=== PATIENT | male | born 1940 | race Hispanic/Latino ===

== ENCOUNTER 2017-12-30 11:16 | Emergency (ER) | payer OTHER ==
--- OUTSIDE RECORDS SUMMARY | 2017-12-30 11:18 | XMS REPORT | Clinical Summary ---
:1940 Author Organization [facility] Address [address] [place] [address] Care Team Providers Name Role Phone Jonel Comer MD Primary Care Provider Allergies Active Allergy Reactions Severity Noted Date Comments Iodine And Iodide Containing Products Hives Medium 12/15/2017 Current Medications Prescription Sig. Disp. Refills Start Date End Date Status linagliptin Take 1 tablet 30 tablet 3 12/22/2017 Active (TRADJENTA) 5 mg (5 mg total) by 8 tablet mouth daily with breakfast for 30 days. lisinopril Take 1 tablet 60 tablet 3 12/21/2017 Active (PRINIVIL,ZESTRIL) (20 mg total) 8 20 mg tablet by mouth 2 (two) times a day for 30 days. budesonide-formoter Inhale 2 puffs 1 Inhaler 6 12/21/2017 Active ol (SYMBICORT) 2 (two) times a 8 160-4.5 day for 30 mcg/actuation days. Unsure of inhaler dosage atenolol (TENORMIN) Take 1 tablet 30 tablet 3 12/21/2017 Active 50 MG tablet (50 mg total) 8 by mouth daily for 30 days. insulin GLARGINE Inject 10 Units 3 mL 3 12/21/2017 Active (LANTUS) 100 under the skin 8 unit/mL injection nightly for 30 (vial) days. docusate sodium Take 1 capsule 60 capsule 0 12/21/2017 Active (COLACE) 100 MG (100 mg total) 8 capsule by mouth 2 (two) times a day for 30 days. polyethylene glycol Take 17 g by 30 packet 0 12/22/2017 Active (MIRALAX) 17 gram mouth daily for 8 packet 30 days. aspirin (ECOTRIN) Take 1 tablet 100 tablet 3 12/21/2017 Active 81 MG enteric (81 mg total) 8 coated tablet by mouth daily for [address] 1 tablet 90 tablet 12 12/21/2017 Active (NITROSTAT) 0.4 MG (0.4 mg total) 8 SL tablet under the tongue every 5 (five) minutes as needed for chest pain for up to 100 days. glimepiride Take 2 mg by Discontinued (AMARYL) 2 MG mouth daily 8 tablet before breakfast. metFORMIN Take 500 mg by Discontinued (GLUCOPHAGE) 500 mg mouth BID at 8 tablet 0700, 1900. atenolol (TENORMIN) Take 50 mg by Discontinued 50 MG tablet mouth daily. 8 aspirin (ECOTRIN) Take 81 mg by Discontinued 81 MG enteric mouth daily. 8 coated tablet furosemide (LASIX) Take 40 mg by Discontinued 40 mg/4 mL solution mouth daily. 8 oral solution budesonide-formoter Inhale 2 puffs Discontinued ol (SYMBICORT) 2 (two) times a 8 160-4.5 day. Unsure of mcg/actuation dosage inhaler Active Problems Problem Noted Date Atrial fibrillation 12/15/2017 Type 2 diabetes mellitus 12/15/2017 Coronary artery disease involving [place] tribe coronary artery 12/15/2017 Mild intermittent asthma 12/15/2017 Asbestosis 04/17/1992 Encounters Date Type Specialty Care Team Description 12/21/2017 Telephone Cardiology Irina Vang 12/15/2017 - Hospital Encounter Cardiology Yancy Leyva Paroxysmal atrial fibrillation (Primary Dx); 12/21/2017 O. Sr.MD Asbestosis; Type 2 diabetes mellitus with hyperosmolarity without coma, unspecified byproducts supervisor insulin use status; Coronary artery disease involving [place] coronary artery of chick[place]ian tribe heart without angina pectoris; Mild intermittent asthma without complication 12/15/2017 Intake Access N/A after 12/29/2016 Family History Medical History Relation Name Comments Early Father Diabetes Mother Hypertension Mother Relation Name Status Comments Father Mother Social History Tobacco Use Types Packs/Day Years Used Date Former Smoker Cigarettes Started: 1997 Smokeless Tobacco: Never Used Alcohol Use Drinks/Week oz/Week Comments No Sex Assigned at Date Recorded Not on file Last Filed Vital Signs Vital Sign Reading Time Taken Blood Pressure 163/75 12/21/2017 10:59 AM CDT Pulse 68 12/21/2017 10:59 AM CDT Temperature 35.9 C (96.6 F) 12/21/2017 10:59 AM CDT Respiratory Rate 18 12/21/2017 10:59 AM CDT Oxygen Saturation 97% 12/21/2017 10:59 AM CDT Inhaled Oxygen Concentration - - Weight 85.6 kg (188 lb 12.8 oz) 12/20/2017 5:28 AM CDT Height 170.2 cm (5' 7") 12/17/2017 9:17 AM CDT Body Mass Index 29.57 12/20/2017 5:28 AM CDT Plan of Treatment Date Type Specialty Care Team Description 02/06/2018 Office Visit Endocrinology Karime Jade MD [address] [address] Health Maintenance Due Date Last Done Comments DIABETIC FOOT EXAM 1952 DIABETIC RETINAL EYE EXAM 1950 URINE MICROALBUMIN 1952 COLON CANCER SCREENING 1992 SHINGRIX VACCINE (#1) 1992 ZOSTER VACCINE 2002 PNEUMOCOCCAL POLYSACCHARIDE VACCINE AGE 65 AND OVER 2007 PNEUMOCOCCAL-13 2007 INFLUENZA VACCINE 11/15/2017 Implants Implanted Type Area [employer] Lunch Monitor Device Expiration Date Model / Serial Identifier / Lot Lens-11/08/2017 Lens [id number] / Implanted: 11/08/2017 (Quantity not on file) [id number] / Procedures Procedure Name Priority Date/Time Associated Comments Diagnosis POC GLUCOSE Routine 12/21/2017 11:00 Results for this AM CDT procedure are in the results section. POC GLUCOSE Routine 12/21/2017 7:42 Results for this AM CDT procedure are in the results section. POC GLUCOSE Routine 12/20/2017 9:07 Results for this PM CDT procedure are in the results section. POC GLUCOSE Routine 12/20/2017 5:22 Results for this PM CDT procedure are in the results section. POC GLUCOSE Routine 12/20/2017 11:17 Results for this AM CDT procedure are in the results section. POC GLUCOSE Routine 12/20/2017 7:32 Results for this AM CDT procedure are in the results section. HEMOGLOBIN A1C Routine 12/20/2017 5:32 Results for this AM CDT procedure are in the results section. MAGNESIUM LEVEL Routine 12/20/2017 4:00 Results for this AM CDT procedure are in the results section. ZZESTIMATED GFR Routine 12/20/2017 4:00 Results for this AM CDT procedure are in the results section. BASIC METABOLIC PANEL Routine 12/20/2017 4:00 Results for this AM CDT procedure are in the results section. POC GLUCOSE Routine 12/19/2017 9:41 Results for this PM CDT procedure are in the results section. POC GLUCOSE Routine 12/19/2017 5:11 Results for this PM CDT procedure are in the results section. POC GLUCOSE Routine 12/19/2017 11:24 Results for this AM CDT procedure are in the results section. POC GLUCOSE Routine 12/19/2017 7:11 Results for this AM CDT procedure are in the results section. HC COMPLETE BLD COUNT Routine 12/19/2017 6:45 Results for this W/AUTO DIFF AM CDT procedure are in the results section. ZZESTIMATED GFR Routine 12/19/2017 6:18 Results for this AM CDT procedure are in the results section. TROPONIN Routine 12/19/2017 6:18 Results for this AM CDT procedure are in the results section. BASIC METABOLIC PANEL Routine 12/19/2017 6:18 Results for this AM CDT procedure are in the results section. ECG 12-LEAD STAT 12/19/2017 1:37 Results for this AM CDT procedure are in the results section. POC GLUCOSE Routine 12/18/2017 9:30 Results for this PM CDT procedure are in the results section. POC GLUCOSE Routine 12/18/2017 5:17 Results for this PM CDT procedure are in the results section. POC GLUCOSE Routine 12/18/2017 11:28 Results for this AM CDT procedure are in the results section. POC GLUCOSE Routine 12/18/2017 7:17 Results for this AM CDT procedure are in the results section. MAGNESIUM LEVEL Routine 12/18/2017 4:00 Results for this AM CDT procedure are in the results section. ZZESTIMATED GFR Routine 12/18/2017 4:00 Results for this AM CDT procedure are in the results section. BASIC METABOLIC PANEL Routine 12/18/2017 4:00 Results for this AM CDT procedure are in the results section. POC GLUCOSE Routine 12/17/2017 9:16 Results for this PM CDT procedure are in the results section. POC GLUCOSE Routine 12/17/2017 4:42 Results for this PM CDT procedure are in the results section. NM MYOCARDIAL PERFUSION Routine 12/17/2017 11:33 Results for this STRESS ONLY AM CDT procedure are in the results section. POC GLUCOSE Routine 12/17/2017 10:46 Results for this AM CDT procedure are in the results section. CV STRESS TEST NUCLEAR Routine 12/17/2017 9:15 Results for this CARDIO AM CDT procedure are in the results section. POC GLUCOSE Routine 12/17/2017 7:46 Results for this AM CDT procedure are in the results section. ZZESTIMATED GFR Routine 12/17/2017 4:59 Results for this AM CDT procedure are in the results section. BASIC METABOLIC PANEL Routine 12/17/2017 4:59 Results for this AM CDT procedure are in the results section. POC GLUCOSE Routine 12/16/2017 9:42 Results for this PM CDT procedure are in the results section. POC GLUCOSE Routine 12/16/2017 5:09 Results for this PM CDT procedure are in the results section. POC GLUCOSE Routine 12/16/2017 12:12 Results for this PM CDT procedure are in the results section. POC GLUCOSE Routine 12/16/2017 9:01 Results for this AM CDT procedure are in the results section. ECHOCARDIOGRAM 2D Routine 12/16/2017 8:10 Results for this COMPLETE W MMODE AM CDT procedure are in SPECTRAL COLOR DOPPLER the results (77018) section. HEMOGLOBIN A1C Routine 12/16/2017 5:11 Results for this AM CDT procedure are in the results section. HC COMPLETE BLD COUNT Routine 12/16/2017 5:11 Results for this W/AUTO DIFF AM CDT procedure are in the results section. ZZESTIMATED GFR Routine 12/16/2017 4:00 Results for this AM CDT procedure are in the results section. T4, FREE Routine 12/16/2017 4:00 Results for this AM CDT procedure are in the results section. THYROID STIMULATING Routine 12/16/2017 4:00 Results for this HORMONE AM CDT procedure are in the results section. LIPID PANEL Routine 12/16/2017 4:00 Results for this AM CDT procedure are in the results section. BASIC METABOLIC PANEL Routine 12/16/2017 4:00 Results for this AM CDT procedure are in the results section. POC GLUCOSE Routine 12/15/2017 10:06 Results for this PM CDT procedure are in the results section. ECG 12-LEAD Routine 12/15/2017 9:55 Results for this PM CDT procedure are in the results section. CREATINE KINASE, TOTAL Routine 12/15/2017 9:08 Results for this (CPK) PM CDT procedure are in the results section. TROPONIN Routine 12/15/2017 9:08 Results for this PM CDT procedure are in the results section. after 12/29/2016 Results POC glucose (12/21/2017 11:00 AM)Only the most recent of23 resultswithin the time period is included. POC glucose 230 (H) 65 - 99 mg/dL [facility] DEPARTMENT OF PATHOLOGY AND Comment: [employer] [facility] Notified RN Meter ID: [id number] Rope Making Machine Operator: Norris Sanches Performing Organization Address City/State/[facility] Phone Number [facility] DEPARTMENT OF PATHOLOGY AND [address] [place] [address] [employer] [facility] Hemoglobin A1c (12/20/2017 5:32 AM)Only the most recent of2 resultswithin the time period is included. Hemoglobin A1C 8.9 (H) 4.0 - 5.6 % [facility] DEPARTMENT OF PATHOLOGY Comment: AND [employer] [facility] HbA1c cutoffs for diagnosing diabetes: 4.0% - 5.6%=normal 5.7% - 6.4%=increased risk for diabetes (prediabetes) >=6.5%=diabetes Goals for glycemic control (ADA 2016) < 7.0%Target for non adults with diabetes. More or less stringent targets may be appropriate for individual patients. <7.5% Target for Children and adolescents with type 1 diabetes. Specimen Blood Narrative Performed At added and read back to Rosa Maria Rudolph [facility] DEPARTMENT OF PATHOLOGY AND GENOMIC in A7 12/20/2017 06:25 LMID. MEDICINE Performing Organization Address City/[facility] Facility[facility] Phone Number [facility] DEPARTMENT OF PATHOLOGY AND [address] [place] [address] [employer] [facility] Estimated GFR (12/20/2017 4:00 AM)Only the most recent of5 resultswithin the time period is included. GFR Non Af Amer 49 (A) mL/min/1.73 m2 [facility] DEPARTMENT OF PATHOLOGY AND GENOMIC MEDICINE GFR Af Amer 60 mL/min/1.73 m2 [facility] DEPARTMENT OF Comment: PATHOLOGY AND GENOMIC Chronic kidney disease: <60 mL/min/1.73m2 MEDICINE Kidney failure: <15 mL/min/1.73m2 The estimated GFR is calculated from the IDMS-traceable Modification of Diet in Renal Disease Equation. The accuracy of the calculation is poor when the creatinine is normal. Calculated values >90 mL/min/1.73m2 are not reported. This equation has not been validated in children (<18 years), women, the elderly (>70 years), or ethnic groups other than Caucasians and Americans. Specimen Plasma specimen Narrative Performed At MG added and read back to Rosa Maria Rudolph [facility] DEPARTMENT OF PATHOLOGY AND GENOMIC in A7 12/20/2017 06:25 LMID. MEDICINE Performing Organization Address City/State/Zipcode Phone Number [facility] DEPARTMENT OF PATHOLOGY AND [address] [place], [place] [id number] [facility] Magnesium level (12/20/2017 4:00 AM)Only the most recent of2 resultswithin the time period is included. Magnesium 2.0 1.6 - 2.4 mg/dL [facility] DEPARTMENT OF PATHOLOGY AND GENOMIC MEDICINE Specimen Plasma specimen Narrative Performed At MG added and read back to Rosa Maria [facility] DEPARTMENT OF PATHOLOGY AND GENOMIC in A7 12/20/2017 06:25 LMID. MEDICINE Performing Organization Address City/[facility]/Zipcode Phone Number [facility] DEPARTMENT OF PATHOLOGY AND [address] [place] [id number] [facility] Basic metabolic panel (12/20/2017 4:00 AM)Only the most recent of5 resultswithin the time period is included. Sodium 140 135 - 148 mEq/L [facility] DEPARTMENT OF PATHOLOGY AND GENOMIC MEDICINE Potassium 4.2 3.5 - 5.0 mEq/L [facility] DEPARTMENT OF PATHOLOGY AND GENOMIC MEDICINE Chloride 105 98 - 112 mEq/L [facility] DEPARTMENT OF PATHOLOGY AND GENOMIC MEDICINE CO2 20 (L) 24 - 31 mEq/L [facility] DEPARTMENT OF PATHOLOGY AND GENOMIC MEDICINE Anion gap 15@ANIO 7 - 15 mEq/L [facility] DEPARTMENT OF PATHOLOGY AND GENOMIC MEDICINE BUN 37 (H) 8 - 23 mg/dL [facility] DEPARTMENT OF PATHOLOGY AND GENOMIC MEDICINE Creatinine 1.4 (H) 0.7 - 1.2 mg/dL [facility] DEPARTMENT OF PATHOLOGY AND GENOMIC MEDICINE Glucose 151 (H) 65 - 99 mg/dL [facility] DEPARTMENT OF PATHOLOGY AND GENOMIC MEDICINE Calcium 8.9 8.8 - 10.2 mg/dL [facility] DEPARTMENT OF PATHOLOGY AND GENOMIC MEDICINE Specimen Plasma specimen Narrative Performed At added and read back to Rosa Maria Rudolph [facility] DEPARTMENT OF PATHOLOGY AND GENOMIC in A7 12/20/2017 06:25 LMID. MEDICINE Performing Organization Address City/State/Zipcode Phone Number [facility] DEPARTMENT OF PATHOLOGY AND [address] [place] [address] GENOMIC MEDICINE CBC with platelet and differential (12/19/2017 6:45 AM)Only the most recent of2 resultswithin the time period is included. WBC 7.16 4.50 - 11.00 k/uL [facility] DEPARTMENT OF PATHOLOGY AND GENOMIC MEDICINE RBC 3.75 (L) 4.40 - 6.00 m/uL [facility] DEPARTMENT OF PATHOLOGY AND GENOMIC MEDICINE HGB 11.3 (L) 14.0 - 18.0 g/dL [facility] DEPARTMENT OF PATHOLOGY AND GENOMIC MEDICINE HCT 34.9 (L) 41.0 - 51.0 % [facility] DEPARTMENT OF PATHOLOGY AND GENOMIC MEDICINE MCV 93.1 82.0 - 100.0 fL [facility] DEPARTMENT OF PATHOLOGY AND GENOMIC MEDICINE MCH 30.1 27.0 - 34.0 pg [facility] DEPARTMENT OF PATHOLOGY AND GENOMIC MEDICINE MCHC 32.4 31.0 - 37.0 g/dL [facility] DEPARTMENT OF PATHOLOGY AND GENOMIC MEDICINE RDW - SD 46.5 37.0 - 55.0 fL [facility] DEPARTMENT OF PATHOLOGY AND GENOMIC MEDICINE MPV 11.0 8.8 - 13.2 fL [facility] DEPARTMENT OF PATHOLOGY AND GENOMIC MEDICINE Platelet count 153 150 - 400 k/uL [facility] DEPARTMENT OF PATHOLOGY AND GENOMIC MEDICINE Nucleated RBC 0.00 /100 WBC [facility] DEPARTMENT OF PATHOLOGY AND GENOMIC MEDICINE Neutrophils 68.1 39.0 - 69.0 % [facility] DEPARTMENT OF PATHOLOGY AND GENOMIC MEDICINE Lymphocytes 15.8 (L) 25.0 - 45.0 % [facility] DEPARTMENT OF PATHOLOGY AND GENOMIC MEDICINE Monocytes 9.9 0.0 - 10.0 % [facility] DEPARTMENT OF PATHOLOGY AND GENOMIC MEDICINE Eosinophils 5.0 0.0 - 5.0 % [facility] DEPARTMENT OF PATHOLOGY AND GENOMIC MEDICINE Basophils 0.8 0.0 - 1.0 % [facility] DEPARTMENT OF PATHOLOGY AND GENOMIC MEDICINE Immature granulocytes 0.4Comment: 0.0 - 1.0 % [facility] DEPARTMENT OF "Immature PATHOLOGY AND GENOMIC granulocytes" MEDICINE (promyelocytes, myelocytes, metamyelocytes) Specimen Blood Performing Organization Address City/[facility] Facilitycode Phone Number [facility] DEPARTMENT OF PATHOLOGY AND [address] [place] [address] Troponin (12/19/2017 6:18 AM)Only the most recent of2 resultswithin the time period is included. Troponin <0.30 0.00 - 0.30 ng/mL [facility] DEPARTMENT OF PATHOLOGY Comment: AND GENOMIC MEDICINE 0.30 - 1.49 ng/mlMay indicate increased risk of acute coronary syndrome. >=1.5 ng/mlConsistent with acute myocardial infarction. The diagnostic value of a single normal or non-diagnostic result is questionable.Serial samples at 2-6 hour intervals are required to rule out acute myocardial injury. Specimen Plasma specimen Performing Organization Address [facility] Facilitycosd Phone Number [facility] DEPARTMENT OF PATHOLOGY AND [address] [place] [address] ECG 12 lead (12/19/2017 1:37 AM)Only the most recent of2 resultswithin the time period is included. Ventricular rate 67 [facility] Atrial rate 67 [facility] SC interval 166 [facility] QRSD interval 84 [facility] QT interval 436 [facility] QTC interval 460 [facility] P axis 1 58 [facility] QRS axis 1 51 [facility] T wave axis 193 [facility] MUSE EKG impression Sinus rhythm with premature atrial [facility] MUSE complexes-T wave abnormality, consider inferolateral ischemia-Voltage criteria for left ventricular hypertrophy- Performing Organization Address [facility] Facility[facility] Phone Number [facility] MUSE [address] [place] [address] Cv myocardial perfusion (12/17/2017 11:33 AM) Narrative Performed At [facility] Card[facility] [address] [place] [address] Myocardial Perfusion Imaging Report Stress ECG tracings are available in MUSE, EPIC and CV Web All ECG interpretations are included in this report Pat.Name:ARY HAINES Pat.ID:[id number] .Date: 12/17/2017Refer.MD:YANCY LEYVA MD Exam Time: 11:02:00 AM Study Type:Myocardial Perfusion Imaging Height:67inBSA: 1.93 m2 DOBAge:1940,77YSex: MALE BP:179/74HR: 65 bpm HCT: 36.6 % Nuclear Tech:CARLITO AshbyMT, CARLITO CmMT Pat. Stat.:Inpatient Room:[facility] Nuclear Event ID:[id number] Order ID:[id number] Reason for Study:Chest pain, unspecified* History / Clinical:Coronary artery disease, Diabetes, Family history CAD, Hyperlipidemia, Hypertension, Asthma ROUTINE INHALERS , Tobacco use (including smokeless tobacco) Procedures:Stress only Race: Risk Factors:Diabetes, Cardiovascular Disease, Hyperlipidemia, Hypertension, Smoker Clinical Symptoms:Regadenoson Surgery: K+ 12/16/17,4.3; Troponin 12/15/17,Neg; BUN/ Cr 12/16/17, 20/ 1.1; Medications:Aspirin, Atenolol, Insulin, Lasix, Lovenox SUMMARY: SCINTIGRAPHIC RESULTS Perfusion Defect Size (% LV) 0 % Total 0 % Ischemia 0 % Scar Left Ventricular Perfusion Results There is normal tracer distribution throughout the myocardium during stress. Gated SPECT Results The post-stress left ventricular ejection fraction is 71 % with normal regional wall motion and left ventricular thickening.Left ventricular end-diastolic volume is 118 ml; end-systolic volume is34 ml. The left ventricle is of normal size at stress.The right ventricle is of normal size with normal wall motion. Conclusion Normal regadenoson Tc-99m tetrofosmin myocardial perfusion study. The left ventricular ejection fraction is normal. Comments Patients with a normal stress myocardial perfusion study have a low (< 1%) annual risk of cardiac or nonfatal myocardial infarction. Study Quality/Artifacts The study quality is good. Comparison to Previous Study None available. STRESS: Baseline Vital Signs:Intervention: Regadenoson 0.4mg/5ml IV over 10 seconds followed by radiotracer injection and 5ml saline flush ECG: Normal Sinus Rhythm HR:65 BP:179/74 Stress Test Results: Max HR:85 Target HR: 123 % Target:69 % Max BP:189/80O2 sat:99 % Max RPP: [id number] Symptoms and Complications: Arrhythmias: None Terminated: As per Regadenoson protocol Symptoms:Chest pain, Chest pressure, Dyspnea Signed 12/17/2017 01:32 PM Geri Silva MD Procedure Note Interface, Radiology Results In - 12/17/2017 1:32 PM CDT Nuclear Cardiology and Cardiac CT [address] [place] [address] Myocardial Perfusion Imaging Report Stress ECG tracings are available in [employer], [employer] and [employer] Web All ECG interpretations are included in this report Pat.Name: ARY HAINES Pat.ID: [id number] .Date: 12/17/2017 Refer.MD: YANCY LEYVA MD Exam Time: 11:02:00 AM Study Type:Myocardial Perfusion Imaging Height: 67in BSA: 1.93 m2 Age: 1 1940,77Y Sex: MALE BP: 179/74 HR: 65 bpm HCT: 36.6 % Nuclear Tech:CARLITO AshbyMT, CARLITO CmMT Pat. Stat.:Inpatient Room: [facility] Nuclear Event ID:[id number] Order ID: [id number] Reason for Study:Chest pain, unspecified* History / Clinical:Coronary artery disease, Diabetes, Family history CAD, Hyperlipidemia, Hypertension, Asthma ROUTINE INHALERS , Tobacco use (including smokeless tobacco) Procedures:Stress only Race: Risk Factors:Diabetes, Cardiovascular Disease, Hyperlipidemia, Hypertension, Smoker Clinical Symptoms:Regadenoson Surgery: K+ 12/16/17, 4.3; Troponin 12/15/17, Neg; BUN/ Cr 12/16/17, 20.1; Medications:Aspirin, Atenolol, Insulin, Lasix, Lovenox SUMMARY: SCINTIGRAPHIC RESULTS Perfusion Defect Size (% LV) 0 % Total 0 % Ischemia 0 % Scar Left Ventricular Perfusion Results There is normal tracer distribution throughout the myocardium during stress. Gated SPECT Results The post-stress left ventricular ejection fraction is 71 % with normal regional wall motion and left ventricular thickening. Left ventricular end-diastolic volume is 118 ml; end-systolic volume is 34 ml. The left ventricle is of normal size at stress. The right ventricle is of normal size with normal wall motion. Conclusion Normal regadenoson Tc-99m tetrofosmin myocardial perfusion study. The left ventricular ejection fraction is normal. Comments Patients with a normal stress myocardial perfusion study have a low (< 1%) annual risk of cardiac or nonfatal myocardial infarction. Study Quality/Artifacts The study quality is good. Comparison to Previous Study None available. STRESS: Baseline Vital Signs: Intervention: Regadenoson 0.4mg/5ml IV over 10 seconds followed by radiotracer injection and 5ml saline flush ECG: Normal Sinus Rhythm HR: 65 BP: 179/74 Stress Test Results: Max HR: 85 Target HR: 123 % Target: 69 % Max BP: 189/80 O2 sat: 99 % Max RPP: [id number] Symptoms and Complications: Arrhythmias: None Terminated: As per Regadenoson protocol Symptoms: Chest pain, Chest pressure, Dyspnea Signed 12/17/2017 01:32 PM Geri Silva MD Performing Organization Address City/State/Zipcode Phone Number [facility] [address] [place] [address] Cv ecg exercise stress (nuclear or echo) (12/17/2017 9:15 AM) Resting HR 65 [facility] MUSE Resting BP 179 [facility] MUSE Peak MET Achieved 1.0 [facility] MUSE Protocol Name SANA [facility] MUSE Time in Exercise Phase 00:01:00 [facility] Max Systolic BP 189 [facility] Max Diastolic BP 80 [facility] Max Heart Rate 88 [facility] Max Predicted Heart Rate 145 [facility] MUSE Target HR Formula (220 - Age)*100% H MUSE Test Indication chest pain [facility] MUSE Arrhy During Ex [facility] ECG Interp Before EX [facility] ECG Interp During Ex [facility] Ex Summary Comment [facility] [facility] MUSE Overall HR Response to H MUSE Exercise Overall BP Response To H MUSE Exercise Reason for Termination [facility] MUSE Stress Test Impression -Waveform interpreted in report [facility] MUSE associated with image study. No interpretation is provided as part of this Stress ECG report.-Electronically Signed By Ricardo KHAN, Geri Khan ([id number]), online content editor Kathi Starr ([id number]) on 12/17/2017 2:25:19 PM Performing Organization Address City/State/Zipcode Phone Number [facility] [place] [address] [place] [address] Echocardiogram complete w contrast and 3D if needed (12/16/2017 8:10 AM) Narrative Performed At [facility] Echocardiography Report [address]Name:ARY HAINES Pat.ID:[id number] .Date: 12/16/2017Refer.MD:YANCY LEYVA MD Exam Time: 7:52:00 AMStudy Type:Routine Echo Height:67inWeight: 188lb BSA: 1.97 m2 DOBAge:1940,77Y Sex: MALEBP:167/75 HR:56 bpmSonogrphr: Gina Shahid RDCS, RVT Pat. Stat.:Inpatient Room:[facility] Study Status:Final Echo Event ID:[id number] Order ID:[id number] Reason for Study:Atrial Fibrillation History / Clinical:Coronary Artery Disease, Diabetes, Hyperlipidemia, Hypertension, Shortness of Breath, Stroke Procedures:2D Echo, Colorflow Doppler Race:C SUMMARY: LV EF is normal. RV systolic function is normal. FINDINGS: LV: LV EF is normal. Overall wall motion is normal. Estimated EF is55-59%. RV: RV size is normal. RV systolic function is normal. LA: LA size is severly enlarged. RA: RA size is enlarged. AO: Aortic root diameter is upper limits of normal in size. CHRISTEN: No pericardial effusion. AV: No structural AV abnormalities noted. MV: Mild thickening of the mitral leagelets, mild regurgitation, nostenosis. PV: No structural PV abnormalities noted. TV: No structural TV abnormalities, mild regurgitation, Hyatt: LV relaxation is impaired. LV filling pressure is elevated. Other:Estimated PA systolic pressure is 45 mmHg, assuming a mean RAPof 5 mmHg. MEASUREMENTS: 2D Parasternal [place] LVOT 2.2 cmLA Ds5.2 cm LVIDd4.7 cmIndex2.4 cm/m Ao An2.1 cm LVIDs3.4 cmAo Rtd 3.8 cm Index1.9 cm/m LV%fs 26.6 % LV Gdil447.9 g(122-174) IVSd 1.1 cmLVM Index 95.4 g/m2 LVPWd1.1 cmRWT0.5 LA Sng Plane LA Area 32.7 cm2(8.8-23.4) LA Vol 120.2 ml Index61 ml/m LA LngAx 7.3 cm DOPPLER LVOT Stroke Vol LVOT 2.2 cmLVOT CO5 l/min LVOT TVI22.5 cmLVOT CI2.5 l/m/m2 LVOT Tm407 kbbkIV00 bpm LVOT SV 85.7 ml TV Pressure Gradient TV PkVel 318.2 cm/sTV PG 40.5 mmHg MMODE TAPSE TAPS Dim 1.5 cm Signed 12/16/2017 05:54 PM Geri Silva M.D. Procedure Note Interface, Radiology Results In - 12/16/2017 5:54 PM CDT Echocardiography Report [address] [place] [address] Pat.Name: ARY HAINES Pat.ID: [id number] St.Date: 12/16/2017 Refer.MD: YANCY LEYVA MD Exam Time: 7:52:00 AM Study Type:Routine Echo Height: 67in Weight: 188lb BSA: 1.97 m2 Age: 1 1940,77Y Sex: MALE BP: 167/75 HR: 56 bpm Sonogrphr: Gina Shahid RDCS, RVT Pat. Stat.:Inpatient Room: [facility] Study Status:Final Echo Event ID:[id number] Order ID: [id number] Reason for Study:Atrial Fibrillation History / Clinical:Coronary Artery Disease, Diabetes, Hyperlipidemia, Hypertension, Shortness of Breath, Stroke Procedures:2D Echo, Colorflow Doppler Race: C SUMMARY: LV EF is normal. RV systolic function is normal. FINDINGS: LV: LV EF is normal. Overall wall motion is normal. Estimated EF is 55-59%. RV: RV size is normal. RV systolic function is normal. LA: LA size is severly enlarged. RA: RA size is enlarged. AO: Aortic root diameter is upper limits of normal in size. CHRISTEN: No pericardial effusion. AV: No structural AV abnormalities noted. MV: Mild thickening of the mitral leagelets, mild regurgitation, no stenosis. PV: No structural PV abnormalities noted. TV: No structural TV abnormalities, mild regurgitation, Hyatt: LV relaxation is impaired. LV filling pressure is elevated. Other: Estimated PA systolic pressure is 45 mmHg, assuming a mean RAP of 5 mmHg. MEASUREMENTS: 2D Parasternal [place] LVOT 2.2 cm LA Ds 5.2 cm LVIDd 4.7 cm Index 2.4 cm/m Ao An 2.1 cm LVIDs 3.4 cm Ao Rtd 3.8 cm Index 1.9 cm/m LV%fs 26.6 % LV Mass 187.9 g (122-174) IVSd 1.1 cm LVM Index 95.4 g/m2 LVPWd 1.1 cm RWT 0.5 LA Sng Plane LA Area 32.7 cm2 (8.8-23.4) LA Vol 120.2 ml Index 61 ml/m LA LngAx 7.3 cm DOPPLER LVOT Stroke Vol LVOT 2.2 cm LVOT CO 5 l/min LVOT TVI 22.5 cm LVOT CI 2.5 l/m/m2 LVOT Tm 407 msec HR 58 bpm LVOT SV 85.7 ml TV Pressure Gradient TV PkVel 318.2 cm/s TV PG 40.5 mmHg MMODE TAPSE TAPS Dim 1.5 cm Signed 12/16/2017 05:54 PM Geri Silva M.D. Performing Organization Address [facility]/Zipcode Phone Number [facility] [address] [place] [address] Thyroid stimulating hormone (12/16/2017 4:00 AM) TSH 2.75 0.27 - 4.20 uIU/mL [facility] DEPARTMENT OF PATHOLOGY AND GENOMIC MEDICINE Specimen Plasma specimen Performing Organization Address [facility] Phone Number [facility] DEPARTMENT OF PATHOLOGY AND [address] [place] [id number] GENOMIC MEDICINE T4, free (12/16/2017 4:00 AM) T4, free 1.4 0.9 - 1.7 ng/dL [facility] DEPARTMENT OF PATHOLOGY AND GENOMIC MEDICINE Specimen Plasma specimen Performing Organization Address [facility] Phone Number [facility] DEPARTMENT OF PATHOLOGY AND [address] [place] [id number] GENOMIC MEDICINE Lipid panel (12/16/2017 4:00 AM) Cholesterol 90 <200 mg/dL [facility] DEPARTMENT OF PATHOLOGY AND GENOMIC MEDICINE Triglycerides 152 (H) <150 mg/dL [facility] DEPARTMENT OF PATHOLOGY AND GENOMIC MEDICINE HDL cholesterol 30 (L) >40 mg/dL [facility] DEPARTMENT OF PATHOLOGY AND GENOMIC MEDICINE LDL cholesterol 38Comment: Result <100 mg/dL [facility] DEPARTMENT OF obtained by direct LDL PATHOLOGY AND GENOMIC measurement MEDICINE Lipid panel interpretation SeeBelow [facility] DEPARTMENT OF Comment: PATHOLOGY AND GENOMIC Total Cholesterol (mg/dL) MEDICINE <200 Desirable [id number] >=240High Triglycerides (mg/dL) <150 Normal [id number] 200-499High >=500Very high HDL Cholesterol (mg/dL) <40Low (male) <40Low (female) LDL Cholesterol (mg/dL) <100 Optimal 100-129Near or above optimal [id number]-[id number] 160-189High >=190Very high Risk Catergories that modify LDL goals. Risk CatergoriesLDL goal (mg/dL) CHD and CHD risk equivalent<100 (10-year risk >20%) Multiple (2+) risk factors <130 (10-year risk=<20%) 0-1 risk factors <160 (<10-year risk) Defining levels of lipids in metabolic syndrome Triglycerides>=150 mg/dL HDL Cholesterol Men<40 mg/dL Women<40 mg/dL Non-HDL cholesterol is a second target for therapy in persons with high triglycerides (>=200 mg/dL) Specimen Plasma specimen Performing Organization Address [facility] Phone Number [facility] DEPARTMENT OF PATHOLOGY AND [address] [place] [phone] [facility] Creatine kinase, total (CPK) (12/15/2017 9:08 PM) Creatine kinase 48 39 - 308 U/L [facility] DEPARTMENT OF PATHOLOGY AND GENOMIC MEDICINE Specimen Plasma specimen Performing Organization Address City/State/Zipcode Phone Number [facility] DEPARTMENT OF PATHOLOGY AND [address] [place] [address] GENOMIC MEDICINE after 12/29/2016 Insurance Payer Benefit Plan / Group Subscriber ID Type Phone Address MEDICARE MEDICARE PART A AND B xxxxxxxxxx Medicare [place], [place] [employer] xxxxxxxx Commercial Home: [id number] [facility] [phone] [address]
[2017-12-30 11:57] LABS: Absolute Lymphocytes (CBC) 0.9 K/uL (0.7-4.9); Absolute Monocytes 0.9 K/uL (0.1-1.3); Absolute Neutrophil 8.5 K/uL (1.8-8.0); Basophils % 0.4 % (0-1.3); Eosinophils % 2.3 % (0-4.4); Hematocrit 34.6 % (39.6-49.0); Lymphocytes % 8.1 % (15.3-44.8); MCH 30.7 pg (27.0-35.0); MCV 91.8 fL (80-100); MPV 9.5 fL (7.6-11.3); RBC Red Blood Cell Count 3.77 M/uL (4.33-5.43)
[2017-12-30 12:00] LABS: Protime INR 1.08
--- NOTE | 2017-12-30 12:04 | RAD REPORT ---
EXAM DESCRIPTION: Karen Single View12/30/2017 11:49 am CLINICAL HISTORY: Chest pain COMPARISON: February 2017 FINDINGS: The lungs appear clear of acute infiltrate. The heart is mildly enlarged. Postsurgical changes involve the chest. IMPRESSION: No acute abnormalities displayed
[2017-12-30] MEDS ORDERED: ATROPINE SULF 1 MG/10 ML SYR IV ONE (12:23)
[2017-12-30 12:40] LABS: ALT/SGPT 79 U/L (12-78); AST/SGOT 28 U/L (15-37); Albumin 3.3 g/dL (3.4-5.0); Alkaline Phosphatase 74 U/L (45-117); BUN Blood Urea Nitrogen 34 mg/dL (7-18); Bicarbonate 24 mmol/L (21-32); Bilirubin Direct 0.2 mg/dL (0-0.2); Bilirubin Total 0.5 mg/dL (0.2-1.0); CKMB Creatine Kinase MB 1.2 ng/mL (0.3-3.6); Creatine Phosphokinase 40 U/L (39-308); Glucose Level 202 mg/dL (74-106); Magnesium 2.3 mg/dL (1.8-2.4); NT PRO-BNP 2446 pg/mL (<450); Protein, Total 6.7 g/dL (6.4-8.2); Sodium Level 138 mmol/L (136-145); Troponin (Emerg Dept Use Only) < 0.02 ng/mL (0.0-0.045)
[2017-12-30 12:42] LABS: Potassium 6.4 mmol/L (3.5-5.1)
--- NOTE | 2017-12-30 12:42 | EDPHYS ---
Physician Documentation [facility] Name: Ary Haines Age: 77 yrs Sex: Male : 1940 Arrival Date: 12/30/2017 Time: 11:18 Bed 2 Private MD: ED Physician Jacob Luna HPI: 12/30 11:47 This 77 yrs old Male presents to ER via EMS with complaints of Near Syncope. jr8 11:47 The patient has experienced near-syncope, almost passed out, felt faint, felt generally jr8 weak. Onset: The symptoms/episode began/occurred acutely, today. Duration: This was a single episode. Associated injury: The patient did not suffer any apparent associated injury. Associated signs and symptoms: Pertinent positives: lightheadedness, weakness. It is unknown whether or not the patient has had similar symptoms in the past. The patient has not recently seen a physician. Historical: - Allergies: 11:25 Iodine; ch - Home Meds: 12:41 atenolol 50 mg Oral tab 1 tab once daily [Active]; lisinopril 20 mg Oral tab 2 tabs ch once daily [Active]; Tradjenta 5 mg oral tab 1 tab once daily [Active]; Lantus 100 unit/mL Sub-Q soln [Active]; aspirin 81 mg Oral TbEC 1 tab once daily [Active]; dulera [Active]; - PMHx: 11:25 Diabetes - NIDDM; Hypertension; blockages; ch - PSHx: 14:49 cardiac stents; ch - Immunization history:: Adult Immunizations up to date, Last tetanus immunization: unknown, Pneumococcal vaccine is not up to date, Flu vaccine is not up to date. - Social history:: Smoking status: Patient/guardian denies using tobacco. - Ebola Screening: : Patient negative for fever greater than or equal to 101.5 degrees Fahrenheit, and additional compatible Ebola Virus Disease symptoms Patient denies exposure to infectious person Patient denies travel to an Ebola-affected area in the 21 days before illness onset No symptoms or risks identified at this time. ROS: 11:47 Eyes: Negative for injury, pain, redness, and discharge, ENT: Negative for injury, jr8 pain, and discharge, Neck: Negative for injury, pain, and swelling, Cardiovascular: Negative for chest pain, palpitations, and edema, Respiratory: Negative for shortness of breath, cough, wheezing, and pleuritic chest pain, Back: Negative for injury and pain, MS/Extremity: Negative for injury and deformity, Skin: Negative for injury, rash, and discoloration. 11:47 Abdomen/GI: Positive for abdominal pain, abdominal distension, Negative for nausea, vomiting, and diarrhea, anorexia, dysphagia, hematemesis, black/tarry stool, rectal pain, rectal bleeding, bowel incontinence, flatulence. 11:47 Neuro: Positive for dizziness, near syncope. Exam: 11:47 Eyes: Pupils equal round and reactive to light, extra-ocular motions intact. Lids and jr8 lashes normal. Conjunctiva and sclera are non-icteric and not injected. Cornea within normal limits. Periorbital areas with no swelling, redness, or edema. ENT: Nares patent. No nasal discharge, no septal abnormalities noted. Tympanic membranes are normal and external auditory canals are clear. Oropharynx with no redness, swelling, or masses, exudates, or evidence of obstruction, uvula midline. Mucous membranes moist. Neck: Trachea midline, no thyromegaly or masses palpated, and no cervical lymphadenopathy. Supple, full range of motion without nuchal rigidity, or vertebral point tenderness. No Meningismus. Respiratory: Lungs have equal breath sounds bilaterally, clear to auscultation and percussion. No rales, rhonchi or wheezes noted. No increased work of breathing, no retractions or nasal flaring. Back: No spinal tenderness. No costovertebral tenderness. Full range of motion. Skin: Warm, dry with normal turgor. Normal color with no rashes, no lesions, and no evidence of cellulitis. MS/ Extremity: Pulses equal, no cyanosis. Neurovascular intact. Full, normal range of motion. Neuro: Awake and alert, GCS 15, oriented to person, place, time, and situation. Cranial nerves II-XII grossly intact. Motor strength 5/5 in all extremities. Sensory grossly intact. Cerebellar exam normal. Normal gait. 11:47 Cardiovascular: Rate: bradycardic, Rhythm: regular, Pulses: Pulses are 2+ in right radial artery and left radial artery. Heart sounds: normal, normal S1and S2, no S3 or S4, no murmur, no rub, no gallop, Edema: 2+ edema to level of left midcalf, left ankle, right midcalf and right ankle. 11:47 Abdomen/GI: Inspection: distension, that is mild, Bowel sounds: active, all quadrants, Palpation: soft, in all quadrants, mild abdominal tenderness, in the right upper quadrant and left upper quadrant, mass, is not appreciated, rebound tenderness, is not appreciated, voluntary guarding, is not appreciated, involuntary guarding, is not appreciated, no appreciated organomegaly, Indicators: McBurney's point is not tender, Maria's sign is negative, Liver: no appreciated palpable abnormalities. Vital Signs: 11:19 BP 149 / 61; Pulse 47; Resp 16; Pulse Ox 97% on R/A; la1 11:20 Temp 98.0(TE); Weight 88.45 kg; la1 11:44 BP 121 / 59; Pulse 38; Resp 22; Pulse Ox 96% on R/A; Pain 0/10; ch 12:15 BP 110 / 52; Pulse 31; Resp 14; Pulse Ox 98% on R/A; ch 12:25 BP 125 / 51; Pulse 49; ch 13:07 BP 130 / 55; Pulse 47; Resp 14; Pulse Ox 100% on Nebulizer Mask; Pain 0/10; ch 14:30 BP 180 / 70; Pulse 106; Resp 16; Pulse Ox 98% on R/A; la1 14:38 BP 169 / 72; Pulse 77; Resp 15; Temp 98.4; Pulse Ox 99% on R/A; Pain 00/10; ch 16:46 BP 150 / 69; Pulse 74; Resp 16; Temp 98.8; Pulse Ox 97% on R/A; Pain 0/10; ch MDM: 11:20 Patient medically screened. ca 12:29 Data reviewed: vital signs, nurses notes, lab test result(s), EKG, radiologic studies, jr8 plain films. Data interpreted: Pulse oximetry: on room air is 96 %. Interpretation: normal. Counseling: I had a detailed discussion with the patient and/or guardian regarding: the historical points, exam findings, and any diagnostic results supporting the discharge/admit diagnosis, lab results, radiology results, the need to transfer to another facility, [facility] [place] not [place] the required specialist. ED course: Patients HR dropped to 31 bpm. Atropine was given. Patient now at HR of 50. Has improved since then. Currently trying to transfer to [facility] for symptomatic Bradycardia . 14:08 ED course: Dr. Diaz consulted and has patient admitted to [facility] under Dr. Montez Christopher. 12/30 11:28 Order name: Basic Metabolic Panel; Complete Time: 12:45 12/30 11:28 Order name: CBC with Diff; Complete Time: 12:27 ch 12/30 11:28 Order name: Ckmb; Complete Time: 12:45 12/30 11:28 Order name: CPK; Complete Time: 12:45 12/30 11:28 Order name: LFT's; Complete Time: 12:45 12/30 11:28 Order name: Magnesium; Complete Time: 12:45 12/30 11:28 Order name: NT PRO-BNP; Complete Time: 12:45 12/30 11:28 Order name: PT-INR; Complete Time: 12:27 12/30 11:28 Order name: Ptt, Activated; Complete Time: 12:27 12/30 11:28 Order name: Troponin (emerg Dept Use Only); Complete Time: 12:45 12/30 11:28 Order name: XRAY Chest (1 view); Complete Time: 12:27 12/30 13:05 Order name: TSH; Complete Time: 13:55 12/30 14:08 Order name: XRAY KUB; Complete Time: 15:10 jr8 12/30 15:55 Order name: Urine Dipstick--Ancillary (enter results) ag 12/30 11:28 Order name: EKG; Complete Time: 11:28 12/30 11:28 Order name: Cardiac monitoring; Complete Time: 11:43 12/30 11:28 Order name: EKG - Nurse/Tech; Complete Time: 11:43 12/30 11:28 Order name: IV Saline Lock; Complete Time: 11:43 12/30 11:28 Order name: Labs collected and sent; Complete Time: 11:43 12/30 11:28 Order name: O2 Per Protocol; Complete Time: 11:43 12/30 11:28 Order name: O2 Sat Monitoring; Complete Time: 11:43 ch Administered Medications: 12:20 Drug: Atropine 0.5 mg Route: IVP; Site: right antecubital; ch 13:06 Follow up: Response: No adverse reaction; Marked relief of symptoms ch 13:05 Drug: Insulin Regular Human 10 units {Co-Signature: chivo (Alfonso Medina RN).} Route: IVP; Site: right antecubital; 14:39 Follow up: Response: No adverse reaction; Marked relief of symptoms ch 13:06 Drug: Albuterol 2.5 mg Route: Inhalation; ch 13:06 Drug: Calcium Gluconate 1 grams Route: IVPB; Infused Over: 60 mins; Site: right ch antecubital; 14:40 Follow up: IV Status: Completed infusion; IV Intake: 100ml ch 13:06 Drug: D50W 50 ml Route: IVP; Site: right antecubital; ch 14:40 Follow up: Response: No adverse reaction; Marked relief of symptoms ch 13:06 Drug: Kayexalate 30 grams Route: PO; ch 14:39 Follow up: Response: No adverse reaction; Marked relief of symptoms ch 13:15 Drug: Albuterol 2.5 mg Route: Inhalation; ch 13:35 Drug: Albuterol 2.5 mg Route: Inhalation; ch 14:41 Follow up: Response: No adverse reaction ch 14:42 Follow up: Response: No adverse reaction ch 14:31 Drug: D50W 50 ml Route: IVP; Site: right antecubital; la1 14:41 Follow up: Response: No adverse reaction; Marked relief of symptoms Point of Care Testing: Blood Glucose: 14:30 Blood Glucose: 47 mg/dL; la1 Ranges: Critical Glucose Levels:Adult <50 mg/dl or >400 mg/dl <40 mg/dl or >180 mg/dl Disposition: 12/30/17 12:41 Transfer ordered to [facility]. Diagnosis are Bradycardia, unspecified, Syncope and collapse. - Reason for transfer: Higher level of care. - Accepting physician is Dr. Diaz. - Condition is Stable. - Problem is new. - Symptoms have improved. Addendum: 01/01/2018 08:04 Co-signature as Attending Physician, Jacob Luna MD I agree with the assessment and w a plan of care. Signatures: Dispatcher [employer] EDND Jessica Viveros RN RN Gerard Cervantes PA PA jr8 Attema, Lee, RN RN la1 Appiah, William, MD MD wa Lee Attema RN la1 Corrections: (The following items were deleted from the chart) 12/30 12:41 12:41 12/30/2017 12:41 Transfer ordered to [facility]. Diagnosis is jr8 Bradycardia, unspecified. Reason for transfer: Higher level of care. Accepting physician is Dr. Diaz. Condition is Stable. Problem is new. Symptoms have improved. jr8 16:48 12:41 12/30/2017 12:41 Transfer ordered to [facility]. Diagnosis is ch Bradycardia, unspecified; Syncope and collapse. Reason for transfer: Higher level of care. Accepting physician is Dr. Diaz. Condition is Stable. Problem is new. Symptoms have improved. jr8
--- NOTE | 2017-12-30 12:42 | ER ---
Nurse's Notes [facility] Name: Ary Haines Age: 77 yrs Sex: Male : 1940 Arrival Date: 12/30/2017 Time: 11:18 Bed 2 Private MD: Diagnosis: Bradycardia, unspecified;Syncope and collapse Presentation: 12/30 11:21 Presenting complaint: EMS states: at 09 pt had a near syncopal episode at home, stood ch up after going to the restroom, and then fell to his knees. reports feeling very dizzy and weak, feeling like he cannot take a deep breath in. pt was discharged from [facility] after being there for 6 days. was told he had blockages in trung legs, not clots, and "heart issues". Transition of care: patient was not received from another setting of care. Onset of symptoms was December 30, 2017 at 09:30. Risk Assessment: Do you want to hurt yourself or someone else? Patient reports no desire to harm self or others. Initial Sepsis Screen: Does the patient meet any 2 criteria? No. Patient's initial sepsis screen is negative. Does the patient have a suspected source of infection? No. Patient's initial sepsis screen is negative. Care prior to arrival: None. 11:21 Method Of Arrival: EMS: [facility] 11:21 Acuity: SHIRA 2 ch Triage Assessment: 11:25 General: Appears in no apparent distress. uncomfortable, Behavior is cooperative. Pain: Complains of pain in abdomen. Neuro: Level of Consciousness is awake, alert, obeys commands, Oriented to person, place, time, situation. Historical: - Allergies: 11:25 Iodine; ch - Home Meds: 12:41 atenolol 50 mg Oral tab 1 tab once daily [Active]; lisinopril 20 mg Oral tab 2 tabs once daily [Active]; Tradjenta 5 mg oral tab 1 tab once daily [Active]; Lantus 100 unit/mL Sub-Q soln [Active]; aspirin 81 mg Oral TbEC 1 tab once daily [Active]; dulera [Active]; - PMHx: 11:25 Diabetes - NIDDM; Hypertension; blockages; ch - PSHx: 14:49 cardiac stents; ch - Immunization history:: Adult Immunizations up to date, Last tetanus immunization: unknown, Pneumococcal vaccine is not up to date, Flu vaccine is not up to date. - Social history:: Smoking status: Patient/guardian denies using tobacco. - Ebola Screening: : Patient negative for fever greater than or equal to 101.5 degrees Fahrenheit, and additional compatible Ebola Virus Disease symptoms Patient denies exposure to infectious person Patient denies travel to an Ebola-affected area in the 21 days before illness onset No symptoms or risks identified at this time. Screenin:44 Abuse screen: Denies threats or abuse. Denies injuries from another. Nutritional ch screening: No deficits noted. Tuberculosis screening: No symptoms or risk factors identified. Fall Risk None identified. Assessment: 11:44 General: Appears in no apparent distress. comfortable, Behavior is calm, cooperative, ch appropriate for age. Pain: Denies pain. Cardiovascular: Heart tones S1 S2 present Capillary refill < 3 seconds in bilateral fingers toes Clubbing of nail beds is present Patient's skin is warm and dry. Pulses are all present. Edema is 2+ to left midcalf and right midcalf Rhythm is sinus bradycardia. 12:10 Reassessment: Patient appears in no apparent distress at this time. pt hr is staying ch below 35 for close to one min. Gerard at bedside, repeat EKG performed. long strip run for DR. Luna, at bedside as well. pt given atropine and placed on defib pads as precaution. second IV established. 13:07 Reassessment: Patient appears in no apparent distress at this time. Patient and/or ch family updated on plan of care and expected duration. Pain level reassessed. Patient is alert, oriented x 3, equal unlabored respirations, skin warm/dry/pink. Patient states feeling better. Patient states symptoms have improved. 14:31 Reassessment: No changes from previously documented assessment. pt C/O tremors and la1 chills, BGL checked- 47, ERP notified, Interventions ordered and carried out, pt given sandwich and chips in addition. 14:50 Reassessment: report called to Marian Colon. 16:46 Reassessment: Patient appears in no apparent distress at this time. Patient and/or ch family updated on plan of care and expected duration. Pain level reassessed. Patient is alert, oriented x 3, equal unlabored respirations, skin warm/dry/pink. Patient denies pain at this time. Patient states feeling better. Patient states symptoms have improved. Vital Signs: 11:19 BP 149 / 61; Pulse 47; Resp 16; Pulse Ox 97% on R/A; la1 11:20 Temp 98.0(TE); Weight 88.45 kg; la1 11:44 BP 121 / 59; Pulse 38; Resp 22; Pulse Ox 96% on R/A; Pain 0/10; ch 12:15 BP 110 / 52; Pulse 31; Resp 14; Pulse Ox 98% on R/A; ch 12:25 BP 125 / 51; Pulse 49; ch 13:07 BP 130 / 55; Pulse 47; Resp 14; Pulse Ox 100% on Nebulizer Mask; Pain 0/10; ch 14:30 BP 180 / 70; Pulse 106; Resp 16; Pulse Ox 98% on R/A; la1 14:38 BP 169 / 72; Pulse 77; Resp 15; Temp 98.4; Pulse Ox 99% on R/A; Pain 00/10; ch 16:46 BP 150 / 69; Pulse 74; Resp 16; Temp 98.8; Pulse Ox 97% on R/A; Pain 0/10; ch ED Course: 11:18 Patient arrived in ED. la1 11:20 Jacob Luna MD is Attending Physician. nv 11:21 Jessica Viveros, RAYRAY is Primary Nurse. ch 11:21 Maintain EMS IV. Dressing intact. Good blood return noted. Site clean \\T\\ dry. Gauge \\T\\ la 1 site: 18G RAC. 11:21 EKG done, by ED staff. la1 11:21 Placed in gown. Bed in low position. Call light in reach. bus monitor on. Pulse ox la1 on. NIBP on. 11:24 Triage completed. ch 11:25 Arm band placed on left wrist. Patient placed in an exam room, on a stretcher, on monitoring and evaluation advisor, on pulse oximetry. EKG completed in triage. Results shown to . 11:33 Gerard Cervantes PA is PHCP. jr8 11:44 No provider procedures requiring assistance completed. ch 11:44 Door closed. Noise minimized. Lights dimmed. Warm blanket given. ch 11:45 XRAY Chest (1 view) In Process Unspecified. EDMS 12:22 Inserted saline lock: 20 gauge in left antecubital area, using aseptic technique. Blood ch collected. 14:42 XRAY KUB In Process Unspecified. EDMS 16:46 Patient transferred, IV remains in place. ch Administered Medications: 12:20 Drug: Atropine 0.5 mg Route: IVP; Site: right antecubital; ch 13:06 Follow up: Response: No adverse reaction; Marked relief of symptoms ch 13:05 Drug: Insulin Regular Human 10 units {Co-Signature: la1 (Alfonso Medina RN).} Route: IVP; ch Site: right antecubital; 14:39 Follow up: Response: No adverse reaction; Marked relief of symptoms ch 13:06 Drug: Albuterol 2.5 mg Route: Inhalation; ch 13:06 Drug: Calcium Gluconate 1 grams Route: IVPB; Infused Over: 60 mins; Site: right ch antecubital; 14:40 Follow up: IV Status: Completed infusion; IV Intake: 100ml ch 13:06 Drug: D50W 50 ml Route: IVP; Site: right antecubital; ch 14:40 Follow up: Response: No adverse reaction; Marked relief of symptoms ch 13:06 Drug: Kayexalate 30 grams Route: PO; ch 14:39 Follow up: Response: No adverse reaction; Marked relief of symptoms ch 13:15 Drug: Albuterol 2.5 mg Route: Inhalation; ch 13:35 Drug: Albuterol 2.5 mg Route: Inhalation; ch 14:41 Follow up: Response: No adverse reaction ch 14:42 Follow up: Response: No adverse reaction ch 14:31 Drug: D50W 50 ml Route: IVP; Site: right antecubital; la1 14:41 Follow up: Response: No adverse reaction; Marked relief of symptoms ch Point of Care Testing: Blood Glucose: 14:30 Blood Glucose: 47 mg/dL; la1 Ranges: Intake: 14:40 IV: 100ml; Total: 100ml. ch Outcome: 12:41 ER care complete, transfer ordered by MD. costello 16:46 Transferred by ground EMS to [facility], Transfer form completed. X-rays ch sent w/ patient. 16:46 Condition: stable 16:46 Instructed on the need for transfer. 16:48 Patient left the ED. ch Signatures: Dispatcher [employer] EDMS Viveros, Jessica, RN RN Gerard Cervantes PA PA jr8 Alfonso Medina RN RN la1 Jacob Luna MD MD wa Lee Attema RN la1 Corrections: (The following items were deleted from the chart) 11:25 11:21 Acuity: SHIRA 3 [facility]
[2017-12-30] MEDS ORDERED: ALBUTEROL 2.5 MG/3 ML NEB SOL ONE (12:53)
[2017-12-30] MEDS ORDERED: SOD POLYSTYREN SUL 15 GM/60 ML UCUP ONE (12:53)
[2017-12-30] MEDS ORDERED: INSULIN -REGULAR HUMAN 50 UNIT/0.5 ML ML ONE (12:53)
[2017-12-30] MEDS ORDERED: D50W 25 GM/50 ML SYRINGE IV ONE ×2 (12:54→14:31)
[2017-12-30] MEDS ORDERED: CALCIUM GLUCONATE 1gm/100 ML NS (4.65 mEq/100mL) IV ONE ×2 (13:00)
--- NOTE | 2017-12-30 15:04 | RAD REPORT ---
EXAM DESCRIPTION: RAD - Abdomen 1 View (KUB) - 12/30/2017 2:42 pm CLINICAL HISTORY: Abdomen pain. FINDINGS: The bowel gas pattern is unremarkable. No significant abnormal calcification is displayed
[2017-12-30 17:02] VITALS: BP 150/69; TEMP 98.8; O2SAT 97
[2017-12-30 17:14] LABS: Urine Blood NEGATIVE (NEG); Urine Glucose TRACE (NEG); Urine Protein 1+ (NEG); Urine pH 5.5 (5.0-7.0)
--- NOTE | 2018-01-01 06:57 | EKG ---
Test Date: 2017-12-30 Test Time: 11:20:00 Plaster Foreman: OSKAR MEASUREMENT RESULTS: Intervals: Rate: 45 CA: 166 QRSD: 98 QT: 492 QTc: 425 [place]: P: 66 CA: 166 QRS: 64 T: 107 INTERPRETIVE STATEMENTS: Sinus bradycardia Nonspecific T wave abnormality Abnormal ECG Compared to ECG 03/16/2017 15:51:50 Myocardial infarct finding no longer present Possible ischemia no longer present T-wave abnormality still present Electronically Signed On 01-01-18 06:51:51 CDT by Axel Moreno
--- NOTE | 2018-01-01 19:28 | EKG ---
Test Date: 2017-12-30 Test Time: 12:18:31 Hop Strainer: MEASUREMENT RESULTS: Intervals: Rate: 31 NH: 192 QRSD: 112 QT: 532 QTc: 382 [place]: P: 57 NH: 192 QRS: 72 T: 138 INTERPRETIVE STATEMENTS: Marked sinus bradycardia with sinus arrhythmia Septal infarct, age undetermined Abnormal ECG Compared to ECG 12/30/2017 11:20:00 Myocardial infarct finding now present T-wave abnormality no longer present Electronically Signed On 01-01-18 19:24:39 CDT by Axel Moreno
== END 2017-12-30 16:48 | disposition short-term general hospital (02) ==
LOC: ER 11:16
DX: R00.1 Bradycardia, unspecified (principal); Z88.8 Allergy status to other drugs, medicaments and biological substances
CPT/HCPCS: 36415; 71045; 74018; 80048; 80076; 81003; 82550; 82553; 83735; 83880; 84443; 84484; 85025; 85610; 85730; 93005; J0610; 82962; 96365; 96366; 96375; 99285

== ENCOUNTER 2018-05-14 16:46 | Inpatient (IN) | payer OTHER ==
--- OUTSIDE RECORDS SUMMARY | 2018-05-14 17:46 | XMS REPORT | Clinical Summary ---
:1940 Author Organization [facility] Address [address] [place] [address] Care Team Providers Name Role Phone Jonel Comer MD Primary Care Provider Allergies Active Allergy Reactions Severity Noted Date Comments Iodine And Iodide Containing Products Hives Medium 12/15/2017 Medications Medication Sig Dispensed Refills Start Date End Date Status predniSONE Take 20 mg by 0 Active (DELTASONE) 20 mg mouth daily. X tablet 3 days cimetidine Take 400 mg by 0 Active (TAGAMET) 400 MG mouth daily. X tablet 3 days hydrOXYzine Take 25 mg by 0 Active (ATARAX) 25 MG mouth daily. X tablet 3 days amLODIPine 0 03/22/2017 Active (NORVASC) 10 mg tablet mometasone-formoter Inhale 2 puffs 0 Active ol (DULERA) 100-5 2 (two) times a mcg/actuation day. inhaler sitaGLIPtin Take 1 tablet 30 tablet 3 02/06/2018 Active (JANUVIA) 25 MG (25 mg total) 9 tablet by mouth daily. blood sugar Test glucose at 30 strip 3 02/06/2018 Active diagnostic strips least once (ACCU-CHEK CHEMO daily PLUS TEST STRP) strip test strips blood sugar Please check 200 strip 6 02/19/2018 Active diagnostic strips blood sugar (ACCU-CHEK CHEMO) before meals strip test and at bedtime, stripsIndications: at least three Type 2 diabetes times daily mellitus with other diabetic kidney complication, with long-term current use of insulin (HCC) pen needle, 12 Units 30 each 3 02/19/2018 Active diabetic (PEN nightly. Use NEEDLE) 32 gauge x with insulin " needle glargine as ordered lancets (onetouch Check your 60 each 5 02/19/2018 Active ultrasoft) [facility] blood sugar before meals and at bedtime, at least three times daily blood-glucose meter Please check 1 each 0 02/20/2018 Active kitIndications: glucose before 9 Type 2 diabetes meals and at mellitus with other bedtime diabetic kidney complication, with long-term current use of insulin (HCC) furosemide (LASIX) Take 20 mg by 0 Active 20 mg tablet mouth daily. aspirin 81 mg Chew 81 mg. 0 Active chewable tablet atorvastatin 0 04/14/2018 Active (LIPITOR) 40 MG tablet clopidogrel 0 04/14/2018 Active (PLAVIX) 75 mg tablet insulin GLARGINE Inject 14 Units 3 mL 05/08/2018 Active (LANTUS SOLOSTAR) under the skin 0 100 unit/mL nightly. injection (pen) glimepiride Take 2 mg by 0 Discontinued (AMARYL) 2 MG mouth daily 8 tablet before breakfast. metFORMIN Take 500 mg by 0 Discontinued (GLUCOPHAGE) 500 mg mouth BID at 8 tablet 0700, 1900. atenolol (TENORMIN) Take 50 mg by 0 Discontinued 50 MG tablet mouth daily. 8 aspirin (ECOTRIN) Take 81 mg by 0 Discontinued 81 MG enteric mouth daily. 8 coated tablet furosemide (LASIX) Take 40 mg by 0 Discontinued 40 mg/4 mL solution mouth daily. 8 oral solution budesonide-formoter Inhale 2 puffs 0 Discontinued ol (SYMBICORT) 2 (two) times a 8 160-4.5 day. Unsure of mcg/actuation dosage inhaler linagliptin Take 1 tablet 30 tablet 3 12/22/2017 (TRADJENTA) 5 mg (5 mg total) by 8 tablet mouth daily with breakfast for 30 days. lisinopril Take 1 tablet 60 tablet 3 12/21/2017 Discontinued (PRINIVIL,ZESTRIL) (20 mg total) 8 20 mg tablet by mouth 2 (two) times a day for 30 days. budesonide-formoter Inhale 2 puffs 1 Inhaler 6 12/21/2017 ol (SYMBICORT) 2 (two) times a 8 160-4.5 day for 30 mcg/actuation days. Unsure of inhaler dosage atenolol (TENORMIN) Take 1 tablet 30 tablet 3 12/21/2017 Discontinued 50 MG tablet (50 mg total) 8 by mouth daily for 30 days. insulin GLARGINE Inject 10 Units 3 mL 3 12/21/2017 (LANTUS) 100 under the skin 8 unit/mL injection nightly for 30 (vial) days. docusate sodium Take 1 capsule 60 capsule 0 12/21/2017 (COLACE) 100 MG (100 mg total) 8 capsule by mouth 2 (two) times a day for 30 days. polyethylene glycol Take 17 g by 30 packet 0 12/22/2017 (MIRALAX) 17 gram mouth daily for 8 packet 30 days. aspirin (ECOTRIN) Take 1 tablet 100 tablet 3 12/21/2017 81 MG enteric (81 mg total) 8 coated tablet by mouth daily for [address] 1 tablet 90 tablet 12 12/21/2017 Discontinued (NITROSTAT) 0.4 MG (0.4 mg total) 8 SL tablet under the tongue every 5 (five) minutes as needed for chest pain for up to 100 days. benzonatate Take 1 capsule 60 capsule 0 01/03/2018 (TESSALON) 100 MG (100 mg total) 8 capsule by mouth every 6 (six) hours as needed for cough for up to 30 days. amLODIPine Take 1 tablet 30 tablet 3 01/04/2018 (NORVASC) 10 mg (10 mg total) 8 tablet by mouth daily for 30 days. furosemide (LASIX) 20 mg daily. 0 12/12/2017 Discontinued 40 mg tablet 8 LANTUS SOLOSTAR 0 01/16/2018 Discontinued U-100 INSULIN 100 8 unit/mL injection (pen) linagliptin Take 5 mg by 0 Discontinued (TRADJENTA) 5 mg mouth daily 8 tablet with breakfast. insulin GLARGINE Inject 12 Units 3 mL 11 02/06/2018 Discontinued (LANTUS SOLOSTAR) under the skin 9 100 unit/mL nightly. injection (pen) lancets (onetouch PRN 60 each 5 02/06/2018 Discontinued ultrasoft) misc 8 pen needle, 12 Units 30 each 3 02/06/2018 Discontinued diabetic (PEN nightly. 8 NEEDLE) 32 gauge x 5/32" needle blood sugar TAKE ONE STRIP 200 strip 6 02/08/2018 Discontinued diagnostic strips THREE TIMES 8 (ACCU-CHEK CHEMO) DAILY strip test stripsIndications: Type 2 diabetes mellitus with other diabetic kidney complication, with long-term current use of insulin ([facility]) blood-glucose meter Use as 1 each 0 02/08/2018 Discontinued kitIndications: instructed 8 Type 2 diabetes mellitus with other diabetic kidney complication, with long-term current use of insulin ([facility]) atorvastatin Take 1 tablet 30 tablet 3 03/01/2018 (LIPITOR) 40 MG (40 mg total) 8 tablet by mouth nightly for 30 days. clopidogrel Take 1 tablet 30 tablet 3 03/02/2018 (PLAVIX) 75 mg (75 mg total) 8 tablet by mouth daily for 30 days. Active Problems Problem Noted Date Mixed hyperlipidemia 05/08/2018 Peripheral vascular disease 02/28/2018 Stage 3 chronic kidney disease 02/06/2018 Essential hypertension 12/31/2017 Syncope 12/30/2017 Atrial fibrillation 12/15/2017 Type 2 diabetes, controlled, with neuropathy 12/15/2017 Coronary artery disease involving teller coronary artery 12/15/2017 Mild intermittent asthma 12/15/2017 Asbestosis 04/17/1992 Encounters Date Type Specialty Care Team Description 05/08/2018 Lab Lab Patham, Type 2 diabetesMarii MD controlled, with neuropathy (HCC) 05/08/2018 Office Visit Endocrinology Karime Jade, Type 2 diabetes, controlled, with neuropathy (HCC) (Primary Dx); Stage 3 chronic kidney disease (HCC); Essential hypertension; Mixed hyperlipidemia 02/28/2018 Surgery Procedural Attar, CV AORTAGRAM ABDOMEN Cardiology MD Rhett WITH RUN OFF [09662 (CPT)] 02/28/2018 - Hospital Cardiology [place], Coronary artery disease involving teller coronary artery without angina pectoris, unspecified whether teller or transplanted heart (Primary Dx); 03/01/2018 Encounter MD Rhett Type 2 diabetes mellitus with ketoacidosis without coma, unspecified whether terminal make up operator insulin use (HCC); Ashwin, Coronary artery disease involving teller coronary artery of teller heart, angina presence unspecified; Yancy O. , Essential hypertension; Stage 3 chronic kidney disease (HCC); Peripheral vascular disease (HCC); Mild intermittent asthma without complication 02/20/2018 Orders Only Endocrinology Karime Jade, Type 2 diabetes MD mellitus with other diabetic kidney complication, with long-term current use of insulin (HCC) 02/19/2018 Orders Only Endocrinology Karime Jade Type 2 diabetes MD mellitus with other diabetic kidney complication, with long-term current use of insulin (HCC) 02/16/2018 Orders Only Endocrinology Karime Jade MD 02/08/2018 Orders Only Internal Medicine Maria Luisa Alejandre, Type 2 diabetes MA mellitus with other diabetic kidney complication, with long-term current use of insulin (HCC) (Primary Dx) 02/06/2018 Office Visit Endocrinology Karime Jade, Essential hypertension (Primary Dx); Coronary artery disease involving teller coronary artery of teller heart without angina pectoris; Type 2 diabetes mellitus with other diabetic kidney complication, with long-term current use of insulin (HCC); Stage 3 chronic kidney disease (HCC) 01/10/2018 Hospital Procedural Attar, PVD (peripheral Encounter Cardiology MD Rhett vascular disease) 12/30/2017 - Hospital Cardiology Ashwin, Syncope, unspecified syncope type (Primary Dx); 01/03/2018 Encounter Yancy O. SrYvette, Type 2 diabetes mellitus with hyperosmolarity without coma, without long-term current use of insulin; Coronary artery disease involving teller coronary artery of teller heart without angina pectoris; Mild intermittent asthma without complication; Essential hypertension 12/30/2017 Intake Access N/A 12/21/2017 Telephone Cardiology Irina Vang 12/15/2017 - Hospital Cardiology [place], Paroxysmal atrial fibrillation ( Primary Dx); 12/21/2017 Encounter Yancy Garcia Sr., Asbestosis; Type 2 diabetes mellitus with hyperosmolarity without coma, unspecified [facility] insulin use status; Coronary artery disease involving teller coronary artery of teller heart without angina pectoris; Mild intermittent asthma without complication 12/15/2017 Intake Access N/A after 05/13/2017 Immunizations Name Dates Previously Given Next Due FLUCELVAX QUAD PF (0.5mL syringe) 01/03/2018 Family History Medical History Relation Name Comments Early Father Diabetes Mother Hypertension Mother Relation Name Status Comments Father Mother Social History Tobacco Use Types Packs/Day Years Used Date Never Smoker Cigarettes Started: 1997 Smokeless Tobacco: Never Used Alcohol Use Drinks/Week oz/Week Comments Yes rare Sex Assigned at Date Recorded Not on file Job Start Date Occupation Industry Not on file Not on file Not on file Travel History Travel Start Travel End No recent travel history available. Last Filed Vital Signs Vital Sign Reading Time Taken Blood Pressure 137/66 05/08/2018 11:37 AM PRESS ASSISTANT Pulse 64 05/08/2018 11:37 AM PRESS ASSISTANT Temperature 36.8 C (98.2 F) 05/08/2018 11:37 AM PRESS ASSISTANT Respiratory Rate 17 03/01/2018 11:40 AM PRESS ASSISTANT Oxygen Saturation 97% 05/08/2018 11:37 AM PRESS ASSISTANT Inhaled Oxygen Concentration - - Weight 82.1 kg (181 lb) 05/08/2018 11:37 AM PRESS ASSISTANT Height 170.2 cm (5' 7") 05/08/2018 11:37 AM PRESS ASSISTANT Body Mass Index 28.35 05/08/2018 11:37 AM PRESS ASSISTANT Plan of Treatment Date Type Specialty Care Team Description 09/18/2018 Office Visit Endocrinology [place]ime Jade [place] [address] [address] Health Maintenance Due Date Last Done Comments DIABETIC RETINAL EYE EXAM 1942 DIABETIC FOOT EXAM 1952 SHINGLES VACCINES (1 of 2) 1992 PNEUMOCOCCAL POLYSACCHARIDE VACCINE AGE 65 AND OVER 2007 PNEUMOCOCCAL-13 2007 INFLUENZA VACCINE Completed 01/03/2018 Implants Implanted Type Area Aircraft Engineer Device Shelf Expiration Model / Serial Identifier Date / Lot Lens-11/08/2017 Lens [id number] / Implanted: 11/08/2017 (Quantity not on file) [id number] / Artificial Lense Procedures Procedure Name Priority Date/Time Associated Diagnosis Comments HEMOGLOBIN A1C Routine 05/08/2018 12:02 Type 2 diabetes, Results for this PM PRESS ASSISTANT controlled, 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 POC GLUCOSE Routine 03/01/2018 11:41 Results for this AM PRESS ASSISTANT procedure are in the results section. POC GLUCOSE Routine 03/01/2018 8:14 Results for this AM PRESS ASSISTANT procedure are in the results section. HEMOGLOBIN A1C Routine 03/01/2018 4:15 Results for this AM PRESS ASSISTANT procedure are in the results section. CBC WITH PLATELET AND Routine 03/01/2018 4:15 Results for this DIFFERENTIAL AM PRESS ASSISTANT procedure are in the results section. ESTIMATED GFR Routine 03/01/2018 4:00 Results for this AM PRESS ASSISTANT procedure are in the results section. T4, FREE Routine 03/01/2018 4:00 Results for this AM PRESS ASSISTANT procedure are in the results section. THYROID STIMULATING Routine 03/01/2018 4:00 Results for this HORMONE AM PRESS ASSISTANT procedure are in the results section. LIPID PANEL Routine 03/01/2018 4:00 Results for this AM PRESS ASSISTANT procedure are in the results section. BASIC METABOLIC PANEL Routine 03/01/2018 4:00 Results for this AM PRESS ASSISTANT procedure are in the results section. POC GLUCOSE Routine 02/28/2018 9:44 Results for this PM PRESS ASSISTANT procedure are in the results section. ACTIVATED CLOTTING Routine 02/28/2018 6:54 Results for this TIME PM PRESS ASSISTANT procedure are in the results section. POC GLUCOSE Routine 02/28/2018 6:49 Results for this PM PRESS ASSISTANT procedure are in the results section. AORTAGRAM ABDOMEN WITH Routine 02/28/2018 6:16 Coronary artery Results for this RUN OFF PM PRESS ASSISTANT disease involving procedure are in teller coronary the results artery without section. angina pectoris, unspecified whether teller or transplanted heart ACTIVATED CLOTTING Routine 02/28/2018 5:57 Results for this TIME PM PRESS ASSISTANT procedure are in the results section. ACTIVATED CLOTTING Routine 02/28/2018 5:46 Results for this TIME PM PRESS ASSISTANT procedure are in the results section. HC COMPLETE BLD COUNT STAT 02/28/2018 12:15 Results for this W/AUTO DIFF PM PRESS ASSISTANT procedure are in the results section. POC GLUCOSE Routine 02/28/2018 11:57 Results for this AM PRESS ASSISTANT procedure are in the results section. ESTIMATED GFR STAT 02/28/2018 11:51 Results for this AM PRESS ASSISTANT procedure are in the results section. BASIC METABOLIC PANEL STAT 02/28/2018 11:51 Results for this AM PRESS ASSISTANT procedure are in the results section. ECG PRE/POST OP Routine 01/10/2018 3:00 Results for this PM CDT procedure are in the results section. ESTIMATED GFR STAT 01/10/2018 2:12 Results for this PM CDT procedure are in the results section. BASIC METABOLIC PANEL STAT 01/10/2018 2:12 Results for this PM CDT procedure are in the results section. POC GLUCOSE Routine 01/10/2018 2:10 Results for this PM CDT procedure are in the results section. POC GLUCOSE Routine 01/03/2018 8:29 Results for this AM CDT procedure are in the results section. POC GLUCOSE Routine 01/02/2018 9:06 Results for this PM CDT procedure are in the results section. POC GLUCOSE Routine 01/02/2018 5:41 Results for this PM CDT procedure are in the results section. POC GLUCOSE Routine 01/02/2018 11:58 Results for this AM CDT procedure are in the results section. HC COMPLETE BLD COUNT Routine 01/02/2018 5:30 Results for this W/AUTO DIFF AM CDT procedure are in the results section. ESTIMATED GFR Routine 01/02/2018 4:00 Results for this AM CDT procedure are in the results section. BASIC METABOLIC PANEL Routine 01/02/2018 4:00 Results for this AM CDT procedure are in the results section. POC GLUCOSE Routine 01/01/2018 8:27 Results for this PM CDT procedure are in the results section. POC GLUCOSE Routine 01/01/2018 6:10 Results for this PM CDT procedure are in the results section. POC GLUCOSE Routine 01/01/2018 12:12 Results for this PM CDT procedure are in the results section. US CAROTID DUPLEX Routine 01/01/2018 8:00 Results for this BILATERAL AM CDT procedure are in the results section. ESTIMATED GFR Routine 01/01/2018 5:19 Results for this AM CDT procedure are in the results section. BASIC METABOLIC PANEL Routine 01/01/2018 5:19 Results for this AM CDT procedure are in the results section. HC COMPLETE BLD COUNT Routine 01/01/2018 5:19 Results for this W/AUTO DIFF AM CDT procedure are in the results section. POC GLUCOSE Routine 12/31/2017 8:58 Results for this PM CDT procedure are in the results section. POC GLUCOSE Routine 12/31/2017 5:28 Results for this PM CDT procedure are in the results section. POC GLUCOSE Routine 12/31/2017 11:44 Results for this AM CDT procedure are in the results section. CT HEAD WO CONTRAST Routine 12/31/2017 10:30 Results for this AM CDT procedure are in the results section. POC GLUCOSE Routine 12/31/2017 7:51 Results for this AM CDT procedure are in the results section. ESTIMATED GFR Routine 12/31/2017 5:29 Results for this AM CDT procedure are in the results section. T4, FREE Routine 12/31/2017 5:29 Results for this AM CDT procedure are in the results section. THYROID STIMULATING Routine 12/31/2017 5:29 Results for this HORMONE AM CDT procedure are in the results section. LIPID PANEL Routine 12/31/2017 5:29 Results for this AM CDT procedure are in the results section. BASIC METABOLIC PANEL Routine 12/31/2017 5:29 Results for this AM CDT procedure are in the results section. HC COMPLETE BLD COUNT Routine 12/31/2017 5:29 Results for this W/AUTO DIFF AM CDT procedure are in the results section. TROPONIN Routine 12/31/2017 5:29 Results for this AM CDT procedure are in the results section. POC GLUCOSE Routine 12/30/2017 8:52 Results for this PM CDT procedure are in the results section. POC GLUCOSE Routine 12/21/2017 11:00 Results for [...] are in the results section. NM MYOCARDIAL Routine 12/17/2017 11:33 Results for this PERFUSION STRESS ONLY AM CDT procedure are in [...] are in SPECTRAL COLOR DOPPLER the results (59357) section. HEMOGLOBIN A1C Routine 12/16/2017 5:11 Results [...] procedure are in the results section. after 05/13/2017 Results Hemoglobin A1c (05/08/2018 12:02 PM PRESS ASSISTANT)Only the most recent of4 resultswithin the time period is included. Hemoglobin A1C 7.7 (H) <5.7 % of total [facility] Comment: Hgb [place] For someone without known diabetes, a hemoglobin A1c value of 6.5% or greater indicates that they may have diabetes and this should be confirmed with a follow-up test. For someone with known diabetes, a value <7% indicates that their diabetes is well controlled and a value greater than or equal to 7% indicates suboptimal control. A1c targets should be individualized based on duration of diabetes, age, comorbid conditions, and other considerations. Currently, no consensus exists regarding use of hemoglobin A1c for diagnosis of diabetes for children. Specimen Blood Resulting Agency Comment Performing Organization Information: Site ID: [id number] Name: [facility] Address: [address] [place] [id number] Director: Gabriela Boothe Performing Organization Address City/State/Zipcode Phone [place] [address] POC glucose (03/01/2018 11:41 AM PRESS ASSISTANT)Only the most recent of41 resultswithin the time period is included. POC glucose 137 (H) 65 - 99 mg/dL [facility] Comment: [facility] Notified RN Meter ID: [id number] Roll Wrapper: Joel Delvalle Performing Organization Address City/State/Zipcode Phone Number [facility] DEPARTMENT OF PATHOLOGY AND [address] [place] [phone] GENOMIC MEDICINE [address] [address] CBC with platelet and differential (03/01/2018 4:15 AM PRESS ASSISTANT)Only the most recent of7 resultswithin the time period is included. WBC 7.95 4.50 - 11.00 k/uL [facility] RBC 3.82 (L) 4.40 - 6.00 m/uL [facility] HGB 11.1 (L) 14.0 - 18.0 g/dL [facility] HCT 34.0 (L) 41.0 - 51.0 % [facility] MCV 89.0 82.0 - 100.0 fL [facility] MCH 29.1 27.0 - 34.0 pg [facility] MCHC 32.6 31.0 - 37.0 g/dL [facility] RDW - SD 41.9 37.0 - 55.0 fL [facility] MPV 10.2 8.8 - 13.2 fL [facility] Platelet count 215 150 - 400 k/uL [facility] Nucleated RBC 0.00 /100 WBC [facility] Neutrophils 67.7 39.0 - 69.0 % [facility] Lymphocytes 16.9 (L) 25.0 - 45.0 % [facility] Monocytes 9.4 0.0 - 10.0 % [facility] Eosinophils 4.7 0.0 - 5.0 % [facility] Basophils 0.8 0.0 - 1.0 % [facility] Immature granulocytes 0.5Comment: "Immature 0.0 - 1.0 % [facility]" [facility] (promyelocytes, myelocytes, metamyelocytes) Specimen Blood Performing Organization Address City/[facility] Cent[facility]ode Phone Number [facility] DEPARTMENT OF PATHOLOGY AND [address] [place] [phone] Estimated GFR (03/01/2018 4:00 AM PRESS ASSISTANT)Only the most recent of6 resultswithin the time period is included. Estimated GFR 68 mL/min/1.73 m2 [facility] Comment: HOSPITAL CatergoryUnitsInterpretation G1 >=90 Normal or high G2 60-89Mildly decreased [id number] to moderately decreased P3y26-11Hxydatviri to severely decreased G4 15-29Severely decreased G5 <15Kidney failure The eGFR was calculated using the Chronic Kidney Disease Epidemiology Collaboration (CKD-EPI) equation. Interpretation is based on recommendations of the National Kidney Foundation-Kidney Disease Outcomes Quality Initiative (NKF-KDOQI) published in 2014. Specimen Plasma specimen Performing Organization Address City/[facility]/Zipcode Phone Number [facility] DEPARTMENT OF PATHOLOGY AND [address] [place] [id number] [address] Thyroid stimulating hormone (03/01/2018 4:00 AM PRESS ASSISTANT)Only the most recent of3 resultswithin the time period is included. TSH 2.91 0.27 - 4.20 uIU/mL [facility] Specimen Plasma specimen Performing Organization Address City/[facility] Phone Number [facility] DEPARTMENT OF PATHOLOGY AND [address] [place] [phone] [place] [phone] T4, free (03/01/2018 4:00 AM PRESS ASSISTANT)Only the most recent of3 resultswithin the time period is included. T4, free 1.1 0.9 - 1.7 ng/dL [facility] Specimen Plasma specimen Performing Organization Address [facility] Phone Number [facility] DEPARTMENT OF PATHOLOGY AND [address] [place] [phone] [place] [id number] Lipid panel (03/01/2018 4:00 AM PRESS ASSISTANT)Only the most recent of3 resultswithin the time period is included. Cholesterol 148 <200 mg/dL [facility] Triglycerides 184 (H) <150 mg/dL [facility] HDL cholesterol 32 (L) >40 mg/dL [facility] LDL cholesterol 87Comment: Result obtained <100 mg/dL [facility] by direct LDL measurement HOSPITAL Lipid panel interpretation SeeBelow [facility] Comment: HOSPITAL Total Cholesterol (mg/dL) <200 Desirable 025-829Nmiysfpeae-nnoq >=240High Triglycerides (mg/dL) <150 Normal 079-892Citwmbdwln-wdfp 200-499High >=500Very high HDL Cholesterol (mg/dL) <40Low (male) <40Low (female) LDL Cholesterol (mg/dL) <100 Optimal 100-129Near or above optimal 304-999Apmqbpibfi-exas 160-189High >=190Very high Risk Catergories that modify [...] mg/dL) Specimen Plasma specimen Performing Organization Address City/[facility] Centercode Phone Number [facility] DEPARTMENT OF PATHOLOGY AND [address] [place] [address] Basic metabolic panel (03/01/2018 4:00 AM PRESS ASSISTANT)Only the most recent of11 resultswithin the time period is included. Sodium 141 135 - 148 mEq/L [facility] Potassium 3.3 (L) 3.5 - 5.0 mEq/L [facility] Chloride 106 98 - 112 mEq/L [facility] CO2 23 (L) 24 - 31 mEq/L [facility] Anion gap 12@ANIO 7 - 15 mEq/L [facility] BUN 20 8 - 23 mg/dL [facility] Creatinine 1.06 0.70 - 1.20 mg/dL [facility] Glucose 131 (H) 65 - 99 mg/dL [facility] Calcium 8.3 (L) 8.8 - 10.2 mg/dL [facility] Specimen Plasma specimen Performing Organization Address [facility] Phone Number [facility] DEPARTMENT OF PATHOLOGY AND [address] [place] [address] Activated clotting time (02/28/2018 6:54 PM PRESS ASSISTANT)Only the most recent of3 resultswithin the time period is included. Activated clotting time 177 (H) 96 - 152 sec [facility] Comment: HOSPITAL Meter ID: [id number] Roll Wrapper: Dakota Roy Performing Organization Address City/[facility]/Zipcode Phone Number [facility] DEPARTMENT OF PATHOLOGY AND [address] [place] [address] Cv invasive peripheral vascular procedure (02/28/2018 6:16 PM PRESS ASSISTANT) Narrative Performed At PREOPERATIVE DIAGNOSIS [facility] 1.Claudication 2.Peripheral Arterial Disease POSTOPERATIVE DIAGNOSIS 1.Claudication 2.Peripheral Arterial Disease PROCEDURES PERFORMED 1.Abdominal Aortogram with runoff 2.Ipsilateral Right Femoral Angiography 3.Contralateral Left Iliac Angiography 4.Percutaneous Angioplasty of left distal popliteal with a 4x40 mm Impact drug coated balloon FIRMWARE MANAGER Dr. Rhett Diaz, Welding Machine Operator Ultrasonic BROADCAST DESIGNER Terrell Dixon, Resident, ANESTHESIA USED Local 2% lidocaine, Conscious Sedation DESCRIPTION OF PROCEDURE The procedure was described to the patient including benefits, risks, and alternatives to the procedure.The patient confirmed understanding and signed the informed consent.The patient was brought to label operator, room 7 of [facility].Patient was prepped and draped in sterile fashion. Conscious sedation provided to patient throughout procedure with appropriate monitoring. The right common femoral artery (EXECUTIVE ASSISTANT TO PRESIDENT) was palpated and the region above the artery was anesthetized with 2% local lidocaine.Using 18-gauge AMC needle and fluoroscopic guidance, arterial access was obtained in the right EXECUTIVE ASSISTANT TO PRESIDENT and a 4F sheath was placed without difficulty. A 4F diagnostic IM was advanced over a Wholey wire to the infrarenal aorta.The wire was removed, the catheter aspirated to ensure no air was in the system and flushed in the usual fashion.A distal abdominal aortogram with runoffs was performed. TheWholey wire was then advanced usingIM to the contralateral left iliac artery. We then performed a diagnostic contralateral left iliac artery angiogram with runoffs. A severe lesion was identified in the distal popliteal. The short sheath was then switched to a6F 60 cm [place] destination sheath over the Wholey wire. The Wholey wire was advanced past the lesion and a 4.0x40 mm Impact DCB was advanced to the lesion in the popliteal which was dilated at 4 amina for 180 seconds.Afterwards there was reduction of stenosis to 10%.The sheath was withdrawn and exchanged for a 7F short sheath. The arterial sheath was aspirated and flushed.Angiography of the EXECUTIVE ASSISTANT TO PRESIDENT was performed without evidence of dissection, thrombus or perforation.Sheath was removed using manual hemostasis The patient was sent to the holding area in stable condition.The patient was hemodynamically stable throughout the entirety of the procedure. DISPOSITION: Return patient to nursing unit and monitor for groin complications. FINDINGS: 1. 70% distal left popliteal stenosis treated with a 4x40 mm DCB 2. Occluded anterior tibials bilaterally 3. Severe stenosis of ostium of left peroneal 4. Moderate tandem stenosis in the proximal left posterior tibial with patency to the foot and intact pedal arch 5. No significant iliac or femoral disease bilaterally EBL: <30 mL CONDITION:Stable COMPLICATIONS: None Performing Organization Address [facility] Center[facility]o Phone Number [facility] [address] [place] [address] ECG Pre/Post Op (01/10/2018 3:00 PM CDT) Ventricular rate 65 [facility] MUSE Atrial rate 65 [facility] MUSE NJ interval 168 [facility] M[facility] QRSD interval 88 [facility] QT interval 436 [facility] QTC interval 453 [facility] P axis 1 63 [facility] QRS axis 1 45 [facility] M[facility] T wave axis 142 [facility] M[facility] EKG impression Normal sinus rhythm-Septal infarct , age undetermined-T wave abnormality, consider lateral ischemia-Abnormal ECG-In automated comparison with ECG of 19-DEC-2017 01:37,-premature atrial complexes are no [facility] MUSE longer present-Nonspecific T wave abnormality has replaced inverted T waves in Inferior leads- Performing Organization Address [facility] Phone Number [facility] ARMIN [address] [phone] Pv carotid duplex (01/01/2018 8:00 AM CDT) Narrative Performed At [facility] Vascular Ultrasound Laboratory Carotid Artery Duplex Report [address] [place] [address] For supplier quality engineer purposes, the categorization of the degree of the stenosis of this exam is based on criteria described in the IAC carotid stenosis grading white paper( www.intersocietal.org/Vascular) and Susan Yung., Hien Tate., et al. Carotid artery stenosis: her-scale and Doppler US diagnosis--Society of Radiologists in Ultrasound Consensus Conference. Radiology. 2003 Nov; 229(2):340-6. Pat.Name:ARY HAINES Pat.ID:[id number] .Date: 01/01/2018 Refer.MD:YANCY LEYVA MD Exam Time: 7:25:00 AMStudy Type:Carotid DOBAge:1940,77YSex: MALE Sonogrphr: Kelley Guan, ROA, RVT Pat. Stat.:[facility]patient [facility] ATapeVol: ED, CPT - 4: 10588 Echo Event ID:[id number] Order ID:[id number] Reason for Study:Syncope History / Clinical:HTN, DM, Syncope Procedures:Colorflow, Grayscale/2D, Pulsed wave Doppler Race:C SUMMARY: PHYSICAL ASSESSMENT BloodPulsesCarotid Pressure Carotid TemporalBruit Right 163/65 ++0 Left 162/66 ++0 CAROTID ARTERY SCAN RIGHT:There is focal hard plaque in the common carotid artery. There is hard and calcifiedplaque noted in the bulb extending into the proximal internal and external carotid artery. Colorflow is disturbed with elevated velocities noted in the proximal internal carotid artery. LEFT: There is focal hard plaque in the common carotid artery. There is hard and calcified plaque noted in the bulb extending into the proximal internal and external carotid artery. Colorflow is normal. PRELIMINARY FINDINGS 1. 50- 69% stenosis in the bulb and right internal carotid artery. 2. <50%stenosis in the bulb and left internal carotid artery. 3. Non-stenotic plaque in the external carotid arterybilaterally. 4. Antegrade vertebral artery flow bilaterally. PHYSICIAN INTERPRETATION Bilateral carotid duplex examination demonstrated atherosclerotic plaques in the bulbs, ICA, and ECA. Less than 50% stenosis in the bulb and internal carotid artery, on left. 50-69% stenosis in the bulb and internal carotid artery, on right. Both vertebral arteries are antegrade. Carotid Findings:RightLeft Verteb.Flw AntegradeAntegrade Subclavian TriphasicTriphasic MEASUREMENTS: DOPPLER Left CCA Dist CCA Dist PSV72.1 cm/sCCA Dist EDV17 cm/s Left CCA Mid CCA Mid PSV 99.7 cm/sCCA Mid EDV 16.4 cm/s Left CCA Prox CCA Prox PSV90.1 cm/sCCA Prox EDV12.3 cm/s Left ICA Dist ICA Dist PSV78.3 cm/Bonilla Dist EDV30.2 cm/s Left ICA Mid ICA Mid PSV 73 cm/Bonilla Mid EDV 24.5 cm/s Left ICA Prox ICA Prox PSV75 cm/Bonilla Prox EDV19.9 cm/s Left ECA Prox ECA Prox PSV 125 cm/sECA Prox EDV9.43 cm/s Left SCA Prox SCA Prox PSV 154 cm/s Left Vertebral Vertebral PSV 86.6 cm/sVertebral EDV 19.2 cm/s Right CCA Dist CCA Dist PSV72.1 cm/sCCA Dist EDV10.6 cm/s Right CCA Mid CCA Mid PSV 93.8 cm/sCCA Mid EDV 13.5 cm/s Right CCA Prox CCA Prox PSV90.9 cm/sCCA Prox EDV10.6 cm/s Right ICA Dist ICA Dist PSV81.9 cm/Bonilla Dist EDV21.1 cm/s Right ICA Mid ICA Mid HOI598 cm/Bonilla Mid EDV 24.4 cm/s Right ICA Prox ICA Prox PSV 184 cm/Bonilla Prox EDV46.2 cm/s Right ECA Prox ECA Prox PSV 111 cm/sECA Prox EDV15.7 cm/s Right SCA Prox SCA Prox PSV 153 cm/s Right Vertebral Vertebral PSV 43.4 cm/sVertebral EDV 10.6 cm/s Right ICA/CCA Ratio ICA/CCA PSV 1.96 Left ICA/CCA Ratio ICA/CCA PSV0.752 Signed 01/01/2018 10:11 AM Filemon Ceja MD, RPVI Procedure Note Interface, Radiology Results In - 01/01/2018 10:12 AM CDT Vascular Ultrasound Laboratory Carotid Artery Duplex Report [address] [address] For supplier quality engineer purposes, the categorization of the degree of the stenosis of this exam is based on criteria described in the IAC carotid stenosis grading white paper( www.intersocietal.org/Vascular) and Susan Yung., Hien Tate., et al. Carotid artery stenosis: her-scale and Doppler US diagnosis--Society of Radiologists in Ultrasound Consensus Conference. Radiology. 2003 Nov; 229(2):340-6. Pat.Name: ARY HAINES Pat.ID: [id number] .Date: 01/01/2018 Refer.MD: YANCY LEYVA MD Exam Time: 7:25:00 AM Study Type:Carotid Age: 1 1940,77Y Sex: MALE Sonogrphr: Kelley Guan RDCS, RVT Pat. Stat.:Inpatient Room: A -740 A Tape Vol: ED, CPT - 4: 90683 Echo Event ID:[id number] Order ID: [id number] Reason for Study:Syncope History / Clinical:HTN, DM, Syncope Procedures:Colorflow, Grayscale/2D, Pulsed wave Doppler Race: C SUMMARY: PHYSICAL ASSESSMENT Blood Pulses Carotid Pressure Carotid Temporal Bruit Right 163/65 + + 0 Left 162/66 + + 0 CAROTID ARTERY SCAN RIGHT: There is focal hard plaque in the common carotid artery. There is hard and calcified plaque noted in the bulb extending into the proximal internal and external carotid artery. Colorflow is disturbed with elevated velocities noted in the proximal internal carotid artery. LEFT: There is focal hard plaque in the common carotid artery. There is hard and calcified plaque noted in the bulb extending into the proximal internal and external carotid artery. Colorflow is normal. PRELIMINARY FINDINGS 1. 50- 69% stenosis in the bulb and right internal carotid artery. 2. <50% stenosis in the bulb and left internal carotid artery. 3. Non-stenotic plaque in the external carotid artery bilaterally. 4. Antegrade vertebral artery flow bilaterally. PHYSICIAN INTERPRETATION Bilateral carotid duplex examination demonstrated atherosclerotic plaques in the bulbs, ICA, and ECA. Less than 50% stenosis in the bulb and internal carotid artery, on left. 50-69% stenosis in the bulb and internal carotid artery, on right. Both vertebral arteries are antegrade. Carotid Findings: Right Left Verteb.Flw Antegrade Antegrade Subclavian Triphasic Triphasic MEASUREMENTS: DOPPLER Left CCA Dist CCA Dist PSV 72.1 cm/s CCA Dist EDV 17 cm/s Left CCA Mid CCA Mid PSV 99.7 cm/s CCA Mid EDV 16.4 cm/s Left CCA Prox CCA Prox PSV 90.1 cm/s CCA Prox EDV 12.3 cm/s Left ICA Dist ICA Dist PSV 78.3 cm/s ICA Dist EDV 30.2 cm/s Left ICA Mid ICA Mid PSV 73 cm/s ICA Mid EDV 24.5 cm/s Left ICA Prox ICA Prox PSV 75 cm/s ICA Prox EDV 19.9 cm/s Left ECA Prox ECA Prox PSV 125 cm/s ECA Prox EDV 9.43 cm/s Left SCA Prox SCA Prox PSV 154 cm/s Left Vertebral Vertebral PSV 86.6 cm/s Vertebral EDV 19.2 cm/s Right CCA Dist CCA Dist PSV 72.1 cm/s CCA Dist EDV 10.6 cm/s Right CCA Mid CCA Mid PSV 93.8 cm/s CCA Mid EDV 13.5 cm/s Right CCA Prox CCA Prox PSV 90.9 cm/s CCA Prox EDV 10.6 cm/s Right ICA Dist ICA Dist PSV 81.9 cm/s ICA Dist EDV 21.1 cm/s Right ICA Mid ICA Mid PSV 119 cm/s ICA Mid EDV 24.4 cm/s Right ICA Prox ICA Prox PSV 184 cm/s ICA Prox EDV 46.2 cm/s Right ECA Prox ECA Prox PSV 111 cm/s ECA Prox EDV 15.7 cm/s Right SCA Prox SCA Prox PSV 153 cm/s Right Vertebral Vertebral PSV 43.4 cm/s Vertebral EDV 10.6 cm/s Right ICA/CCA Ratio ICA/CCA PSV 1.96 Left ICA/CCA Ratio ICA/CCA PSV 0.752 Signed 01/01/2018 10:11 AM Filemon Ceja MD, RPVI Performing Organization Address [facility]/Zipcode Phone Number [facility] [address] [place] [address] CT Head Wo Contrast (12/31/2017 10:30 AM CDT) Narrative Performed At EXAMINATION:CT HEAD WO CONTRAST [facility] COMPARISON:None CLINICAL HISTORY:Syncoperecurrent COMMENTS:Axial noncontrast CT scan slices of the head were obtained. CT imaging was performed with iterative reconstruction technique and/or automated exposure control to reduce radiation dose. FINDINGS:There are polyps or retention cysts in the right maxillary sinus and lateral right sphenoid sinus. There is calcific atherosclerotic change in the arteries at the skull base. The bone windows do not show an acute skull fracture. Small chronic lacunar infarcts identified in the upper left lentiform nucleus and in the anterior right periventricular white matter and in the posterior right thalamus. There is mild involutional change in the brain. IMPRESSION:No acute intracranial hemorrhage or mass effect. [facility]-[id number] Procedure Note Interface, Radiology Results Incoming - 12/31/2017 10:37 AM CDT EXAMINATION: CT HEAD WO CONTRAST COMPARISON: None CLINICAL HISTORY: Syncope recurrent COMMENTS: Axial noncontrast CT scan slices of the head were obtained. CT imaging was performed with iterative reconstruction technique and/or automated exposure control to reduce radiation dose. FINDINGS: There are polyps or retention cysts in the right maxillary sinus and lateral right sphenoid sinus. There is calcific atherosclerotic change in the arteries at the skull base. The bone windows do not show an acute skull fracture. Small chronic lacunar infarcts identified in the upper left lentiform nucleus and in the anterior right periventricular white matter and in the posterior right thalamus. There is mild involutional change in the brain. IMPRESSION: No acute intracranial hemorrhage or mass effect. [facility]-[id number] Performing Organization Address [facility]/Zipcode Phone Number [facility] [address] [place] [address] Troponin (12/31/2017 5:29 AM CDT)Only the most recent of3 resultswithin the time period is included. Troponin <0.30 0.00 - 0.30 ng/mL [facility] DEPARTMENT OF PATHOLOGY Comment: AND GENOMIC MEDICINE 0.30 - 1.49 ng/mlMay indicate increased risk of acute coronary syndrome. >=1.5 ng/mlConsistent with acute myocardial infarction. The diagnostic value of a single normal or non-diagnostic result is questionable.Serial samples at 2-6 hour intervals are required to rule out acute myocardial injury. Specimen Plasma specimen Performing Organization Address City/State/Zipcode Phone Number [facility] DEPARTMENT OF PATHOLOGY AND [address] [place] [address] [employer] [facility] Estimated GFR (12/20/2017 4:00 AM CDT)Only the most recent of5 resultswithin the time period is included. GFR Non Af Amer 49 (A) mL/min/1.73 m2 [facility] DEPARTMENT OF PATHOLOGY AND GENOMIC MEDICINE GFR Af Amer 60 mL/min/1.73 m2 [facility] DEPARTMENT OF Comment: PATHOLOGY AND GENOMIC Chronic [...] and read back to Rosa Maria Rudolph [facility] DEPARTMENT OF PATHOLOGY AND GENOMIC in A7 12/20/2017 06:25 LMID. MEDICINE Performing Organization Address [facility] Phone Number [facility] DEPARTMENT OF PATHOLOGY AND [address] [place], [place] [phone] [facility] Magnesium level (12/20/2017 4:00 AM CDT)Only the most recent of2 resultswithin the time period is included. Magnesium 2.0 1.6 - 2.4 mg/dL [facility] DEPARTMENT OF PATHOLOGY AND GENOMIC MEDICINE Specimen Plasma specimen Narrative Performed At MG added and read back to Rosa Maria Rudolph [facility] DEPARTMENT OF PATHOLOGY AND GENOMIC in A7 12/20/2017 06:25 LMID. MEDICINE Performing Organization Address City/[facility] Centercode Phone Number [facility] DEPARTMENT OF PATHOLOGY AND [address] [place] [address] [employer] [facility] ECG 12 lead (12/19/2017 1:37 AM CDT)Only the most recent of2 resultswithin the time period is included. Ventricular rate 67 [facility] MUSE Atrial rate 67 [facility] MUSE NJ interval 166 [facility] M[facility] QRSD interval 84 [facility] M[facility] QT interval 436 [facility] M[facility] QTC interval 460 [facility] M[facility] P axis 1 58 [facility] MUSE QRS axis 1 51 [facility] MUSE T wave axis 193 [facility] M[facility] EKG impression Sinus rhythm with premature atrial [facility] MUSE complexes-T wave abnormality, consider inferolateral ischemia-Voltage criteria for left ventricular hypertrophy- Performing Organization Address City/State/Zipcode Phone Number [facility] MUSE [address] [place] [address] Cv myocardial perfusion (12/17/2017 11:33 AM CDT) Narrative Performed At [facility] Nuclear Cardiology and Cardiac CT [address] [place] [address] Myocardial Perfusion Imaging Report Stress ECG tracings are available in MUSE, EPIC and CV Web All ECG interpretations are included in this report Pat.Name:ARY HAINES Pat.ID:[id number] .Date: 12/17/2017Refer.MD:YANCY LEYVA MD Exam Time: 11:02:00 AM Study Type:Myocardial Perfusion Imaging Height:67inBSA: 1.93 m2 DOBAge:1940,77YSex: MALE BP:179/74HR: 65 bpm HCT: 36.6 % Nuclear Tech:NADIA Ashby, NADIA Cm Pat. Stat.:Inpatient Room:[facility] Nuclear Event ID:[id number] Order ID:[id number] Reason for Study:Chest pain, unspecified* History / Clinical:Coronary artery disease, Diabetes, Family history CAD, Hyperlipidemia, Hypertension, Asthma ROUTINE INHALERS , Tobacco use (including smokeless tobacco) Procedures:Stress only Race: Risk Factors:Diabetes, Cardiovascular Disease, Hyperlipidemia, Hypertension, Smoker Clinical Symptoms:Regadenoson Surgery: K+ 12/16/17,4.3; Troponin 12/15/17,Neg; BUN/ Cr 12/16/17, 20 1.1; Medications:Aspirin, Atenolol, Insulin, Lasix, Lovenox SUMMARY: [...] % Max BP:189/80O2 sat:99 % Max RPP: 48000 Symptoms and Complications: Arrhythmias: None Terminated: As per Regadenoson protocol Symptoms:Chest pain, Chest pressure, Dyspnea Signed 12/17/2017 01:32 PM Geri Silva MD Procedure Note Interface, Radiology Results In - 12/17/2017 1:32 PM CDT Nuclear Cardiology and Cardiac CT [address] [place] [address] Myocardial Perfusion Imaging Report Stress ECG tracings are available in [employer], [employer] and [employer] All ECG interpretations are included in this report Pat.Name: ARY HAINES Pat.ID: [id number] .Date: 12/17/2017 Refer.MD: YANCY LEYVA MD Exam Time: 11:02:00 AM Study Type:Myocardial Perfusion Imaging Height: 67in BSA: 1.93 m2 Age: 1 1940,77Y Sex: MALE BP: 179/74 HR: 65 bpm HCT: 36.6 % Nuclear Tech:CARLITO AshbyMT, CARLITO CmMT Pat. Stat.:Inpatient Room: [facility] Nuclear Event ID:[id number] Order ID: [id number] Reason for Study:Chest pain, unspecified* History / [...] 189/80 O2 sat: 99 % Max RPP: 98882 Symptoms and Complications: Arrhythmias: None Terminated: As per Regadenoson protocol Symptoms: Chest pain, Chest pressure, Dyspnea Signed 12/17/2017 01:32 PM Geri Silva MD Performing Organization Address [facility] Phone Number [employer] [address] [place] [address] Cv ecg exercise stress (nuclear or echo) (12/17/2017 9:15 AM CDT) Resting HR 65 H MUSE Resting BP 179 [facility] MUSE Peak MET Achieved 1.0 [facility] MUSE Protocol Name SANA [facility] MUSE Time in Exercise Phase 00:01:00 [facility] MUSE Max Systolic BP 189 H MUSE Max Diastolic BP 80 H MUSE Max Heart Rate 88 H MUSE Max Predicted Heart Rate 145 H MUSE Target HR Formula (220 - Age)*100% H MUSE Test Indication chest pain H MUSE Arrhy During Ex [facility] MUSE ECG Interp Before EX [facility] MUSE ECG Interp During Ex H MUSE Ex Summary Comment [facility] MUSE Overall HR Response to [facility] MUSE Exercise Overall BP Response To H MUSE Exercise Reason for Termination [facility] MUSE Stress Test Impression -Waveform interpreted in report [facility] MUSE associated with image study. No interpretation is provided as part of this Stress ECG report.-Electronically Signed By Ricardo KHAN, Geri Khan ([id number]), editor trade journal Kathi Starr ([id number]) on 12/17/2017 2:25:19 PM Performing Organization Address [facility] Phone Number [facility] [employer] [address] [place] [address] Echocardiogram complete w contrast and 3D if needed (12/16/2017 8:10 AM CDT) Narrative Performed At [facility] Echocardiography Report [address] [place] [address] Pat.Name:ARY HAINES Pat.ID:[id number] .Date: 12/16/2017Refer.:YANCY LEYVA MD Exam Time: 7:52:00 AMStudy Type:Routine Echo Height:67inWeight: 188lb BSA: 1.97 m2 DOBAge:1940,77Y Sex: MALEBP:167/75 HR:56 bpmSonogrphr: Gina Shahid RDCS, RVT Pat. Stat.:Inpatient Room:[facility] Study Status:Final Echo Event ID:[id number] Order ID:[id number] Reason for Study:Atrial Fibrillation History / Clinical:Coronary [...] RAPof 5 mmHg. MEASUREMENTS: 2D Parasternal Long [place] LVOT 2.2 cmLA Ds5.2 cm LVIDd4.7 cmIndex2.4 cm/m Ao An2.1 cm LVIDs3.4 cmAo Rtd 3.8 cm Index1.9 cm/m LV%fs 26.6 % LV Gudg173.9 g(122-174) IVSd 1.1 cmLVM Index 95.4 g/m2 LVPWd1.1 cmRWT0.5 LA Sng Plane LA Area 32.7 cm2(8.8-23.4) LA Vol 120.2 ml Index61 ml/m LA LngAx 7.3 cm DOPPLER LVOT Stroke Vol LVOT 2.2 cmLVOT CO5 l/min LVOT TVI22.5 cmLVOT CI2.5 l/m/m2 LVOT Tm407 wnhhEV89 bpm LVOT SV 85.7 ml TV Pressure Gradient TV PkVel 318.2 cm/sTV PG 40.5 mmHg MMODE TAPSE TAPS Dim 1.5 cm Signed 12/16/2017 05:54 PM Geri Silva M.D. Procedure Note Interface, Radiology Results In - 12/16/2017 5:54 PM CDT Echocardiography Report [address] [place] [address] Pat.Name: ARY HAINES Pat.ID: [id number] .Date: 12/16/2017 Refer.MD: YANCY LEYVA MD Exam Time: 7:52:00 AM Study Type:Routine Echo Height: 67in Weight: 188lb BSA: 1.97 m2 Age: 1 1940,77Y Sex: MALE BP: 167/75 HR: 56 bpm Sonogrphr: Gina Shahid RDCS, RVT Pat. Stat.:Inpatient Room: [facility] Study Status:Final Echo Event ID:[id number] Order ID: [id number] Reason for Study:Atrial Fibrillation History / Clinical:Coronary [...] of 5 mmHg. MEASUREMENTS: 2D Parasternal Long [place] LVOT 2.2 cm LA Ds 5.2 cm [...] PM Geri Silva M.D. Performing Organization Address City/[facility]/Zipcode Phone Number [facility] [address] [place] [address] Creatine kinase, total (CPK) (12/15/2017 9:08 PM CDT) Creatine kinase 48 39 - 308 U/L [facility] DEPARTMENT OF PATHOLOGY AND GENOMIC MEDICINE Specimen Plasma specimen Performing Organization Address [facility] Centercode Phone Number [facility] DEPARTMENT OF PATHOLOGY AND [address] [place] [address] GENOMIC MEDICINE after 05/13/2017 Insurance Payer Benefit Plan / Group Subscriber ID Type Phone Address MEDICARE MEDICARE PART A AND B xxxxxxxxxxx Medicare [place], [place] [employer] xxxxxx-xx Commercial Advance Directives Patient has advance care planning documents, and code status on file. For more information, please contact:Chucky Steve[address] [place] [address] Code Status Date Activated Date Inactivated Comments Full Code 02/28/2018 7:46 PM 03/01/2018 4:46 PM Code Status decision reached by: Patient Full Code 12/30/2017 6:54 PM 01/03/2018 3:46 PM Code Status decision reached by: Patient Full Code 12/15/2017 9:02 PM 12/21/2017 4:09 PM Code Status decision reached by: Patient
[2018-05-14 18:37] VITALS: BMI 29.1
[2018-05-14] MEDS ORDERED: FUROSEMIDE 20 MG/ 2ML VIAL IV SCH (19:00)
[2018-05-14 19:34] LABS: Albumin 3.2 g/dL (3.4-5.0); Bilirubin Total 0.5 mg/dL (0.2-1.0); Potassium 4.2 mmol/L (3.5-5.1)
[2018-05-14 19:44] LABS: Absolute Monocytes 0.9 K/uL (0.1-1.3); Absolute Neutrophil 7.2 K/uL (1.8-8.0); Basophils % 0.8 % (0-1.3); Eosinophils % 5.1 % (0-4.4); Hematocrit 34.3 % (39.6-49.0); Lymphocytes % 10.7 % (15.3-44.8); MPV 8.7 fL (7.6-11.3); Monocytes % 9.2 % (3.3-12.3); RBC Red Blood Cell Count 4.02 M/uL (4.33-5.43)
[2018-05-14] MEDS ORDERED: ZOLPIDEM TARTRATE 5 MG TABLET PO PRN (20:21)
[2018-05-14] MEDS ORDERED: Levofloxacin500mg IV 500 MG/100 ML BAG IV SCH (21:00)
[2018-05-14] MEDS: ALBUTEROL 2.5 MG/3 ML NEB SOL NEB SCH (21:00)
[2018-05-14] MEDS: GUAIFENESIN/DM 5 ML UCUP PO PRN (21:55)
[2018-05-14 23:16] LABS: Urine Appearance CLEAR; Urine Bilirubin NEGATIVE (NEG); Urine Blood NEGATIVE (NEG); Urine Color YELLOW; Urine Glucose NEGATIVE (NEG); Urine Microscopic Reflex ORDER UMIC; Urine Protein 1+ (NEG); Urine Urobilinogen 0.2 mg/dL (0.2-1.0)
[2018-05-15] MEDS: ENOXAPARIN 40 MG/0.4 ML SQ SCH ×2 (00:08→22:19)
[2018-05-15 02:07] LABS: Urine Culture Reflex Order NOT NEEDED
[2018-05-15 02:08] LABS: Urine Bacteria <20 /HPF (NONE SEEN); Urine RBC NONE SEEN /HPF (NONE SEEN)
[2018-05-15] MEDS: GUAIFENESIN/DM 5 ML UCUP PO PRN ×3 (03:41→22:19)
[2018-05-15] MEDS: ALBUTEROL 2.5 MG/3 ML NEB SOL NEB SCH ×4 (07:38→19:53)
[2018-05-15] MEDS: SITAGLIPTIN PHOS 100 MG TAB PO SCH ×2 (08:37→09:00)
[2018-05-15] MEDS: ASPIRIN EC 81 MG TAB PO SCH (08:38)
[2018-05-15] MEDS: DULERA 100/5 (MOMETASONE/FORMOTEROL) INHALER IH SCH ×2 (08:38→21:00)
[2018-05-15] MEDS: CARVEDILOL 12.5 MG TAB PO SCH ×2 (08:39→20:59)
[2018-05-15] MEDS: AMLODIPINE 10 MG TAB PO SCH (08:39)
[2018-05-15] MEDS: ATORVASTATIN 40 MG TAB PO SCH (08:39)
[2018-05-15] MEDS: CLOPIDOGREL 75 MG TABLET PO SCH (08:39)
[2018-05-15] MEDS ORDERED: FUROSEMIDE 40 MG/4 ML VIAL IV ONE (08:54)
--- NOTE | 2018-05-15 17:56 | ECHO ---
HEIGHT: 5 ft 7 in WEIGHT: 186 lb 0 oz DATE OF STUDY: 05/15/[address]: Jonel Sanders MD 2-DIMENSIONAL: YES M.MODE: NO DOPPLER: NO COLOR FLOW: NO TDS: NO PORTABLE: NO DEFINITY: NO BUBBLE STUDY: NO DIAGNOSIS: PNUEMONIA CARDIAC HISTORY: CATHERIZATION: YES SURGERY: NO PROSTHETIC VALVE: NO PACEMAKER: NO MEASUREMENTS (cm) DIASTOLIC (NORMALS) SYSTOLIC (NORMALS) IVSd 1.1 (0.6-1.2) LA Diam 4.9 (1.9-4.0) LVEF 70% LVIDd 4.1 (3.5-5.7) LVIDs 2.5 (2.0-3.5) %FS 39% LVPWd 1.3 (0.6-1.2) Ao Diam 3.4 (2.0-3.7) 2 DIMENSIONAL ASSESSMENT: RIGHT ATRIUM: NORMAL LEFT ATRIUM: NORMAL RIGHT VENTRICLE: NORMAL LEFT VENTRICLE: NORMAL TRICUSPID VALVE: NORMAL MITRAL VALVE: NORMAL PULMONIC VALVE: NORMAL AORTIC VALVE: NORMAL PERICARDIAL EFFUSION: NONE AORTIC ROOT: NORMAL LEFT VENTRICULAR WALL MOTION: NORMAL. DOPPLER/COLOR FLOW: NOT REQUESTED. COMMENTS: NORMAL LEFT VENTRICULAR SIZE AND FUNCTION. NO WALL MOTION ABNORMALITIES. NO EFFUSION. TECHNOLOGIST: TIFFANIE HOOK
[2018-05-15] MEDS: HYDRALAZINE HCL 20 MG/ML VIAL IV PRN (18:10)
[2018-05-15 20:45] LABS: Absolute Monocytes 0.9 K/uL (0.1-1.3); Absolute Neutrophil 6.3 K/uL (1.8-8.0); Basophils % 0.7 % (0-1.3); Eosinophils % 5.8 % (0-4.4); Hematocrit 33.9 % (39.6-49.0); Lymphocytes % 11.8 % (15.3-44.8); MPV 8.5 fL (7.6-11.3); Monocytes % 10.7 % (3.3-12.3); RBC Red Blood Cell Count 3.94 M/uL (4.33-5.43)
[2018-05-15] MEDS: TEMAZEPAM 15 MG CAP PO PRN (20:59)
[2018-05-15] MEDS ORDERED: Levofloxacin 250mg IV 250 MG/50 ML BAG IV SCH (21:00)
[2018-05-15] MEDS: INSULIN GLARGINE 100 UNITS/ML SQ SCH (21:12)
[2018-05-15] MEDS: TRAMADOL HCL 50 MG TAB PO PRN (22:18)
--- NOTE | 2018-05-15 23:43 | HP ---
Date of Admission: 05/14/2018 Chief Complaint: Difficulty with breathing, wheezing, and coughing. History Of Present Illness: A 78-year-old male was brought to the office last week with congestion, cough, and wheezing. The patient was thought to have bronchitis. His chest x-ray showed pulmonary c ongestion. It was interpreted as possible pneumonia, possible interstitial edema. The patient was a dvised to see Dr. Sue, who is his bell maker. The patient however did not see Dr. Sue, but c duncan back because of continued symptoms. A repeat chest x-ray was done. The findings are worse. It is not clear whether the patient is slipping into pulmonary edema, whether his pneumonia is getting w orse. In view of this, patient is admitted for IV antibiotic therapy as well as Cardiology consultat [facility]. The patient denied any history of syncope. Past Medical History: Significant for coronary bypass surgery, known coronary artery disease, type 2 diabetes, hypertension. Past Surgical History: Positive for gallbladder surgery, amputation of the finger, knee surgery, and eye surgeries. Allergies: IODINE. Family History: Diabetes and hypertension present. Review of Systems: The patient denied any history of nausea, vomiting, or GI symptoms. Home Medicines: Please refer to the chart. Physical Examination: General: Revealed a 78-year-old male, ill looking. Vital Signs: Temperature 99. HEENT: Otherwise negative. Neck: Supple. JVD negative. Chest: Bilateral scattered wheezes. Heart: Occasional irregularity noted. Abdomen: Soft. Extremities: No edema. Laboratory Data: White count was normal. Chem profile showed BNP of 1155, BUN 25, troponin normal. 2D echo, pending. Assessment: 1.Abnormal chest x-ray findings with dyspnea and wheezing, rule out pneumonia, rule out heart failur e. 2.Known coronary artery disease, status post coronary bypass surgery. 3.Hypertension. 4.Type 2 diabetes. Plan: The patient received additional Lasix today along with Levaquin pending the echo and Cardiolog y consultation. The patient will be continued on the present management. JEMAL/MAZIN Voice ID: [id number]
--- NOTE | 2018-05-16 01:01 | CON ---
Date of Consultation: 05/15/2018 The patient was admitted to Dr. Sanders's service on 05/14/2018. I was consulted on 05/15/2018. The p dacia was seen on 05/15/2018. Reason For Consultation: Congestive heart failure. History Of Present Illness: Mr. Haines is a 78-year-old [place] male who was admitted on with shortness of breath. He does have a history of hypertension, dyslipidemia, diabetes, C OPD, and congestive heart failure. He came in very hypertensive. Denied any chest pain, nausea, vom iting, or diaphoresis. Denied any palpitation or syncope. By the time I saw Mr. Haines, he has al ready had an echocardiogram, which was perfectly normal without any wall motion abnormalities and eje ction fraction of 70%. He had a BNP of 1155. Otherwise, his troponin was negative. Past Medical History: As stated above and history of coronary artery bypass surgery. Allergies: IODINE. Review of Systems: Negative. Social History: Negative. Family History: Noncontributory. Physical Examination: Vital signs: He was hypertensive at 159/72, sinus rhythm, afebrile. Is and Os were adequate. O2 sa turation was 97% on room air. HEENT: Negative. Neck: Supple without any bruit, lymphadenopathy, JVD, or thyromegaly. Chest: Revealed expiratory wheezes. Abdomen: Benign. Extremities: Revealed no clubbing, cyanosis, or edema. Diagnostic Data: All fairly normal except for the BNP being elevated at 1155. Echocardiogram, as stated earlier, was perfectly normal. Impression And Plan: 1.Dyspnea on exertion. I believe is most likely secondary to chronic obstructive pulmonary disease rather than congestive heart failure. The patient has not improved dramatically with Lasix. He is g etting nebulized treatment and is feeling better, but continues to be slightly short of breath. On e xamination, he had significant wheezing on expiration. I think the BNP elevation is probably seconda ry to his chronic obstructive pulmonary disease and mild hypoxia. His echocardiogram being so normal makes me wonder if we are dealing with anything cardiac. 2.History of coronary artery bypass graft, normally followed by Dr. Sue. Apparently, has recentl y had negative echocardiogram at Dr. Sue's office. He does not recall the last time he had a stre ss test. He has an appointment coming up with Dr. Sue in June. I would continue his present reg imen including the aspirin and Plavix. He is also on Coreg. 3.Hypertension, poorly controlled. We could certainly go up on the Norvasc dose or the Coreg dose. 4.Diabetes. 5.Dyslipidemia, on Lipitor. I agree with his present regimen right now including the Lovenox. I wi ll discuss the case further with Dr. Sanders, but I certainly do not plan any more cardiac workup on [facility] at this point. TRAVIS/MAZIN Voice ID: [id number] Report ID: [id number]
[2018-05-16 06:17] LABS: Potassium 4.1 mmol/L (3.5-5.1)
--- NOTE | 2018-05-16 08:27 | P.CNS ---
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 [place] history of coronary artery disease status post CABG denies any fever chills, hemoptysis or sputum production he takes a steroid inhaler at home twice a day former smoker quit 20 years ago Allergies Iodine, IV Allergy (Uncoded 08/27/13 16:23) Unknown Home Medications: Amlodipine [Norvasc] 10 mg PO DAILY 05/14/18 Aspirin [Adult Aspirin] 81 mg PO DAILY 05/14/18 Atorvastatin Calcium 40 mg PO DAILY 05/14/18 Carvedilol [Coreg] 12.5 mg PO BID 05/14/18 Clopidogrel Bisulfate [Plavix] 75 mg PO DAILY 05/14/18 Furosemide 20 mg PO DAILY 05/14/18 Insulin Glargine,Hum.rec.anlog [Lantus] 12 unit SQ BEDTIME 05/14/18 Mometasone/Formoterol [Dulera 100 Mcg/5 Mcg Inhaler] 2 puff IH BID 05/14/18 Sitagliptin Phosphate [Januvia] 25 mg PO DAILY 05/14/18 - Past Medical/Surgical History Diabetic: Yes -: diabetes -: htn -: triple bypass 2007 -: mild mi in 2007 -: right eye sx -: left eye blindness -: left knee sx -: 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 -: [place] - Social History Alcohol use: Yes CD- Drugs: No Caffeine use: Yes Place of Residence: Home Review of Systems 10-point ROS is otherwise unremarkable Respiratory: Cough, Shortness of Breath Physical Examination Temp Pulse Resp BP Pulse Ox 98.0 F 59 20 148/67 H 93 05/16/18 04:00 05/16/18 04:00 05/16/18 04:00 05/16/18 04:00 05/16/18 04:00 General: Alert, In no apparent distress, Oriented x3 HEENT: Atraumatic Neck: Supple Respiratory: Expiratory wheezes Cardiovascular: No edema, Normal pulses, Normal S1 S2 Gastrointestinal: Normal bowel sounds, Soft and benign Laboratory Data (last 24 hrs) 05/16/18 05:46: Sodium 141, Potassium 4.1, BUN 29 H, Creatinine 1.56 H, Glucose 194 H 05/15/18 20:24: WBC 8.8, Hgb 11.3 L, Hct 33.9 L, Plt Count 226 - Problems (1) Asthma exacerbation Current Visit: Yes Status: Acute Plan: Patient is 78 years of age treated for asthma compliant with his inhaler became sick about 3 weeks ago complaining of wheezing coughing I suspect that he has an exacerbation of his underlying asthma patient also has renal insufficiency volume overload could be an issue patient also has diabetes oxygenation vital signs are stable he has cardiomegaly BNP is elevated I recommend increasing his Lasix to 40 mg once a day continue with bronchodilators discharge home on low- dose steroids patient has normal left ventricular function Qualifiers: Asthma severity: moderate
[2018-05-16] MEDS: ALBUTEROL 2.5 MG/3 ML NEB SOL NEB SCH ×4 (08:31→19:56)
[2018-05-16] MEDS: SITAGLIPTIN PHOS 100 MG TAB PO SCH (08:48)
[2018-05-16] MEDS: CARVEDILOL 12.5 MG TAB PO SCH ×2 (08:49→21:25)
[2018-05-16] MEDS: AMLODIPINE 10 MG TAB PO SCH (08:49)
[2018-05-16] MEDS: ATORVASTATIN 40 MG TAB PO SCH (08:49)
[2018-05-16] MEDS: CLOPIDOGREL 75 MG TABLET PO SCH (08:50)
[2018-05-16] MEDS: TRAMADOL HCL 50 MG TAB PO PRN ×2 (08:50→21:26)
[2018-05-16] MEDS: ASPIRIN EC 81 MG TAB PO SCH (08:50)
[2018-05-16] MEDS: predniSONE 10 MG TAB PO SCH ×2 (08:56→21:26)
[2018-05-16] MEDS: DULERA 100/5 (MOMETASONE/FORMOTEROL) INHALER IH SCH ×2 (08:57→21:29)
[2018-05-16] MEDS: HYDRALAZINE HCL 20 MG/ML VIAL IV PRN (19:01)
[2018-05-16] MEDS: levoFLOXacin 250 MG TAB PO SCH (21:26)
[2018-05-16] MEDS: ENOXAPARIN 40 MG/0.4 ML SQ SCH (21:26)
[2018-05-16] MEDS: TEMAZEPAM 15 MG CAP PO PRN (21:27)
[2018-05-16] MEDS: INSULIN GLARGINE 100 UNITS/ML SQ SCH (21:28)
--- NOTE | 2018-05-17 02:20 | PN ---
Pulmonary and Cardiology consults have been reviewed. The patient may have pulmonary infection, asth ma, and COPD exacerbation. He is started on prednisone. He is feeling better. In view of response, he will be continued on the same management as suggested. JEMAL/MAZIN Voice ID: [id number] Report ID: [id number]
[2018-05-17] MEDS: ALBUTEROL 2.5 MG/3 ML NEB SOL NEB SCH ×4 (07:36→19:16)
[2018-05-17] MEDS: DULERA 100/5 (MOMETASONE/FORMOTEROL) INHALER IH SCH ×2 (07:54→20:42)
[2018-05-17] MEDS: SITAGLIPTIN PHOS 100 MG TAB PO SCH (07:56)
[2018-05-17] MEDS: CLOPIDOGREL 75 MG TABLET PO SCH (07:57)
[2018-05-17] MEDS: predniSONE 10 MG TAB PO SCH ×2 (07:57→20:43)
[2018-05-17] MEDS: ATORVASTATIN 40 MG TAB PO SCH (07:58)
[2018-05-17] MEDS: ASPIRIN EC 81 MG TAB PO SCH (07:59)
[2018-05-17] MEDS: CARVEDILOL 12.5 MG TAB PO SCH ×2 (07:59→20:43)
[2018-05-17] MEDS: AMLODIPINE 10 MG TAB PO SCH (07:59)
[2018-05-17] MEDS: TRAMADOL HCL 50 MG TAB PO PRN ×2 (08:00→23:10)
[2018-05-17] MEDS ORDERED: GLUCAGON 1 MG/VIAL IM PRN (16:09)
[2018-05-17] MEDS ORDERED: D50W 25 GM/50 ML SYRINGE IV PRN (16:09)
[2018-05-17] MEDS: INSULIN -REGULAR HUMAN 50 UNIT/0.5 ML ML SQ SCH ×2 (16:18→20:45)
[2018-05-17] MEDS: TEMAZEPAM 15 MG CAP PO PRN (20:42)
[2018-05-17] MEDS: levoFLOXacin 250 MG TAB PO SCH (20:44)
[2018-05-17] MEDS: INSULIN GLARGINE 100 UNITS/ML SQ SCH (20:44)
[2018-05-17] MEDS: ENOXAPARIN 40 MG/0.4 ML SQ SCH (23:10)
[2018-05-17] MEDS: GUAIFENESIN/DM 5 ML UCUP PO PRN (23:12)
--- NOTE | 2018-05-18 02:19 | PN ---
The patient's breathing is much better. However, his blood sugars are high because of the steroids. The patient is afebrile. However, because of the positive response, he will be given steroids, and he will be started on insulin. The patient otherwise looks stable. JEMAL/MAZIN Voice ID: [id number] Report ID: [id number]
[2018-05-18] MEDS: ALBUTEROL 2.5 MG/3 ML NEB SOL NEB SCH ×4 (08:27→20:00)
[2018-05-18] MEDS: INSULIN -REGULAR HUMAN 50 UNIT/0.5 ML ML SQ SCH ×4 (08:41→21:03)
[2018-05-18] MEDS: DULERA 100/5 (MOMETASONE/FORMOTEROL) INHALER IH SCH ×2 (08:41→21:05)
[2018-05-18] MEDS: ASPIRIN EC 81 MG TAB PO SCH (08:42)
[2018-05-18] MEDS: CLOPIDOGREL 75 MG TABLET PO SCH (08:42)
[2018-05-18] MEDS: AMLODIPINE 10 MG TAB PO SCH (08:42)
[2018-05-18] MEDS: ATORVASTATIN 40 MG TAB PO SCH (08:42)
[2018-05-18] MEDS: SITAGLIPTIN PHOS 100 MG TAB PO SCH (08:42)
[2018-05-18] MEDS: predniSONE 10 MG TAB PO SCH ×2 (08:42→21:04)
[2018-05-18] MEDS: CARVEDILOL 12.5 MG TAB PO SCH ×2 (08:42→21:04)
[2018-05-18] MEDS: TRAMADOL HCL 50 MG TAB PO PRN ×2 (13:04→21:08)
[2018-05-18] MEDS: GUAIFENESIN/DM 5 ML UCUP PO PRN ×2 (14:46→23:13)
[2018-05-18] MEDS: INSULIN GLARGINE 100 UNITS/ML SQ SCH (21:02)
[2018-05-18] MEDS: levoFLOXacin 250 MG TAB PO SCH (21:04)
[2018-05-18] MEDS: TEMAZEPAM 15 MG CAP PO PRN (21:08)
[2018-05-18] MEDS: ENOXAPARIN 40 MG/0.4 ML SQ SCH (23:07)
[2018-05-19] MEDS: BUDESONIDE 0.5 MG/2 ML NEB NEB SCH ×2 (03:15→12:30)
[2018-05-19] MEDS: GUAIFENESIN/DM 5 ML UCUP PO PRN ×2 (05:17→21:08)
[2018-05-19] MEDS: ALBUTEROL 2.5 MG/3 ML NEB SOL NEB SCH ×4 (07:45→20:00)
[2018-05-19] MEDS: DULERA 100/5 (MOMETASONE/FORMOTEROL) INHALER IH SCH (08:45)
[2018-05-19] MEDS: INSULIN -REGULAR HUMAN 50 UNIT/0.5 ML ML SQ SCH ×4 (08:46→21:10)
[2018-05-19] MEDS: AMLODIPINE 10 MG TAB PO SCH (08:46)
[2018-05-19] MEDS: ASPIRIN EC 81 MG TAB PO SCH (08:46)
[2018-05-19] MEDS: SITAGLIPTIN PHOS 100 MG TAB PO SCH (08:46)
[2018-05-19] MEDS: ATORVASTATIN 40 MG TAB PO SCH (08:47)
[2018-05-19] MEDS: predniSONE 10 MG TAB PO SCH (08:47)
[2018-05-19] MEDS: CARVEDILOL 12.5 MG TAB PO SCH ×2 (08:47→21:11)
[2018-05-19] MEDS: CLOPIDOGREL 75 MG TABLET PO SCH (08:47)
[2018-05-19] MEDS: TRAMADOL HCL 50 MG TAB PO PRN ×2 (08:51→22:29)
--- NOTE | 2018-05-19 10:38 | P.PN ---
Subjective Date of Service: 05/19/18 Chief Complaint: Shortness of breath Patient is not doing well he was initially improving then deteriorated complaining of more shortness of breath he went on mild exertion with cough Review of Systems General: Weakness Respiratory: Cough, Shortness of Breath Physical Examination - Vital Signs Temperature: 97.5 F Blood Pressure: 172/79 Pulse: 62 Respirations: 18 Pulse Ox (%): 94 - Physical Exam General: Alert, Mild distress Respiratory: Expiratory wheezes Cardiovascular: No edema, Normal S1 S2 Assessment & Plan - Problems (Diagnosis) (1) Asthma exacerbation Current Visit: Yes Status: Acute Plan: Patient admitted with asthma exacerbation is not doing good plan is to intensify therapy I have added dial arrest scheduled ipratropium trial of Lasix possible that he has diastolic dysfunction although his echocardiogram was normal the pressure still elevated the also has high blood sugars suspect is from the steroids I have also stopped his p.o. prednisone due to significant hyperglycemia added nebulized budesonide in addition to her long-acting bronchodilator oxygenation satisfactory Qualifiers: Asthma severity: moderate
[2018-05-19] MEDS: ARFORMOTEROL TARTRATE 15 MCG/2 ML VIAL.NEB NEB SCH ×2 (12:30→20:00)
[2018-05-19] MEDS: ROFLUMILAST 500 MCG TABLET PO SCH (12:30)
[2018-05-19] MEDS: FUROSEMIDE 20 MG/ 2ML VIAL IV SCH ×2 (12:31→17:21)
[2018-05-19] MEDS: IPRATROPIUM BROM 0.5MG/2.5ML NEB SCH ×2 (13:50→20:00)
--- NOTE | 2018-05-19 16:31 | RAD REPORT ---
EXAM DESCRIPTION: RAD - Chest Single View - 05/19/2018 4:22 pm CLINICAL HISTORY: Shortness of breath COMPARISON: May 14 TECHNIQUE: AP portable chest image was obtained 1618 hours . FINDINGS: Lung volumes are slightly reduced. Small bilateral pleural effusions are present similar t o comparison. Cardiomegaly is present also similar to comparison. Vascular engorgement is present wit h prominent interstitial markings. Findings are similar to slightly worse than May 14. No pneumot horax. IMPRESSION: Slight worsening of a failure or volume overload pattern. Small bilateral pleural effusions similar to comparison.
[2018-05-19] MEDS: TEMAZEPAM 15 MG CAP PO PRN (21:06)
[2018-05-19] MEDS: INSULIN GLARGINE 100 UNITS/ML SQ SCH (21:08)
[2018-05-20] MEDS: ENOXAPARIN 40 MG/0.4 ML SQ SCH ×2 (01:27→23:07)
[2018-05-20] MEDS: IPRATROPIUM BROM 0.5MG/2.5ML NEB SCH ×4 (03:15→20:00)
[2018-05-20] MEDS: ALBUTEROL 2.5 MG/3 ML NEB SOL NEB SCH ×4 (03:15→20:00)
[2018-05-20] MEDS: INSULIN -REGULAR HUMAN 50 UNIT/0.5 ML ML SQ SCH ×4 (07:30→21:23)
[2018-05-20] MEDS: BUDESONIDE 0.5 MG/2 ML NEB NEB SCH ×2 (08:00→20:00)
[2018-05-20] MEDS: CLOPIDOGREL 75 MG TABLET PO SCH (08:45)
[2018-05-20] MEDS: ATORVASTATIN 40 MG TAB PO SCH (08:45)
[2018-05-20] MEDS: ROFLUMILAST 500 MCG TABLET PO SCH (08:45)
[2018-05-20] MEDS: ASPIRIN EC 81 MG TAB PO SCH (08:46)
[2018-05-20] MEDS: SITAGLIPTIN PHOS 100 MG TAB PO SCH (08:46)
[2018-05-20] MEDS: AMLODIPINE 10 MG TAB PO SCH (08:46)
[2018-05-20] MEDS: CARVEDILOL 12.5 MG TAB PO SCH ×2 (08:47→21:22)
[2018-05-20] MEDS: FUROSEMIDE 20 MG/ 2ML VIAL IV SCH ×2 (08:47→16:03)
[2018-05-20] MEDS: GUAIFENESIN/DM 5 ML UCUP PO PRN ×2 (09:02→21:22)
[2018-05-20] MEDS: ARFORMOTEROL TARTRATE 15 MCG/2 ML VIAL.NEB NEB SCH ×2 (09:05→20:00)
--- NOTE | 2018-05-20 11:05 | P.PN ---
Subjective Date of Service: 05/20/18 Chief Complaint: Shortness of breath No change patient is still complains of shortness of breath have this problem with coughing unable to cough up any sputum Review of Systems General: Weakness Respiratory: Cough, Shortness of Breath Physical Examination - Vital Signs Temperature: 98.3 F Blood Pressure: 167/77 Pulse: 64 Respirations: 15 Pulse Ox (%): 93 - Physical Exam General: Alert, Mild distress Respiratory: Expiratory wheezes, Rhonchi/gurgles Cardiovascular: No edema, Regular rate/rhythm - Studies Microbiology Data (last 24 hrs): 05/14/18 19:12 Blood - Blood Aerobic Blood Culture - Final No growth in 5 days. 05/14/18 19:12 Blood - Blood Anaerobic Blood Culture - Final No growth in 5 days. 05/14/18 19:01 Blood - Blood Aerobic Blood Culture - Final No growth in 5 days. 05/14/18 19:01 Blood - Blood Anaerobic Blood Culture - Final No growth in 5 days. Assessment & Plan - Problems (Diagnosis) (1) Asthma exacerbation Current Visit: Yes Status: Acute Plan: No change in patient's condition is still symptomatic complaining of cough unable to cough up any sputum wheezing shortness of breath I have ordered labs chest x-ray shows cardiomegaly chest x-rays abnormal shows cardiomegaly possible volume overload of ordered some labs continue with Lasix cough suppression and Zithromax for anti inflammatory component for terminal BNP no evidence of an infection possible discharge tomorrow patient is Dulera at an anticholinergic agent with a low-dose macrolide and possibly a diuretic Qualifiers: Asthma severity: moderate
[2018-05-20] MEDS: TRAMADOL HCL 50 MG TAB PO PRN ×2 (12:06→21:22)
[2018-05-20] MEDS: AZITHROMYCIN 250 MG TAB PO SCH (12:07)
[2018-05-20 12:45] LABS: Potassium 3.9 mmol/L (3.5-5.1)
[2018-05-20] MEDS: PROMETHAZINE-DM 5 ML OSYR PO PRN ×2 (14:54→21:29)
--- NOTE | 2018-05-20 20:38 | PN ---
Date of Progress Note: 05/18/2018 The patient continued to have [id number] wheezing and he had dyspnea on exertion in the room wh ile he was trying to walk to the bathroom. In view of these and continued wheezing, the patient is b eing given steroids by mouth. JEMAL/MAZIN Voice ID: [id number] Report ID: [id number]
--- NOTE | 2018-05-20 20:44 | PN ---
The patient is doing better today with minimal wheezing. He is ambulating in the room and to the [facility]. The patient, since he is improving will be watched another night and he will be discharged in a.m. JEMAL/MAZIN Voice ID: [id number] Report ID: [id number]
[2018-05-20] MEDS: INSULIN GLARGINE 100 UNITS/ML SQ SCH (21:23)
[2018-05-20] MEDS: TEMAZEPAM 15 MG CAP PO PRN (23:04)
[2018-05-21] MEDS: IPRATROPIUM BROM 0.5MG/2.5ML NEB SCH ×3 (02:00→14:00)
[2018-05-21] MEDS: ALBUTEROL 2.5 MG/3 ML NEB SOL NEB SCH ×3 (02:00→14:00)
[2018-05-21] MEDS: TRAMADOL HCL 50 MG TAB PO PRN ×3 (05:37→17:23)
[2018-05-21] MEDS: INSULIN -REGULAR HUMAN 50 UNIT/0.5 ML ML SQ SCH ×3 (07:30→16:30)
[2018-05-21] MEDS: AZITHROMYCIN 250 MG TAB PO SCH (08:28)
[2018-05-21] MEDS: FUROSEMIDE 20 MG/ 2ML VIAL IV SCH ×2 (08:28→17:19)
[2018-05-21] MEDS: BUDESONIDE 0.5 MG/2 ML NEB NEB SCH (08:28)
[2018-05-21] MEDS: CLOPIDOGREL 75 MG TABLET PO SCH (08:28)
[2018-05-21] MEDS: ROFLUMILAST 500 MCG TABLET PO SCH (08:28)
[2018-05-21] MEDS: ARFORMOTEROL TARTRATE 15 MCG/2 ML VIAL.NEB NEB SCH (08:28)
[2018-05-21] MEDS: SITAGLIPTIN PHOS 100 MG TAB PO SCH (08:29)
[2018-05-21] MEDS: ATORVASTATIN 40 MG TAB PO SCH (08:29)
[2018-05-21] MEDS: ASPIRIN EC 81 MG TAB PO SCH (08:31)
[2018-05-21] MEDS: CARVEDILOL 12.5 MG TAB PO SCH (08:31)
[2018-05-21] MEDS: AMLODIPINE 10 MG TAB PO SCH (08:31)
--- NOTE | 2018-05-21 10:38 | RAD REPORT ---
EXAM DESCRIPTION: RAD - Foot Right 2 View - 05/21/2018 10:03 am CLINICAL HISTORY: Right foot pain FINDINGS: No fracture or dislocation is seen Large plantar calcaneal spur is present. Hallux valgus deformity is seen. Vascular calcifications are noted Bones appear osteoporotic
--- NOTE | 2018-05-21 12:13 | P.PN ---
Subjective Date of Service: 05/21/18 Chief Complaint: Shortness of breath Patient has improved is not complaining of pain in the medial side of his right foot which happened a last night unable to put pressure Review of Systems Unremarkable Physical Examination - Vital Signs Temperature: 98.9 F Blood Pressure: 173/80 Pulse: 68 Respirations: 18 Pulse Ox (%): 92 - Physical Exam General: Alert, Oriented x3 Respiratory: Expiratory wheezes Cardiovascular: No edema Musculoskeletal: Other (Patient has discomfort tenderness on the medial side of his right foot no problems extending and flexing his toes there is no edema) - Studies Laboratory Data (last 24 hrs) 05/20/18 12:10: Sodium 140, Potassium 3.9, BUN 43 H, Creatinine 1.47 H, Glucose 179 H Assessment & Plan - Problems (Diagnosis) (1) Asthma exacerbation Current Visit: Yes Status: Acute Plan: Patient has improved significantly plan to discharge home at in inhale add Spiriva continue with Dulera continue with low-dose Zithromax possible discharge home Qualifiers: Asthma severity: moderate (2) Pain in right foot Current Visit: Yes Status: Acute Plan: Patient is been complaining of acute onset of pain in the right foot there is no obvious edema has tenderness unable to put pressure x-rays no obvious fractures
[2018-05-21 16:27] VITALS: O2SAT 95
[2018-05-21 17:38] VITALS: BP 187/82; TEMP 98.7
== END 2018-05-21 18:40 | disposition home or self-care (01) | DRG 202 ==
LOC: 2ND 17:43
PROVIDERS: ADMIT Internal Medicine; ATTEND Internal Medicine
DX: J45.901 Unspecified asthma with (acute) exacerbation (principal); J18.9 Pneumonia, unspecified organism; I25.10 Atherosclerotic heart disease of native coronary artery without angina pectoris; Z95.1 Presence of aortocoronary bypass graft; I10 Essential (primary) hypertension; J44.9 Chronic obstructive pulmonary disease, unspecified; Z87.891 Personal history of nicotine dependence; E11.65 Type 2 diabetes mellitus with hyperglycemia; Z79.4 Long term (current) use of insulin; M79.671 Pain in right foot
CPT/HCPCS: 36415; 71045; 71046; 80048; 80053; 81003; 81015; 82962; 83880; 84484; 84550; 85025; 87040; 93307; 94640; J0360; J1650; J1940; J7512; J7605; J7606

== ENCOUNTER 2018-06-09 01:40 | Observation (INO) | payer OTHER ==
--- OUTSIDE RECORDS SUMMARY | 2018-06-09 01:43 | XMS REPORT | Clinical Summary ---
:1940 Author Organization [facility] Address [address] [place] [address] Care Team Providers Name Role Phone Jonel [...] your 62 each 5 02/19/2018 Active ultrasoft[place] [facility] sugar before meals and at bedtime, [...] complication, with long-term current use of insulin ([facility]) blood-glucose meter Use as 1 each 0 02/08/2018 Discontinued kitIndications: instructed 8 Type 2 diabetes mellitus with other diabetic kidney complication, with long-term current use of insulin ([facility]) atorvastatin Take 1 tablet 30 tablet 3 [...] with neuropathy 12/15/2017 Coronary artery disease involving iqugmiut coronary artery 12/15/2017 Mild intermittent asthma 12/15/2017 [...] ABDOMEN Cardiology MD Rhett WITH RUN OFF [81690 (CPT)] 02/28/2018 - Hospital Card[facility] [place], Coronary artery disease involving iqu[place] coronary artery without angina pectoris, unspecified whether [place]qu[place] or transplanted heart (Primary Dx); 03/01/2018 Encounter MD Rhett Type 2 diabetes mellitus with ketoacidosis without coma, unspecified whether terminal manager insulin use (HCC); Ashwin, Coronary artery disease involving iqu[place]mi[place] coronary artery of [place] heart, angina presence unspecified; Yancy O. , [...] hypertension (Primary Dx); Coronary artery disease involving iqu[place]mi[place] coronary artery of [place] heart without angina pectoris; Type 2 diabetes [...] use of insulin; Coronary artery disease involving [place]qu[place] coronary artery of [place] heart without angina pectoris; Mild intermittent asthma without complication; Essential hypertension 12/30/2017 Intake Access N/A 12/21/2017 Telephone Cardiology Irina Vang 12/15/2017 - Hospital Cardiology [place], Paroxysmal atrial fibrillation ( Primary Dx); 12/21/2017 Encounter Yancy Garcia Sr., Asbestosis; Type 2 diabetes mellitus with hyperosmolarity without coma, unspecified care home insulin use status; Coronary artery disease involving iqugmiut coronary artery of iqugmiut heart without angina pectoris; Mild intermittent asthma without complication 12/15/2017 Intake Access N/A after 06/08/2017 Immunizations Name Dates Previously Given Next Due [...] Taken Blood Pressure 137/66 05/08/2018 11:37 AM AUTOMATIC LUMP MAKING MACHINE TENDER Pulse 64 05/08/2018 11:37 AM AUTOMATIC LUMP MAKING MACHINE TENDER Temperature 36.8 C (98.2 F) 05/08/2018 11:37 AM AUTOMATIC LUMP MAKING MACHINE TENDER Respiratory Rate 17 03/01/2018 11:40 AM AUTOMATIC LUMP MAKING MACHINE TENDER Oxygen Saturation 97% 05/08/2018 11:37 AM AUTOMATIC LUMP MAKING MACHINE TENDER Inhaled Oxygen Concentration - - Weight 82.1 kg (181 lb) 05/08/2018 11:37 AM AUTOMATIC LUMP MAKING MACHINE TENDER Height 170.2 cm (5' 7") 05/08/2018 11:37 AM AUTOMATIC LUMP MAKING MACHINE TENDER Body Mass Index 28.35 05/08/2018 11:37 AM AUTOMATIC LUMP MAKING MACHINE TENDER Plan of Treatment Date Type Specialty Care Team Description 09/18/2018 Office Visit Endocrinology Karime Jade MD [address] [address] Health Maintenance Due Date Last Done Comments DIABETIC RETINAL EYE EXAM 1940 DIABETIC FOOT EXAM 1952 SHINGLES VACCINES (#1) 1992 65+ PNEUMOCOCCAL VACCINE (1 of 2 - PCV13) 2007 PNEUMOCOCCAL POLYSACCHARIDE VACCINE AGE 65 AND OVER 2007 INFLUENZA VACCINE Completed 01/03/2018 Implants Implanted Type Area Measurement Operator Device Shelf Expiration Model / Serial Identifier Date / Lot Lens-11/08/2017 Lens [id number] / Implanted: 11/08/2017 (Quantity not on file) [id number] / Artificial Lense Procedures Procedure Name Priority Date/Time Associated Diagnosis Comments HEMOGLOBIN A1C Routine 05/08/2018 12:02 Type 2 diabetes, Results for this PM AUTOMATIC LUMP MAKING MACHINE TENDER controlled, 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 POC GLUCOSE Routine 03/01/2018 11:41 Results for this AM AUTOMATIC LUMP MAKING MACHINE TENDER procedure are in the results section. POC GLUCOSE Routine 03/01/2018 8:14 Results for this AM AUTOMATIC LUMP MAKING MACHINE TENDER procedure are in the results section. HEMOGLOBIN A1C Routine 03/01/2018 4:15 Results for this AM AUTOMATIC LUMP MAKING MACHINE TENDER procedure are in the results section. CBC WITH PLATELET AND Routine 03/01/2018 4:15 Results for this DIFFERENTIAL AM AUTOMATIC LUMP MAKING MACHINE TENDER procedure are in the results section. ESTIMATED GFR Routine 03/01/2018 4:00 Results for this AM AUTOMATIC LUMP MAKING MACHINE TENDER procedure are in the results section. T4, FREE Routine 03/01/2018 4:00 Results for this AM AUTOMATIC LUMP MAKING MACHINE TENDER procedure are in the results section. THYROID STIMULATING Routine 03/01/2018 4:00 Results for this HORMONE AM AUTOMATIC LUMP MAKING MACHINE TENDER procedure are in the results section. LIPID PANEL Routine 03/01/2018 4:00 Results for this AM AUTOMATIC LUMP MAKING MACHINE TENDER procedure are in the results section. BASIC METABOLIC PANEL Routine 03/01/2018 4:00 Results for this AM AUTOMATIC LUMP MAKING MACHINE TENDER procedure are in the results section. POC GLUCOSE Routine 02/28/2018 9:44 Results for this PM AUTOMATIC LUMP MAKING MACHINE TENDER procedure are in the results section. ACTIVATED CLOTTING Routine 02/28/2018 6:54 Results for this TIME PM AUTOMATIC LUMP MAKING MACHINE TENDER procedure are in the results section. POC GLUCOSE Routine 02/28/2018 6:49 Results for this PM AUTOMATIC LUMP MAKING MACHINE TENDER procedure are in the results section. AORTAGRAM ABDOMEN WITH Routine 02/28/2018 6:16 Coronary artery Results for this RUN OFF PM AUTOMATIC LUMP MAKING MACHINE TENDER disease involving procedure are in iqugmiut coronary the results artery without section. angina pectoris, unspecified whether [place]qu[place] or transplanted heart ACTIVATED CLOTTING Routine 02/28/2018 5:57 Results for this TIME PM AUTOMATIC LUMP MAKING MACHINE TENDER procedure are in the results section. ACTIVATED CLOTTING Routine 02/28/2018 5:46 Results for this TIME PM AUTOMATIC LUMP MAKING MACHINE TENDER procedure are in the results section. HC COMPLETE BLD COUNT STAT 02/28/2018 12:15 Results for this W/AUTO DIFF PM AUTOMATIC LUMP MAKING MACHINE TENDER procedure are in the results section. POC GLUCOSE Routine 02/28/2018 11:57 Results for this AM AUTOMATIC LUMP MAKING MACHINE TENDER procedure are in the results section. ESTIMATED GFR STAT 02/28/2018 11:51 Results for this AM AUTOMATIC LUMP MAKING MACHINE TENDER procedure are in the results section. BASIC METABOLIC PANEL STAT 02/28/2018 11:51 Results for this AM AUTOMATIC LUMP MAKING MACHINE TENDER procedure are in the results section. ECG [...] are in SPECTRAL COLOR DOPPLER the results (72307) section. HEMOGLOBIN A1C Routine 12/16/2017 5:11 Results [...] procedure are in the results section. after 06/08/2017 Results Hemoglobin A1c (05/08/2018 12:02 PM AUTOMATIC LUMP MAKING MACHINE TENDER)Only the most recent of4 resultswithin the time period is included. Hemoglobin A1C 7.7 (H) <5.7 % of total [facility] Comment: Hgb DUNCAN For someone without known diabetes, a hemoglobin [...] Performing Organization Information: Site ID: [id number] Name: [facility] Address: [address] [place], [place] [address] Director: Gabriela Boothe Performing Organization Address City/State/Zipcode [place] [address] POC glucose (03/01/2018 11:41 AM AUTOMATIC LUMP MAKING MACHINE TENDER)Only the most recent of41 resultswithin the time period is included. POC glucose 137 (H) 65 - 99 mg/dL [facility] Comment: [facility] Notified RN Meter ID: [id number] Payroll Assistant: Joel Delvalle Performing Organization Address City/State/Zipcode Phone Number [facility] DEPARTMENT OF PATHOLOGY AND [address] [place] [address] [address] [address] CBC with platelet and differential (03/01/2018 4:15 AM AUTOMATIC LUMP MAKING MACHINE TENDER)Only the most recent of7 resultswithin the time period is included. WBC 7.95 4.50 - 11.00 k/uL [facility] RBC 3.82 (L) 4.40 - 6.00 m/uL [facility] HGB 11.1 (L) 14.0 - 18.0 g/dL [facility] HCT 34.0 (L) 41.0 - 51.0 % [facility] MCV 89.0 82.0 - 100.0 fL [facility] MCH 29.1 27.0 - 34.0 pg [facility] MCHC 32.6 31.0 - 37.0 g/dL [facility] RDW - SD 41.9 37.0 - 55.0 fL [facility] MPV 10.2 8.8 - 13.2 fL [facility] Platelet count 215 150 - 400 k/uL [facility] Nucleated RBC 0.00 /100 WBC [facility] Neutrophils 67.7 39.0 - 69.0 % [facility] Lymphocytes 16.9 (L) 25.0 - 45.0 % [facility] Monocytes 9.4 0.0 - 10.0 % [facility] Eosinophils 4.7 0.0 - 5.0 % [facility] Basophils 0.8 0.0 - 1.0 % [facility] Immature granulocytes 0.5Comment: "Immature 0.0 - 1.0 % [facility] (promyelocytes, myelocytes, metamyelocytes) Specimen Blood Performing Organization Address City/[facility] Cent[facility] Phone Number [facility] DEPARTMENT OF PATHOLOGY AND [address] [place] [address] [address] [address] [address] Estimated GFR (03/01/2018 4:00 AM AUTOMATIC LUMP MAKING MACHINE TENDER)Only the most recent of6 resultswithin the time period is included. Estimated GFR 68 mL/min/1.73 m2 [facility] Comment: HOSPITAL CatergoryUnitsInterpretation G1 >=90 Normal or high G2 60-89Mildly decreased E4b11-27Vwtkdw to moderately decreased H6g28-51Ndyciitwob to severely decreased G4 15-29Severely decreased G5 <15Kidney failure The eGFR was calculated using the Chronic Kidney Disease Epidemiology Collaboration (CKD-EPI) equation. Interpretation is based on recommendations of the National Kidney Foundation-Kidney Disease Outcomes Quality Initiative (NKF-KDOQI) published in 2014. Specimen Plasma specimen Performing Organization Address City/[facility]/Zipcode Phone Number [facility] DEPARTMENT OF PATHOLOGY AND [address] [place] [phone] [address] Thyroid stimulating hormone (03/01/2018 4:00 AM AUTOMATIC LUMP MAKING MACHINE TENDER)Only the most recent of3 resultswithin the time period is included. TSH 2.91 0.27 - 4.20 uIU/mL [facility] Specimen Plasma specimen Performing Organization Address [facility] Phone Number [facility] DEPARTMENT OF PATHOLOGY AND [address] [place] [address] T4, free (03/01/2018 4:00 AM AUTOMATIC LUMP MAKING MACHINE TENDER)Only the most recent of3 resultswithin the time period is included. T4, free 1.1 0.9 - 1.7 ng/dL [facility] Specimen Plasma specimen Performing Organization Address [facility] Phone Number [facility] DEPARTMENT OF PATHOLOGY AND [address] [place] [address] Lipid panel (03/01/2018 4:00 AM AUTOMATIC LUMP MAKING MACHINE TENDER)Only the most recent of3 resultswithin the time period is included. Cholesterol 148 <200 mg/dL [facility] Triglycerides 184 (H) <150 mg/dL [facility] HDL cholesterol 32 (L) >40 mg/dL [facility] LDL cholesterol 87Comment: Result obtained <100 mg/dL [facility] by direct LDL measurement HOSPITAL Lipid panel interpretation SeeBelow [facility] Comment: HOSPITAL Total Cholesterol (mg/dL) <200 Desirable 142-212Skojyyocpk-qxna >=240High Triglycerides (mg/dL) <150 Normal 264-722Ruhghtdhnu-hjjz 200-499High >=500Very high HDL Cholesterol (mg/dL) <40Low (male) <40Low (female) LDL Cholesterol (mg/dL) <100 Optimal 100-129Near or above optimal 508-866Wdovpwapco-fpdf 160-189High >=190Very high Risk Catergories that modify [...] mg/dL) Specimen Plasma specimen Performing Organization Address City/[facility] Centercode Phone Number [facility] DEPARTMENT OF PATHOLOGY AND [address] [place] [address] Basic metabolic panel (03/01/2018 4:00 AM AUTOMATIC LUMP MAKING MACHINE TENDER)Only the most recent of11 resultswithin the time period is included. Sodium 141 135 - 148 mEq/L [facility] Potassium 3.3 (L) 3.5 - 5.0 mEq/L [facility] Chloride 106 98 - 112 mEq/L [facility] CO2 23 (L) 24 - 31 mEq/L [facility] Anion gap 12@ANIO 7 - 15 mEq/L [facility] BUN 20 8 - 23 mg/dL [facility] Creatinine 1.06 0.70 - 1.20 mg/dL [facility] Glucose 131 (H) 65 - 99 mg/dL [facility] Calcium 8.3 (L) 8.8 - 10.2 mg/dL [facility] Specimen Plasma specimen Performing Organization Address [facility] Phone Number [facility] DEPARTMENT OF PATHOLOGY AND [address] [place] [address] Activated clotting time (02/28/2018 6:54 PM AUTOMATIC LUMP MAKING MACHINE TENDER)Only the most recent of3 resultswithin the time period is included. Activated clotting time 177 (H) 96 - 152 sec [facility] Comment: HOSPITAL Meter ID: [id number] Payroll Assistant: Dakota Roy Performing Organization Address [facility]/Zipcode Phone Number [facility] DEPARTMENT OF PATHOLOGY AND [address] [place] [address] Cv invasive peripheral vascular procedure (02/28/2018 6:16 PM AUTOMATIC LUMP MAKING MACHINE TENDER) Narrative Performed At PREOPERATIVE DIAGNOSIS [facility] 1.Claudication 2.Peripheral Arterial Disease POSTOPERATIVE DIAGNOSIS 1.Claudication 2.Peripheral Arterial Disease PROCEDURES PERFORMED 1.Abdominal Aortogram with runoff 2.Ipsilateral Right Femoral Angiography 3.Contralateral Left Iliac Angiography 4.Percutaneous Angioplasty of left distal popliteal with a 4x40 mm Impact drug coated balloon SATELLITE INSTALLATION TECHNICIAN Dr. Rhett Diaz, Livestock Judging Coach ENTRY LEVEL MECHANICAL ENGINEER Terrell Dixon, Resident, ANESTHESIA USED Local 2% lidocaine, Conscious Sedation DESCRIPTION OF PROCEDURE The procedure was described to the patient including benefits, risks, and alternatives to the procedure.The patient confirmed understanding and signed the informed consent.The patient was brought to lab associate, room 7 of [facility].Patient was prepped and draped in sterile fashion. Conscious sedation provided to patient throughout procedure with appropriate monitoring. The right common femoral artery (RAILROAD CAR TRUCK BUILDER) was palpated and the region above the artery was anesthetized with 2% local lidocaine.Using 18-gauge AMC needle and fluoroscopic guidance, arterial access was obtained in the right RAILROAD CAR TRUCK BUILDER and a 4F sheath was placed without [...] was then switched to a6F 60 cm Union destination sheath over the Wholey wire. The Wholey wire was advanced past the lesion and a 4.0x40 mm Impact DCB was advanced to the lesion in the popliteal which was dilated at 4 amina for 180 seconds.Afterwards there was reduction of stenosis to 10%.The sheath was withdrawn and exchanged for a 7F short sheath. The arterial sheath was aspirated and flushed.Angiography of the RAILROAD CAR TRUCK BUILDER was performed without evidence of dissection, thrombus [...] mL CONDITION:Stable COMPLICATIONS: None Performing Organization Address [facility] Centercoal Phone Number [facility] [address] [place] [address] ECG Pre/Post Op (01/10/2018 3:00 PM CDT) Ventricular rate 65 [facility] Atrial rate 65 [facility] SD interval 168 [facility] QRSD interval 88 [...] waves in Inferior leads- Performing Organization Address [facility] Phone Number [facility]MIN [address] [phone] Pv carotid duplex (01/01/2018 8:00 AM CDT) Narrative Performed At [facility] Vascular Ultrasound Laboratory Carotid Artery Duplex Report [address] [place] [address] For quality and reliability engineer purposes, the categorization of the degree of the stenosis of this exam is based on criteria described in the IAC carotid stenosis grading white paper( www.intersocietal.org/Vascular) and Susan Yung., Hien Tate., et al. Carotid artery stenosis: her-scale and Doppler US diagnosis--Society of Radiologists in Ultrasound Consensus Conference. Radiology. 2003 Nov; 229(2):340-6. Pat.Name:ARY HAINES Pat.ID:[id number] .Date: 01/01/2018 Refer.MD:YANCY LEYVA MD Exam Time: 7:25:00 AMStudy Type:Carotid DOBAge:1940,77YSex: MALE Sonogrphr: Kelley Guan RDCS, RVT Pat. Stat.:Inpatient Room:[facility] ATapeVol: ED, CPT - 4: 46738 Echo Event ID:[id number] Order ID:[id number] Reason for Study:Syncope History / Clinical:HTN, DM, [...] EDV21.1 cm/s Right ICA Mid ICA Mid [id number] cm/Bonilla Mid EDV 24.4 cm/s Right ICA [...] Vascular Ultrasound Laboratory Carotid Artery Duplex Report [address] [address] For quality and reliability engineer purposes, the categorization of the degree of the stenosis of this exam is based on criteria described in the IAC carotid stenosis grading white paper( www.intersocietal.org/Vascular) and Susan Yung., Hien Tate., et al. Carotid artery stenosis: her-scale and Doppler US diagnosis--Society of Radiologists in Ultrasound Consensus Conference. Radiology. 2003 Feb; 229(2):340-6. Pat.Name: ARY HAINES Pat.ID: [id number] .Date: 01/01/2018 Refer.MD: YANCY LEYVA MD Exam Time: 7:25:00 AM Study Type:Carotid Age: 1 1940,77Y Sex: MALE Sonogrphr: Kelley Guan RDCS, T Pat. Stat.:Inpatient Room: A -740 A Tape Vol: ED, CPT - 4: 52540 Echo Event ID:[id number] Order ID: [id number] Reason for Study:Syncope History / Clinical:HTN, DM, [...] Filemon Ceja MD, RPVI Performing Organization Address City/[facility]/Zipcode Phone Number [facility] [address] [place] [address] CT Head Wo Contrast (12/31/2017 10:30 AM [...] IMPRESSION:No acute intracranial hemorrhage or mass effect. [facility]-[id number] Procedure Note Interface, Radiology Results Incoming - [...] No acute intracranial hemorrhage or mass effect. [facility]-[id number] Performing Organization Address [facility]/Zipcode Phone Number [facility] [address] [place] [address] Troponin (12/31/2017 5:29 AM CDT)Only the most recent of3 resultswithin the time period is included. Troponin <0.30 0.00 - 0.30 ng/mL [facility] DEPARTMENT OF PATHOLOGY Comment: AND GENOMIC MEDICINE 0.30 - 1.49 ng/mlMay indicate increased risk of acute coronary syndrome. >=1.5 ng/mlConsistent with acute myocardial infarction. The diagnostic value of a single normal or non-diagnostic result is questionable.Serial samples at 2-6 hour intervals are required to rule out acute myocardial injury. Specimen Plasma specimen Performing Organization Address City/State/Zipcode Phone Number [facility] DEPARTMENT OF PATHOLOGY AND [address] [place] [address] [employer] [facility] Estimated GFR (12/20/2017 4:00 AM CDT)Only the most recent of5 resultswithin the time period is included. GFR Non Af Amer 49 (A) mL/min/1.73 m2 [facility] DEPARTMENT OF PATHOLOGY AND GENOMIC MEDICINE GFR Af Amer 60 mL/min/1.73 m2 [facility] DEPARTMENT OF Comment: PATHOLOGY AND GENOMIC [...] and read back to Rosa Maria Rudolph [facility] DEPARTMENT OF PATHOLOGY AND GENOMIC in A7 12/20/2017 06:25 LMID. MEDICINE Performing Organization Address City/[facility] Phone Number [facility] DEPARTMENT OF PATHOLOGY AND [address] [place], [place] [phone] [facility] Magnesium level (12/20/2017 4:00 AM CDT)Only the most recent of2 resultswithin the time period is included. Magnesium 2.0 1.6 - 2.4 mg/dL [facility] DEPARTMENT OF PATHOLOGY AND GENOMIC MEDICINE Specimen Plasma specimen Narrative Performed At MG added and read back to Rosa Maria Rudolph [facility] DEPARTMENT OF PATHOLOGY AND GENOMIC in A7 12/20/2017 06:25 LMID. MEDICINE Performing Organization Address City/[facility] Centercode Phone Number [facility] DEPARTMENT OF PATHOLOGY AND [address] [place] [address] [employer] [facility] ECG 12 lead (12/19/2017 1:37 AM CDT)Only the most recent of2 resultswithin the time period is included. Ventricular rate 67 [facility] Atrial rate 67 [facility] M[facility] SD interval 166 [facility] QRSD interval 84 [facility] QT interval 436 [facility] QTC interval 460 [facility] P axis 1 58 [facility] QRS axis 1 51 [facility] T wave axis 193 [facility] EKG impression Sinus rhythm with premature atrial H MUSE complexes-T wave abnormality, consider inferolateral ischemia-Voltage criteria for left ventricular hypertrophy- Performing Organization Address City/State/Zipcode Phone Number [facility] MUSE [address] [place] [address] Cv myocardial perfusion (12/17/2017 11:33 AM CDT) Narrative Performed At [facility] Nuclear Cardiology and Cardiac CT [address] [place] [address] Myocardial Perfusion Imaging Report Stress ECG tracings are available in MUSE, EPIC and CV Web All ECG interpretations are included in this report Pat.Name:ARY HAINES Pat.ID:[id number] .Date: 12/17/2017Refer.MD:YANCY LEYVA MD Exam Time: 11:02:00 AM Study Type:Myocardial Perfusion Imaging Height:67inBSA: 1.93 m2 DOBAge:1940,77YSex: MALE BP:179/74HR: 65 bpm HCT: 36.6 % Nuclear Tech:NADIA Ashby, NADIA Cm Pat. Stat.:Inpatient Room:[facility] Nuclear Event ID:[id number] Order ID:[id number] Reason for Study:Chest pain, unspecified* History / Clinical:Coronary artery disease, Diabetes, Family history CAD, Hyperlipidemia, Hypertension, Asthma ROUTINE INHALERS , Tobacco use (including smokeless tobacco) Procedures:Stress only Race: Risk Factors:Diabetes, Cardiovascular Disease, Hyperlipidemia, Hypertension, Smoker Clinical Symptoms:Regadenoson Surgery: K+ 12/16/17,4.3; Troponin 12/15/17,Neg; BUN/ Cr 12/16/17, 20.1; Medications:Aspirin, Atenolol, Insulin, [...] % Max BP:189/80O2 sat:99 % Max RPP: [id number] Symptoms and Complications: Arrhythmias: None Terminated: As per Regadenoson protocol Symptoms:Chest pain, Chest pressure, Dyspnea Signed 12/17/2017 01:32 PM Geri Silva MD Procedure Note Interface, Radiology Results In - 12/17/2017 1:32 PM CDT Nuclear Cardiology and Cardiac CT [address] [address] Myocardial Perfusion Imaging Report Stress ECG tracings are available in [employer], [employer] and [employer] All ECG interpretations are included in this report Pat.Name: ARY HAINES Pat.ID: [id number] .Date: 12/17/2017 Refer.MD: YANCY LEYVA MD Exam Time: 11:02:00 AM Study Type:Myocardial Perfusion Imaging Height: 67in BSA: 1.93 m2 Age: 1 1940,77Y Sex: MALE BP: 179/74 HR: 65 bpm HCT: 36.6 % Nuclear Tech:Michelle Patel [facility] CmMT Pat. Stat.:Inpatient Room: [facility] Nuclear Event ID:[id number] Order ID: [id number] Reason for Study:Chest pain, unspecified* History / Clinical:Coronary artery disease, Diabetes, Family history CAD, Hyperlipidemia, Hypertension, Asthma ROUTINE INHALERS , Tobacco use (including smokeless tobacco) Procedures:Stress only Race: Risk Factors:Diabetes, Cardiovascular Disease, Hyperlipidemia, Hypertension, Smoker Clinical Symptoms:Regadenoson Surgery: K+ 12/16/17, 4.3; Troponin 12/15/17, Neg; BUN/ Cr 12/16/17, .1; Medications:Aspirin, Atenolol, Insulin, Lasix, Lovenox SUMMARY: SCINTIGRAPHIC [...] 189/80 O2 sat: 99 % Max RPP: [id number] Symptoms and Complications: Arrhythmias: None Terminated: As per Regadenoson protocol Symptoms: Chest pain, Chest pressure, Dyspnea Signed 12/17/2017 01:32 PM Geri Silav MD Performing Organization Address [facility] Phone Number [employer] [address] [place] [address] Cv ecg exercise stress (nuclear or echo) (12/17/2017 9:15 AM CDT) Resting HR 65 [facility] Resting BP 179 [facility] Peak MET Achieved 1.0 [facility] Protocol Name REGVIDYA [facility] Time in Exercise Phase 00:01:00 [...] During Ex H MUSE Ex Summary Comment [facility] Overall HR Response to [facility] Exercise Overall BP Response To H MUSE Exercise Reason for Termination [facility] Stress Test Impression -Waveform interpreted in report [facility] associated with image study. No interpretation is provided as part of this Stress ECG report.-Electronically Signed By Ricardo KHAN, Geri Khan ([id number]), loan expeditor Kathi Starr ([id number]) on 12/17/2017 2:25:19 PM Performing Organization Address [facility] Phone Number [facility] [employer] [address] [place] [address] Echocardiogram complete w contrast and 3D if needed (12/16/2017 8:10 AM CDT) Narrative Performed At [facility] Echocardiography Report [id number] [address] Pat.Name:ARY HAINES Pat.ID:[id number] .Date: 12/16/2017Refer.:YANCY LEYVA MD Exam Time: 7:52:00 AMStudy Type:Routine Echo Height:67inWeight: 188lb BSA: 1.97 m2 DOBAge:1940,77Y Sex: MALEBP:167/75 HR:56 bpmSonogrphr: Gina Shahid RDCS, RVT Pat. Stat.:Inpatient Room:[facility] Study Status:Final Echo Event ID:[id number] Order ID:[id number] Reason for Study:Atrial Fibrillation History / Clinical:Coronary [...] RAPof 5 mmHg. MEASUREMENTS: 2D Parasternal Long [place] LVOT 2.2 cmLA Ds5.2 cm LVIDd4.7 cmIndex2.4 cm/m Ao An2.1 cm LVIDs3.4 cmAo Rtd 3.8 cm Index1.9 cm/m LV%fs 26.6 % LV Qlhb743.9 g(122-174) IVSd 1.1 cmLVM Index 95.4 g/m2 LVPWd1.1 cmRWT0.5 LA Sng Plane LA Area 32.7 cm2(8.8-23.4) LA Vol 120.2 ml Index61 ml/m LA LngAx 7.3 cm DOPPLER LVOT Stroke Vol LVOT 2.2 cmLVOT CO5 l/min LVOT TVI22.5 cmLVOT CI2.5 l/m/m2 LVOT Tm407 thqnCN60 bpm LVOT SV 85.7 ml TV Pressure Gradient TV PkVel 318.2 cm/sTV PG 40.5 mmHg MMODE TAPSE TAPS Dim 1.5 cm Signed 12/16/2017 05:54 PM Geri Silva M.D. Procedure Note Interface, Radiology Results In - 12/16/2017 5:54 PM CDT Echocardiography Report [address] [place] [address] Pat.Name: ARY HAINES Pat.ID: [id number] .Date: 12/16/2017 Refer.MD: YANCY LEYVA MD Exam Time: 7:52:00 AM Study Type:Routine Echo Height: 67in Weight: 188lb BSA: 1.97 m2 Age: 1 1940,77Y Sex: MALE BP: 167/75 HR: 56 bpm Sonogrphr: Gina Shahid RDCS, RVT Pat. Stat.:Inpatient Room: [facility] Study Status:Final Echo Event ID:[id number] Order ID: [id number] Reason for Study:Atrial Fibrillation History / Clinical:Coronary [...] of 5 mmHg. MEASUREMENTS: 2D Parasternal [place] LVOT 2.2 cm LA Ds 5.2 cm [...] PM Geri Silva M.D. Performing Organization Address City/[facility]/Zipcode Phone Number [facility] [address] [place] [address] Creatine kinase, total (CPK) (12/15/2017 9:08 PM CDT) Creatine kinase 48 39 - 308 U/L [facility] DEPARTMENT OF PATHOLOGY AND GENOMIC MEDICINE Specimen Plasma specimen Performing Organization Address [facility] Phone Number [facility] DEPARTMENT OF PATHOLOGY AND [address] [place] [address] GENOMIC MEDICINE after 06/08/2017 Insurance Payer Benefit Plan / Group Subscriber ID Type Phone Address MEDICARE MEDICARE PART A AND B xxxxxxxxxxx Medicare [place], [place] [employer] xxxxxx-xx Commercial Advance Directives Patient has advance care planning documents, and code status on file. For more information, please contact:[place] [address] [place] [address] Code Status Date Activated Date Inactivated Comments Full Code 02/28/2018 7:46 PM 03/01/2018 4:46 PM Code Status decision reached by: Patient Full Code 12/30/2017 6:54 PM 01/03/2018 3:46 PM Code Status decision reached by: Patient Full Code 12/15/2017 9:02 PM 12/21/2017 4:09 PM Code Status decision reached by: Patient
[2018-06-09] MEDS ORDERED: FUROSEMIDE 40 MG/4 ML VIAL ONE (03:35)
[2018-06-09] MEDS ORDERED: FUROSEMIDE 20 MG/ 2ML VIAL ONE (03:35)
[2018-06-09 03:38] LABS: Protime INR 1.13
[2018-06-09 03:39] LABS: Absolute Monocytes 0.7 K/uL (0.1-1.3); Absolute Neutrophil 5.5 K/uL (1.8-8.0); Basophils % 0.7 % (0-1.3); Eosinophils % 6.7 % (0-4.4); Hematocrit 33.6 % (39.6-49.0); Lymphocytes % 13.2 % (15.3-44.8); MPV 8.5 fL (7.6-11.3); Monocytes % 8.7 % (3.3-12.3); RBC Red Blood Cell Count 3.94 M/uL (4.33-5.43)
[2018-06-09 03:56] LABS: Albumin 2.9 g/dL (3.4-5.0); Bilirubin Direct 0.1 mg/dL (0-0.2); Bilirubin Total 0.4 mg/dL (0.2-1.0); Magnesium 2.4 mg/dL (1.8-2.4); Potassium 4.1 mmol/L (3.5-5.1); Protein, Total 6.7 g/dL (6.4-8.2); Troponin (Emerg Dept Use Only) 0.02 ng/mL (0.0-0.045)
--- NOTE | 2018-06-09 04:18 | ER ---
Nurse's Notes [facility] Name: Ary Haines Age: 78 yrs Sex: Male : 1940 Arrival Date: 06/09/2018 Time: 01:42 Bed 15 Private MD: Diagnosis: Acute systolic (congestive) heart failure Presentation: 06/09 01:50 Presenting complaint: Patient states: My feet are really swollen and my neck and back ed1 hurt. I can't really walk. Transition of care: patient was not received from another setting of care. Onset of symptoms was June 01, 2018. Risk Assessment: Do you want to hurt yourself or someone else? Patient reports no desire to harm self or others. Initial Sepsis Screen: Does the patient meet any 2 criteria? No. Patient's initial sepsis screen is negative. Does the patient have a suspected source of infection? No. Patient's initial sepsis screen is negative. Care prior to arrival: None. 01:50 Method Of Arrival: Wheelchair ed1 01:50 Acuity: SHIRA 3 ed1 Triage Assessment: 01:52 General: Appears uncomfortable, Behavior is calm, cooperative. Pain: Complains of pain ed1 in right foot and left foot Pain currently is 6 out of 10 on a pain scale. Respiratory: Reports shortness of breath Onset: The symptoms/episode began/occurred about 1 week ago, the patient has mild shortness of breath. Historical: - Allergies: 01:52 Iodine; ed1 - Home Meds: 01:52 aspirin 81 mg Oral TbEC 1 tab once daily [Active]; atenolol 50 mg Oral tab 1 tab once ed1 daily [Active]; dulera [Active]; Lantus 100 unit/mL Sub-Q soln [Active]; lisinopril 20 mg Oral tab 2 tabs once daily [Active]; Tradjenta 5 mg Oral tab 1 tab once daily [Active]; - PMHx: 01:52 blockages; Diabetes - NIDDM; Hypertension; ed1 - PSHx: 01:52 cardiac stents; ed1 - Immunization history:: Adult Immunizations up to date, Flu vaccine is up to date. - Social history:: Smoking status: Patient/guardian denies using tobacco, the patient reports quitting approximately 25 years ago. - Ebola Screening: : Patient negative for fever greater than or equal to 101.5 degrees Fahrenheit, and additional compatible Ebola Virus Disease symptoms Patient denies exposure to infectious person Patient denies travel to an Ebola-affected area in the 21 days before illness onset No symptoms or risks identified at this time. Screenin:22 Abuse screen: Denies threats or abuse. Denies injuries from another. Nutritional cc3 screening: No deficits noted. Tuberculosis screening: No symptoms or risk factors identified. Fall Risk Ambulatory Aid- None/Bed Rest/Nurse Assist (0 pts). Gait- Normal/Bed Rest/Wheelchair (0 pts) Mental Status- Oriented to own ability (0 pts). Assessment: 02:22 General: Appears in no apparent distress. comfortable, Behavior is calm, cooperative, cc3 appropriate for age. Pain: Denies pain. Neuro: Level of Consciousness is awake, alert, obeys commands, Oriented to person, place, time, situation, Appropriate for age. Cardiovascular: Patient's skin is warm and dry. Rhythm is sinus bradycardia. Respiratory: Airway is patent Respiratory effort is even, unlabored, Respiratory pattern is regular, symmetrical, Breath sounds are clear bilaterally. GI: Abdomen is round non-distended. : No signs and/or symptoms were reported regarding the genitourinary system. EENT: No signs and/or symptoms were reported regarding the EENT system. Derm: No signs and/or symptoms reported regarding the dermatologic system. Musculoskeletal: Circulation, motion, and sensation intact. Range of motion: intact in all extremities. 03:18 Reassessment: Patient appears in no apparent distress at this time. Patient and/or cc3 family updated on plan of care and expected duration. Pain level reassessed. Patient is alert, oriented x 3, equal unlabored respirations, skin warm/dry/pink. 04:22 Reassessment: Patient appears in no apparent distress at this time. Patient and/or cc3 family updated on plan of care and expected duration. Pain level reassessed. Patient is alert, oriented x 3, equal unlabored respirations, skin warm/dry/pink. 05:26 Reassessment: Patient appears in no apparent distress at this time. Patient and/or cc3 family updated on plan of care and expected duration. Pain level reassessed. Patient is alert, oriented x 3, equal unlabored respirations, skin warm/dry/pink. Patient for admission, room available at 213, called for report but was told that the nurse who will receive will just call me back. 05:35 Reassessment: RN Allyson Mccabe called and report was handed over to her. cc3 05:43 Reassessment: Patient appears in no apparent distress at this time. Patient and/or cc3 family updated on plan of care and expected duration. Pain level reassessed. Patient is alert, oriented x 3, equal unlabored respirations, skin warm/dry/pink. Patient left ER for admission vitally stable by wheelchair escorted by me and the patient's . Patient denies pain at this time. Patient states feeling better. Patient states symptoms have improved. Vital Signs: 01:52 BP 137 / 68; Pulse 64; Resp 18; Temp 98.1; Pulse Ox 98% on R/A; Weight 83.91 kg; Height ed1 5 ft. 7 in. (170.18 cm); Pain 6/10; 02:25 BP 161 / 67; Pulse 57; Resp 17 S; Pulse Ox 97% on R/A; cc3 03:30 BP 158 / 71; Pulse 57; Resp 19 S; Pulse Ox 98% on R/A; cc3 04:19 BP 157 / 67; Pulse 57; Resp 15 S; Pulse Ox 97% on R/A; cc3 05:26 BP 164 / 72; Pulse 58; Resp 16 S; Pulse Ox 97% on R/A; cc3 01:52 Body Mass Index 28.97 (83.91 kg, 170.18 cm) ed1 ED Course: 01:42 Patient arrived in ED. ds1 01:51 Triage completed. ed1 01:52 Arm band placed on left wrist. ed1 02:00 Geovanni Deng MD is Attending Physician. gs 02:22 Jenna Valdez is Primary Nurse. cc3 02:22 Patient has correct armband on for positive identification. Placed in gown. Bed in low cc3 position. Call light in reach. Side rails up X 1. court commissioner on. Pulse ox on. NIBP on. 03:09 XRAY Chest (1 view) In Process Unspecified. EDMS 03:10 Inserted saline lock: 20 gauge in left antecubital area, using aseptic technique. Blood cc3 collected. 04:17 Jonel Sanders MD is Hospitalizing Provider. gs 05:35 No provider procedures requiring assistance completed. Patient admitted, IV remains in cc3 place. Administered Medications: 03:21 CANCELLED (Physician Discretion): Lasix 80 mg IVP once cc3 03:25 Drug: Lasix 60 mg {Note: patient took Lasix 20 mg oral at 0030H today.} Route: IVP; cc3 Site: left antecubital; 04:00 Follow up: Response: No adverse reaction cc3 Output: 04:30 Urine: 1500ml (Voided); Total: 1500ml. cc3 Outcome: 04:17 Decision to Hospitalize by Provider. 05:35 Admitted to Med/surg accompanied by nurse, family with patient, via stretcher, room cc3 213, with chart, Report called to Allyson Mccabe 05:35 Condition: stable 05:35 Instructed on the need for admit, Demonstrated understanding of instructions. 05:43 Patient left the ED. cc3 Signatures: Dispatcher [facility] Berenice Alvarez ds1 Yisel Mixon RN RN ed1 Geovanni Deng MD MD gs Cordel, Charlene cc3 Corrections: (The following items were deleted from the chart) 03:31 03:25 Lasix 60 mg IVP in left antecubital cc3 cc3 05:58 05:43 Reassessment: Patient appears in no apparent distress at this time. Patient cc3 and/or family updated on plan of care and expected duration. Pain level reassessed. Patient is alert, oriented x 3, equal unlabored respirations, skin warm/dry/pink. Patient left ER for admission vitally stable by wheelchair escorted by me and the patient's . cc3
--- NOTE | 2018-06-09 04:18 | EDPHYS ---
Physician Documentation [facility] Name: Ary Haines Age: 78 yrs Sex: Male : 1940 Arrival Date: 06/09/2018 Time: 01:42 Bed 15 Private MD: ED Physician Geovanni Deng HPI: 06/09 04:13 This 78 yrs old Male presents to ER via Wheelchair with complaints of Leg gs Swelling, Shortness Of Breath. 04:13 The patient has shortness of breath at rest. Onset: The symptoms/episode began/occurred gs 1 week(s) ago, and became worse and became persistent. Duration: The symptoms are continuous. The patient's shortness of breath is aggravated by exertion, walking. Associated signs and symptoms: Pertinent positives: swelling lower extremities, Pertinent negatives: chest pain, fever. Severity of symptoms: At their worst the symptoms were moderate in the emergency department the symptoms are unchanged. The patient has experienced similar episodes in the past, several times. The patient has been recently been admitted at [facility], was discharged last month. Historical: - Allergies: 01:52 Iodine; ed1 - Home Meds: 01:52 aspirin 81 mg Oral TbEC 1 tab once daily [Active]; atenolol 50 mg Oral tab 1 tab once ed1 daily [Active]; dulera [Active]; Lantus 100 unit/mL Sub-Q soln [Active]; lisinopril 20 mg Oral tab 2 tabs once daily [Active]; Tradjenta 5 mg Oral tab 1 tab once daily [Active]; - PMHx: 01:52 blockages; Diabetes - NIDDM; Hypertension; ed1 - PSHx: 01:52 cardiac stents; ed1 - Immunization history:: Adult Immunizations up to date, Flu vaccine is up to date. - Social history:: Smoking status: Patient/guardian denies using tobacco, the patient reports quitting approximately 25 years ago. - Ebola Screening: : Patient negative for fever greater than or equal to 101.5 degrees Fahrenheit, and additional compatible Ebola Virus Disease symptoms Patient denies exposure to infectious person Patient denies travel to an Ebola-affected area in the 21 days before illness onset No symptoms or risks identified at this time. ROS: 04:13 All other systems are negative. gs Exam: 04:13 Head/Face: Normocephalic, atraumatic. Eyes: Pupils equal round and reactive to light, gs extra-ocular motions intact. Lids and lashes normal. Conjunctiva and sclera are non-icteric and not injected. Cornea within normal limits. Periorbital areas with no swelling, redness, or edema. ENT: Nares patent. No nasal discharge, no septal abnormalities noted. Tympanic membranes are normal and external auditory canals are clear. Oropharynx with no redness, swelling, or masses, exudates, or evidence of obstruction, uvula midline. Mucous membranes moist. Neck: Trachea midline, no thyromegaly or masses palpated, and no cervical lymphadenopathy. Supple, full range of motion without nuchal rigidity, or vertebral point tenderness. No Meningismus. Chest/axilla: Normal chest wall appearance and motion. Nontender with no deformity. No lesions are appreciated. Cardiovascular: Regular rate and rhythm with a normal S1 and S2. No gallops, murmurs, or rubs. Normal PMI, no JVD. No pulse deficits. 04:13 Abdomen/GI: Soft, non-tender, with normal bowel sounds. No distension or tympany. No guarding or rebound. No evidence of tenderness throughout. Back: No spinal tenderness. No costovertebral tenderness. Full range of motion. Skin: Warm, dry with normal turgor. Normal color with no rashes, no lesions, and no evidence of cellulitis. MS/ Extremity: Pulses equal, no cyanosis. Neurovascular intact. Full, normal range of motion. Neuro: Awake and alert, GCS 15, oriented to person, place, time, and situation. Cranial nerves II-XII grossly intact. Motor strength 5/5 in all extremities. Sensory grossly intact. Cerebellar exam normal. Normal gait. 04:13 Constitutional: The patient appears alert, awake. 04:13 Cardiovascular: Edema: 3+ edema to level of left midcalf, left ankle, right midcalf and right ankle. 04:13 Respiratory: the patient does not display signs of respiratory distress, Respirations: normal, Breath sounds: rales, that are moderate, are located in both bases. 04:18 ECG was reviewed by the Attending Physician. Vital Signs: 01:52 BP 137 / 68; Pulse 64; Resp 18; Temp 98.1; Pulse Ox 98% on R/A; Weight 83.91 kg; Height ed1 5 ft. 7 in. (170.18 cm); Pain 6/10; 02:25 BP 161 / 67; Pulse 57; Resp 17 S; Pulse Ox 97% on R/A; cc3 03:30 BP 158 / 71; Pulse 57; Resp 19 S; Pulse Ox 98% on R/A; cc3 04:19 BP 157 / 67; Pulse 57; Resp 15 S; Pulse Ox 97% on R/A; cc3 05:26 BP 164 / 72; Pulse 58; Resp 16 S; Pulse Ox 97% on R/A; cc3 01:52 Body Mass Index 28.97 (83.91 kg, 170.18 cm) ed1 MDM: 02:12 Patient medically screened. 04:13 Differential diagnosis: CHF exacerbation, Chronic Obstructive Pulmonary Disease gs Myocardial Infarction pneumonia, pulmonary edema. Data reviewed: vital signs, nurses notes. Counseling: I had a detailed discussion with the patient and/or guardian regarding: the historical points, exam findings, and any diagnostic results supporting the discharge/admit diagnosis, the need for further work-up and treatment in the hospital. 06/09 02:22 Order name: Basic Metabolic Panel; Complete Time: 04:03 06/09 02:22 Order name: CBC with Diff; Complete Time: 03:48 06/09 02:22 Order name: LFT's; Complete Time: 04:03 06/09 02:22 Order name: Magnesium; Complete Time: 04:03 06/09 02:22 Order name: NT PRO-BNP; Complete Time: 04:03 06/09 02:22 Order name: PT-INR; Complete Time: 03:48 06/09 02:22 Order name: Troponin (emerg Dept Use Only); Complete Time: 04:03 06/09 02:22 Order name: XRAY Chest (1 view) 06/09 02:22 Order name: EKG; Complete Time: 02:23 06/09 04:23 Order name: Troponin I [facility] 06/09 04:23 Order name: Troponin I [facility] 06/09 02:22 Order name: Cardiac monitoring; Complete Time: 03:06 06/09 02:22 Order name: EKG - Nurse/Tech; Complete Time: 03:31 06/09 02:22 Order name: IV Saline Lock; Complete Time: 03:31 06/09 02:22 Order name: Labs collected and sent; Complete Time: 03:33 06/09 02:22 Order name: O2 Per Protocol; Complete Time: 03:06 06/09 02:22 Order name: O2 Sat Monitoring; Complete Time: 03:06 EC:18 Rate is 58 beats/min. Rhythm is regular. [place] interval is normal. QRS interval is normal. QT interval is normal. T waves are Inverted. Clinical impression: NSR w/ Non-specific ST/T Changes. Interpreted by me. Administered Medications: 03:21 CANCELLED (Physician Discretion): Lasix 80 mg IVP once cc3 03:25 Drug: Lasix 60 mg {Note: patient took Lasix 20 mg oral at 0030H today.} Route: IVP; cc3 Site: left antecubital; 04:00 Follow up: Response: No adverse reaction cc3 Disposition: 04:13 Critical Care:. Disposition: 06/09/18 04:17 Hospitalization ordered by Jonel Sanders for Observation. Preliminary diagnosis is Acute systolic (congestive) heart failure. - Bed requested for Telemetry/MedSurg (observation). - Status is Observation. cc3 - Condition is Stable. - Problem is an ongoing problem. - Symptoms have improved. UTI on Admission? No Critical care time excluding procedures: 04:13 Critical care time: Bedside Care: 10 minutes, Consultation: 10 minutes, Family Intervention: 10 minutes. Total time: 30 minutes Signatures: Dispatcher [employer] EDMN Irene Min RN RN kl Riggs, Erika, RN RN ed1 Geovanni Deng MD MD Jenna Valdez cc3 Corrections: (The following items were deleted from the chart) 03:21 02:22 Lasix 80 mg IVP once ordered. cc3 03:21 03:21 Lasix 80 mg IVP once ordered. cc3 cc3 04:23 04:22 NT PRO-BNP ordered. [facility] EDMN 05:11 04:17 Hospitalization Ordered by Jonel Sanders MD for Observation. Preliminary diagnosis kl is Acute systolic (congestive) heart failure. Bed requested for Telemetry/MedSurg (observation). Status is Observation. Condition is Stable. Problem is an ongoing problem. Symptoms have improved. UTI on Admission? No. gs 05:43 05:11 06/09/2018 04:17 Hospitalization Ordered by Jonel Sanders MD for Observation. cc3 Preliminary diagnosis is Acute systolic (congestive) heart failure. Bed requested for Telemetry/MedSurg (observation). Status is Observation. Condition is Stable. Problem is an ongoing problem. Symptoms have improved. UTI on Admission? No. kl
[2018-06-09] MEDS ORDERED: IPRATROPIUM BROM 0.5MG/2.5ML NEB PRN ×2 (04:21→05:58)
[2018-06-09] MEDS ORDERED: ALBUTEROL 2.5 MG/3 ML NEB SOL NEB PRN ×2 (04:21→05:58)
[2018-06-09 05:57] VITALS: BMI 27.9
[2018-06-09] MEDS ORDERED: GLUCAGON 1 MG/VIAL IM PRN (08:28)
[2018-06-09] MEDS ORDERED: D50W 25 GM/50 ML SYRINGE IV PRN (08:28)
[2018-06-09] MEDS ORDERED: FUROSEMIDE 20 MG/ 2ML VIAL IV SCH (09:00)
[2018-06-09] MEDS: CLOPIDOGREL 75 MG TABLET PO SCH (09:48)
[2018-06-09] MEDS: AMLODIPINE 10 MG TAB PO SCH (09:48)
[2018-06-09] MEDS: CARVEDILOL 12.5 MG TAB PO SCH ×2 (09:49→21:41)
[2018-06-09] MEDS: ASPIRIN EC 81 MG TAB PO SCH (09:49)
[2018-06-09] MEDS: DULERA 100/5 (MOMETASONE/FORMOTEROL) INHALER IH SCH ×2 (10:31→21:42)
--- NOTE | 2018-06-09 10:37 | RAD REPORT ---
EXAM DESCRIPTION: RAD - Chest Single View - 06/09/2018 2:47 am CLINICAL HISTORY: DYSPNEA Chest pain. COMPARISON: Chest Single View dated 05/19/2018; Chest Pa And Lat (2 Views) dated 05/14/2018; Chest Pa A nd Lat (2 Views) dated 05/01/2018; Abdomen 1 View (KUB) dated 12/30/2017 FINDINGS: Portable technique limits examination quality. Mild bilateral pulmonary opacities are present compatible with pulmonary edema. The heart is moderate ly enlarged in size with sternotomy wires present. No displaced fractures. IMPRESSION: Mild CHF versus volume overload pattern.
[2018-06-09] MEDS: INSULIN -REGULAR HUMAN 50 UNIT/0.5 ML ML SQ SCH ×3 (13:08→21:00)
[2018-06-09] MEDS: HYDROCODONE/APAP 5/325 MG TAB PO PRN (14:46)
[2018-06-09] MEDS: FUROSEMIDE 20 MG/ 2ML VIAL IV SCH (18:04)
[2018-06-09] MEDS: INSULIN GLARGINE 100 UNITS/ML SQ SCH (21:00)
[2018-06-09] MEDS: ATORVASTATIN 40 MG TAB PO SCH (21:41)
[2018-06-10] MEDS: HYDROCODONE/APAP 5/325 MG TAB PO PRN ×3 (00:45→18:42)
--- NOTE | 2018-06-10 03:58 | HP ---
Date of Admission: 06/09/2018 Chief Complaint: Shortness of breath, swelling of the feet. 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 He was f ound to have evidence of pulmonary edema and pedal edema compatible with the diagnosis of heart failu re. The patient has been taking Lasix at home; however, because of renal function, his Lasix was cut down by his airborne mission systems superintendent in conjunction with trauma program manager. The patient denied any chest pain. Past Medical History: Positive for type 2 diabetes, hypertension, and history of coronary artery dis ease, status post angioplasty. Family History: Diabetes present. Personal History: Nonsmoker. Review of Systems: No fever, chills, or rigors. Past Surgical History: Positive for coronary angioplasty. Physical Examination: General: Revealed a 78-year-old male with mild wheezing. HEENT: Otherwise negative. Neck: Supple. JVD negative. Chest: Basal crackles bilaterally. Heart: Regular. Abdomen: Soft, nontender. Extremities: Bilateral pedal edema noted. Laboratory Data: White count normal, hemoglobin normal. Chem profile; BUN 24, creatinine 1.2, and B IT APPLICATIONS MANAGER 1431. Chest x-ray, pulmonary edema. Assessment: 1.Decompensated diastolic heart failure. 2.Known coronary artery disease. 3.Hypertension. 4.Renal insufficiency. 5.Type 2 diabetes. Plan: The patient received IV Lasix. He is feeling better. He will be reexamined tomorrow. JEMAL/MAZIN Voice ID: [id number]
[2018-06-10 06:18] LABS: Urine Appearance CLEAR; Urine Bilirubin NEGATIVE (NEG); Urine Blood NEGATIVE (NEG); Urine Color YELLOW; Urine Glucose NEGATIVE (NEG); Urine Protein 1+ (NEG); Urine Urobilinogen 0.2 mg/dL (0.2-1.0)
[2018-06-10 06:26] LABS: Urine Microscopic Reflex ORDER UMIC
[2018-06-10] MEDS: INSULIN -REGULAR HUMAN 50 UNIT/0.5 ML ML SQ SCH ×4 (07:30→21:04)
[2018-06-10 07:38] LABS: Urine Bacteria NONE SEEN /HPF (NONE SEEN); Urine Culture Reflex Order NOT NEEDED; Urine RBC <5 /HPF (NONE SEEN)
[2018-06-10] MEDS: CLOPIDOGREL 75 MG TABLET PO SCH (09:24)
[2018-06-10] MEDS: DULERA 100/5 (MOMETASONE/FORMOTEROL) INHALER IH SCH ×2 (09:24→21:00)
[2018-06-10] MEDS: AMLODIPINE 10 MG TAB PO SCH (09:24)
[2018-06-10] MEDS: FUROSEMIDE 20 MG/ 2ML VIAL IV SCH ×2 (09:25→16:40)
[2018-06-10] MEDS: CARVEDILOL 12.5 MG TAB PO SCH ×2 (09:25→21:02)
[2018-06-10] MEDS: ASPIRIN EC 81 MG TAB PO SCH (09:25)
[2018-06-10] MEDS: INSULIN GLARGINE 100 UNITS/ML SQ SCH (21:00)
[2018-06-10] MEDS: ATORVASTATIN 40 MG TAB PO SCH (21:03)
--- NOTE | 2018-06-10 22:49 | PN ---
The patient is doing better. He still has basal crackles and pedal edema. The patient will have robinson m profile done, and the dose of Lasix will be readjusted. JEMAL/MAZIN Voice ID: [id number] Report ID: [id number]
[2018-06-11] MEDS: HYDROCODONE/APAP 5/325 MG TAB PO PRN ×2 (03:36→08:52)
[2018-06-11 06:22] VITALS: O2SAT 97
[2018-06-11] MEDS: INSULIN -REGULAR HUMAN 50 UNIT/0.5 ML ML SQ SCH ×2 (07:30→11:59)
[2018-06-11] MEDS: ASPIRIN EC 81 MG TAB PO SCH (08:51)
[2018-06-11] MEDS: FUROSEMIDE 20 MG/ 2ML VIAL IV SCH (08:51)
[2018-06-11] MEDS: DULERA 100/5 (MOMETASONE/FORMOTEROL) INHALER IH SCH (08:51)
[2018-06-11] MEDS: CARVEDILOL 12.5 MG TAB PO SCH (08:51)
[2018-06-11] MEDS: CLOPIDOGREL 75 MG TABLET PO SCH (08:52)
[2018-06-11] MEDS: AMLODIPINE 10 MG TAB PO SCH (08:52)
[2018-06-11 09:39] LABS: Potassium 3.8 mmol/L (3.5-5.1)
[2018-06-11 12:32] VITALS: BP 171/75; TEMP 97.2
== END 2018-06-11 14:22 | disposition home or self-care (01) ==
LOC: ER 01:40 → ERHOLD 04:25 → 2ND 05:35
PROVIDERS: ADMIT Internal Medicine; ATTEND Internal Medicine
DX: I11.0 Hypertensive heart disease with heart failure (principal); I50.33 Acute on chronic diastolic (congestive) heart failure; I25.10 Atherosclerotic heart disease of native coronary artery without angina pectoris; N28.9 Disorder of kidney and ureter, unspecified; E11.9 Type 2 diabetes mellitus without complications; Z98.61 Coronary angioplasty status
CPT/HCPCS: 85025; 80048 ×2; 36415 ×2; 83735; 85610; 82962 ×10; 80076; 84484 ×3; 83880; 71045; 96374; 99285; J1940 ×6; G0378 ×2; 81003; 81015; J7606

== ENCOUNTER 2018-09-05 09:59 | Emergency (ER) | payer OTHER ==
--- OUTSIDE RECORDS SUMMARY | 2018-09-05 10:03 | XMS REPORT | Clinical Summary ---
:1940 Author Organization [facility] Address [address] [place] [address] Care Team Providers Name Role Phone Jonel [...] your 60 each 5 02/19/2018 Active ultrasoft) [facility] blood sugar before meals and at bedtime, [...] 0 04/14/2018 Active (PLAVIX) 75 mg tablet hydrALAZINE 5 08/11/2018 Active (APRESOLINE) 25 MG tablet carvedilol (COREG) 6 08/11/2018 Active 12.5 MG tablet BREO ELLIPTA 200-25 0 07/01/2018 Active mcg/dose blister with device powder for inhalation insulin degludec Inject 0.18 mL 15 mL 1 08/14/2018 Active 100 unit/mL (3 mL) (18 Units insulin pen total) under the skin daily. glimepiride Take 2 mg by 0 Discontinued [...] complication, with long-term current use of insulin ([facility]) blood-glucose meter Use as 1 each 0 02/08/2018 Discontinued kitIndications: instructed 8 Type 2 diabetes mellitus with other diabetic kidney complication, with long-term current use of insulin ([facility]) atorvastatin Take 1 tablet 30 tablet 3 03/01/2018 (LIPITOR) 40 MG (40 mg total) 8 tablet by mouth nightly for 30 days. clopidogrel Take 1 tablet 30 tablet 3 03/02/2018 (PLAVIX) 75 mg (75 mg total) 8 tablet by mouth daily for 30 days. insulin GLARGINE Inject 14 Units 3 mL 11 05/08/2018 Discontinued (LANTUS SOLOSTAR) under the skin 9 100 unit/mL nightly. 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 (HCC) (Primary Dx); Type 2 diabetes, controlled, with neuropathy (HCC); Mixed hyperlipidemia; Stage 3 chronic kidney disease (HCC); Essential hypertension 05/08/2018 Lab Lab Patham, Type 2 diabetesMarii MD controlled, with neuropathy (HCC) 05/08/2018 Office Visit Endocrinology Karime Jade, Type 2 diabetes, controlled, with neuropathy (HCC) (Primary Dx); Stage 3 chronic kidney disease (HCC); Essential hypertension; Mixed hyperlipidemia 02/28/2018 Surgery Procedural Attar, CV AORTAGRAM ABDOMEN Cardiology MD Rhett WITH RUN OFF [78896 (CPT)] 02/28/2018 - Hospital Cardiology Attar, 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 of penobscot heart without angina pectoris; Type 2 diabetes mellitus with other diabetic kidney complication, with long-term current use of insulin (HCC); Stage 3 chronic kidney disease (HCC) 01/10/2018 Hospital Procedural Attar, PVD (peripheral Encounter Cardiology MD Rhett vascular disease) 12/30/2017 - Hospital Cardiology Ashwin, Syncope, unspecified syncope type (Primary Dx); 01/03/2018 Encounter Yancy Garcia Sr., Type 2 diabetes mellitus with hyperosmolarity without coma, without long-term current use of insulin; 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 of penobscot heart without angina pectoris; Mild intermittent asthma without complication; Essential hypertension 12/30/2017 Intake Access N/A 12/21/2017 Telephone Cardiology Irina Vang 12/15/2017 - Hospital Cardiology Ashwin, Paroxysmal atrial fibrillation ( Primary Dx); 12/21/2017 Encounter Yancy Garcia Sr., Asbestosis; Type 2 diabetes mellitus with hyperosmolarity without coma, unspecified long line teamster insulin use status; 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 of penobscot heart without angina pectoris; Mild intermittent asthma without complication 12/15/2017 Intake Access N/A after 09/04/2017 Immunizations Name Dates Previously Given Next Due [...] Vital Sign Reading Time Taken Blood Pressure 135/85 08/14/2018 10:11 AM CDT Pulse 59 08/14/2018 9:34 AM CDT Temperature 36.6 C (97.8 F) 08/14/2018 9:34 AM CDT Respiratory Rate 17 03/01/2018 11:40 AM PICK UP Oxygen Saturation 98% 08/14/2018 9:34 AM CDT Inhaled Oxygen Concentration - - Weight 77.6 kg (171 lb) 08/14/2018 9:34 AM CDT Height 170.2 cm (5' 7") 08/14/2018 9:34 AM CDT Body Mass Index 26.78 08/14/2018 9:34 AM CDT Plan of Treatment Date Type Specialty Care Team Description 11/13/2018 Office Visit Endocrinology [facility] Sofie Sierra MD [address] [address] [phone] Health Maintenance Due Date Last Done Comments DIABETIC RETINAL EYE EXAM 1940 DIABETIC FOOT EXAM 1952 SHINGLES VACCINES (#1) 1992 65+ PNEUMOCOCCAL VACCINE (1 of 2 - PCV13) 2007 PNEUMOCOCCAL POLYSACCHARIDE VACCINE AGE 65 AND OVER 2007 INFLUENZA VACCINE 11/15/2018 01/03/2018 Implants Implanted Type Area Environmental Coordinator Device Shelf Expiration Model / Serial Identifier Date / Lot Lens-11/08/2017 Lens [id number] / Implanted: 11/08/2017 (Quantity not on file) [id number] / Artificial Lense Procedures Procedure Name Priority Date/Time Associated Diagnosis Comments POC GLYCOSYLATED Routine 08/14/2018 9:47 Type 2 diabetes, Results for this HEMOGLOBIN (HGB A1C) AM CDT controlled, 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 HEMOGLOBIN A1C Routine 05/08/2018 12:02 Type 2 diabetes, Results for this PM PICK UP controlled, 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 POC GLUCOSE Routine 03/01/2018 11:41 Results for this AM PICK UP procedure are in the results section. POC GLUCOSE Routine 03/01/2018 8:14 Results for this AM PICK UP procedure are in the results section. HEMOGLOBIN A1C Routine 03/01/2018 4:15 Results for this AM PICK UP procedure are in the results section. CBC WITH PLATELET AND Routine 03/01/2018 4:15 Results for this DIFFERENTIAL AM PICK UP procedure are in the results section. ESTIMATED GFR Routine 03/01/2018 4:00 Results for this AM PICK UP procedure are in the results section. T4, FREE Routine 03/01/2018 4:00 Results for this AM PICK UP procedure are in the results section. THYROID STIMULATING Routine 03/01/2018 4:00 Results for this HORMONE AM PICK UP procedure are in the results section. LIPID PANEL Routine 03/01/2018 4:00 Results for this AM PICK UP procedure are in the results section. BASIC METABOLIC PANEL Routine 03/01/2018 4:00 Results for this AM PICK UP procedure are in the results section. POC GLUCOSE Routine 02/28/2018 9:44 Results for this PM PICK UP procedure are in the results section. ACTIVATED CLOTTING Routine 02/28/2018 6:54 Results for this TIME PM PICK UP procedure are in the results section. POC GLUCOSE Routine 02/28/2018 6:49 Results for this PM PICK UP procedure are in the results section. AORTAGRAM ABDOMEN WITH Routine 02/28/2018 6:16 Coronary artery Results for this RUN OFF PM PICK UP disease involving procedure are in penobscot coronary the results artery without section. angina pectoris, unspecified whether [place] or transplanted heart ACTIVATED CLOTTING Routine 02/28/2018 5:57 Results for this TIME PM PICK UP procedure are in the results section. ACTIVATED CLOTTING Routine 02/28/2018 5:46 Results for this TIME PM PICK UP procedure are in the results section. HC COMPLETE BLD COUNT STAT 02/28/2018 12:15 Results for this W/AUTO DIFF PM PICK UP procedure are in the results section. POC GLUCOSE Routine 02/28/2018 11:57 Results for this AM PICK UP procedure are in the results section. ESTIMATED GFR STAT 02/28/2018 11:51 Results for this AM PICK UP procedure are in the results section. BASIC METABOLIC PANEL STAT 02/28/2018 11:51 Results for this AM PICK UP procedure are in the results section. ECG [...] are in SPECTRAL COLOR DOPPLER the results (43546) section. HEMOGLOBIN A1C Routine 12/16/2017 5:11 Results [...] procedure are in the results section. after 09/04/2017 Results POC glycosylated hemoglobin (Hb A1C) (08/14/2018 9:47 AM CDT) Pathologist [facility] POC Hemoglobin A1C 8.5 % Specimen Blood Hemoglobin A1c (05/08/2018 12:02 PM PICK UP)Only the most recent of4 resultswithin the time period is included. Hemoglobin A1C 7.7 (H) <5.7 % of [employer] Comment: total Hgb [facility] For someone without known diabetes, a hemoglobin [...] Performing Organization Information: Site ID: RGA Name: [facility] Address: [address] [place] [id number] Director: Gabriela Boothe Performing Organization Address City/State/Zipcode Phone Number Pres[employer] [facility] [address] [place], [place] [phone] POC glucose (03/01/2018 11:41 AM PICK UP)Only the most recent of41 resultswithin the time period is included. POC glucose 137 (H) 65 - 99 mg/dL [facility] Comment: [facility] Notified RN Meter ID: [id number] Boatbuilder Supervisor: Joel Delvalle Specimen Performing Organization Address City/State/Zipcode Phone Number [facility] DEPARTMENT OF PATHOLOGY AND [address] [place] [phone] GENOMIC MEDICINE [address] [address] CBC with platelet and differential (03/01/2018 4:15 AM PICK UP)Only the most recent of7 resultswithin the time period is included. Pathologist [facility] WBC 7.95 4.50 - 11.00 [facility]/uL [facility] RBC 3.82 (L) 4.40 - 6.00 [facility] HGB 11.1 (L) 14.0 - 18.0 [facility] HCT 34.0 (L) 41.0 - 51.0 % [facility] MCV 89.0 82.0 - 100.0 [facility] MCH 29.1 27.0 - 34.[address] [facility] MCHC 32.6 31.0 - 37.0 [facility] RDW - SD 41.9 37.0 - 55.[address] [facility] MPV 10.2 8.8 - 13.[address] [facility] Platelet count 215 150 - 400 k/uL [facility] Nucleated RBC 0.00 /[address] [facility] Neutrophils 67.7 39.0 - 69.0 % [facility] Lymphocytes 16.9 (L) 25.0 - 45.0 % [facility] Monocytes 9.4 0.0 - 10.0 % [facility] Eosinophils 4.7 0.0 - 5.0 % [facility] Basophils 0.8 0.0 - 1.0 % [facility] Immature granulocytes 0.5Comment: 0.0 - 1.0 % [facility] "Immature HOSPITAL granulocytes" (promyelocytes , myelocytes, metamyelocytes ) Specimen Blood Performing Organization Address [facility] Phone Number [facility] DEPARTMENT OF PATHOLOGY AND [address] [place] [address] Estimated GFR (03/01/2018 4:00 AM PICK UP)Only the most recent of6 resultswithin the time period is included. Pathologist [facility] Estimated GFR 68 mL/min/1.73 [facility] Comment: m2 [facility] CatergoryUnitsInterpretation G1 >=90 Normal or high G2 60-89Mildly decreased H4s23-14Qekzng to moderately decreased J4e36-59Jhsjmgqvbe to severely decreased G4 15-29Severely decreased G5 <15Kidney failure The eGFR was calculated using the Chronic Kidney Disease Epidemiology Collaboration (CKD-EPI) equation. Interpretation is based on recommendations of the National Kidney Foundation-Kidney Disease Outcomes Quality Initiative (NKF-KDOQI) published in 2014. Specimen Plasma specimen Performing Organization Address [facility] Phone Number [facility] DEPARTMENT OF PATHOLOGY AND [address] [place] [address] Thyroid stimulating hormone (03/01/2018 4:00 AM PICK UP)Only the most recent of3 resultswithin the time period is included. [facility] TSH 2.91 0.27 - 4.20 uIU/mL [facility] Specimen Plasma specimen Performing Organization Address [facility] Phone Number [facility] DEPARTMENT OF PATHOLOGY AND [address] [place] [address] T4, free (03/01/2018 4:00 AM PICK UP)Only the most recent of3 resultswithin the time period is included. Pathologist [facility] T4, free 1.1 0.9 - 1.7 ng/dL [facility] Specimen Plasma specimen Performing Organization Address [facility] Phone Number [facility] DEPARTMENT OF PATHOLOGY AND [address] [place] [address] Lipid panel (03/01/2018 4:00 AM PICK UP)Only the most recent of3 resultswithin the time period is included. Cholesterol 148 <200 mg/dL [facility] Triglycerides 184 (H) <150 mg/dL [facility] HDL cholesterol 32 (L) >40 mg/dL [facility] LDL cholesterol 87Comment: Result <100 mg/dL [facility] obtained by direct [facility] LDL measurement [facility] Lipid panel [facility] interpretation Comment: [facility] Total Cholesterol (mg/dL) [facility] <200 Desirable 918-107Sfezhdwqxs-bgus >=240High Triglycerides (mg/dL) <150 Normal 218-945Lyxmiberda-aqxr 200-499High >=500Very high HDL Cholesterol (mg/dL) <40Low (male) <40Low (female) LDL Cholesterol (mg/dL) <100 Optimal 100-129Near or above optimal 194-735Kceyapaary-mapw 160-189High >=190Very high Risk Catergories that modify [...] mg/dL) Specimen Plasma specimen Performing Organization Address City/State/Zipcode Phone Number [facility] DEPARTMENT OF PATHOLOGY AND [address] [place] [address] GEN[address] [address] Basic metabolic panel (03/01/2018 4:00 AM PICK UP)Only the most recent of11 resultswithin the time period is included. Sodium 141 135 - 148 mEq/L [facility] Potassium 3.3 (L) 3.5 - 5.0 mEq/L [facility] Chloride 106 98 - 112 mEq/L [facility] CO2 23 (L) 24 - 31 mEq/L [facility] Anion gap 12@ANIO 7 - 15 mEq/L [facility] BUN 20 8 - 23 mg/dL [facility] Creatinine 1.06 0.70 - 1.20 mg/dL [facility] Glucose 131 (H) 65 - 99 mg/dL [facility] Calcium 8.3 (L) 8.8 - 10.2 mg/dL [facility] Specimen Plasma specimen Performing Organization Address City/[facility]/Zipcode Phone Number [facility] DEPARTMENT OF PATHOLOGY AND [address] [place] [phone] [place] [phone] Activated clotting time (02/28/2018 6:54 PM PICK UP)Only the most recent of3 resultswithin the time period is included. Activated clotting 177 (H) 96 - 152 sec [facility] Comment: HOSPITAL Meter ID: [id number] Boatbuilder Supervisor: Dakota Roy Specimen Performing Organization Address City/[facility] Phone Number [facility] DEPARTMENT OF PATHOLOGY AND [address] [place] [phone] [place] [phone] Cv invasive peripheral vascular procedure (02/28/2018 6:16 PM PICK UP) Specimen Narrative Performed At PREOPERATIVE DIAGNOSIS [facility] 1.Claudication 2.Peripheral Arterial Disease POSTOPERATIVE DIAGNOSIS 1.Claudication 2.Peripheral Arterial Disease PROCEDURES PERFORMED 1.Abdominal Aortogram with runoff 2.Ipsilateral Right Femoral Angiography 3.Contralateral Left Iliac Angiography 4.Percutaneous Angioplasty of left distal popliteal with a 4x40 mm Impact drug coated balloon [employer]BI[employer] ARCHITECT Dr. Rhett Diaz, Forging Press Lever Tender ASSISTANT SOFTBALL COACH Terrell Dixon, Resident, MD ANESTHESIA USED Local 2% lidocaine, Conscious Sedation DESCRIPTION OF PROCEDURE The procedure was described to the patient including benefits, risks, and alternatives to the procedure.The patient confirmed understanding and signed the informed consent.The patient was brought to aquatic laborer, room 7 of [facility].Patient was prepped and draped in sterile fashion. Conscious sedation provided to patient throughout procedure with appropriate monitoring. The right common femoral artery (CLINICAL INFORMATICS DIRECTOR) was palpated and the region above the artery was anesthetized with 2% local lidocaine.Using 18-gauge AMC needle and fluoroscopic guidance, arterial access was obtained in the right CLINICAL INFORMATICS DIRECTOR and a 4F sheath was placed without [...] was then switched to a6F 60 cm [place] destination sheath over the Wholey wire. The Wholey wire was advanced past the lesion and a 4.0x40 mm Impact DCB was advanced to the lesion in the popliteal which was dilated at 4 amina for 180 seconds.Afterwards there was reduction of stenosis to 10%.The sheath was withdrawn and exchanged for a 7F short sheath. The arterial sheath was aspirated and flushed.Angiography of the CLINICAL INFORMATICS DIRECTOR was performed without evidence of dissection, thrombus [...] mL CONDITION:Stable COMPLICATIONS: None Performing Organization Address City/State/Zipcode Phone Number [facility] [address] [place] [address] ECG Pre/Post Op (01/10/2018 3:00 PM CDT) Ventricular rate 65 [facility] Atrial rate 65 [facility] MS interval 168 [facility] QRSD interval 88 [...] replaced inverted T waves in Inferior leads- Specimen Performing Organization Address City/State/Zipcode Phone Number [facility] MUSE [address] [place] [phone] Pv carotid duplex (01/01/2018 8:00 AM CDT) Specimen Narrative Performed At [facility] Vascular Ultrasound Laboratory Carotid Artery Duplex [facility] [address], [place] [id number] For quality control coordinator purposes, the categorization of the degree of the stenosis of this exam is based on criteria described in the IAC carotid stenosis grading white paper( www.intersocietal.org/Vascular) and Susan Yung., Grace Tate, et al. Carotid artery stenosis: her-scale and Doppler US diagnosis--Society of Radiologists in Ultrasound Consensus Conference. Radiology. 2003 Nov; 229(2):340-6. Pat.Name:ARY HAINES Pat.ID:[id number] St.Date: 01/01/2018 Refer.MD:YANCY LEYVA MD Exam Time: 7:25:00 AMStudy Type:Carotid DOBAge:1940,77YSex: MALE Sonogrphr: Kelley Guan RDCS, T Pat. Stat.:Inpatient Room:[facility] ATapeVol: ED, CPT - 4: 48685 Echo Event ID:[id number] Order ID:[id number] Reason for Study:Syncope History / Clinical:HTN, DM, [...] EDV21.1 cm/s Right ICA Mid ICA Mid [id number] cm/Bonilla Mid EDV 24.4 cm/s Right ICA [...] Vascular Ultrasound Laboratory Carotid Artery Duplex Report [address] [place] [address] For quality control coordinator purposes, the categorization of the degree of the stenosis of this exam is based on criteria described in the IAC carotid stenosis grading white paper( www.intersocietal.org/Vascular) and Susan Yung., Hien Tate., et al. Carotid artery stenosis: her-scale and Doppler US diagnosis--Society of Radiologists in Ultrasound Consensus Conference. Radiology. 2003 Nov; 229(2):340-6. Pat.Name: ARY HAINES Pat.ID: [id number] .Date: 01/01/2018 Refer.MD: YANCY LEYVA MD Exam Time: 7:25:00 AM Study Type:Carotid Age: 1 1940,77Y Sex: MALE Sonogrphr: Kelley Guan RDCS, RVT Pat. Stat.:Inpatient Room: A -740 A [facility] Vol: ED, CPT - 4: 62807 Echo Event ID:[id number] Order ID: [id number] Reason for Study:Syncope History / Clinical:HTN, DM, [...] Filemon Ceja MD, RPVI Performing Organization Address City/State/Zipcode Phone Number [facility] [address] [place] [address] CT Head Wo Contrast (12/31/2017 10:30 AM CDT) Specimen Narrative Performed At EXAMINATION:CT HEAD WO CONTRAST [...] IMPRESSION:No acute intracranial hemorrhage or mass effect. [facility]-[id number] Procedure Note Hm Interface, Radiology Results Incoming - 12/31/2017 10:37 [...] No acute intracranial hemorrhage or mass effect. [facility]-[id number] Performing Organization Address City/[facility]/Zipcode Phone Number [facility] [address] [place] [address] Troponin (12/31/2017 5:29 AM CDT)Only the most recent of3 resultswithin the time period is included. Troponin <0.30 0.00 - 0.30 [facility] DEPARTMENT OF Comment: ng/mL PATHOLOGY AND 0.30 - 1.49 ng/mlMay indicate increased risk of acute GENOMIC MEDICINE coronary syndrome. >=1.5 ng/mlConsistent with acute myocardial infarction. The diagnostic value of a single normal or non-diagnostic result is questionable.Serial samples at 2-6 hour intervals are required to rule out acute myocardial injury. Specimen Plasma specimen Performing Organization Address [facility] Phone Number [facility] DEPARTMENT OF PATHOLOGY AND [address] [place] [address] [facility] MEDICINE Estimated GFR (12/20/2017 4:00 AM CDT)Only the most recent of5 resultswithin the time period is included. GFR Non Af Amer 49 (A) mL/min/1.73 [facility] DEPARTMENT OF m2 PATHOLOGY AND GENOMIC MEDICINE GFR Af Amer 60 mL/min/1.73 [facility] DEPARTMENT OF Comment: m2 PATHOLOGY AND Chronic kidney disease: <60 mL/min/1.73m2 GENOMIC MEDICINE Kidney failure: <15 mL/min/1.73m2 The estimated [...] At MG added and read back to [facility] DEPARTMENT OF PATHOLOGY AND GENOMIC in A7 12/20/2017 06:25 LMID. MEDICINE Performing Organization Address [facility] Phone Number [facility] DEPARTMENT OF PATHOLOGY AND [address] [place] [address] Magnesium level (12/20/2017 4:00 AM CDT)Only the most recent of2 resultswithin the time period is included. Magnesium 2.0 1.6 - 2.4 mg/dL [facility] DEPARTMENT OF PATHOLOGY AND GENOMIC MEDICINE Specimen Plasma specimen Narrative Performed At MG added and read back to [facility] DEPARTMENT OF PATHOLOGY AND GENOMIC in A7 12/20/2017 06:25 LMID. MEDICINE Performing Organization Address [facility] Phone Number [facility] DEPARTMENT OF PATHOLOGY AND [address] [place] [address] MEDICINE ECG 12 lead (12/19/2017 1:37 AM CDT)Only the most recent of2 resultswithin the time period is included. Ventricular rate 67 [facility] Atrial rate 67 [facility] MUSE MS interval 166 [facility] QRSD interval 84 [facility] QT interval 436 [facility] QTC interval 460 [facility] MUSE P axis 1 58 [facility] QRS axis 1 51 [facility] T wave axis [address] [facility] MUSE EKG impression Sinus rhythm with [facility] premature atrial complexes-T wave abnormality, consider inferolateral ischemia-Voltage criteria for left ventricular hypertrophy-Electronical ly Signed By Ty Palacios MD ([id number]) on 12/19/2017 8:59:25 AM Specimen Performing Organization Address City/[facility] Phone Number [facility] [address] [place] [address] Cv myocardial perfusion (12/17/2017 11:33 AM CDT) Specimen Narrative Performed At [facility] Nuclear Cardiology and Cardiac CT [address] [place] [address] Myocardial Perfusion Imaging Report Stress ECG tracings are available in MUSE, EPIC and CV Web All ECG interpretations are included in this report Pat.Name:ARY HAINES Pat.ID:[id number] .Date: 12/17/2017Refer.MD:YANCY LEYVA MD Exam Time: 11:02:00 AM Study Type:Myocardial Perfusion Imaging Height:67inBSA: 1.93 m2 DOBAge:1940,77YSex: MALE BP:179/74HR: 65 bpm HCT: 36.6 % Nuclear Tech:CARLITO AshbyMT, CARLITO CmMT Pat. Stat.:Inpatient Room:[facility] Nuclear Event ID:[id number] Order ID:[id number] Reason for Study:Chest pain, unspecified* History / [...] % Max BP:189/80O2 sat:99 % Max RPP: 61474 Symptoms and Complications: Arrhythmias: None Terminated: As per Regadenoson protocol Symptoms:Chest pain, Chest pressure, Dyspnea Signed 12/17/2017 01:32 PM Geri Silva MD Procedure Note Interface, Radiology Results In - 12/17/2017 1:32 PM CDT Nuclear Cardiology and Cardiac CT [address] [place] [address] Myocardial Perfusion Imaging Report Stress ECG tracings are available in DST[employer], userfox and [employer] Web All ECG interpretations are included in this report Pat.Name: ARY HAINES Pat.ID: [id number] .Date: 12/17/2017 Refer.MD: YANCY LEYVA MD Exam Time: 11:02:00 AM Study Type:Myocardial Perfusion Imaging Height: 67in BSA: 1.93 m2 Age: 1 1940,77Y Sex: MALE BP: 179/74 HR: 65 bpm HCT: 36.6 % Nuclear Tech:NADIA Ashby, NADIA Cm Pat. Stat.:Inpatient Room: [facility] Nuclear Event ID:[id number] Order ID: [id number] Reason for Study:Chest pain, unspecified* History / [...] 189/80 O2 sat: 99 % Max RPP: 00016 Symptoms and Complications: Arrhythmias: None Terminated: As per Regadenoson protocol Symptoms: Chest pain, Chest pressure, Dyspnea Signed 12/17/2017 01:32 PM Geri Silva MD Performing Organization Address City/State[facility] Phone Number [facility] [address] [place] [address] Cv ecg exercise stress (nuclear or echo) (12/17/2017 9:15 AM CDT) Resting HR 65 [facility] Resting BP 179 [facility] Peak MET Achieved 1.0 [facility] Protocol Name [facility]NA [facility] Time in Exercise 00:01:00 [facility] Phase Max Systolic BP 189 [facility] Max Diastolic BP 80 [facility] Max Heart Rate 88 [facility] Max Predicted Heart 145 [facility] Rate Target HR Formula (220 - Age)*100% [facility] Test Indication chest pain [facility] Arrhy During Ex [facility] ECG Interp Before EX [facility] ECG Interp During Ex [facility] Ex Summary Comment [facility] Overall HR Response [facility] to Exercise Overall BP Response H MUSE To Exercise Reason for H MUSE Termination Stress Test -Waveform interpreted [facility] Impression in report associated with image study. No interpretation is provided as part of this Stress ECG report.-Electronically Signed By Ricardo KHAN, Geri Khan ([id number]), order editor Kathi Starr ([id number]) on 12/17/2017 2:25:19 PM Specimen Performing Organization Address City/State/Zipcode Phone Number [facility] [address] [place] [address] Echocardiogram complete w contrast and 3D if needed (12/16/2017 8:10 AM CDT) Specimen Narrative Performed At [facility] Echocardiography Report [address] [place] [address] Pat.Name:ARY HAINES Pat.ID:[id number] .Date: 12/16/2017Refer.MD:YANCY LEYVA MD Exam Time: 7:52:00 AMStudy Type:Routine Echo Height:67inWeight: 188lb BSA: 1.97 m2 DOBAge:1940,77Y Sex: MALEBP:167/75 HR:56 bpmSonogrphr: Gina Shahid RDCS, RVT Pat. Stat.:Inpatient Room:[facility] Study Status:Final Echo Event ID:[id number] Order ID:[id number] Reason for Study:Atrial Fibrillation History / Clinical:Coronary [...] RAPof 5 mmHg. MEASUREMENTS: 2D Parasternal Long [place] LVOT 2.2 cmLA Ds5.2 cm LVIDd4.7 cmIndex2.4 cm/m Ao An2.1 cm LVIDs3.4 cmAo Rtd 3.8 cm Index1.9 cm/m LV%fs 26.6 % LV Crmq928.9 g(122-174) IVSd 1.1 cmLVM Index 95.4 g/m2 LVPWd1.1 cmRWT0.5 LA Sng Plane LA Area 32.7 cm2(8.8-23.4) LA Vol 120.2 ml Index61 ml/m LA LngAx 7.3 cm DOPPLER LVOT Stroke Vol LVOT 2.2 cmLVOT CO5 l/min LVOT TVI22.5 cmLVOT CI2.5 l/m/m2 LVOT Tm407 xteiOY04 bpm LVOT SV 85.7 ml TV Pressure Gradient TV PkVel 318.2 cm/sTV PG 40.5 mmHg MMODE TAPSE TAPS Dim 1.5 cm Signed 12/16/2017 05:54 PM Geri Silva M.D. Procedure Note Interface, Radiology Results In - 12/16/2017 5:54 PM CDT Echocardiography Report [address] [place] [address] Pat.Name: ARY HAINES Pat.ID: [id number] .Date: 12/16/2017 Refer.MD: YANCY LEYVA MD Exam Time: 7:52:00 AM Study Type:Routine Echo Height: 67in Weight: 188lb BSA: 1.97 m2 Age: 1 1940,77Y Sex: MALE BP: 167/75 HR: 56 bpm Sonogrphr: Gina Shahid RDCS, RVT Pat. Stat.:Inpatient Room: [facility] Study Status:Final Echo Event ID:[id number] Order ID: [id number] Reason for Study:Atrial Fibrillation History / Clinical:Coronary [...] of 5 mmHg. MEASUREMENTS: 2D Parasternal Long [place] LVOT 2.2 cm LA Ds 5.2 cm [...] PM Geri Silva M.D. Performing Organization Address City/State/Zipcode Phone Number [facility] [address] [place] [address] Creatine kinase, total (CPK) (12/15/2017 9:08 PM CDT) Creatine kinase 48 39 - 308 U/L [facility] DEPARTMENT OF PATHOLOGY AND GENOMIC MEDICINE Specimen Plasma specimen Performing Organization Address City/State/Zipcode Phone Number [facility] DEPARTMENT OF PATHOLOGY AND [address] [place] [address] GENOMIC MEDICINE after 09/04/2017 Insurance Payer Benefit Plan / Subscriber ID Effective Phone Address Type Group Dates MEDICARE MEDICARE PART xxxxxxxxxxx 2007-[place] Medicare A AND B nt MUTUAL OF [employer] OF xxxxxx-xx 2007-[facility] Commercial MALORIE ESPANA nt Advance Directives Patient has advance care planning documents, and code status on file. For more information, please contact:Chucky Steve[address] [place] [address] Code Status Date Activated Date Inactivated Comments Full Code 02/28/2018 7:46 PM 03/01/2018 4:46 PM Code Status decision reached by: Patient Full Code 12/30/2017 6:54 PM 01/03/2018 3:46 PM Code Status decision reached by: Patient Full Code 12/15/2017 9:02 PM 12/21/2017 4:09 PM Code Status decision reached by: Patient
--- OUTSIDE RECORDS SUMMARY | 2018-09-05 10:03 | XMS REPORT ---
:1940 [facility] Address [address] [place] [address] Dr. Morales [address] [place] [address] Care Team Providers Name Role Phone Unavailable Unavailable Unavailable Problems This patient has no known problems. Allergies, Adverse Reactions, Alerts This patient has no known allergies or adverse reactions. Medications This patient has no known medications.
--- NOTE | 2018-09-05 10:23 | RAD REPORT ---
EXAM DESCRIPTION: CT - Head Brain Wo Cont - 09/05/2018 10:13 am CLINICAL HISTORY: Dizziness;Headache Drowsiness, headache COMPARISON: Head Brain Wo Cont dated 03/16/2017; HEAD BRAIN W O CONTRAST dated 06/22/2013 TECHNIQUE: All CT scans are performed using dose optimization technique as appropriate and may inclu de automated exposure control or mA/KV adjustment according to patient size. FINDINGS: No intracranial hemorrhage, hydrocephalus or extra-axial fluid collection.No areas of brai n edema or evidence of midline shift. The paranasal sinuses and mastoids are clear. The calvarium is intact. Vertebral arteries are calcifi ed. IMPRESSION: No acute intracranial abnormality.
--- NOTE | 2018-09-05 10:25 | EKG ---
Test Date: 2018-09-05 Test Time: 10:03:14 Security Inspector: HEIKE MEASUREMENT RESULTS: Intervals: Rate: 59 DC: 144 QRSD: 104 QT: 468 QTc: 463 [place]: P: 72 DC: 144 QRS: 57 T: 170 INTERPRETIVE STATEMENTS: Sinus bradycardia Septal infarct, age undetermined ST & T wave abnormality, consider lateral ischemia Abnormal ECG Compared to ECG 06/09/2018 02:35:10 ST (T wave) deviation now present Atrial premature complex(es) no longer present Right-axis deviation no longer present Myocardial infarct finding still present Electronically Signed On 09-05-18 10:24:04 CDT by Roque Mae
[2018-09-05] MEDS ORDERED: MECLIZINE HCL 12.5 MG TAB ONE (10:35)
[2018-09-05] MEDS ORDERED: NA CHLORIDE 0.9% 500 ML ONE (10:35)
[2018-09-05 10:42] LABS: Absolute Lymphocytes (CBC) 0.8 K/uL (0.7-4.9); Absolute Monocytes 0.6 K/uL (0.1-1.3); Absolute Neutrophil 5.6 K/uL (1.8-8.0); Basophils % 0.8 % (0-1.3); Eosinophils % 5.4 % (0-4.4); Hematocrit 33.7 % (39.6-49.0); Lymphocytes % 10.6 % (15.3-44.8); MPV 8.9 fL (7.6-11.3); Monocytes % 8.6 % (3.3-12.3); RBC Red Blood Cell Count 3.83 M/uL (4.33-5.43)
[2018-09-05 11:03] LABS: ALT/SGPT 41 U/L (12-78); AST/SGOT 15 U/L (15-37); Albumin 3.2 g/dL (3.4-5.0); Alkaline Phosphatase 79 U/L (45-117); BUN Blood Urea Nitrogen 24 mg/dL (7-18); Bicarbonate 29 mmol/L (21-32); Bilirubin Direct 0.2 mg/dL (0-0.2); Bilirubin Total 0.7 mg/dL (0.2-1.0); Glucose Level 181 mg/dL (74-106); Lipase 352 U/L (73-393); Magnesium 2.4 mg/dL (1.8-2.4); Potassium 3.9 mmol/L (3.5-5.1); Protein, Total 6.4 g/dL (6.4-8.2); Sodium Level 140 mmol/L (136-145); Troponin (Emerg Dept Use Only) < 0.02 ng/mL (0.0-0.045)
[2018-09-05 11:33] LABS: Urine Blood TRACE (NEG); Urine Glucose NEGATIVE (NEG); Urine Protein TRACE (NEG); Urine pH 8.5 (5.0-7.0)
--- NOTE | 2018-09-05 12:17 | RAD REPORT ---
EXAM DESCRIPTION: CT - Abdomen Pelvis Wo Contrast - 09/05/2018 12:01 pm CLINICAL HISTORY: Abdominal pain. vomiting, diarrhea COMPARISON: [facility] Protocol dated 03/16/2017 TECHNIQUE: CT imaging of the abdomen and pelvis was performed without contrast. Solid organ and vasc ular assessment is limited due to lack of IV contrast. All CT scans are performed using dose optimization technique as appropriate and may include automated exposure control or mA/KV adjustment according to patient size. FINDINGS: The lower lung swanson are clear. Cholecystectomy. The liver, spleen, pancreas, adrenal glands and kidneys are within normal limits for a limited non-co ntrast examination.3 cm upper pole right renal cyst, benign in appearance. No bowel obstruction, free air, free fluid or abscess. Prominent sigmoid diverticulosis is present in the left lower quadrant with mild surrounding inflammation suggesting mild acute diverticulitis. The appendix is normal. Moderate lower lumbar degenerative changes. IMPRESSION: Mild acute sigmoid diverticulitis is suspected. A limited non-contrast examination was performed as detailed.
--- NOTE | 2018-09-05 13:25 | ER ---
Nurse's Notes [facility] Name: Ary Haines Age: 78 yrs Sex: Male : 1940 Arrival Date: 09/05/2018 Time: 10:02 Bed 6 Private MD: Diagnosis: Dehydration;Diverticulitis of large intestine without perforation or abscess without bleeding;Hypocalcemia Presentation: 09/05 10:07 Presenting complaint: EMS states: Pt c/ dizziness and generalized weakness, states that ph dizziness is worse upon standing and ambulating, also c/o numbness to trung arms and legs, reports nausea and 2 episodes of diarrhea this morning, states that the dizziness has been occurring for some time but worse today, BGL 214, BP 153/60, HR 60. Transition of care: patient was not received from another setting of care. Onset of symptoms was September 05, 2018. Risk Assessment: Do you want to hurt yourself or someone else? Patient reports no desire to harm self or others. Initial Sepsis Screen: Does the patient meet any 2 criteria? No. Patient's initial sepsis screen is negative. Does the patient have a suspected source of infection? No. Patient's initial sepsis screen is negative. Care prior to arrival: None. 10:07 Method Of Arrival: Ambulatory ph 10:07 Acuity: SHIRA 3 ph Historical: - Allergies: 10:13 Iodine; ph 14:18 Cipro IV; itching; ph - Home Meds: 10:13 aspirin 81 mg Oral TbEC 1 tab once daily [Active]; atenolol 50 mg Oral tab 1 tab once ph daily [Active]; dulera [Active]; Lantus 100 unit/mL Sub-Q soln [Active]; lisinopril 20 mg Oral tab 2 tabs once daily [Active]; Tradjenta 5 mg Oral tab 1 tab once daily [Active]; - PMHx: 10:13 blockages; Diabetes - NIDDM; Hypertension; ph - PSHx: 10:13 cardiac stents; ph - Immunization history:: Adult Immunizations unknown. - Social history:: Smoking status: Patient/guardian denies using tobacco, the patient reports quitting approximately 25 years ago. - Ebola Screening: : No symptoms or risks identified at this time. - Family history:: not pertinent. - Hospitalizations: : No recent hospitalization is reported. Screenin:03 Patient has been NPO before screening. The patient is alert, able to follow commands. ph The patient does not exhibit slurred or garbled speech The patient is not exhibiting difficulty speaking. The patient does not exhibit difficulty understanding words. The patient is able to swallow own secretions with no drooling or need for suction. Patient tolerated one teaspoon of water. No drooling, immediate coughing, gurgling, or clearing of the throat was noted. The patient tolerated 90mL of water. No drooling, immediate coughing, gurgling, or clearing of the throat was noted. The patient passed the bedside swallow screening. Oral medications may be given as ordered. Contact Physician for further diet orders. 10:14 Abuse screen: Denies threats or abuse. Denies injuries from another. Nutritional ph screening: No deficits noted. Tuberculosis screening: No symptoms or risk factors identified. Fall Risk No fall in past 12 months (0 pts). No secondary diagnosis (0 pts). IV access (20 points). Ambulatory Aid- Crutches/Cane/Walker (15 pts). Gait- Weak (10 pts.). Mental Status- Oriented to own ability (0 pts). Total Joya Fall Scale indicates High Risk Score (45 or more points). Fall prevention measures have been instituted. Side Rails Up X 2 Placed Close to Nursing Station Frequent Obs/Assessments Occuring Family Present and informed to notify staff if the need to leave the bedside As available patient and family educated on Fall Prevention Program and Strategies. Assessment: 10:10 Reassessment: Pt taken for CT via stretcher. ph 10:15 General: Appears in no apparent distress. uncomfortable, well groomed, Behavior is ph calm, cooperative, appropriate for age, Denies fever, feeling ill. Pain: Denies pain. Neuro: Level of Consciousness is awake, alert, obeys commands, Oriented to person, place, time, situation, Spinning Frame Tender are equal bilaterally Moves all extremities. Full function Speech is normal, Facial symmetry appears normal, Facial symmetry: tongue is midline, Pupils are PERRLA, Intact Reports dizziness, numbness in right arm, left arm, right leg and left leg weakness in "all over". Cardiovascular: Reports lightheadedness, nausea, Denies chest pain, palpitations, shortness of breath, vomiting. Respiratory: Airway is patent Respiratory effort is even, unlabored, Respiratory pattern is regular, symmetrical. GI: Reports diarrhea, nausea, Patient currently denies abdominal pain, vomiting. : No signs and/or symptoms were reported regarding the genitourinary system. Denies burning with urination, urinary frequency. Derm: Skin is intact, Skin is pink, warm \\T\\ dry. Musculoskeletal: Circulation, motion, and sensation intact. Range of motion: intact in all extremities. 10:37 Reassessment: Patient appears in no apparent distress at this time. Patient and/or ph family updated on plan of care and expected duration. Pain level reassessed. Patient is alert, oriented x 3, equal unlabored respirations, skin warm/dry/pink. Pt completed PO contrast, CT notified. 11:12 Reassessment: Patient appears in no apparent distress at this time. No changes from ph previously documented assessment. Patient and/or family updated on plan of care and expected duration. Pain level reassessed. Patient is alert, oriented x 3, equal unlabored respirations, skin warm/dry/pink. 11:53 Reassessment: PT RETURNED TO CT. bp 13:35 Reassessment: Patient appears in no apparent distress at this time. Patient is alert, ph oriented x 3, equal unlabored respirations, skin warm/dry/pink. Pt c/o itching in L arm where Cipro is infusing, redness noted, denies SOB, lungs CTA, infusion d/c and ERP notified of adverse reaction, see MAR for orders. 14:19 Reassessment: Patient appears in no apparent distress at this time. Patient and/or ph family updated on plan of care and expected duration. Pain level reassessed. Pt resting quietly, drowsy after IV Benadryl (see MAR), reports that itching has improved, denies SOB, additional IV antibiotics given, will monitor for adverse reaction, d/c pending completion of IV medications. Vital Signs: 10:11 BP 163 / 66; Pulse 58; Resp 18; Temp 97.9; Pulse Ox 100% on R/A; Weight 74.84 kg; Pain ph 0/10; 11:11 BP 149 / 67; Pulse 52; Resp 18; Pulse Ox 100% on R/A; Pain 0/10; ph 12:30 BP 157 / 65; Pulse 53; Resp 18; Pulse Ox 95% on R/A; ph 13:53 BP 189 / 77; Pulse 54; Resp 20; Pulse Ox 97% on R/A; ph 14:19 BP 170 / 61; Pulse 54; Resp 16; Pulse Ox 97% on R/A; ph 15:21 BP 167 / 68; Pulse 56; Resp 16; Temp 97.5; Pulse Ox 100% on R/A; ph NIH Stroke Scale Scores: 10:03 NIHSS Score: 0 ph ED Course: 10:02 Patient arrived in ED. rn 10:02 Bi Méndez MD is Attending Physician. rn 10:05 EKG done, by tap and die maker technician. reviewed by Bi Méndez MD. at1 10:07 Aniya Grewal RN is Primary Nurse. ph 10:11 Triage completed. ph 10:13 CT Head Brain wo Cont In Process Unspecified. EDMS 10:13 Arm band placed on. ph 10:15 Patient has correct armband on for positive identification. Placed in gown. Bed in low ph position. Call light in reach. Side rails up X2. electronic device monitor on. Pulse ox on. NIBP on. Door closed. Noise minimized. Warm blanket given. 10:36 Maintain EMS IV. Dressing intact. Good blood return noted. Site clean \\T\\ dry. Gauge \\T\\ ph site: 20 L hand. 11:12 No provider procedures requiring assistance completed. ph 12:00 CT completed. Patient tolerated procedure well. Patient moved to CT via stretcher. sj Patient moved back from CT. 12:01 CT Abd/Pelvis - Without Cont In Process Unspecified. EDMS 15:22 IV discontinued, intact, bleeding controlled, No redness/swelling at site. Pressure ph dressing applied. Administered Medications: Discontinued: Cipro 400 mg 200 ml IVPB once over 60 mins 04/16 15:05 Drug: Rocephin - (cefTRIAXone) 1 grams {Note: given IVP over 2 min .} Route: IVPB; ph Infused Over: 30 mins; Site: left hand; 09/05 15:20 Follow up: Response: No adverse reaction; IV Status: Completed infusion ph 10:04 CANCELLED (Duplicate Order): NS 0.9% 1000 ml IV at 1000 ml once rn 10:35 Drug: Meclizine 50 mg Route: PO; ph 11:07 Follow up: Response: No adverse reaction ph 10:35 Drug: NS 0.9% 500 ml Route: IV; Rate: bolus; Site: left hand; ph 11:06 Follow up: Response: No adverse reaction; IV Status: Completed infusion; IV Intake: ph 500ml 13:25 Drug: Cipro 400 mg Volume: 200 ml; Route: IVPB; Infused Over: 60 mins; Site: left hand; ph 13:40 Drug: Benadryl 12.5 mg Route: IVP; Site: right antecubital; ph 15:20 Follow up: Response: No adverse reaction ph 14:16 Drug: Flagyl 500 mg Volume: 100 ml; Route: IVPB; Rate: 200 ml/hr; Infused Over: 30 ph mins; Site: left hand; 15:00 Follow up: Response: No adverse reaction; IV Status: Completed infusion ph 14:17 Drug: Calcium Carbonate 500 mg Route: PO; ph 15:19 Follow up: Response: No adverse reaction ph Intake: 11:06 IV: 500ml; Total: 500ml. ph Outcome: 13:25 Discharge ordered by . rn 15:22 Discharged to home with family. ph 15:22 Condition: good 15:22 Discharge instructions given to patient, family, Instructed on discharge instructions, follow up and referral plans. medication usage, Demonstrated understanding of instructions, follow-up care, medications, Prescriptions given X 3. 15:23 Patient left the ED. ph NIH Stroke Scale - NIH Stroke Score Date: 09/05/2018 Time: 10:03 Total Score = 0 1a. Level of Consciousness (LOC) - 0(Alert) 1b. Level of Consciousness (LOC) (Year \\T\\ Age) - 0(Both) 1c. LOC Commands (Open \\T\\ Closes Eyes/Broadcast Producer) - 0(Both) 2. Best Gaze (Lateral Gaze Paresis) - 0(Normal) 3. Visual Field Loss - 0(No visual loss) 4. Facial Palsy - 0(Normal) 5a. Left Arm: Motor (10-second hold) - 0(No drift) 5b. Right Arm: Motor (10-second hold) - 0(No drift) 6a. Left Leg: Motor (5-second hold - always test supine) - 0(No drift) 6b. Right Leg: Motor (5-second hold - always test supine) - 0(No drift) 7. Limb Ataxia (finger/nose \\T\\ heel/medina - test with eyes open) - 0(Absent) 8. Sensory Loss (pinprick arms/legs/face) - 0(Normal) 9. Best Language: Aphasia (description/naming/reading) - 0(No aphasia) 10. Dysarthria (speech clarity - read or repeat words) - 0(Normal) 11. Extinction and Inattention (visual/tactile/auditory/spatial/personal) - 0(No abnormality) Initials: ph Signatures: Dispatcher [employer] Nery Cho Roman, MD MD rn Constance Temple, tv host EKG Tat1 Aniya Grewal RN RN ph Yuri Jain RN RN bp
--- NOTE | 2018-09-05 13:25 | EDPHYS ---
Physician Documentation [facility] Name: Ary Haines Age: 78 yrs Sex: Male : 1940 Arrival Date: 09/05/2018 Time: 10:02 Bed 6 Private MD: ED Physician Bi Méndez HPI: 09/05 10:17 This 78 yrs old Male presents to ER via Ambulatory with complaints of rn dizziness, generalized weakness. 10:17 The patient presents with dizziness, feeling faint, generalized weakness. The patient rn presents with sense of spinning. Onset: The symptoms/episode began/occurred 3 day(s) ago. Context: occurred at home, occurred while the patient was standing. Associated signs and symptoms: Pertinent positives: nausea, diarrhea, Pertinent negatives: chest pain, confusion, head injury, seizure, vomiting. Severity of symptoms: At their worst the symptoms were moderate in the emergency department the symptoms have improved. The patient has experienced similar episodes in the past. Reports has been having dizziness and sense of spinning for a few days now, worse this AM, had 2 episodes of non-bloody diarrhea today, + nausea but no vomiting. Denies chest pain/sob. Reports feels generalized weakness and tingling of all 4 extremities and [place]-oral region. No vision changes. No focal weakness or paresthesias. 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 Reports blood glucose was 120s. . Historical: - Allergies: 10:13 Iodine; ph 14:18 Cipro IV; itching; ph - Home Meds: 10:13 aspirin 81 mg Oral TbEC 1 tab once daily [Active]; atenolol 50 mg Oral tab 1 tab once ph daily [Active]; dulera [Active]; Lantus 100 unit/mL Sub-Q soln [Active]; lisinopril 20 mg Oral tab 2 tabs once daily [Active]; Tradjenta 5 mg Oral tab 1 tab once daily [Active]; - PMHx: 10:13 blockages; Diabetes - NIDDM; Hypertension; ph - PSHx: 10:13 cardiac stents; ph - Immunization history:: Adult Immunizations unknown. - Social history:: Smoking status: Patient/guardian denies using tobacco, the patient reports quitting approximately 25 years ago. - Ebola Screening: : No symptoms or risks identified at this time. - Family history:: not pertinent. - Hospitalizations: : No recent hospitalization is reported. ROS: 10:17 Constitutional: Negative for fever, chills, and weight loss, Eyes: Negative for injury, rn pain, redness, and discharge, ENT: Negative for injury, pain, and discharge, Cardiovascular: Negative for chest pain, palpitations, and edema, Respiratory: Negative for cough, wheezing, and pleuritic chest pain, Abdomen/GI: + nausea/diarrhea Back: Negative for injury and pain, MS/Extremity: Negative for injury and deformity, Skin: Negative for injury, rash, and discoloration, Neuro: Negative for seizure. Exam: 10:17 Constitutional: This is a well developed, well nourished patient who is awake, alert, rn and in no acute distress. Able to transfer from EMS stretcher to hospital bed with minimal assistance Head/Face: Normocephalic, atraumatic. Eyes: Pupils equal round and reactive to light. Periorbital areas with no swelling, redness, or edema. ENT: dry MM Cardiovascular: regular rhythm, bradycardic, no murmur Respiratory: Lungs have equal breath sounds bilaterally, clear to auscultation. No increased work of breathing, no retractions or nasal flaring. Abdomen/GI: soft, non-tender, no peritoneal signs Skin: Warm, dry, and no evidence of cellulitis. MS/ Extremity: Pulses equal, no cyanosis. Neurovascular intact. Full, normal range of motion. Equal circumference. Neuro: Awake and alert, GCS 15, oriented to person, place, time, and situation. Cranial nerves II-XII grossly intact. Motor strength 5/5 in all extremities. Sensory grossly intact. Cerebellar exam normal. Vital Signs: 10:11 BP 163 / 66; Pulse 58; Resp 18; Temp 97.9; Pulse Ox 100% on R/A; Weight 74.84 kg; Pain ph 0/10; 11:11 BP 149 / 67; Pulse 52; Resp 18; Pulse Ox 100% on R/A; Pain 0/10; ph 12:30 BP 157 / 65; Pulse 53; Resp 18; Pulse Ox 95% on R/A; ph 13:53 BP 189 / 77; Pulse 54; Resp 20; Pulse Ox 97% on R/A; ph 14:19 BP 170 / 61; Pulse 54; Resp 16; Pulse Ox 97% on R/A; ph 15:21 BP 167 / 68; Pulse 56; Resp 16; Temp 97.5; Pulse Ox 100% on R/A; ph NIH Stroke Scale Scores: 10:03 NIHSS Score: 0 ph MDM: 10:02 Patient medically screened. rn 10:42 Refusal of service: The patient/guardian displays adequate decision making capability rn and despite a detailed discussion of alternatives, benefits, risks, and consequences refuses: MRI, states has tried before, is claustrophobic, can't do it even with medication/sedation. . 10:43 ED course: Daughter here, states recently changed insulin, have noticed lower glucose rn readings now, lowest in AM but never below 100, was also at [facility] outside all weekend and very active. Family feels may be dehydrated and relative hypoglycemia compared to what he is used to. They state mentally and neurologically at baseline.. 13:22 Differential diagnosis: generalized weakness, hypovolemia, idiopathic dizziness, rn near-syncope, vertigo. Data reviewed: vital signs, nurses notes, lab test result(s), EKG, radiologic studies, CT scan, and as a result, I will discharge patient. Counseling: I had a detailed discussion with the patient and/or guardian regarding: the historical points, exam findings, and any diagnostic results supporting the discharge/admit diagnosis, lab results, radiology results, the need for outpatient follow up, to return to the emergency department if symptoms worsen or persist or if there are any questions or concerns that arise at home. Response to treatment: the patient's symptoms have markedly improved after treatment, and as a result, I will discharge patient. ED course: Will dc home with abx, prn zofran, recording of glucose in AM and PM, and close pcp f/u. + mild diverticulitis with minimal abd pain, no longer vomiting, tolerating PO. Recommend hydration with fluid balance, and return precautions given/understood. . 13:36 ED course: Itching with cipro, will change abx to cefpodoxime/flagyl.. rn 09/05 10:03 Order name: Basic Metabolic Panel rn 09/05 10:03 Order name: CBC with Diff rn 09/05 10:03 Order name: Hepatic Function; Complete Time: 12:02 rn 09/05 10:03 Order name: Lipase; Complete Time: 12:02 rn 09/05 10:03 Order name: Magnesium; Complete Time: 12:02 rn 09/05 10:03 Order name: Troponin (emerg Dept Use Only); Complete Time: 12:02 rn 09/05 10:03 Order name: CT Head Brain wo Cont; Complete Time: 10:49 rn 09/05 10:04 Order name: Basic Metabolic Panel; Complete Time: 12:02 EDMS 09/05 10:04 Order name: CBC with Automated Diff; Complete Time: 10:49 EDMS 09/05 10:16 Order name: CT Abd/Pelvis - Without Cont; Complete Time: 12:26 rn 09/05 11:07 Order name: Urine Dipstick--Ancillary (enter results); Complete Time: 12:02 em1 09/05 10:03 Order name: EKG; Complete Time: 10:04 rn 09/05 10:03 Order name: Cardiac monitoring; Complete Time: 10:13 rn 09/05 10:03 Order name: EKG - Nurse/Tech; Complete Time: 10:12 rn 09/05 10:03 Order name: IV Saline Lock; Complete Time: 10:12 rn 09/05 10:03 Order name: Labs collected and sent; Complete Time: 10:36 rn 09/05 10:03 Order name: NPO; Complete Time: 10:12 rn 09/05 10:03 Order name: O2 Per Protocol; Complete Time: 10:12 rn 09/05 10:03 Order name: O2 Sat Monitoring; Complete Time: 10:12 rn 09/05 10:03 Order name: Urine Dipstick-Ancillary (obtain specimen); Complete Time: 11:07 rn 09/05 10:03 Order name: Glucose Level; Complete Time: 11:07 rn Administered Medications: Discontinued: Cipro 400 mg 200 ml IVPB once over 60 mins 04/16 15:05 Drug: Rocephin - (cefTRIAXone) 1 grams {Note: given IVP over 2 min .} Route: IVPB; ph Infused Over: 30 mins; Site: left hand; 09/05 15:20 Follow up: Response: No adverse reaction; IV Status: Completed infusion ph 10:04 CANCELLED (Duplicate Order): NS 0.9% 1000 ml IV at 1000 ml once rn 10:35 Drug: Meclizine 50 mg Route: PO; ph 11:07 Follow up: Response: No adverse reaction ph 10:35 Drug: NS 0.9% 500 ml Route: IV; Rate: bolus; Site: left hand; ph 11:06 Follow up: Response: No adverse reaction; IV Status: Completed infusion; IV Intake: ph 500ml 13:25 Drug: Cipro 400 mg Volume: 200 ml; Route: IVPB; Infused Over: 60 mins; Site: left hand; ph 13:40 Drug: Benadryl 12.5 mg Route: IVP; Site: right antecubital; ph 15:20 Follow up: Response: No adverse reaction ph 14:16 Drug: Flagyl 500 mg Volume: 100 ml; Route: IVPB; Rate: 200 ml/hr; Infused Over: 30 ph mins; Site: left hand; 15:00 Follow up: Response: No adverse reaction; IV Status: Completed infusion ph 14:17 Drug: Calcium Carbonate 500 mg Route: PO; ph 15:19 Follow up: Response: No adverse reaction ph Disposition: 09/05/18 13:25 Discharged to Home. Impression: Dehydration, Diverticulitis of large intestine without perforation or abscess without bleeding, Hypocalcemia. - Condition is Stable. - Discharge Instructions: Dehydration, Adult, Diverticulitis, Hypocalcemia, Adult. - Prescriptions for Zofran ODT 4 mg Oral tablet,disintegrating - place 1 tablet by TRANSLINGUAL route every 8 hours As needed; 20 tablet. Flagyl 500 mg Oral Tablet - take 1 tablet by ORAL route every 8 hours for 10 days; 30 tablet. cefpodoxime 100 mg Oral Tablet - take 2 tablet by ORAL route every 12 hours for 10 days take with food; 40 tablet. - Medication Reconciliation Form, Thank You Letter, Antibiotic Education, Prescription Opioid Use form. - Follow up: Private Physician; When: 2 - 3 days; Reason: Recheck today's complaints, Re-evaluation by your physician. - Problem is new. - Symptoms have improved. NIH Stroke Scale - NIH Stroke Score Date: 09/05/2018 Time: 10:03 Total Score = 0 1a. Level of Consciousness (LOC) - 0(Alert) 1b. Level of Consciousness (LOC) (Year \T\ Age) - 0(Both) 1c. LOC Commands (Open \T\ Closes Eyes/Veterinary Technician Assistant) - 0(Both) 2. Best Gaze (Lateral Gaze Paresis) - 0(Normal) 3. Visual Field Loss - 0(No visual loss) 4. Facial Palsy - 0(Normal) 5a. Left Arm: Motor (10-second hold) - 0(No drift) 5b. Right Arm: Motor (10-second hold) - 0(No drift) 6a. Left Leg: Motor (5-second hold - always test supine) - 0(No drift) 6b. Right Leg: Motor (5-second hold - always test supine) - 0(No drift) 7. Limb Ataxia (finger/nose \T\ heel/[place] - test with eyes open) - 0(Absent) 8. Sensory Loss (pinprick arms/legs/face) - 0(Normal) 9. Best Language: Aphasia (description/naming/reading) - 0(No aphasia) 10. Dysarthria (speech clarity - read or repeat words) - 0(Normal) 11. Extinction and Inattention (visual/tactile/auditory/spatial/personal) - 0(No abnormality) Initials: ph Signatures: Dispatcher [employer] EDMS Bi Méndez MD MD rn Hall, Patricia, RN RN ph Corrections: (The following items were deleted from the chart) 10:04 10:03 NS 0.9% 1000 ml IV at 1000 ml once ordered. rn rn 15:23 13:25 09/05/2018 13:25 Discharged to Home. Impression: Dehydration; ph Diverticulitis of large intestine without perforation or abscess without bleeding; Hypocalcemia. Condition is Stable. Forms are Medication Reconciliation Form, Thank You Letter, Antibiotic Education, Prescription Opioid Use. Follow up: Private Physician; When: 2 - 3 days; Reason: Recheck today's complaints, Re-evaluation by your physician. Problem is new. Symptoms have improved. rn
[2018-09-05] MEDS ORDERED: METRONIDAZOLE 500mg IVPB 500 MG/100 ML BAG IV ONE (13:30)
[2018-09-05] MEDS ORDERED: CIPROFLOXACIN 400mg IV 400 MG/200 ML BAG IV ONE (13:30)
[2018-09-05] MEDS ORDERED: CALCIUM CARBONATE 500 MG TAB PO ONE (13:45)
[2018-09-05] MEDS ORDERED: DIPHENHYDRAMINE 50 MG/ML VIAL ONE (13:50)
[2018-09-05] MEDS ORDERED: CEFTRIAXONE/SWI 1gm 1 GM/10 ML SYR ONE (15:09)
[2018-09-05 17:57] VITALS: BP 167/68; TEMP 97.5; O2SAT 100
== END 2018-09-05 15:23 | disposition home or self-care (01) ==
LOC: ER 09:59
DX: E86.0 Dehydration (principal); K57.32 Diverticulitis of large intestine without perforation or abscess without bleeding; E83.51 Hypocalcemia; I10 Essential (primary) hypertension; E11.9 Type 2 diabetes mellitus without complications; Z79.4 Long term (current) use of insulin; Z79.82 Long term (current) use of aspirin; Z88.8 Allergy status to other drugs, medicaments and biological substances; Z91.048 Other nonmedicinal substance allergy status; Z95.818 Presence of other cardiac implants and grafts
CPT/HCPCS: 93005; 85025; 80048; 36415; 83735; 80076; 81003; 84484; 83690; 70450; 74176; J0696; J0744; 99285

== ENCOUNTER 2018-10-29 11:20 | Emergency (ER) | payer OTHER ==
--- OUTSIDE RECORDS SUMMARY | 2018-10-29 11:59 | XMS REPORT | Clinical Summary ---
:1940 Author Organization [facility] Address [address] [place] [address] Care Team Providers Name Role Phone Jonel [...] 5 02/19/2018 Active ultras[facility] [facility] sugar before meals and at bedtime, [...] complication, with long-term current use of insulin ([facility]) blood-glucose meter Use as 1 each 0 02/08/2018 Discontinued kitIndications: instructed 8 Type 2 diabetes mellitus with other diabetic kidney complication, with long-term current use of insulin ([facility]) atorvastatin Take 1 tablet 30 tablet 3 [...] background retinopathy 12/15/2017 Coronary artery disease involving [place] coronary artery 12/15/2017 Mild intermittent asthma 12/15/2017 Asbestosis 04/17/1992 Encounters Date Type Specialty Care Team Description 08/14/2018 Office Visit Endocrinology Karime Jdae, Uncontrolled type 2 diabetes mellitus with background [...] ABDOMEN Cardiology MD Rhett WITH RUN OFF [97943 (CPT)] 02/28/2018 - Hospital Cardiology Attar, Coronary artery disease involving [place] coronary artery without angina pectoris, unspecified whether [place] or transplanted heart (Primary Dx); 03/01/2018 Encounter MD Rhett Type 2 diabetes mellitus with ketoacidosis without coma, unspecified whether prison insulin use (HCC); Ashwin, Coronary artery disease involving [place] coronary artery of [place] heart, angina presence unspecified; Yancy O. Sr., [...] hypertension (Primary Dx); Coronary artery disease involving [place] coronary artery of [place] heart without angina pectoris; Type 2 diabetes [...] use of insulin; Coronary artery disease involving [place] coronary artery of [place] heart without angina pectoris; Mild intermittent asthma without complication; Essential hypertension 12/30/2017 Intake Access N/A 12/21/2017 Telephone Cardiology Irina Vang 12/15/2017 - Hospital Cardiology Ashwin, Paroxysmal atrial fibrillation ( Primary Dx); 12/21/2017 Encounter Yancy Garcia Sr., Asbestosis; Type 2 diabetes mellitus with hyperosmolarity without coma, unspecified meterman insulin use status; Coronary artery disease involving [place] coronary artery of [place] heart without angina pectoris; Mild intermittent asthma without complication 12/15/2017 Intake Access N/A after 10/28/2017 Immunizations Name Dates Previously Given Next Due [...] CDT Respiratory Rate 17 03/01/2018 11:40 AM CAREER RESOURCE TECHNICIAN Oxygen Saturation 98% 08/14/2018 9:34 AM CDT Inhaled Oxygen Concentration - - Weight 77.6 kg (171 lb) 08/14/2018 9:34 AM CDT Height 170.2 cm (5' 7") 08/14/2018 9:34 AM CDT Body Mass Index 26.78 08/14/2018 9:34 AM CDT Plan of Treatment Date Type Specialty Care Team Description 11/13/2018 Office Visit Endocrinology [facility] Sofie Sierra MD [id number] [place] [address] [phone] Health Maintenance Due Date Last Done Comments DIABETIC RETINAL EYE EXAM 1940 DIABETIC FOOT EXAM 1952 COLONOSCOPY SCREENING 1992 SHINGLES VACCINES (#1) 1992 65+ PNEUMOCOCCAL VACCINE (1 of 2 - PCV13) 2007 INFLUENZA VACCINE 11/15/2018 01/03/2018 Implants Implanted Type Area Remelt Pan Tank Operator Device Shelf Expiration Model / Serial Identifier Date / Lot Lens-11/08/2017 Lens [id number] / Implanted: 11/08/2017 (Quantity not on file) [id number] / Artificial Lense Procedures Procedure Name Priority Date/Time Associated Diagnosis Comments POC GLYCOSYLATED Routine 08/14/2018 9:47 Type 2 diabetes, Results for this HEMOGLOBIN (HGB A1C) AM CDT controlled, 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 POC GLUCOSE Routine 03/01/2018 11:41 Results for this AM CAREER RESOURCE TECHNICIAN procedure are in the results section. POC GLUCOSE Routine 03/01/2018 8:14 Results for this AM CAREER RESOURCE TECHNICIAN procedure are in the results section. HEMOGLOBIN A1C Routine 03/01/2018 4:15 Results for this AM CAREER RESOURCE TECHNICIAN procedure are in the results section. CBC WITH PLATELET AND Routine 03/01/2018 4:15 Results for this DIFFERENTIAL AM CAREER RESOURCE TECHNICIAN procedure are in the results section. ESTIMATED GFR Routine 03/01/2018 4:00 Results for this AM CAREER RESOURCE TECHNICIAN procedure are in the results section. T4, FREE Routine 03/01/2018 4:00 Results for this AM CAREER RESOURCE TECHNICIAN procedure are in the results section. THYROID STIMULATING Routine 03/01/2018 4:00 Results for this HORMONE AM CAREER RESOURCE TECHNICIAN procedure are in the results section. LIPID PANEL Routine 03/01/2018 4:00 Results for this AM CAREER RESOURCE TECHNICIAN procedure are in the results section. BASIC METABOLIC PANEL Routine 03/01/2018 4:00 Results for this AM CAREER RESOURCE TECHNICIAN procedure are in the results section. POC GLUCOSE Routine 02/28/2018 9:44 Results for this PM CAREER RESOURCE TECHNICIAN procedure are in the results section. ACTIVATED CLOTTING Routine 02/28/2018 6:54 Results for this TIME PM CAREER RESOURCE TECHNICIAN procedure are in the results section. POC GLUCOSE Routine 02/28/2018 6:49 Results for this PM CAREER RESOURCE TECHNICIAN procedure are in the results section. AORTAGRAM ABDOMEN WITH Routine 02/28/2018 6:16 Coronary artery Results for this RUN OFF PM CAREER RESOURCE TECHNICIAN disease involving procedure are in [place] coronary the results artery without section. angina pectoris, unspecified whether [place] or transplanted heart ACTIVATED CLOTTING Routine 02/28/2018 5:57 Results for this TIME PM CAREER RESOURCE TECHNICIAN procedure are in the results section. ACTIVATED CLOTTING Routine 02/28/2018 5:46 Results for this TIME PM CAREER RESOURCE TECHNICIAN procedure are in the results section. HC COMPLETE BLD COUNT STAT 02/28/2018 12:15 Results for this W/AUTO DIFF PM CAREER RESOURCE TECHNICIAN procedure are in the results section. POC GLUCOSE Routine 02/28/2018 11:57 Results for this AM CAREER RESOURCE TECHNICIAN procedure are in the results section. ESTIMATED GFR STAT 02/28/2018 11:51 Results for this AM CAREER RESOURCE TECHNICIAN procedure are in the results section. BASIC METABOLIC PANEL STAT 02/28/2018 11:51 Results for this AM CAREER RESOURCE TECHNICIAN procedure are in the results section. ECG [...] are in SPECTRAL COLOR DOPPLER the results (58912) section. HEMOGLOBIN A1C Routine 12/16/2017 5:11 Results [...] procedure are in the results section. after 10/28/2017 Results POC glycosylated hemoglobin (Hb A1C) (08/14/2018 9:47 AM CDT) Pathologist [facility] POC Hemoglobin A1C 8.5 % Specimen Blood Hemoglobin A1c (05/08/2018 12:02 PM CAREER RESOURCE TECHNICIAN)Only the most recent of4 resultswithin the time period is included. Pathologist [facility] Hemoglobin A1C 7.7 (H) <5.7 % of [facility] Comment: total Hgb [place] For someone without known diabetes, a hemoglobin [...] Performing Organization Information: Site ID: [id number] Name: [facility] Address: [address] [place] [id number] Director: Gabriela Boothe Performing Organization Address City/State/Zipcode Phone Number [email or web address] [place] [address] [phone] POC glucose (03/01/2018 11:41 AM CAREER RESOURCE TECHNICIAN)Only the most recent of41 resultswithin the time period is included. Pathologist [facility] POC glucose 137 (H) 65 - 99 mg/dL [facility] Comment: HOSPITAL CRITICAL ACCESS HOSPITAL Notified RN Meter ID: [id number] Dairy Frozen Manager: Joel Delvalle Specimen Performing Organization Address City/State/Zipcode Phone Number [facility] DEPARTMENT OF PATHOLOGY AND [address] [place] [address] GENOMIC MEDICINE [address] [address] CBC with platelet and differential (03/01/2018 4:15 AM CAREER RESOURCE TECHNICIAN)Only the most recent of7 resultswithin the time period is included. [facility] WBC 7.95 4.50 - 11.00 [facility] RBC 3.82 (L) 4.40 - 6.00 [facility] HGB 11.1 (L) 14.0 - 18.0 [facility] HCT 34.0 (L) 41.0 - 51.0 % [facility] MCV 89.0 82.0 - 100.0 [facility] MCH 29.1 27.0 - 34.0 pg [facility] MCHC 32.6 31.0 - 37.0 [facility] RDW - SD 41.9 37.0 - 55.0 fL [facility] MPV 10.2 8.8 - 13.2 fL [facility] Platelet count 215 150 - 400 k/uL [facility] Nucleated RBC 0.00 /100 WBC [facility] Neutrophils 67.7 39.0 - 69.0 % [facility] Lymphocytes 16.9 (L) 25.0 - 45.0 % [facility] Monocytes 9.4 0.0 - 10.0 % [facility] Eosinophils 4.7 0.0 - 5.0 % [facility] Basophils 0.8 0.0 - 1.0 % [facility] Immature granulocytes 0.5Comment: 0.0 - 1.0 % [facility] "Immature HOSPITAL granulocytes" (promyelocytes , myelocytes, metamyelocytes ) Specimen Blood Performing Organization Address [facility] Phone Number [facility] DEPARTMENT OF PATHOLOGY AND [address] [place] [phone] Estimated GFR (03/01/2018 4:00 AM CAREER RESOURCE TECHNICIAN)Only the most recent of6 resultswithin the time period is included. Estimated GFR 68 mL/min/1.73 [facility] Comment: m2 HOSPITAL CatergoryUnitsInterpretation G1 >=90 Normal or high G2 60-89Mildly decreased A6i00-14Hbazei to moderately decreased N8s58-54Evdtrvpxyt to severely decreased G4 15-29Severely decreased G5 <15Kidney failure The eGFR was calculated using the Chronic Kidney Disease Epidemiology Collaboration (CKD-EPI) equation. Interpretation is based on recommendations of the National Kidney Foundation-Kidney Disease Outcomes Quality Initiative (NKF-KDOQI) published in 2014. Specimen Plasma specimen Performing Organization Address [facility] Phone Number [facility] DEPARTMENT OF PATHOLOGY AND [address] [place] [phone] [place] [phone] Thyroid stimulating hormone (03/01/2018 4:00 AM CAREER RESOURCE TECHNICIAN)Only the most recent of3 resultswithin the time period is included. TSH 2.91 0.27 - 4.20 uIU/mL [facility] Specimen Plasma specimen Performing Organization Address [facility] Phone Number [facility] DEPARTMENT OF PATHOLOGY AND [address] [place] [address] T4, free (03/01/2018 4:00 AM CAREER RESOURCE TECHNICIAN)Only the most recent of3 resultswithin the time period is included. T4, free 1.1 0.9 - 1.7 ng/dL [facility] Specimen Plasma specimen Performing Organization Address [facility] Centercode Phone Number [facility] DEPARTMENT OF PATHOLOGY AND [address] [place] [phone] Lipid panel (03/01/2018 4:00 AM CAREER RESOURCE TECHNICIAN)Only the most recent of3 resultswithin the time period is included. Cholesterol 148 <200 mg/dL [facility] Triglycerides 184 (H) <150 mg/dL [facility] HDL cholesterol 32 (L) >40 mg/dL [facility] LDL cholesterol 87Comment: Result <100 mg/dL [place] obtained by direct [facility] measurement [facility] Lipid panel [facility] interpretation Comment: WORSHIP Total Cholesterol (mg/dL) HOSPITAL <200 Desirable 893-298Mgagrcmopy-cdbj >=240High Triglycerides (mg/dL) <150 Normal 288-034Ugxwagmhze-fmar 200-499High >=500Very high HDL Cholesterol (mg/dL) <40Low (male) <40Low (female) LDL Cholesterol (mg/dL) <100 Optimal 100-129Near or above optimal 817-276Nkcgbocpeu-vfnv 160-189High >=190Very high Risk Catergories that modify [...] specimen Performing Organization Address City/State/Zipcode Phone Number [facility] DEPARTMENT OF PATHOLOGY AND [address] [place] [address] GENOM[address] MED[address] [address] Basic metabolic panel (03/01/2018 4:00 AM CAREER RESOURCE TECHNICIAN)Only the most recent of11 resultswithin the time period is included. Sodium 141 135 - 148 mEq/L [facility] Potassium 3.3 (L) 3.5 - 5.0 mEq/L [facility] Chloride 106 98 - 112 mEq/L [facility] CO2 23 (L) 24 - 31 mEq/L [facility] Anion gap 12@ANIO 7 - 15 mEq/L [facility] BUN 20 8 - 23 mg/dL [facility] Creatinine 1.06 0.70 - 1.20 mg/dL [facility] Glucose 131 (H) 65 - 99 mg/dL [facility] Calcium 8.3 (L) 8.8 - 10.2 mg/dL [facility] Specimen Plasma specimen Performing Organization Address City/State/Zipcode Phone Number [facility] DEPARTMENT OF PATHOLOGY AND [address] [place] [phone] [place] [phone] Activated clotting time (02/28/2018 6:54 PM CAREER RESOURCE TECHNICIAN)Only the most recent of3 resultswithin the time period is included. Activated clotting 177 (H) 96 - 152 sec [facility] Comment: HOSPITAL Meter ID: [id number] Dairy Frozen Manager: Dakota Roy Specimen Performing Organization Address City/[facility]/Zipcode Phone Number [facility] DEPARTMENT OF PATHOLOGY AND [address] [place] [phone] [address] Cv invasive peripheral vascular procedure (02/28/2018 6:16 PM CAREER RESOURCE TECHNICIAN) Specimen Narrative Performed At PREOPERATIVE DIAGNOSIS [facility] 1.Claudication 2.Peripheral Arterial Disease POSTOPERATIVE DIAGNOSIS 1.Claudication 2.Peripheral Arterial Disease PROCEDURES PERFORMED 1.Abdominal Aortogram with runoff 2.Ipsilateral Right Femoral Angiography 3.Contralateral Left Iliac Angiography 4.Percutaneous Angioplasty of left distal popliteal with a 4x40 mm Impact drug coated balloon MEMBERSHIP ASSISTANT Dr. Rhett Diaz, Chicken Dresser MAMMAL CONTROL AGENT Terrell Dixon, Resident, MD ANESTHESIA USED Local 2% lidocaine, Conscious Sedation DESCRIPTION OF PROCEDURE The procedure was described to the patient including benefits, risks, and alternatives to the procedure.The patient confirmed understanding and signed the informed consent.The patient was brought to laboratory sample carrier, room 7 of [facility].Patient was prepped and draped in sterile fashion. Conscious sedation provided to patient throughout procedure with appropriate monitoring. The right common femoral artery (CHEF PASSENGER VESSEL) was palpated and the region above the artery was anesthetized with 2% local lidocaine.Using 18-gauge AMC needle and fluoroscopic guidance, arterial access was obtained in the right CHEF PASSENGER VESSEL and a 4F sheath was placed without [...] was then switched to a6F 60 cm Jenner destination sheath over the Wholey wire. The Wholey wire was advanced past the lesion and a 4.0x40 mm Impact DCB was advanced to the lesion in the popliteal which was dilated at 4 amina for 180 seconds.Afterwards there was reduction of stenosis to 10%.The sheath was withdrawn and exchanged for a 7F short sheath. The arterial sheath was aspirated and flushed.Angiography of the CHEF PASSENGER VESSEL was performed without evidence of dissection, thrombus [...] Performing Organization Address City/State/Zipcode Phone Number [facility] [address] [place] [address] ECG Pre/Post Op (01/10/2018 3:00 PM CDT) [...] Specimen Performing Organization Address City/State/Zipcode Phone Number [facility] MUSE [address] [phone] Pv carotid duplex (01/01/2018 8:00 AM CDT) Specimen Narrative Performed At [facility] Vascular Ultrasound Laboratory Carotid Artery Duplex Report [id number] [facility] [address] [phone] For software quality test engineer purposes, the categorization of the degree of the stenosis of this exam is based on criteria described in the IAC carotid stenosis grading white paper( www.intersocietal.org/Vascular) and Susan Yung., Grace Tate, et al. Carotid artery stenosis: her-scale and Doppler US diagnosis--Society of Radiologists in Ultrasound Consensus Conference. Radiology. 2003 Nov; 229(2):340-6. Pat.Name:ARY HAINES Pat.ID:[id number] St.Date: 01/01/2018 Refer.MD:YANCY LEYVA MD Exam Time: 7:25:00 AMStudy Type:Carotid DOBAge:1940,77YSex: MALE Sonogrphr: Kelley Guan RDCS, RVT Pat. Stat.:Inpatient Room:[facility] ATapeVol: ED, CPT - 4: 15311 Echo Event ID:[id number] Order ID:[id number] Reason for Study:Syncope History / Clinical:HTN, DM, [...] EDV21.1 cm/s Right ICA Mid ICA Mid [id number] cm/Bonilla Mid EDV 24.4 cm/s Right ICA [...] Vascular Ultrasound Laboratory Carotid Artery Duplex Report [address] [place] [address] For software quality test engineer purposes, the categorization of the degree of the stenosis of this exam is based on criteria described in the IAC carotid stenosis grading white paper( www.intersocietal.org/Vascular) and Susan Yung., Hien Tate., et al. Carotid artery stenosis: her-scale and Doppler US diagnosis--Society of Radiologists in Ultrasound Consensus Conference. Radiology. 2003 Nov; 229(2):340-6. Pat.Name: ARY HAINES Pat.ID: [id number] .Date: 01/01/2018 Refer.MD: YANCY LEYVA MD Exam Time: 7:25:00 AM Study Type:Carotid Age: 1 1940,77Y Sex: MALE Sonogrphr: Kelley Guan RDCS, RVT Pat. Stat.:Inpatient Room: A -0 A Tape Vol: ED, CPT - 4: 02021 Echo Event ID:[id number] Order ID: [id number] Reason for Study:Syncope History / Clinical:HTN, DM, [...] Organization Address City/State/Zipcode Phone Number [facility] [address] [place] [address] CT Head Wo Contrast (12/31/2017 10:30 AM [...] IMPRESSION:No acute intracranial hemorrhage or mass effect. [facility]-[id number] Procedure Note Interface, Radiology Results Incoming - [...] No acute intracranial hemorrhage or mass effect. [facility]-[id number] Performing Organization Address City/[facility]/Zipcode Phone Number [facility] [address] [place] [phone] Troponin (12/31/2017 5:29 AM CDT)Only the most recent of3 resultswithin the time period is included. Pathologist [facility] Troponin <0.30 0.00 - 0.30 [facility] DEPARTMENT OF Comment: ng/mL PATHOLOGY AND 0.30 - 1.49 ng/mlMay indicate increased risk of acute GENOMIC MEDICINE coronary syndrome. >=1.5 ng/mlConsistent with acute myocardial infarction. The diagnostic value of a single normal or non-diagnostic result is questionable.Serial samples at 2-6 hour intervals are required to rule out acute myocardial injury. Specimen Plasma specimen Performing Organization Address [facility] Centercode Phone Number [facility] DEPARTMENT OF PATHOLOGY AND [address] [place] [phone] [facility] MEDICINE Estimated GFR (12/20/2017 4:00 AM CDT)Only the most recent of5 resultswithin the time period is included. GFR Non Af Amer 49 (A) mL/min/1.73 [facility] DEPARTMENT OF m2 PATHOLOGY AND GENOMIC MEDICINE GFR Af Amer 60 mL/min/1.73 [facility] DEPARTMENT OF Comment: m2 PATHOLOGY AND [...] At MG added and read back to [facility] DEPARTMENT OF PATHOLOGY AND GENOMIC in A7 12/20/2017 06:25 LMID. MEDICINE Performing Organization Address [facility] Centerconv Phone Number [facility] DEPARTMENT OF PATHOLOGY AND [address] [place] [address] Magnesium level (12/20/2017 4:00 AM CDT)Only the most recent of2 resultswithin the time period is included. Magnesium 2.0 1.6 - 2.4 mg/dL [facility] DEPARTMENT OF PATHOLOGY AND GENOMIC MEDICINE Specimen Plasma specimen Narrative Performed At MG added and read back to [facility] DEPARTMENT OF PATHOLOGY AND GENOMIC in A7 12/20/2017 06:25 LMID. MEDICINE Performing Organization Address [facility] Phone Number [facility] DEPARTMENT OF PATHOLOGY AND [address] [place] [address] MEDICINE ECG 12 lead (12/19/2017 1:37 AM CDT)Only the most recent of2 resultswithin the time period is included. Ventricular rate 67 [facility] Atrial rate 67 [facility] M[facility] SD interval 166 [facility] QRSD interval 84 [facility] QT interval 436 [facility] QTC interval 460 [facility] P axis 1 58 [facility] QRS axis 1 51 [facility] T wave axis 193 [facility] EKG impression Sinus rhythm with [facility] premature atrial complexes-T wave abnormality, consider inferolateral ischemia-Voltage criteria for left ventricular hypertrophy-Electronical ly Signed By Ty Palacios MD ([id number]) on 12/19/2017 8:59:25 AM Specimen Performing Organization Address City/[facility] Phone Number [facility] MUSE [address] [place] [address] Cv myocardial perfusion (12/17/2017 11:33 AM CDT) Specimen Narrative Performed At [facility] Nuclear Cardiology and Cardiac CT [address] [place] [address] Myocardial Perfusion Imaging Report Stress ECG tracings are available in MUSE, EPIC and CV Web All ECG interpretations are included in this report Pat.Name:CLINT, ARY Pat.ID:[id number] .Date: 12/17/2017Refer.MD:YANCY LEYVA MD Exam Time: 11:02:00 AM Study Type:Myocardial Perfusion Imaging Height:67inBSA: 1.93 m2 DOBAge:1940,77YSex: MALE BP:179/74HR: 65 bpm HCT: 36.6 % Nuclear Tech:CARLITO AshbyMT, NADIA Cm Pat. Stat.:Inpatient Room:[facility] Nuclear Event ID:[id number] Order ID:[id number] Reason for Study:Chest pain, unspecified* History / [...] % Max BP:189/80O2 sat:99 % Max RPP: [id number] Symptoms and Complications: Arrhythmias: None Terminated: As per Regadenoson protocol Symptoms:Chest pain, Chest pressure, Dyspnea Signed 12/17/2017 01:32 PM Geri Silva MD Procedure Note Interface, Radiology Results In - 12/17/2017 1:32 PM CDT Nuclear Cardiology and Cardiac CT [address] [place] [address] Myocardial Perfusion Imaging Report Stress ECG tracings are available in [employer] and [employer] All ECG interpretations are included in this report Pat.Name: ARY HAINES Pat.ID: [id number] .Date: 12/17/2017 Refer.MD: YANCY LEYVA MD Exam Time: 11:02:00 AM Study Type:Myocardial Perfusion Imaging Height: 67in BSA: 1.93 m2 Age: 1 1940,77Y Sex: MALE BP: 179/74 HR: 65 bpm HCT: 36.6 % Nuclear Tech:CARLITO AshbyMT, CARLITO CmMT Pat. Stat.:Inpatient Room: [facility] Nuclear Event ID:[id number] Order ID: [id number] Reason for Study:Chest pain, unspecified* History / [...] 189/80 O2 sat: 99 % Max RPP: [id number] Symptoms and Complications: Arrhythmias: None Terminated: As per Regadenoson protocol Symptoms: Chest pain, Chest pressure, Dyspnea Signed 12/17/2017 01:32 PM Geri Silva MD Performing Organization Address City/State/Zipcode Phone Number [facility] [address] [place] [address] ecg exercise stress (nuclear or echo) (12/17/2017 9:15 AM CDT) Resting HR 65 [facility] M[facility] Resting BP 179 [facility] Peak MET Achieved 1.0 [facility] Protocol Name SANA [facility] Time in Exercise 00:01:00 [facility] [...] H MUSE Termination Stress Test -Waveform interpreted [facility] M[facility] Impression in report associated with image study. No interpretation is provided as part of this Stress ECG report.-Electronically Signed By Ricardo KHAN, Geri Khan ([id number]), telegraph editor Kathi Starr ([id number]) on 12/17/2017 2:25:19 PM Specimen Performing Organization Address City/State/Zipcode Phone Number [facility] [address] [place] [address] Echocardiogram complete w contrast and 3D if needed (12/16/2017 8:10 AM CDT) Specimen Narrative Performed At [facility] Echocardiography Report [id number]Name:ARY HAINES Pat.ID:[id number] .Date: 12/16/2017Refer.MD:YANCY LEYVA MD Exam Time: 7:52:00 AMStudy Type:Routine Echo Height:67inWeight: 188lb BSA: 1.97 m2 DOBAge:1940,77Y Sex: MALEBP:167/75 HR:56 bpmSonogrphr: Gina Shahid RDCS, RVT Pat. Stat.:Inpatient Room:[facility] Study Status:Final Echo Event ID:[id number] Order ID:[id number] Reason for Study:Atrial Fibrillation History / Clinical:Coronary [...] RAPof 5 mmHg. MEASUREMENTS: 2D Parasternal [place] LVOT 2.2 cmLA Ds5.2 cm LVIDd4.7 cmIndex2.4 cm/m Ao An2.1 cm LVIDs3.4 cmAo Rtd 3.8 cm Index1.9 cm/m LV%fs 26.6 % LV Urpi933.9 g(122-174) IVSd 1.1 cmLVM Index 95.4 g/m2 LVPWd1.1 cmRWT0.5 LA Sng Plane LA Area 32.7 cm2(8.8-23.4) LA Vol 120.2 ml Index61 ml/m LA LngAx 7.3 cm DOPPLER LVOT Stroke Vol LVOT 2.2 cmLVOT CO5 l/min LVOT TVI22.5 cmLVOT CI2.5 l/m/m2 LVOT Tm407 vtxnBI34 bpm LVOT SV 85.7 ml TV Pressure Gradient TV PkVel 318.2 cm/sTV PG 40.5 mmHg MMODE TAPSE TAPS Dim 1.5 cm Signed 12/16/2017 05:54 PM Geri Silva M.D. Procedure Note Interface, Radiology Results In - 12/16/2017 5:54 PM CDT Echocardiography Report [id number] [place] [address] Pat.Name: ARY HAINES Pat.ID: [id number] St.Date: 12/16/2017 Refer.MD: YANCY LEYVA MD Exam Time: 7:52:00 AM Study Type:Routine Echo Height: 67in Weight: 188lb BSA: 1.97 m2 Age: 1 1940,77Y Sex: MALE BP: 167/75 HR: 56 bpm Sonogrphr: Gina Shahid RDCS, RVT Pat. Stat.:Inpatient Room: [facility] Study Status:Final Echo Event ID:[id number] Order ID: [id number] Reason for Study:Atrial Fibrillation History / Clinical:Coronary [...] of 5 mmHg. MEASUREMENTS: 2D Parasternal [place] LVOT 2.2 cm LA Ds 5.2 cm [...] Performing Organization Address City/State/Zipcode Phone Number [facility] [address] [place] [address] Creatine kinase, total (CPK) (12/15/2017 9:08 PM CDT) Creatine kinase 48 39 - 308 U/L [facility] DEPARTMENT OF PATHOLOGY AND GENOMIC MEDICINE Specimen Plasma specimen Performing Organization Address City/State/Zipcode Phone Number [facility] DEPARTMENT OF PATHOLOGY AND [address] [place] [address] GENOMIC MEDICINE after 10/28/2017 Insurance Payer Benefit Plan / Subscriber ID Effective Phone Address Type Group Dates MEDICARE MEDICARE PART xxxxxxxxxxx 2007-[place], [place] Medicare A AND B nt [employer] OF [employer] OF xxxxxx-xx 2007-[facility] Commercial MALORIE ESPANA nt Advance Directives Patient has advance care planning documents, and code status on file. For more information, please contact:Chucky Steve[address] [place] [address] Code Status Date Activated Date Inactivated Comments Full Code 02/28/2018 7:46 PM 03/01/2018 4:46 PM Code Status decision reached by: Patient Full Code 12/30/2017 6:54 PM 01/03/2018 3:46 PM Code Status decision reached by: Patient Full Code 12/15/2017 9:02 PM 12/21/2017 4:09 PM Code Status decision reached by: Patient
--- OUTSIDE RECORDS SUMMARY | 2018-10-29 12:00 | XMS REPORT ---
:1940 [facility] Address [address] [place] [address] Dr. Morales [address] [place] [id number] Care Team Providers Name Role Phone Unavailable Unavailable Unavailable Problems This patient has no known problems. Allergies, Adverse Reactions, Alerts This patient has no known allergies or adverse reactions. Medications This patient has no known medications.
[2018-10-29] MEDS ORDERED: NA CHLORIDE 0.9% 500 ML ONE (12:10)
[2018-10-29] MEDS ORDERED: FOLIC ACID 5 MG/ML VIAL ONE (12:12)
[2018-10-29 12:19] LABS: Absolute Lymphocytes (CBC) 0.8 K/uL (0.7-4.9); Basophils % 0.9 % (0-1.3); Eosinophils % 5.6 % (0-4.4); Hematocrit 35.3 % (39.6-49.0); Lymphocytes % 11.5 % (15.3-44.8); Monocytes % 8.8 % (3.3-12.3); RBC Red Blood Cell Count 4.01 M/uL (4.33-5.43)
--- NOTE | 2018-10-29 12:24 | RAD REPORT ---
EXAM DESCRIPTION: RAD - Chest Single View - 10/29/2018 12:06 pm CLINICAL HISTORY: Headache, weakness, dizziness, hypertension, shortness of breath COMPARISON: May 2018 TECHNIQUE: AP portable chest image was obtained 1158 hours . FINDINGS: No peripheral mass or consolidation. Interstitial markings are prominent but are similar o r slightly less pronounced than seen on prior study. Heart size is upper normal in size, decreased fr om prior study. Vasculature within normal limits. Sternotomy wires are in place. Trachea is midline. No measurable pleural effusion and no pneumothorax. No acute bony abnormality seen. No acute aortic f indings suspected. IMPRESSION: Mild chronic interstitial lung disease similar or diminished in prominence from prior im aging. No focal mass or consolidation. Vasculature and lung markings are decreased in prominence from comparison.
[2018-10-29 12:35] LABS: ALT/SGPT 23 U/L (12-78); AST/SGOT 14 U/L (15-37); Albumin 3.3 g/dL (3.4-5.0); Alkaline Phosphatase 77 U/L (45-117); BUN Blood Urea Nitrogen 43 mg/dL (7-18); Bicarbonate 25 mmol/L (21-32); Bilirubin Direct 0.2 mg/dL (0-0.2); Bilirubin Total 0.8 mg/dL (0.2-1.0); Glucose Level 244 mg/dL (74-106); Magnesium 2.3 mg/dL (1.8-2.4); NT PRO-BNP 601 pg/mL (<450); Potassium 3.9 mmol/L (3.5-5.1); Protein, Total 6.7 g/dL (6.4-8.2); Sodium Level 140 mmol/L (136-145); Troponin (Emerg Dept Use Only) < 0.02 ng/mL (0.0-0.045)
--- NOTE | 2018-10-29 12:38 | RAD REPORT ---
EXAM DESCRIPTION: - CP - 10/29/2018 12:25 pm CLINICAL HISTORY: Dizziness, syncope, right carotid bruit COMPARISON: None. TECHNIQUE: Real-time sonographic evaluation of both carotid systems was performed. Alvarado scale and Do ppler interrogation were performed with waveform tracing bilaterally. FINDINGS: Normal high resistance waveforms are noted in both external carotid arteries. The common c arotid arteries and internal carotid arteries show normal low resistance waveforms. Significant calcified plaquing changes are present at the right carotid bulb extending into the inter nal and external carotid artery's. Right common carotid peak systolic velocity was 79 cm/second. Inte rnal carotid artery velocity on the right reached as high as 282 cm/second creating a 3.5 ICA/CCA rat io. Left-sided common carotid velocity was 103 cm/second. ICA/CCA ratios are normal range with a 0.9 ICA / CCA ratio. There was visible calcified plaquing change at the left bulb and left ICA. Antegrade flow seen in both vertebral arteries. Velocity values and ratios were recorded and are retained in the patient's imaging records. IMPRESSION: Significant calcified plaquing changes in the right carotid bulb and proximal ICA creati ng greater than 80% stenosis. Left-sided calcified plaquing changes not resulting in significant stenosis.
--- NOTE | 2018-10-29 12:45 | RAD REPORT ---
EXAM DESCRIPTION: CT - Head Brain Wo Cont - 10/29/2018 12:27 pm CLINICAL HISTORY: DIZZINESS Headache, hypertension, CVA symptomology COMPARISON: Head Brain Wo Cont dated 09/05/2018; Head Brain Wo Cont dated 03/16/2017 TECHNIQUE: All CT scans are performed using dose optimization technique as appropriate and may inclu de automated exposure control or mA/KV adjustment according to patient size. FINDINGS: No intracranial hemorrhage, hydrocephalus or extra-axial fluid collection.Mild generalized brain atrophy is present with mild periventricular and deep white matter chronic microvascular ische xavier changes.No areas of brain edema or evidence of midline shift. The paranasal sinuses and mastoids are clear. The calvarium is intact. Vertebral atherosclerosis. IMPRESSION: No acute intracranial abnormality.
[2018-10-29] MEDS ORDERED: CLOPIDOGREL 75 MG TABLET ONE (14:02)
[2018-10-29] MEDS ORDERED: LORazepam 2 MG/ML VIAL ONE (14:03)
[2018-10-29 14:10] LABS: Urine Blood NEGATIVE (NEG); Urine Glucose NEGATIVE (NEG); Urine Protein 1+ (NEG); Urine Specific Gravity 1.015 (1.005-1.030)
--- NOTE | 2018-10-29 14:44 | RAD REPORT ---
EXAM DESCRIPTION: MRI - Brain Wo Cont - 10/29/2018 2:26 pm CLINICAL HISTORY: DIZZINESS Headache, drowsiness and weakness COMPARISON: Head Brain Wo Cont dated 10/29/2018 TECHNIQUE: Multi-sequence, multiplanar MR imaging of the brain was performed without contrast. FINDINGS: No intracranial hemorrhage, hydrocephalus or extra-axial fluid collections.Mild T2 and FLA IR hyperintensity in the periventricular and deep white matter is noted, compatible with chronic micr ovascular ischemic changes. No edema or shift of midline structures. No findings to suspect brain mas s. DWI is negative for acute CVA. Midline structures are normally formed. 2 cm mucous retention cyst or polyp is present the right maxillary antrum. The paranasal sinuses and mastoids otherwise clear. IMPRESSION: Negative for acute CVA or other acute intracranial abnormality. Mild paranasal sinus disease.
--- NOTE | 2018-10-29 15:10 | EDPHYS ---
Physician Documentation [facility] Name: Ary Haines Age: 78 yrs Sex: Male : 1940 Arrival Date: 10/29/2018 Time: 11:22 Bed 18 Private MD: Jonel Sanders R ED Physician Brenton Maher HPI: 10/29 13:30 This 78 yrs old Male presents to ER via Wheelchair with complaints of ester Dizziness. 13:30 The patient presents with dizziness, generalized weakness, lightheadedness. Onset: The ester symptoms/episode began/occurred just prior to arrival, this morning. Context: occurred at home. Modifying factors: The symptoms are alleviated by nothing, the symptoms are aggravated by nothing. Associated signs and symptoms: The patient has no apparent associated signs or symptoms. Severity of symptoms: At their worst the symptoms were mild in the emergency department the symptoms have improved moderately. Patient's baseline: Neuro: alert and fully oriented. The patient has not experienced similar symptoms in the past. Historical: - Allergies: 11:43 Iodine; bp - Home Meds: 11:43 aspirin 81 mg Oral TbEC 1 tab once daily [Active]; atenolol 50 mg Oral tab 1 tab once bp daily [Active]; dulera [Active]; Lantus 100 unit/mL Sub-Q soln [Active]; lisinopril 20 mg Oral tab 2 tabs once daily [Active]; Tradjenta 5 mg Oral tab 1 tab once daily [Active]; - PMHx: 11:43 Hypertension; Diabetes - NIDDM; blockages; bp - Immunization history:: Adult Immunizations up to date. - Social history:: Smoking status: Patient/guardian denies using tobacco. - Ebola Screening: : No symptoms or risks identified at this time. - Family history:: not pertinent. ROS: 13:30 Constitutional: Negative for fever, chills, and weight loss, Eyes: Negative for injury, ester pain, redness, and discharge, ENT: Negative for injury, pain, and discharge, Neck: Negative for injury, pain, and swelling, Cardiovascular: Negative for chest pain, palpitations, and edema, Respiratory: Negative for shortness of breath, cough, wheezing, and pleuritic chest pain, Abdomen/GI: Negative for abdominal pain, nausea, vomiting, diarrhea, and constipation, Back: Negative for injury and pain, : Negative for injury, bleeding, discharge, and swelling, MS/Extremity: Negative for injury and deformity, Skin: Negative for injury, rash, and discoloration, Psych: Negative for depression, anxiety, suicide ideation, homicidal ideation, and hallucinations, Allergy/Immunology: Negative for hives, rash, and allergies, Endocrine: Negative for neck swelling, polydipsia, polyuria, polyphagia, and marked weight changes, Hematologic/Lymphatic: Negative for swollen nodes, abnormal bleeding, and unusual bruising. 13:30 Neuro: Positive for dizziness, weakness, of the right leg and left leg. Exam: 13:30 Constitutional: This is a well developed, well nourished patient who is awake, alert, ester and in no acute distress. Head/Face: Normocephalic, atraumatic. Eyes: Pupils equal round and reactive to light, extra-ocular motions intact. Lids and lashes normal. Conjunctiva and sclera are non-icteric and not injected. Cornea within normal limits. Periorbital areas with no swelling, redness, or edema. ENT: Nares patent. No nasal discharge, no septal abnormalities noted. Tympanic membranes are normal and external auditory canals are clear. Oropharynx with no redness, swelling, or masses, exudates, or evidence of obstruction, uvula midline. Mucous membranes moist. Neck: Trachea midline, no thyromegaly or masses palpated, and no cervical lymphadenopathy. Supple, full range of motion without nuchal rigidity, or vertebral point tenderness. No Meningismus. Chest/axilla: Normal chest wall appearance and motion. Nontender with no deformity. No lesions are appreciated. Cardiovascular: Regular rate and rhythm with a normal S1 and S2. No gallops, murmurs, or rubs. Normal PMI, no JVD. No pulse deficits. Respiratory: Lungs have equal breath sounds bilaterally, clear to auscultation and percussion. No rales, rhonchi or wheezes noted. No increased work of breathing, no retractions or nasal flaring. Abdomen/GI: Soft, non-tender, with normal bowel sounds. No distension or tympany. No guarding or rebound. No evidence of tenderness throughout. Back: No spinal tenderness. No costovertebral tenderness. Full range of motion. Male : Normal genitalia with no discharge or lesions. Skin: Warm, dry with normal turgor. Normal color with no rashes, no lesions, and no evidence of cellulitis. MS/ Extremity: Pulses equal, no cyanosis. Neurovascular intact. Full, normal range of motion. Neuro: Awake and alert, GCS 15, oriented to person, place, time, and situation. Cranial nerves II-XII grossly intact. Motor strength 5/5 in all extremities. Sensory grossly intact. Cerebellar exam normal. Normal gait. Psych: Awake, alert, with orientation to person, place and time. Behavior, mood, and affect are within normal limits. Vital Signs: 11:43 BP 142 / 54; Pulse 53; Resp 14; Temp 97; Pulse Ox 100% ; Weight 74.84 kg; Height 5 ft. bp 7 in. (170.18 cm); 12:56 BP 160 / 64; Pulse 51; Resp 14; Pulse Ox 98% ; bp 14:00 BP 181 / 59; Pulse 52; Resp 16; Pulse Ox 98% ; bp 15:21 BP 185 / 56; Pulse 53; Resp 16; Pulse Ox 98% ; bp 11:43 Body Mass Index 25.84 (74.84 kg, 170.18 cm) bp NIH Stroke Scale Scores: 13:30 NIHSS Score: 0 ester MDM: 11:44 Patient medically screened. [facility] 13:32 Data reviewed: vital signs, nurses notes, lab test result(s), EKG, radiologic studies, [facility] MRI, plain films. 10/29 11:47 Order name: Basic Metabolic Panel [facility] 10/29 11:47 Order name: CBC with Diff [facility] 10/29 11:47 Order name: LFT's; Complete Time: 13:32 [facility] 10/29 11:47 Order name: Magnesium; Complete Time: 13:32 [facility] 10/29 11:47 Order name: NT PRO-BNP; Complete Time: 13:32 [facility] 10/29 11:47 Order name: PT-INR; Complete Time: 13:32 [facility] 10/29 11:47 Order name: Troponin (emerg Dept Use Only); Complete Time: 13:32 [facility] 10/29 11:47 Order name: XRAY Chest (1 view); Complete Time: 13:32 [facility] 10/29 11:47 Order name: CT Head Brain wo Cont; Complete Time: 13:32 [facility] 10/29 11:47 Order name: Urine Culture [facility] 10/29 11:48 Order name: Basic Metabolic Panel; Complete Time: 13:32 EDMS 10/29 11:48 Order name: CBC with Automated Diff; Complete Time: 13:32 EDMS 10/29 14:00 Order name: Urine Dipstick--Ancillary (enter results); Complete Time: 15:05 10/29 11:47 Order name: EKG; Complete Time: 11:49 [facility] 10/29 11:47 Order name: Cardiac monitoring; Complete Time: 11:57 [facility] 10/29 11:47 Order name: EKG - Nurse/Tech; Complete Time: 11:57 [facility] 10/29 11:47 Order name: IV Saline Lock; Complete Time: 11:57 [facility] 10/29 11:47 Order name: Labs collected and sent; Complete Time: 11:57 [facility] 10/29 11:47 Order name: O2 Per Protocol; Complete Time: 11:57 [facility] 10/29 11:47 Order name: O2 Sat Monitoring; Complete Time: 11:57 [facility] 10/29 11:47 Order name: Urine Dipstick-Ancillary (obtain specimen); Complete Time: 12:52 [facility] 10/29 11:47 Order name: US Carotid Artery Bilateral; Complete Time: 13:32 [facility] 10/29 13:56 Order name: Brain Wo Cont; Complete Time: 15:05 EDMS Administered Medications: 11:58 Drug: NS 0.9% 500 ml Route: IV; Rate: bolus; Site: right forearm; bp 11:58 Drug: foLIC Acid 1 mg Route: IVPB; Site: right forearm; bp 13:45 Drug: PlaVIX 75 mg Route: PO; hj 15:22 Follow up: Response: No adverse reaction bp 13:45 Drug: Ativan 1 mg Route: IVP; Site: left forearm; hj 15:21 Follow up: Response: Anxiety decreased bp Disposition: 10/29/18 15:09 Discharged to Home. 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 - Condition is Stable. - Discharge Instructions: Type 2 Diabetes Mellitus, Diagnosis, Adult, Dizziness, Aspirin and Your Heart, Type 2 Diabetes Mellitus, Diagnosis, Adult, Ueiz-kh-Bylu, Dizziness, Yysc-ku-Kigq. - Prescriptions for Lipitor 20 mg Oral tablet - take 1 tablet by ORAL route once daily; 20 tablet. Plavix 75 mg Oral Tablet - take 1 tablet by ORAL route once daily; 20 tablet. - Medication Reconciliation Form, Thank You Letter, Antibiotic Education, Prescription Opioid Use form. - Follow up: Jonel Sanders MD; When: 1 - 2 days; Reason: Recheck today's complaints, Continuance of care, Re-evaluation by your physician. Follow up: Jorje Diaz MD; When: 1 - 2 days; Reason: Recheck today's complaints, Continuance of care, Re-evaluation by your physician. - Problem is new. - Symptoms have improved. NIH Stroke Scale - NIH Stroke Score Date: 10/29/2018 Time: 13:30 Total Score = 0 1a. Level of Consciousness (LOC) - 0(Alert) 1b. Level of Consciousness (LOC) (Year \T\ Age) - 0(Both) 1c. LOC Commands (Open \T\ Closes Eyes/Heat Pump Installer) - 0(Both) 2. Best Gaze (Lateral Gaze Paresis) - 0(Normal) 3. Visual Field Loss - 0(No visual loss) 4. Facial Palsy - 0(Normal) 5a. Left Arm: Motor (10-second hold) - 0(No drift) 5b. Right Arm: Motor (10-second hold) - 0(No drift) 6a. Left Leg: Motor (5-second hold - always test supine) - 0(No drift) 6b. Right Leg: Motor (5-second hold - always test supine) - 0(No drift) 7. Limb Ataxia (finger/nose \T\ heel/medina - test with eyes open) - 0(Absent) 8. Sensory Loss (pinprick arms/legs/face) - 0(Normal) 9. Best Language: Aphasia (description/naming/reading) - 0(No aphasia) 10. Dysarthria (speech clarity - read or repeat words) - 0(Normal) 11. Extinction and Inattention (visual/tactile/auditory/spatial/personal) - 0(No abnormality) Initials: ester Signatures: Dispatcher [employer] EDMS Brenton Maher MD MD cha Joaquin, Henry, RN RN hj Peltier, Brian, RN RN bp Corrections: (The following items were deleted from the chart) 13:57 11:50 MR STROKE PROTOCOL+MRI.RAD.MELBA ordered. [facility] EDMS 16:05 15:09 10/29/2018 15:09 Discharged to Home. 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 Condition is Stable. Forms are Medication Reconciliation Form, Thank You Letter, Antibiotic Education, Prescription Opioid Use. Follow up: Jonel Sanders; When: 1 - 2 days; Reason: Recheck today's complaints, Continuance of care, Re-evaluation by your physician. Follow up: Jorje Diaz; When: 1 - 2 days; Reason: Recheck today's complaints, Continuance of care, Re-evaluation by your physician. Problem is new. Symptoms have improved. ester
--- NOTE | 2018-10-29 15:10 | ER ---
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 Transition of care: patient was not received from another setting of care. Onset of symptoms was October 29, 2018 at 07:00. Risk Assessment: Do you want to hurt yourself or someone else? Patient reports no desire to harm self or others. Initial Sepsis Screen: Does the patient meet any 2 criteria? No. Patient's initial sepsis screen is negative. Does the patient have a suspected source of infection? No. Patient's initial sepsis screen is negative. Care prior to arrival: Glucose check: 170. 11:40 Method Of Arrival: Wheelchair bp 11:40 Acuity: SHIRA 3 bp Triage Assessment: 11:43 General: Appears in no apparent distress. comfortable, Behavior is cooperative, bp appropriate for age, anxious. Pain: Complains of pain in head. EENT: No deficits noted. Neuro: Level of Consciousness is awake, alert, obeys commands, Oriented to person, place, time, situation, Appropriate for age Healthcare Facility Administrator are equal bilaterally Moves all extremities. Full function Speech is normal, Facial symmetry appears normal, Reports dizziness, weakness. Cardiovascular: No deficits noted. Respiratory: No deficits noted. GI: No signs and/or symptoms were reported involving the gastrointestinal system. : No signs and/or symptoms were reported regarding the genitourinary system. Derm: No deficits noted. Musculoskeletal: No deficits noted. Historical: - Allergies: 11:43 Iodine; bp - Home Meds: 11:43 aspirin 81 mg Oral TbEC 1 tab once daily [Active]; atenolol 50 mg Oral tab 1 tab once bp daily [Active]; dulera [Active]; Lantus 100 unit/mL Sub-Q soln [Active]; lisinopril 20 mg Oral tab 2 tabs once daily [Active]; Tradjenta 5 mg Oral tab 1 tab once daily [Active]; - PMHx: 11:43 Hypertension; Diabetes - NIDDM; blockages; bp - Immunization history:: Adult Immunizations up to date. - Social history:: Smoking status: Patient/guardian denies using tobacco. - Ebola Screening: : No symptoms or risks identified at this time. - Family history:: not pertinent. Screenin:00 Abuse screen: Denies threats or abuse. Denies injuries from another. Nutritional bp screening: No deficits noted. Tuberculosis screening: No symptoms or risk factors identified. Fall Risk None identified. Assessment: 11:40 General: SEE TRIAGE NOTE. bp 11:59 Reassessment: PT TO U/S. bp 12:56 Reassessment: ALL CURRENT ORDERS COMPLETED, RESULTS PENDING. bp 14:21 Reassessment: PT CURRENTLY IN MRI. 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 bp 16:04 Reassessment: PT D/C HOME AMBULATORY WITH FAMILY, DX WITH DIZZINESS AND CAROTID bp STENOSIS. Vital Signs: 11:43 BP 142 / 54; Pulse 53; Resp 14; Temp 97; Pulse Ox 100% ; Weight 74.84 kg; Height 5 ft. bp 7 in. (170.18 cm); 12:56 BP 160 / 64; Pulse 51; Resp 14; Pulse Ox 98% ; bp 14:00 BP 181 / 59; Pulse 52; Resp 16; Pulse Ox 98% ; bp 15:21 BP 185 / 56; Pulse 53; Resp 16; Pulse Ox 98% ; bp 11:43 Body Mass Index 25.84 (74.84 kg, 170.18 cm) bp NIH Stroke Scale Scores: 13:30 NIHSS Score: 0 [facility] ED Course: 11:22 Patient arrived in ED. rg4 11:22 Jonel Sanders MD is Private Physician. rg4 11:40 Yuri Jain, RAYRAY is Primary Nurse. bp 11:41 Triage completed. bp 11:44 Brenton Maher MD is Attending Physician. ester 11:45 Arm band placed on. bp 11:57 Initial lab(s) drawn, by ny, sent to lab. Inserted saline lock: 20 gauge in left dh3 forearm, using aseptic technique. Blood collected. 12:00 Patient has correct armband on for positive identification. Bed in low position. Call bp light in reach. Side rails up X2. Adult w/ patient. 12:05 Radiology exam delayed due to pt in ultrasound at this time. vm2 12:07 XRAY Chest (1 view) In Process Unspecified. EDMS 12:25 US Carotid Artery Bilateral In Process Unspecified. EDMS 12:28 CT Head Brain wo Cont In Process Unspecified. EDMS 13:58 Patient moved to MRI via wheelchair. em2 14:26 Brain Wo Cont In Process Unspecified. EDMS 14:37 MRI completed. Patient tolerated well. Patient moved back from MRI. em2 15:06 Jonel Sanders MD is Referral Physician. ester 15:07 Jorje Diaz MD is Referral Physician. ester 15:20 No provider procedures requiring assistance completed. IV discontinued, intact, bp bleeding controlled, No redness/swelling at site. Pressure dressing applied. Administered Medications: 11:58 Drug: NS 0.9% 500 ml Route: IV; Rate: bolus; Site: right forearm; bp 11:58 Drug: foLIC Acid 1 mg Route: IVPB; Site: right forearm; bp 13:45 Drug: PlaVIX 75 mg Route: PO; hj 15:22 Follow up: Response: No adverse reaction bp 13:45 Drug: Ativan 1 mg Route: IVP; Site: left forearm; hj 15:21 Follow up: Response: Anxiety decreased bp Outcome: 15:09 Discharge ordered by . ester 16:04 Discharged to home ambulatory, with family. bp 16:04 Condition: stable 16:04 Discharge instructions given to patient, Instructed on discharge instructions, follow up and referral plans. medication usage, Demonstrated understanding of instructions, follow-up care, medications, Prescriptions given X 2. 16:05 Patient left the ED. bp NIH Stroke Scale - NIH Stroke Score Date: 10/29/2018 Time: 13:30 Total Score = 0 1a. Level of Consciousness (LOC) - 0(Alert) 1b. Level of Consciousness (LOC) (Year \T\ Age) - 0(Both) 1c. LOC Commands (Open \T\ Closes Eyes/Veterinary Technician) - 0(Both) 2. Best Gaze (Lateral Gaze Paresis) - 0(Normal) 3. Visual Field Loss - 0(No visual loss) 4. Facial Palsy - 0(Normal) 5a. Left Arm: Motor (10-second hold) - 0(No drift) 5b. Right Arm: Motor (10-second hold) - 0(No drift) 6a. Left Leg: Motor (5-second hold - always test supine) - 0(No drift) 6b. Right Leg: Motor (5-second hold - always test supine) - 0(No drift) 7. Limb Ataxia (finger/nose \T\ heel/medina - test with eyes open) - 0(Absent) 8. Sensory Loss (pinprick arms/legs/face) - 0(Normal) 9. Best Language: Aphasia (description/naming/reading) - 0(No aphasia) 10. Dysarthria (speech clarity - read or repeat words) - 0(Normal) 11. Extinction and Inattention (visual/tactile/auditory/spatial/personal) - 0(No abnormality) Initials: ester Signatures: Dispatcher [employer] Brenton Draper MD MD cha Montes, Enrique em2 Santo Sun, RN RN Maty Beltre 4 Virginia Cavanaugh 2 Nina Oquendo 3 Yuri Jain, RAYRAY RN bp
--- NOTE | 2018-10-29 15:42 | EKG ---
Test Date: 2018-10-29 Test Time: 11:45:00 Human Resources District Manager: HEIKE MEASUREMENT RESULTS: Intervals: Rate: 55 WA: 148 QRSD: 98 QT: 468 QTc: 447 [place]: P: 69 WA: 148 QRS: 57 T: 171 INTERPRETIVE STATEMENTS: Sinus bradycardia Possible Anterior infarct, age undetermined T wave abnormality, consider inferolateral ischemia Abnormal ECG Compared to ECG 09/05/2018 10:03:14 T-wave abnormality now present ST (T wave) deviation no longer present Myocardial infarct finding still present Possible ischemia still present Electronically Signed On 10-29-18 15:41:27 CDT by Roque Mae
[2018-10-29 17:19] VITALS: TEMP 97
[2018-10-29 17:20] VITALS: O2SAT 98
[2018-10-29 17:23] VITALS: BP 185/56
== END 2018-10-29 16:05 | disposition home or self-care (01) ==
LOC: ER 11:20
DX: I65.29 Occlusion and stenosis of unspecified carotid artery (principal); J84.17 Other interstitial pulmonary diseases with fibrosis in diseases classified elsewhere; E11.9 Type 2 diabetes mellitus without complications; I10 Essential (primary) hypertension; Z79.82 Long term (current) use of aspirin; Z79.4 Long term (current) use of insulin; Z91.048 Other nonmedicinal substance allergy status
CPT/HCPCS: 36415; 70450; 70551; 71045; 80048; 80076; 81003; 83735; 83880; 84484; 85025; 85610; 87086; 87088; 93005; 93880; 99284

== ENCOUNTER 2019-02-21 11:20 | Emergency (ER) | payer OTHER ==
[2019-02-21] MEDS ORDERED: ONDANSETRON 4 MG/2 ML VIAL ONE (11:56)
[2019-02-21] MEDS ORDERED: FUROSEMIDE 40 MG/4 ML VIAL ONE (11:56)
[2019-02-21] MEDS ORDERED: MORPHINE 4 MG/ML SYR ONE ×2 (11:56→16:38)
[2019-02-21 12:05] LABS: Absolute Lymphocytes (CBC) 0.9 K/uL (0.7-4.9); Basophils % 0.8 % (0-1.3); Hematocrit 30.7 % (39.6-49.0); Lymphocytes % 13.3 % (15.3-44.8); MPV 8.9 fL (7.6-11.3); RBC Red Blood Cell Count 3.46 M/uL (4.33-5.43)
[2019-02-21 12:07] LABS: Protime INR 1.07
--- NOTE | 2019-02-21 12:16 | RAD REPORT ---
EXAM DESCRIPTION: Karen Single View02/21/2019 12:08 pm CLINICAL HISTORY: Chest pain COMPARISON: October 2014 FINDINGS: Minimal interstitial pulmonary edema is suspected. Postsurgical changes involve the chest. The heart is mildly enlarged
[2019-02-21 12:29] LABS: ALT/SGPT 35 U/L (12-78); AST/SGOT 19 U/L (15-37); Albumin 3.3 g/dL (3.4-5.0); Alkaline Phosphatase 70 U/L (45-117); BUN Blood Urea Nitrogen 21 mg/dL (7-18); Bicarbonate 27 mmol/L (21-32); Bilirubin Direct 0.2 mg/dL (0-0.2); Bilirubin Total 0.7 mg/dL (0.2-1.0); Glucose Level 218 mg/dL (74-106); Magnesium 2.5 mg/dL (1.8-2.4); NT PRO-BNP 1309 pg/mL (<450); Potassium 4.4 mmol/L (3.5-5.1); Protein, Total 6.5 g/dL (6.4-8.2); Sodium Level 141 mmol/L (136-145); Troponin (Emerg Dept Use Only) < 0.02 ng/mL (0.0-0.045)
[2019-02-21] MEDS ORDERED: cloNIDine HCl 0.1 MG TAB ONE (15:13)
--- NOTE | 2019-02-21 17:23 | EKG ---
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: HEIKE MEASUREMENT RESULTS: Intervals: Rate: 53 VT: 166 QRSD: 102 QT: 466 QTc: 437 [employer]: P: 81 VT: 166 QRS: 91 T: 167 INTERPRETIVE STATEMENTS: Sinus bradycardia with marked sinus arrhythmia Rightward axis Septal infarct, age undetermined ST & T wave abnormality, consider lateral ischemia Abnormal ECG Compared to ECG 10/29/2018 11:45:00 Right-axis deviation now present ST (T wave) deviation now present T-wave abnormality no longer present Myocardial infarct finding still present Possible ischemia still present Electronically Signed On 02-21-19 17:21:37 BLADE BALANCER by Axel Moreno
--- NOTE | 2019-02-21 18:32 | ER ---
Nurse's Notes [facility] Name: Ary Haines Age: 78 yrs Sex: Male : 1940 Arrival Date: 02/21/2019 Time: 11:22 Bed 3 Private MD: Diagnosis: Chest pain, unspecified;Peripheral edema;Hypertensive heart disease-Poorly controlled Presentation: 02/21 11:25 Presenting complaint: Patient states: midsternal chest pain with SOB x 3 days, chronic sv BLE swelling as well. Transition of care: patient was not received from another setting of care. Onset of symptoms was February 18, 2019. Risk Assessment: Do you want to hurt yourself or someone else? Patient reports no desire to harm self or others. Care prior to arrival: None. 11:25 Method Of Arrival: Ambulatory sv 11:25 Acuity: SHIRA 2 sv 16:49 Initial Sepsis Screen: Does the patient meet any 2 criteria? No. Patient's initial aj1 sepsis screen is negative. Does the patient have a suspected source of infection? No. Patient's initial sepsis screen is negative. Triage Assessment: 11:25 General: Appears in no apparent distress. uncomfortable, Behavior is calm, cooperative, sv appropriate for age. Pain: Complains of pain in mid-sternal area. Neuro: Level of Consciousness is awake, alert, obeys commands, Gait is steady. Respiratory: Reports shortness of breath on exertion Respiratory effort is even, unlabored. Musculoskeletal: Reports BLE swelliing. Historical: - Allergies: 11:27 Iodine; sv - PMHx: 11:27 Diabetes - NIDDM; Hypertension; Leg blockages; sv - Immunization history:: Adult Immunizations. - Ebola Screening: : Patient denies travel to an Ebola-affected area in the 21 days before illness onset. Screenin:37 Abuse screen: Denies threats or abuse. Denies injuries from another. Nutritional aj1 screening: No deficits noted. Tuberculosis screening: No symptoms or risk factors identified. 18:47 Fall Risk None identified. aj1 Assessment: 11:37 General: Appears in no apparent distress. uncomfortable, Behavior is calm, cooperative, aj1 appropriate for age. Pain: Complains of pain in mid-sternal area Pain does not radiate. Quality of pain is described as aching, Pain began 2-3 days ago. Is continuous. Neuro: Level of Consciousness is awake, alert, obeys commands, Oriented to person, place, time, situation, Speech is normal, Facial symmetry appears normal. Cardiovascular: Reports chest pain, shortness of breath, Heart tones S1 S2 present Patient's skin is warm and dry. Rhythm is sinus bradycardia. Respiratory: Airway is patent Respiratory effort is even, unlabored, Respiratory pattern is regular, symmetrical, Breath sounds are diminished bilaterally. GI: Abdomen is distended, Bowel sounds present X 4 quads. Abd is soft and non tender X 4 quads. : No signs and/or symptoms were reported regarding the genitourinary system. EENT: No signs and/or symptoms were reported regarding the EENT system. Derm: No signs and/or symptoms reported regarding the dermatologic system. Skin is pink, warm \T\ dry. normal. Musculoskeletal: No signs and/or symptoms reported regarding the musculoskeletal system. Circulation, motion, and sensation intact. 12:40 Reassessment: Patient appears in no apparent distress at this time. No changes from aj1 previously documented assessment. Patient and/or family updated on plan of care and expected duration. Pain level reassessed. Patient is alert, oriented x 3, equal unlabored respirations, skin warm/dry/pink. 13:26 Reassessment: Patient appears in no apparent distress at this time. No changes from aj1 previously documented assessment. Patient and/or family updated on plan of care and expected duration. Pain level reassessed. Patient is alert, oriented x 3, equal unlabored respirations, skin warm/dry/pink. 14:30 Reassessment: Patient and/or family updated on plan of care and expected duration. Pain aj1 level reassessed. General: Appears in no apparent distress. comfortable, Behavior is calm, cooperative, appropriate for age. Neuro: Level of Consciousness is awake, alert, obeys commands, Speech is normal, Facial symmetry appears normal. Cardiovascular: Patient's skin is warm and dry. Rhythm is sinus bradycardia. Respiratory: Airway is patent Respiratory effort is even, unlabored, Respiratory pattern is regular, symmetrical. GI: Abdomen is distended. Derm: Skin is pink, warm \T\ dry. normal. Musculoskeletal: No signs and/or symptoms reported regarding the musculoskeletal system. Circulation, motion, and sensation intact. 15:30 Reassessment: Patient appears in no apparent distress at this time. No changes from aj1 previously documented assessment. Patient and/or family updated on plan of care and expected duration. Pain level reassessed. Patient is alert, oriented x 3, equal unlabored respirations, skin warm/dry/pink. 16:30 Reassessment: Patient states that he is still having chest pain and he feels like the aj1 morphine is wearing off. Notified Dr. Price, order received. 17:30 Reassessment: Patient appears in no apparent distress at this time. Patient and/or aj1 family updated on plan of care and expected duration. Pain level reassessed. Patient is alert, oriented x 3, equal unlabored respirations, skin warm/dry/pink. Patient states feeling better. Patient states symptoms have improved. 18:19 General: Appears in no apparent distress. comfortable, Behavior is calm, cooperative, aj1 appropriate for age. Neuro: Level of Consciousness is awake, alert, obeys commands, Oriented to person, place, time, situation, Speech is normal, Facial symmetry appears normal. Cardiovascular: Patient's skin is warm and dry. Rhythm is sinus bradycardia. Respiratory: Airway is patent Respiratory effort is even, unlabored, Respiratory pattern is regular, symmetrical. GI: Abdomen is distended. Derm: No signs and/or symptoms reported regarding the dermatologic system. Skin is pink, warm \T\ dry. normal. Musculoskeletal: No signs and/or symptoms reported regarding the musculoskeletal system. Circulation, motion, and sensation intact. Vital Signs: 11:27 BP 175 / 57; Pulse 78; Resp 18; Temp 97.8; Pulse Ox 98% ; Weight 81.65 kg; Height 5 ft. sv 7 in. (170.18 cm); 12:27 BP 139 / 51; Pulse 48; Resp 14; Pulse Ox 97% ; bp 13:26 BP 148 / 62; Pulse 63; Resp 18; Pulse Ox 99% on R/A; aj1 14:30 BP 182 / 55; Pulse 49; Resp 18; Pulse Ox 97% on R/A; aj1 15:30 BP 168 / 65; Pulse 49; Resp 20; Pulse Ox 97% ; aj1 16:30 BP 198 / 79; Pulse 58; Resp 20; Pulse Ox 97% ; aj1 18:14 BP 161 / 58; Pulse 49; Resp 18; Pulse Ox 99% on R/A; aj1 11:27 Body Mass Index 28.19 (81.65 kg, 170.18 cm) sv ED Course: 11:22 Patient arrived in ED. as 11:27 Triage completed. sv 11:27 Arm band placed on. sv 11:31 EKG completed in triage. Results shown to MD. sv 11:34 Bertin Price MD is Attending Physician. kdr 11:37 Callie Duncan RN is Primary Nurse. aj1 11:37 Patient has correct armband on for positive identification. hall monitor on. Pulse aj1 ox on. NIBP on. 11:37 No provider procedures requiring assistance completed. Patient maintains SpO2 aj1 saturation greater than 95% on room air. 11:51 Inserted saline lock: 22 gauge in right antecubital area, using aseptic technique. bp Blood collected. 12:09 XRAY Chest (1 view) In Process Unspecified. EDMS 18:47 IV discontinued, intact, bleeding controlled, No redness/swelling at site. Pressure aj1 dressing applied. Administered Medications: 11:55 Drug: Lasix 40 mg Route: IVP; Site: right antecubital; bp 12:45 Follow up: Response: No adverse reaction aj1 11:55 Drug: morphine 4 mg Route: IVP; Site: right antecubital; bp 12:45 Follow up: Response: No adverse reaction; Pain is decreased; RASS: Alert and Calm (0) aj1 11:55 Drug: Zofran 4 mg Route: IVP; Site: right antecubital; bp 12:45 Follow up: Response: No adverse reaction aj1 16:15 Drug: cloNIDine 0.2 mg Route: PO; aj1 18:48 Follow up: Response: No adverse reaction aj1 16:42 Drug: morphine 4 mg {Note: RASS score 0 patient alert.} Route: IVP; Site: right aj1 antecubital; 18:48 Follow up: Response: No adverse reaction; Pain is decreased; RASS: Alert and Calm (0) aj1 Outcome: 18:32 Discharge ordered by . kdr 18:47 Discharged to home via wheelchair, with family. aj1 18:47 Condition: good 18:47 Discharge instructions given to patient, Instructed on discharge instructions, follow up and referral plans. Demonstrated understanding of instructions, follow-up care. 18:50 Patient left the ED. aj1 Signatures: Dispatcher [employer] EDMS Dakota, Callie, RN RN aj1 Donna Petty RN RN sv Bertin Price MD MD kdr Martinez, Amelia as Peltier, Brian, RN RN bp Corrections: (The following items were deleted from the chart) 18:15 18:14 BP 161 / 58; Pulse 29bpm; Resp 18bpm; Pulse Ox 99% RA; aj1 aj1
--- NOTE | 2019-02-21 18:33 | EDPHYS ---
Physician Documentation [facility] Name: Ary Haines Age: 78 yrs Sex: Male : 1940 Arrival Date: 02/21/2019 Time: 11:22 Bed 3 Private MD: ED Physician Bertin Price HPI: 02/21 11:45 This 78 yrs old Male presents to ER via Ambulatory with complaints of Chest kdr Pain, Feet Swelling, Shortness Of Breath. 11:45 The patient or guardian reports chest pain that is located primarily in the substernal kdr area, anterior chest wall, bilaterally. Onset: gradually, 3 day(s) ago. The pain radiates to both shoulders, Associated signs and symptoms: Pertinent positives: diaphoresis, dizziness, nausea, shortness of breath. The chest pain is described as aching, burning, a heaviness, a pressure. Duration: The patient or guardian reports a single episode, that is still ongoing. Severity of pain: At its worst the pain was moderate severe just prior to arrival, in the emergency department the pain is unchanged. The patient has experienced similar episodes in the past, multiple times. The patient has not recently seen a physician. Historical: - Allergies: 11:27 Iodine; sv - PMHx: 11:27 Diabetes - NIDDM; Hypertension; Leg blockages; sv - Immunization history:: Adult Immunizations. - Ebola Screening: : Patient denies travel to an Ebola-affected area in the 21 days before illness onset. ROS: 11:45 Constitutional: Negative for fever, chills, and weight loss, Eyes: Negative for injury, kdr pain, redness, and discharge, ENT: Negative for injury, pain, and discharge, Neck: Negative for injury, pain, and swelling, Respiratory: Negative for shortness of breath, cough, wheezing, and pleuritic chest pain, Abdomen/GI: Negative for abdominal pain, nausea, vomiting, diarrhea, and constipation, Back: Negative for injury and pain, : Negative for injury, bleeding, discharge, and swelling, MS/Extremity: Negative for injury and deformity, Skin: Negative for injury, rash, and discoloration, Neuro: Negative for headache, weakness, numbness, tingling, and seizure activity. Psych: Negative for depression, anxiety, suicide ideation, homicidal ideation, and hallucinations, Allergy/Immunology: Negative for hives, rash, and allergies, Endocrine: Negative for neck swelling, polydipsia, polyuria, polyphagia, and marked weight changes, Hematologic/Lymphatic: Negative for swollen nodes, abnormal bleeding, and unusual bruising. 11:45 Cardiovascular: Positive for chest pain, edema, Negative for orthopnea. Exam: 11:45 Constitutional: This is a well developed, well nourished patient who is awake, alert, kdr and in no acute distress. Head/Face: Normocephalic, atraumatic. Eyes: Pupils equal round and reactive to light, extra-ocular motions intact. Lids and lashes normal. Conjunctiva and sclera are non-icteric and not injected. Cornea within normal limits. Periorbital areas with no swelling, redness, or edema. Neck: Trachea midline, no thyromegaly or masses palpated, and no cervical lymphadenopathy. Supple, full range of motion without nuchal rigidity, or vertebral point tenderness. No Meningismus. Chest/axilla: Normal chest wall appearance and motion. Nontender with no deformity. No lesions are appreciated. Cardiovascular: Regular rate and rhythm with a normal S1 and S2. No gallops, murmurs, or rubs. Normal PMI, no JVD. No pulse deficits. Abdomen/GI: Soft, non-tender, with normal bowel sounds. No distension or tympany. No guarding or rebound. No evidence of tenderness throughout. Back: No spinal tenderness. No costovertebral tenderness. Full range of motion. Skin: Warm, dry with normal turgor. Normal color with no rashes, no lesions, and no evidence of cellulitis. MS/ Extremity: Pulses equal, no cyanosis. Neurovascular intact. Full, normal range of motion. Neuro: Awake and alert, GCS 15, oriented to person, place, time, and situation. Cranial nerves II-XII grossly intact. Motor strength 5/5 in all extremities. Sensory grossly intact. Cerebellar exam normal. Normal gait. Psych: Awake, alert, with orientation to person, place and time. Behavior, mood, and affect are within normal limits. 11:45 Respiratory: the patient does not display signs of respiratory distress, Respirations: normal, Breath sounds: rales, bronchial sounds, that are mild, are scattered, are heard in the left posterior lower lobe and right posterior lower lobe. Vital Signs: 11:27 BP 175 / 57; Pulse 78; Resp 18; Temp 97.8; Pulse Ox 98% ; Weight 81.65 kg; Height 5 ft. sv 7 in. (170.18 cm); 12:27 BP 139 / 51; Pulse 48; Resp 14; Pulse Ox 97% ; bp 13:26 BP 148 / 62; Pulse 63; Resp 18; Pulse Ox 99% on R/A; aj1 14:30 BP 182 / 55; Pulse 49; Resp 18; Pulse Ox 97% on R/A; aj1 15:30 BP 168 / 65; Pulse 49; Resp 20; Pulse Ox 97% ; aj1 16:30 BP 198 / 79; Pulse 58; Resp 20; Pulse Ox 97% ; aj1 18:14 BP 161 / 58; Pulse 49; Resp 18; Pulse Ox 99% on R/A; aj1 11:27 Body Mass Index 28.19 (81.65 kg, 170.18 cm) sv MDM: 18:32 Patient medically screened. kdr 18:54 Data reviewed: vital signs, nurses notes, lab test result(s), EKG, radiologic studies. kdr Counseling: I had a detailed discussion with the patient and/or guardian regarding: the historical points, exam findings, and any diagnostic results supporting the discharge/admit diagnosis, lab results, radiology results, the need for outpatient follow up. 02/21 11:35 Order name: Basic Metabolic Panel; Complete Time: 15: kdr 02/21 11:35 Order name: CBC with Diff; Complete Time: 15: kdr 02/21 11:35 Order name: LFT's; Complete Time: 15: kdr 02/21 11:35 Order name: Magnesium; Complete Time: 15: kdr 02/21 11:35 Order name: NT PRO-BNP; Complete Time: 15: kdr 02/21 11:35 Order name: PT-INR; Complete Time: 15: kdr 02/21 11:35 Order name: Troponin (emerg Dept Use Only); Complete Time: 15: kdr 02/21 11:35 Order name: XRAY Chest (1 view); Complete Time: 15: kdr 02/21 15:10 Order name: Troponin (emerg Dept Use Only); Complete Time: 17:55 kdr 02/21 11:31 Order name: EKG; Complete Time: 11:31 sv 02/21 11:31 Order name: EKG - Nurse/Tech; Complete Time: 11:31 sv 02/21 11:35 Order name: Cardiac monitoring; Complete Time: 11:37 kdr 02/21 11:35 Order name: IV Saline Lock; Complete Time: 11:52 kdr 02/21 11:35 Order name: Labs collected and sent; Complete Time: 11:52 kdr 02/21 11:35 Order name: O2 Per Protocol; Complete Time: 11:37 kdr 02/21 11:35 Order name: O2 Sat Monitoring; Complete Time: :37 kdr Administered Medications: 11:55 Drug: Lasix 40 mg Route: IVP; Site: right antecubital; bp 12:45 Follow up: Response: No adverse reaction aj1 11:55 Drug: morphine 4 mg Route: IVP; Site: right antecubital; bp 12:45 Follow up: Response: No adverse reaction; Pain is decreased; RASS: Alert and Calm (0) aj1 11:55 Drug: Zofran 4 mg Route: IVP; Site: right antecubital; bp 12:45 Follow up: Response: No adverse reaction aj1 16:15 Drug: cloNIDine 0.2 mg Route: PO; aj1 18:48 Follow up: Response: No adverse reaction aj1 16:42 Drug: morphine 4 mg {Note: RASS score 0 patient alert.} Route: IVP; Site: right aj1 antecubital; 18:48 Follow up: Response: No adverse reaction; Pain is decreased; RASS: Alert and Calm (0) [facility] Disposition: 02/21/19 18:32 Discharged to Home. Impression: Chest pain, unspecified, Peripheral edema, Hypertensive heart disease - Poorly controlled. - Condition is Stable. - Discharge Instructions: Nonspecific Chest Pain, Kkbn-au-Jycv, Hypertension, Ppcv-hw-Vcip. - Medication Reconciliation Form, Thank You Letter form. - Follow up: Private Physician; When: 2 - 3 days; Reason: If symptoms return, Further diagnostic work-up, Recheck today's complaints, Continuance of care, Re-evaluation by your physician. - Problem is an acute exacerbation. - Symptoms have improved. - Notes: As we discussed, increase your Lasix to two tablets in the morning and two tablets in the evening for the next two days then resume your normal routine of one tablet in the morning and evening. Signatures: Dispatcher [employer] EDCallie Nevarez RN RN aj1 Donna Petty RN RN sv Bertin Price MD MD kdr Yuri Jain RN RN bp Corrections: (The following items were deleted from the chart) 18:50 18:32 02/21/2019 18:32 Discharged to Home. Impression: Chest pain, unspecified; aj1 Peripheral edema; Hypertensive heart disease - Poorly controlled. Condition is Stable. Forms are Medication Reconciliation Form, Thank You Letter, Antibiotic Education, Prescription Opioid Use. Follow up: Private Physician; When: 2 - 3 days; Reason: If symptoms return, Further diagnostic work-up, Recheck today's complaints, Continuance of care, Re-evaluation by your physician. Problem is an acute exacerbation. Symptoms have improved. kdr
[2019-02-21 19:29] VITALS: TEMP 97.8
[2019-02-21 19:38] VITALS: BP 161/58; O2SAT 99
--- OUTSIDE RECORDS SUMMARY | 2019-02-25 03:23 | XMS REPORT | Summary of Care ---
:1940 Author Organization [facility] - Health Address [address] [place] [address] Care Team Providers Name Role Phone Jonel Comer MD Unavailable Jonel Comer MD Primary Care Provider Encounter Details Date Type Department Care Team Description 11/15/2018 Orders Only [facility] Doctor Unassigned, No 301 [facility] [place] [address] [place] [address] Allergies Active Allergy Reactions Severity Noted Date Comments Iodine Hives 06/15/2017 Injection only documented as of this encounter (statuses as of 11/15/2018) Medications Medication Sig Dispensed Refills Start Date End Date Status metFORMIN 500 mg tablet Take 500 mg by 0 Active mouth 2 (two) times daily with meals. glimepiride 2 mg tablet Take 2 mg by 0 Active mouth daily with breakfast. atenolol 50 mg tablet Take 50 mg by 0 Active mouth daily. aspirin 81 mg chewable Take 81 mg by 0 Active tablet mouth daily. amLODIPine 10 mg tablet 0 03/22/2017 Active gabapentin 300 mg 0 05/11/2017 Active capsule traMADOL 50 mg tablet 0 06/08/2017 Active diclofenac 75 mg EC Take 1 tablet by 60 tablet 1 06/15/2017 Active tablet mouth 2 (two) times daily with meals. hydralAZINE 25 mg Take 25 mg by 0 Active tablet mouth every 6 (six) hours. vorapaxar (ZONTIVITY) Take by mouth. 0 Active 2.08 mg Tab documented as of this encounter (statuses as of 11/15/2018) Active Problems Not on filedocumented as of this encounter (statuses as of 11/15/2018) Social History Tobacco Use Types Packs/Day Years Used Date Never Smoker Smokeless Tobacco: Never Used Alcohol Use Drinks/Week oz/Week Comments No Sex Assigned at Date Recorded Not on file Job Start Date Occupation Industry Not on file Not on file Not on file Travel History Travel Start Travel End No recent travel history available. documented as of this encounter Last Filed Vital Signs Not on filedocumented in this encounter Plan of Treatment Health Maintenance Due Date Last Done Comments DTaP,Tdap,and Td Vaccines (1 - Tdap) 1959 Zoster Recombinant Vaccine (SHINGRIX) (1 of 2) 1992 Medicare Wellness Visit 2007 PNEUMOCOCCAL VACCINES 65+ (1 of 2 - PCV13) 2007 INFLUENZA VACCINE 12/16/2018 documented as of this encounter Implants Implanted Type Area Forest Management Teacher Device Shelf Model / Identifier Expiration Date Serial / Lot Lens, Ney #[id number] - [id number] LENS Right: Ney 06/14/2022 [id number] / Implanted: Qty: 1 on 11/08/2017 by Philippe Duncan MD at [facility] Eye [id number] / [id number] documented as of this encounter Procedures Procedure Name Priority Date/Time Associated Diagnosis Comments ASSIGNMENT OF BENEFITS Routine 11/15/2018 9:16 AM CDT documented in this encounter Results Not on filedocumented in this encounter Insurance Payer Benefit Plan Subscriber ID Effective Phone Address Type / Group Dates MEDICARE MEDICARE xxxxxxxxxxx 2007-Pres [phone] Medicare PART A & B ent [id number] DERIK PHILLIP [address] [place] [id number] 2007-Pres Medicare MALORIE ESPANA ent Supplement documented as of this encounter
--- OUTSIDE RECORDS SUMMARY | 2019-02-25 03:23 | XMS REPORT | Summary of Care ---
:1940 Author Organization [facility] - [facility] Address [address] [place] [address] Care Team Providers Name Role Phone Jonel Comer MD Unavailable Jonel Comer MD Primary Care Provider Reason for Visit Reason Comments LAB WORK Auth/Cert Status Reason Specialty Diagnoses / Referred By Referred To Procedures Contact Contact Clinical Medical Diagnoses i25.10 [id number] [facility] Lab Laboratory Procedures [address] [place] [address] Encounter Details Date Type Department Care Team Description 11/15/2018 Extruding Department Supervisor Visit [facility] Rhett Diaz MD [address] [place] [address] [address] [place] [address] Atherosclerosis of [place] coronary artery without angina pectoris, unspecified whether [place] or transplanted heart (Primary Dx); Phlebotomy 1, [facility] Lab Heart failure, unspecified HF chronicity, unspecified heart failure type Lab-[address] [place] [address] Allergies Active Allergy Reactions Severity Noted Date [...] of this encounter Implants Implanted Type Area Diet Therapist Device Shelf Model / Identifier Expiration Date Serial / Lot Lens, Ney #[id number] - [id number] LENS Right: Ney 06/14/2022 [id number] / Implanted: Qty: 1 on 11/08/2017 by Philippe Duncan MD at [facility] Eye [id number] / [id number] documented as of this encounter Procedures Procedure Name Priority Date/Time Associated Diagnosis Comments N-TERMINAL PRO-BNP Routine 11/15/2018 9:36 Atherosclerosis of Results for this AM CDT [place] coronary artery procedure are in without angina the results pectoris, unspecified section. whether [place] or transplanted heart Heart failure, unspecified HF chronicity, unspecified heart failure type BASIC METABOLIC Routine 11/15/2018 9:36 Atherosclerosis of Results for this PANEL (NA, K, CL, AM CDT [place] coronary artery procedure are in CO2, GLUCOSE, BUN, without angina the results CREATININE, CA) pectoris, unspecified section. whether [place] or transplanted heart Heart failure, unspecified HF chronicity, unspecified heart failure type documented in this encounter Results N-TERMINAL PRO-BNP (11/15/2018 9:36 AM CDT) NT-proBNP 1,210 (H) <=450 pg/mL [facility] Specimen Blood Narrative Performed At Biotin has been reported to cause a negative [facility] bias, interpret results relative to patient's use of biotin. Performing Organization Address City/State/Zipcode Phone Number [facility] CLIA: [id number], [address] [place] [address] BASIC METABOLIC PANEL (NA, K, CL, CO2, GLUCOSE, BUN, CREATININE, CA) (2018 9:36 AM CDT) NA 142 135 - 145 [facility] mmol/L [facility] K 4.2 3.5 - 5.0 [facility] mmol/L [facility] CL 105 98 - 108 mmol/L [facility] CO2 TOTAL 28 23 - 31 mmol/L [facility] AGAP 9 2 - 16 [facility] BUN 34 (H) 7 - 23 mg/dL [facility] GLUCOSE 197 (H) 70 - 110 mg/dL [facility] CREATININE 1.22 0.60 - 1.25 [facility] mg/dL [facility] CALCIUM 8.8 8.6 - 10.6 [facility] mg/dL [facility] eGFR Calculation 57.8 mL/min/1.73m2 [facility] (Non[facility] LABORATORY [place]) eGFR Calculation 70.0 mL/min/1.73m2 [facility] () [facility] Specimen Blood Narrative Performed At Association of Glomerular Filtration Rate (GFR) [facility] and Staging of Kidney Disease* + + +- + | GFR (mL/min/1.73 m2)| With Kidney Damage|Without Kidney Damage + + +- + |>90| Stage one| Normal + + +- + |60-89|S tage two| Decreased GFR + + +- + |30-59|S tage three| Stage three + + +- + |15-29|S tage four | Stage four + + +- + |<15 (or dialysis)|Stage five | Stage five + + +- + *Each stage assumes the associated GFR level has been in effect for at least three months.Stages 1 to 5, with or without kidney disease, indicate chronic kidney disease. Notes: Determination of stages one and two (with eGFR >59mL/min/1.73 m2) requires estimation of kidney damage for at least three months as defined by structural or functional abnormalities of the kidney, manifested by either: Pathological abnormalities or Markers of kidney damage (including abnormalities in the composition of the blood or urine or abnormalities in imaging tests). Performing Organization Address City/State/Zipcode Phone Number [facility] CLIA: [id number], [address] [place] [address] [facility] [address] documented in this encounter Visit Diagnoses Diagnosis Atherosclerosis of [place] coronary artery without angina pectoris, unspecified whether [place] or transplanted heart - Primary Heart failure, unspecified HF chronicity, unspecified heart failure type documented in this encounter Insurance Payer Benefit Plan Subscriber ID Effective Phone Address Type / Group Dates MEDICARE MEDICARE xxxxxxxxxxx 2007-Pres [phone] Medicare PART A & B ent [id number] [place] [id number] [place]UAL [place] [id number] 2007-Pres Medicare MALORIE ESPANA ent Supplement documented as of this encounter"
--- OUTSIDE RECORDS SUMMARY | 2019-02-25 03:23 | XMS REPORT ---
:1940 [facility] Address [address] [place] [address] Dr. Morales [address] [place] [address] Care Team Providers Name Role Phone Unavailable Unavailable Unavailable Problems This patient has no known problems. Allergies, Adverse Reactions, Alerts This patient has no known allergies or adverse reactions. Medications This patient has no known medications.
--- OUTSIDE RECORDS SUMMARY | 2019-02-25 03:24 | XMS REPORT | Summary of Care ---
:1940 Author Organization [facility] - [facility] Address [address] [place] [address] Care Team Providers Name Role Phone Jonel Comer MD Unavailable Jonel Comer MD Primary Care Provider Reason for Visit Reason Comments LAB Encounter Details Date Type Department Care Team Description 12/12/2018 Abnormal Psychology Teacher Visit [facility] AttarRhett MD [address] [place] [address] [address] [place] [address] Atherosclerosis of [place] coronary artery with angina pectoris, unspecified whether [place] or transplanted heart (Primary Dx); Professional Office 2, Adc Lab Essential hypertension, malignant; Building Phlebotomy Peripheral vascular disease, unspecified Lab Professional Office Building [address] [place] [address] , [address] [place] [address] Allergies Active Allergy Reactions Severity Noted Date Comments Iodine Hives 06/15/2017 Injection only documented as of this encounter (statuses as of 12/12/2018) Medications Medication Sig Dispensed Refills Start Date [...] as of this encounter (statuses as of 12/12/2018) Active Problems Not on filedocumented as of this encounter (statuses as of 12/12/2018) Social History Tobacco Use Types Packs/Day Years [...] filedocumented in this encounter Plan of Treatment Name Type Priority Associated Diagnoses Order Schedule BASIC METABOLIC PANEL LAB Routine Atherosclerosis of [place] Ordered: 2018 (NA, K, CL, CO2, coronary artery with angina GLUCOSE, BUN, pectoris, unspecified CREATININE, CA) whether [place] or transplanted heart Essential hypertension, malignant Peripheral vascular disease, unspecified Health Maintenance Due Date Last Done Comments DTaP,Tdap,and Td Vaccines (1 - Tdap) 1961 Zoster Recombinant Vaccine (SHINGRIX) (1 of 2) 1992 Medicare Wellness Visit 2007 PNEUMOCOCCAL VACCINES 65+ (1 of 2 - PCV13) 2007 INFLUENZA VACCINE (#1) 2018 documented as of this encounter Implants Implanted Type Area Historic Sites Registrar Device Shelf Model / Identifier Expiration Date Serial / Lot Lens, Ney #[id number] - [id number] LENS Right: Ney 06/14/2022 [id number] / Implanted: Qty: 1 on 11/08/2017 by Philippe Duncan MD at [facility] Eye [id number] / [id number] documented as of this encounter Results Not on filedocumented in this encounter Visit Diagnoses Diagnosis Atherosclerosis of [place] coronary artery with angina pectoris, unspecified whether [place] or transplanted heart - Primary Essential hypertension, malignant Peripheral vascular disease, unspecified documented in this encounter Insurance Payer Benefit Plan Subscriber ID Effective Phone Address Type / Group Dates MEDICARE MEDICARE xxxxxxxxxxx 2007-Pres [phone] Medicare PART A & B ent [id number] DERIK PHILLIP [phone] [place] [id number] 2007-Pres Medicare MALORIE BRITOA ent Supplement documented as of this encounter
--- OUTSIDE RECORDS SUMMARY | 2019-02-25 03:24 | XMS REPORT | Summary of Care ---
:1940 Author Organization [facility] - Health Address [address] [place] [address] Care Team Providers Name Role Phone Jonel Comer MD Unavailable Jonel Comer MD Primary Care Provider Encounter Details Date Type Department Care Team Description 12/12/2018 Orders Only [facility] Doctor Unassigned, No 301 [facility] [place] [address] [place] [address] Allergies Active Allergy Reactions Severity Noted Date Comments Iodine Hives 06/15/2017 Injection only documented as of this encounter (statuses as of 12/13/2018) Medications Medication Sig Dispensed Refills Start Date [...] as of this encounter (statuses as of 12/13/2018) Active Problems Not on filedocumented as of this encounter (statuses as of 12/13/2018) Social History Tobacco Use Types Packs/Day Years [...] of this encounter Implants Implanted Type Area Truck Spotter Device Shelf Model / Identifier Expiration Date Serial / Lot Lens, Ney #[id number] - [id number] LENS Right: Ney 06/14/2022 [id number] / Implanted: Qty: 1 on 11/08/2017 by Philippe Duncan MD at [facility] Eye [id number] / [id number] documented as of this encounter Procedures Procedure Name Priority Date/Time Associated Diagnosis Comments AGREEMENTS AUTHORIZATIONS Routine 12/12/2018 12:01 AM AND IRREVOCABLE CDT ASSIGNMENTS (FORM 2001) documented in this encounter Results Not on filedocumented in this encounter Insurance Payer Benefit Plan Subscriber ID Effective Phone Address Type / Group Dates MEDICARE MEDICARE xxxxxxxxxxx 2007-Pres [phone] Medicare PART A & B ent [id number] DERIK PHILLIP [phone] [employer]UTUAL OF [place] [id number] 2007-Pres Medicare TEL[place] TEL[place] ent Supplement documented as of this encounter
== END 2019-02-21 18:50 | disposition home or self-care (01) ==
LOC: ER 11:20
DX: R07.9 Chest pain, unspecified (principal); R60.9 Edema, unspecified; I11.9 Hypertensive heart disease without heart failure; Z91.09 Other allergy status, other than to drugs and biological substances
CPT/HCPCS: 93005; 85025; 80048; 36415; 83735; 85610; 80076; 84484 ×2; 83880; 71045; J1940; J2405; 96374; 96375; 99285

== ENCOUNTER 2019-04-14 16:47 | Inpatient (IN) | payer OTHER ==
--- OUTSIDE RECORDS SUMMARY | 2019-04-14 16:50 | XMS REPORT ---
:1940 Author Organization [facility] Address [address] [place] [address] Dr. Mor[address] [place] [address] Care Team Providers Name Role Phone Unavailable Unavailable Unavailable Problems This patient has no known problems. Allergies, Adverse Reactions, Alerts This patient has no known allergies or adverse reactions. Medications This patient has no known medications.
[2019-04-14 17:43] LABS: Absolute Lymphocytes (CBC) 0.8 K/uL (0.7-4.9); Basophils % 0.8 % (0-1.3); Hematocrit 32.6 % (39.6-49.0); Lymphocytes % 9.6 % (15.3-44.8); MPV 8.5 fL (7.6-11.3); RBC Red Blood Cell Count 3.74 M/uL (4.33-5.43)
[2019-04-14 17:49] LABS: Protime INR 1.09
[2019-04-14 18:01] LABS: Albumin 3.4 g/dL (3.4-5.0); Bilirubin Direct 0.2 mg/dL (0-0.2); Bilirubin Total 0.6 mg/dL (0.2-1.0); Magnesium 2.4 mg/dL (1.8-2.4); Potassium 4.2 mmol/L (3.5-5.1); Protein, Total 7.4 g/dL (6.4-8.2); Troponin (Emerg Dept Use Only) 0.15 ng/mL (0.0-0.045)
--- NOTE | 2019-04-14 18:10 | ER ---
Nurse's Notes [facility] Name: Ary Haines Age: 78 yrs Sex: Male : 1940 Arrival Date: 04/14/2019 Time: 16:49 Bed 12 Private MD: Jonel Sanders R Diagnosis: Unspecified systolic (congestive) heart failure;Chest pain, unspecified;Dyspnea Presentation: 04/14 17:10 Presenting complaint: Patient states: chest pain, shortness of breath that is worse on ss exertion and swelling to bilateral lower extremities that began 2-3 days ago and is just getting worse. Transition of care: patient was not received from another setting of care. Onset of symptoms was April 12, 2019. Risk Assessment: Do you want to hurt yourself or someone else? Patient reports no desire to harm self or others. Initial Sepsis Screen: Does the patient meet any 2 criteria? No. Patient's initial sepsis screen is negative. Does the patient have a suspected source of infection? No. Patient's initial sepsis screen is negative. Care prior to arrival: None. 17:10 Method Of Arrival: Ambulatory ss 17:10 Acuity: SHIRA 3 ss Historical: - Allergies: 17:14 Iodine; ss 18:39 Cipro (Hives); itching; tw2 - Home Meds: 18:39 aspirin 81 mg Oral TbEC 1 tab once daily [Active]; furosemide 40 mg Oral tab 1 tab once tw2 daily [Active]; hydralazine 25 mg Oral tab 1 tab 2 times per day [Active]; Coreg 12.5 mg oral tab [Active]; clopidogrel 75 mg oral tab 1 tab once daily [Active]; atorvastatin 40 mg oral tab 1 tab once daily [Active]; gabapentin 300 mg oral cap 1 cap once daily [Active]; Dulera 100-5 mcg/actuation inhalation HFAA 2 puffs 2 times per day [Active]; Tresiba FlexTouch U-100 100 unit/mL (3 mL) subcutaneous inpn 18 units, daily [Active]; - PMHx: 17:14 Hypertension; Leg blockages; CHF; ss 18:39 blockages; Diabetes - IDDM; tw2 - Immunization history:: Adult Immunizations up to date. - Social history:: Smoking status: Patient/guardian denies using tobacco, but has a distant history of tobacco abuse. - Ebola Screening: : Patient denies exposure to infectious person Patient denies travel to an Ebola-affected area in the 21 days before illness onset. Screenin:15 Abuse screen: Denies threats or abuse. Denies injuries from another. Nutritional ca1 screening: No deficits noted. Tuberculosis screening: No symptoms or risk factors identified. Fall Risk IV access (20 points). Assessment: 17:15 General: Appears in no apparent distress. comfortable, Behavior is calm, cooperative, ca1 appropriate for age. Pain: Complains of pain in mid-sternal area Pain does not radiate. Pain currently is 7 out of 10 on a pain scale. Quality of pain is described as heavy, Pain began a week ago but has gotten worse this afternoon Is intermittent. Neuro: Level of Consciousness is awake, alert, obeys commands, Oriented to person, place, time, situation, none. Cardiovascular: Heart tones S1 S2 present Capillary refill < 3 seconds Patient's skin is warm and dry. Edema is 2+ to left ankle, left foot, left toes, right ankle, right foot and right toes Rhythm is sinus rhythm. Respiratory: Reports shortness of breath on exertion since 2-3 days ago Airway is patent Respiratory effort is even, unlabored, Respiratory pattern is regular, symmetrical, Breath sounds are clear bilaterally. GI: Abdomen is round non-distended, Bowel sounds present X 4 quads. Abd is soft and non tender X 4 quads. : No deficits noted. No signs and/or symptoms were reported regarding the genitourinary system. EENT: No signs and/or symptoms were reported regarding the EENT system. Derm: Skin is intact, is healthy with good turgor, Skin is pink, warm \T\ dry. Musculoskeletal: Circulation, motion, and sensation intact. Capillary refill < 3 seconds, Range of motion: intact in all extremities. 18:21 Reassessment: Patient appears in no apparent distress at this time. Patient and/or ca1 family updated on plan of care and expected duration. Pain level reassessed. Patient is alert, oriented x 3, equal unlabored respirations, skin warm/dry/pink. 19:02 Reassessment: Patient appears in no apparent distress at this time. Patient is alert, ca1 oriented x 3, equal unlabored respirations, skin warm/dry/pink. 19:30 Reassessment: Patient appears in no apparent distress at this time. Patient is alert, ca1 oriented x 3, equal unlabored respirations, skin warm/dry/pink. 19:34 Reassessment: Dr. Moffett at bedside. ca1 20:24 Reassessment: Patient appears in no apparent distress at this time. Patient is alert, ca1 oriented x 3, equal unlabored respirations, skin warm/dry/pink. Pending Room Assignment. 21:17 Reassessment: Patient appears in no apparent distress at this time. Patient is alert, ca1 oriented x 3, equal unlabored respirations, skin warm/dry/pink. Pt c/o leg cramps on L leg. Notified provider. Med ordered. 22:10 Reassessment: Report given to RAYRAY Webber. ca1 Vital Signs: 17:14 BP 186 / 94; Pulse 72; Resp 16; Pulse Ox 94% on R/A; Weight 81.65 kg; Height 5 ft. 7 ss in. (170.18 cm); Pain 7/10; 18:21 BP 209 / 87; Pulse 68; Resp 18 S; Pulse Ox 98% on R/A; ca1 19:02 BP 229 / 85; Pulse 67; Resp 17 S; Pulse Ox 97% on R/A; ca1 19:45 BP 210 / 106; Pulse 59; Resp 19 S; Pulse Ox 96% on R/A; ca1 21:17 BP 182 / 67; Pulse 59; Resp 19 S; Pulse Ox 97% on R/A; ca1 17:14 Body Mass Index 28.19 (81.65 kg, 170.18 cm) ED Course: 16:49 Patient arrived in ED. ag5 16:49 Jonel Sanders MD is Private Physician. ag5 17:03 Jim[facility]lie[facility]C [facility]. snw 17:03 Brenton Maher MD is Attending Physician. snw 17:13 Triage completed. ss 17:14 Arm band placed on right wrist. ss 17:15 Patient has correct armband on for positive identification. Bed in low position. Call ca1 light in reach. Side rails up X 1. applique cutter on. Pulse ox on. NIBP on. Warm blanket given. 17:25 Lili Delgado RN is Primary Nurse. ca1 17:30 XRAY Chest (1 view) In Process Unspecified. EDMS 17:37 Inserted saline lock: 22 gauge in right antecubital area, using aseptic technique. tw2 Blood collected. Patient maintains SpO2 saturation greater than 95% on room air. 18:09 Jonel Sanders MD is Hospitalizing Provider. snw 18:18 EKG done, by ED staff, reviewed by Brenton Maher MD. em1 18:42 Merrill cath inserted, using sterile technique, 16 Fr., by dc, balloon inflated, to ca1 gravity drainage, urine specimen collected. returned clear yellow urine. Patient tolerated well. 19:44 Urine Microscopic Only Sent. ds4 21:18 Patient admitted, IV remains in place. ca1 21:18 No provider procedures requiring assistance completed. ca1 Administered Medications: 18:18 Drug: Aspirin Chewable Tablet 324 mg Route: PO; ca1 19:34 Follow up: Response: No adverse reaction ca1 18:19 Drug: fentaNYL (PF) 25 mcg {Note: RASS - 0.} Route: IVP; Site: right antecubital; ca1 19:34 Follow up: Response: No adverse reaction; Pain is decreased; RASS: Alert and Calm (0) ca1 18:41 Drug: Lasix 40 mg Route: IVP; Site: right antecubital; ca1 19:35 Follow up: Response: No adverse reaction ca1 21:16 Drug: fentaNYL (PF) 25 mcg {Note: RASS - 0.} Route: IVP; Site: right antecubital; ca1 22:10 Follow up: Response: No adverse reaction; Pain is decreased; RASS: Alert and Calm (0) ca1 Output: 18:00 Urine: 250ml (Voided); Total: 250ml. ca1 19:34 Urine: 840ml (Merrill); Total: 1090ml. ca1 20:40 Urine: 560ml (Merrill); Total: 1650ml. ca1 Outcome: 18:10 Decision to Hospitalize by Provider. snw 22:10 Admitted to ER Hold. Please see [facility] for further documentation. ca1 22:10 Condition: stable 22:10 Instructed on the need for admit. 04/15 13:25 Patient left the ED. hb Signatures: Dispatcher [employer] EDMS Jimena Gottlieb, FIELD SALES REPRESENTATIVE-C FIELD SALES REPRESENTATIVE-Torrey Wynn em1 Gail Weston, RAYRAY RN Branden Morales ds4 Julia Lakhani RN RN hb Eva Cervantes, RN RN tw2 Lili Delgado, RN RN ca1 Martha Dobbins ag5 Corrections: (The following items were deleted from the chart) 04/14 18:43 17:14 PMHx: Diabetes - NIDDM; ss tw 20:28 19:30 BP 210 / 106; ca1 ca1
--- NOTE | 2019-04-14 18:11 | EDPHYS ---
Physician Documentation [facility] Name: Ary Haines Age: 78 yrs Sex: Male : 1940 Arrival Date: 04/14/2019 Time: 16:49 Bed 12 Private MD: Jonel Sanders R ED Physician Brenton Maher HPI: 04/14 18:25 This 78 yrs old Male presents to ER via Ambulatory with complaints of Chest snw Pain, Shortness Of Breath. 18:25 Onset: The symptoms/episode began/occurred gradually, 3 day(s) ago, and became worse. snw Associated signs and symptoms: Pertinent positives: chest pain, shortness of breath, fatigue. Modifying factors: The patient symptoms are alleviated by nothing. The patient has experienced similar episodes in the past. It is unknown whether or not the patient has recently seen a physician. attempted to admit to PCP, out of town, will contact hospitalist. Historical: - Allergies: 17:14 Iodine; ss 18:39 Cipro (Hives); itching; tw2 - Home Meds: 18:39 aspirin 81 mg Oral TbEC 1 tab once daily [Active]; furosemide 40 mg Oral tab 1 tab once tw2 daily [Active]; hydralazine 25 mg Oral tab 1 tab 2 times per day [Active]; Coreg 12.5 mg oral tab [Active]; clopidogrel 75 mg oral tab 1 tab once daily [Active]; atorvastatin 40 mg oral tab 1 tab once daily [Active]; gabapentin 300 mg oral cap 1 cap once daily [Active]; Dulera 100-5 mcg/actuation inhalation HFAA 2 puffs 2 times per day [Active]; Tresiba FlexTouch U-100 100 unit/mL (3 mL) subcutaneous inpn 18 units, daily [Active]; - PMHx: 17:14 Hypertension; Leg blockages; CHF; ss 18:39 blockages; Diabetes - IDDM; tw2 - Immunization history:: Adult Immunizations up to date. - Social history:: Smoking status: Patient/guardian denies using tobacco, but has a distant history of tobacco abuse. - Ebola Screening: : Patient denies exposure to infectious person Patient denies travel to an Ebola-affected area in the 21 days before illness onset. ROS: 18:23 Constitutional: Negative for fever, chills, and weight loss, Eyes: Negative for injury, snw pain, redness, and discharge, ENT: Negative for injury, pain, and discharge, Neck: Negative for injury, pain, and swelling. 18:23 Back: Negative for injury and pain, : Negative for injury, bleeding, discharge, and swelling. 18:23 Skin: Negative for injury, rash, and discoloration, Neuro: Negative for headache, weakness, numbness, tingling, and seizure. 18:23 Cardiovascular: Positive for chest pain, of the chest. 18:23 Respiratory: Positive for orthopnea, shortness of breath. 18:23 Abdomen/GI: Positive for distension/tightness. 18:23 MS/extremity: Positive for swelling. Exam: 18:20 Constitutional: This is a well developed, well nourished patient who is awake, alert, snw and in no acute distress. Head/Face: Normocephalic, atraumatic. Eyes: Pupils equal round and reactive to light, extra-ocular motions intact. Lids and lashes normal. Conjunctiva and sclera are non-icteric and not injected. Cornea within normal limits. Periorbital areas with no swelling, redness, or edema. ENT: Nares patent. No nasal discharge, no septal abnormalities noted. Tympanic membranes are normal and external auditory canals are clear. Oropharynx with no redness, swelling, or masses, exudates, or evidence of obstruction, uvula midline. Mucous membranes moist. Neck: Trachea midline, no thyromegaly or masses palpated, and no cervical lymphadenopathy. Supple, full range of motion without nuchal rigidity, or vertebral point tenderness. No Meningismus. 18:20 Back: No spinal tenderness. No costovertebral tenderness. Full range of motion. Skin: Warm, dry with normal turgor. Normal color with no rashes, no lesions, and no evidence of cellulitis. Neuro: Awake and alert, GCS 15, oriented to person, place, time, and situation. Cranial nerves II-XII grossly intact. Motor strength 5/5 in all extremities. Sensory grossly intact. Cerebellar exam normal. Normal gait. Psych: Awake, alert, with orientation to person, place and time. Behavior, mood, and affect are within normal limits. 18:20 Chest/axilla: Inspection: open heart surgery 13 yrs ago, well healed scar. 18:20 Cardiovascular: Rhythm: regular, Heart sounds: murmur, systolic, grade 2 over 6, Edema: pedal edema, ankle edema, that is moderate. 18:20 ECG was reviewed by the Attending Physician. 18:20 Respiratory: mild respiratory distress is noted, Respirations: shallow respirations, splinting, that is moderate, Breath sounds: rales, decreased breath sounds. 18:20 Abdomen/GI: Inspection: distension, Bowel sounds: normal, Palpation: nontender. 18:20 Musculoskeletal/extremity: Extremities: Circulation is intact in all extremities. Edema, 3+ to the left ankle, left foot, right ankle and right foot is noted. Vital Signs: 17:14 BP 186 / 94; Pulse 72; Resp 16; Pulse Ox 94% on R/A; Weight 81.65 kg; Height 5 ft. 7 ss in. (170.18 cm); Pain 7/10; 18:21 BP 209 / 87; Pulse 68; Resp 18 S; Pulse Ox 98% on R/A; ca1 19:02 BP 229 / 85; Pulse 67; Resp 17 S; Pulse Ox 97% on R/A; ca1 19:45 BP 210 / 106; Pulse 59; Resp 19 S; Pulse Ox 96% on R/A; ca1 21:17 BP 182 / 67; Pulse 59; Resp 19 S; Pulse Ox 97% on R/A; ca1 17:14 Body Mass Index 28.19 (81.65 kg, 170.18 cm) ss MDM: 17:12 Patient medically screened. [facility] 18:08 Data reviewed: vital signs, nurses notes. Data interpreted: Pulse oximetry: on room air snw is 94 %. Interpretation: hypoxia. Counseling: I had a detailed discussion with the patient and/or guardian regarding: the historical points, exam findings, and any diagnostic results supporting the discharge/admit diagnosis, the presence of at least one elevated blood pressure reading (>120/80) during this emergency department visit, lab results, radiology results, the need for further work-up and treatment in the hospital. Physician consultation: Jonel Sanders MD was called at 18:09, regarding admission, to the telemetry unit. 18:17 Other consultation: Dr. Sanders out to hospitalist service. Dr. Camacho notified. snw Declines admission until assessment per him in ED. . 20:06 Physician consultation: would like admission per Dr. Rg Moffett DO in the emergency [facility] department to see patient at 20:00. 04/14 17:17 Order name: Basic Metabolic Panel; Complete Time: 18:03 snw 04/14 17:17 Order name: CBC with Diff; Complete Time: 18:03 snw 04/14 17:17 Order name: LFT's; Complete Time: 18:03 snw 04/14 17:17 Order name: Magnesium; Complete Time: 18:03 snw 04/14 17:17 Order name: NT PRO-BNP; Complete Time: 18:03 snw 04/14 17:17 Order name: PT-INR; Complete Time: 18:03 snw 04/14 17:17 Order name: Troponin (emerg Dept Use Only); Complete Time: 18:03 snw 04/14 17:18 Order name: Urine Microscopic Only [facility] 04/14 18:52 Order name: Urine Dipstick-Ancillary; Complete Time: 19:12 EDDC 04/14 21:44 Order name: Urinalysis; Complete Time: 16:43 EDDC 04/14 22:09 Order name: Urine Microscopic Only; Complete Time: 16:43 EDMS 04/14 22:26 Order name: Urine Dipstick--Ancillary (enter results) [facility] 04/14 22:26 Order name: Urine --Ancillary (enter results) [facility] 04/14 22:43 Order name: Urine --Ancillary; Complete Time: 16:43 EDDC 04/14 22:43 Order name: Urine Dipstick-Ancillary; Complete Time: 16:43 EDDC 04/14 23:58 Order name: Creatine Phosphokinase; Complete Time: 16:43 EDDC 04/14 23:58 Order name: CKMB Creatine Kinase MB; Complete Time: 16:43 EDDC 04/14 23:58 Order name: Troponin I; Complete Time: 16:43 EDDC 04/15 06:12 Order name: CBC with Automated Diff; Complete Time: 16:43 EDMS 04/15 06:22 Order name: Creatine Phosphokinase; Complete Time: 16:43 EDMS 04/15 06:22 Order name: CKMB Creatine Kinase MB; Complete Time: 16:43 EDMS 04/15 06:22 Order name: Troponin I; Complete Time: 16:43 EDMS 04/15 06:27 Order name: Basic Metabolic Panel; Complete Time: 16:43 EDMS 04/15 06:27 Order name: Lipid Profile; Complete Time: 16:43 EDMS 04/15 06:27 Order name: T4 Free; Complete Time: 16:43 EDMS 04/15 06:27 Order name: Magnesium; Complete Time: 16:43 EDMS 04/15 06:27 Order name: Thyroid Stimulating Hormone; Complete Time: 16:43 EDMS 04/15 08:38 Order name: Glucose, Ancillary Testing; Complete Time: 16:43 EDMS 04/15 12:19 Order name: Glucose, Ancillary Testing; Complete Time: 16:43 EDMS 04/14 17:17 Order name: XRAY Chest (1 view); Complete Time: 19:07 snw 04/14 17:17 Order name: EKG; Complete Time: 17:18 snw 04/14 17:17 Order name: Cardiac monitoring; Complete Time: 17:44 snw 04/14 17:17 Order name: EKG - Nurse/Tech; Complete Time: 17:45 snw 04/14 17:17 Order name: IV Saline Lock; Complete Time: 18:16 snw 04/14 17:17 Order name: Labs collected and sent; Complete Time: 18:16 snw 04/14 17:17 Order name: O2 Per Protocol; Complete Time: 17:45 snw 04/14 17:17 Order name: O2 Sat Monitoring; Complete Time: 17:45 snw 04/14 17:17 Order name: Misc. Order: home meds; Complete Time: 18:49 snw 04/14 17:18 Order name: Urine Dipstick-Ancillary (obtain specimen); Complete Time: 18:48 snw 04/14 18:04 Order name: Merrill; Complete Time: 18:42 snw Administered Medications: 18:18 Drug: Aspirin Chewable Tablet 324 mg Route: PO; ca1 19:34 Follow up: Response: No adverse reaction ca1 18:19 Drug: fentaNYL (PF) 25 mcg {Note: RASS - 0.} Route: IVP; Site: right antecubital; ca1 19:34 Follow up: Response: No adverse reaction; Pain is decreased; RASS: Alert and Calm (0) ca1 18:41 Drug: Lasix 40 mg Route: IVP; Site: right antecubital; ca1 19:35 Follow up: Response: No adverse reaction ca1 21:16 Drug: fentaNYL (PF) 25 mcg {Note: RASS - 0.} Route: IVP; Site: right antecubital; ca1 22:10 Follow up: Response: No adverse reaction; Pain is decreased; RASS: Alert and Calm (0) ca1 Disposition: 04/14/19 18:10 Hospitalization ordered by Jonel Sanders for Inpatient Admission. Preliminary diagnosis are Unspecified systolic (congestive) heart failure, Chest pain, unspecified, Dyspnea. - Bed requested for Telemetry/MedSurg (Inpatient). - Status is Inpatient Admission. hb - Condition is Stable. - Problem is an acute exacerbation. - Symptoms have worsened. UTI on Admission? No Addendum: 04/22/2019 07:23 Co-signature as Attending Physician, Brenton Maher MD I agree with the assessment and c davalos plan of care. Signatures: Dispatcher [employer] EDMS Kae Mayberry Corey, MD MD cha Therrien, Shelly, FINANCIAL AIDS OFFICER-C FINANCIAL AIDS OFFICER-Csnw Gail Weston RN RN Julia Lakhani RN RN Eva Cervantes RN RN tw2 Trung Alejandre, RN RN ja1 Lili Delgado, RN RN ca1 Corrections: (The following items were deleted from the chart) 04/14 18:43 17:14 PMHx: Diabetes - NIDDM; tw2 20:56 18:10 Hospitalization Ordered by Jonel Sanders MD for Inpatient Admission. Preliminary ja1 diagnosis is Unspecified systolic (congestive) heart failure; Chest pain, unspecified; Dyspnea. Bed requested for Telemetry/MedSurg (Inpatient). Status is Inpatient Admission. Condition is Stable. Problem is an acute exacerbation. Symptoms have worsened. UTI on Admission? No. snw 04/15 11:18 04/14 20:56 04/14/2019 18:10 Hospitalization Ordered by Jonel Sanders MD for Inpatient bd Admission. Preliminary diagnosis is Unspecified systolic (congestive) heart failure; Chest pain, unspecified; Dyspnea. Bed requested for [facility] ER HOLD. Status is Inpatient Admission. Condition is Stable. Problem is an acute exacerbation. Symptoms have worsened. UTI on Admission? No. ja1 04/15 13:25 11:18 04/14/2019 18:10 Hospitalization Ordered by Jonel Sanders MD for Inpatient hb Admission. Preliminary diagnosis is Unspecified systolic (congestive) heart failure; Chest pain, unspecified; Dyspnea. Bed requested for Telemetry/MedSurg (Inpatient). Status is Inpatient Admission. Condition is Stable. Problem is an acute exacerbation. Symptoms have worsened. UTI on Admission? No. bd
[2019-04-14] MEDS ORDERED: ASPIRIN 81 MG CHEWABLE TABLET ONE (18:29)
[2019-04-14] MEDS ORDERED: FENTANYL CITR 100 MCG/2 ML ONE ×2 (18:30→21:17)
[2019-04-14] MEDS ORDERED: FUROSEMIDE 40 MG/4 ML VIAL ONE (18:30)
--- NOTE | 2019-04-14 19:03 | RAD REPORT ---
EXAM DESCRIPTION: Karen Single View04/14/2019 5:30 pm CLINICAL HISTORY: Chest pain COMPARISON: February 2019 FINDINGS: Mild interstitial pulmonary edema is suspected. The heart is mildly enlarged. Postsurgical changes involve the chest. Blunting of the lateral costophrenic sulci could either represent small pleural effusions or pleural thickening
[2019-04-14 19:11] LABS: Urine Blood TRACE (NEG); Urine Glucose NEGATIVE (NEG); Urine Protein NEGATIVE (NEG); Urine pH 5.5 (5.0-7.0)
[2019-04-14] MEDS ORDERED: ACETAMINOPHEN 500 MG TAB PO PRN (21:10)
[2019-04-14] MEDS: INSULIN -REGULAR HUMAN 50 UNIT/0.5 ML ML SQ SCH (21:10)
[2019-04-14] MEDS ORDERED: GABAPENTIN 100 MG CAP PO PRN (21:10)
[2019-04-14] MEDS ORDERED: ONDANSETRON 4 MG/2 ML VIAL IV PRN (21:10)
[2019-04-14] MEDS ORDERED: ALBUTEROL 2.5 MG/3 ML NEB SOL NEB PRN (21:10)
[2019-04-14] MEDS ORDERED: IPRATROPIUM BROM 0.5MG/2.5ML NEB PRN (21:10)
--- NOTE | 2019-04-14 21:16 | P.HP ---
Certification for Inpatient Patient admitted to: Inpatient With expected LOS: >2 Midnights Patient will require the following post-hospital care: None Practitioner: I am a practitioner with admitting privileges, knowledge of patient current condition, hospital course, and medical plan of care. Services: Services provided to patient in accordance with Admission requirements found in Title 42 Section 412.3 of the Code of Federal Regulations Patient History Date of Service: 04/14/19 Primary Care Provider: Dr. Sanders(I am covering him tonight) Reason for admission: Shortness of breath History of Present Illness: 78-year-old male with history of hypertension, congestive heart failure , COPD, tobacco abuse and diabetes type 2 insulin dependent. Patient presented with increasing shortness of breath and edema to the lower extremities. He has been having both symptoms over the past 2 weeks. It is getting worse today. Increased edema to the lower extremities noted. Patient came to the ER for further evaluation. In the ER patient evaluated. CBC unremarkable. Sodium 142, potassium 4.2, BUN of 29, creatinine 1.26 with a GFR 56. Glucose 131. Troponin 0.15. BNP 1596. Chest x-ray showed pulmonary edema. Patient given IV Lasix the emergency room. Patient admitted for further evaluation and treatment. When I saw the patient ER, he appeared stable. Patient on nasal can lift. Family at bedside. Daughter reports patient is taking Lasix but had ran out of medication. There was some concern that he may be taking a lower dose when he was supposed to be taking higher dose. Patient not on a fluid restriction at home. Allergies Iodine, IV Allergy (Uncoded 08/27/13 16:23) Unknown Home medications list reviewed: Yes Home Medications: Amlodipine [Norvasc*] 10 mg PO DAILY 05/14/18 Aspirin [Adult Aspirin] 81 mg PO DAILY 05/14/18 Atorvastatin Calcium 40 mg PO BEDTIME 05/14/18 Carvedilol [Coreg] 12.5 mg PO BID 05/14/18 Clopidogrel Bisulfate [Plavix*] 75 mg PO DAILY 05/14/18 Furosemide 20 mg PO DAILY 05/14/18 Insulin Glargine,Hum.rec.anlog [Lantus] 14 unit SQ BEDTIME 05/14/18 Mometasone/Formoterol [Dulera 100 Mcg/5 Mcg Inhaler] 2 puff IH BID 05/14/18 - Past Medical/Surgical History Diabetic: Yes -: Diabetes mellitus type 2 insulin dependent -: HTN -: CHF likely systolic -: COPD -: Hyperlipidemia -: CAD with prior CABG -: Former tobacco use -: Alcohol use -: CABG x3 vessel 2007 -: mild mi in 2007 -: right eye sx -: left eye blindness -: left knee sx -: 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 -: Cholecystectomy Psychosocial/ Personal History: Patient is - Family History Family History: Reviewed- Non-Contributory - Social History Smoking Status: Former smoker Alcohol use: Yes CD- Drugs: No Caffeine use: Yes Place of Residence: Home Review of Systems General: Weakness, As per HPI Eyes: Unremarkable ENT: Unremarkable Respiratory: Shortness of Breath, SOB with Excertion, As per HPI Cardiovascular: Edema, As per HPI Gastrointestinal: Unremarkable Genitourinary: Unremarkable Musculoskeletal: Pedal edema, As per HPI Integumentary: Unremarkable Neurological: Unremarkable Lymphatics: Unremarkable Physical Examination - Physical Exam General: Alert, In no apparent distress, Oriented x3, Cooperative HEENT: Atraumatic, Normocephalic Neck: Supple Respiratory: Crackles/rales (Bilateral) Cardiovascular: Normal pulses, Regular rate/rhythm Gastrointestinal: Normal bowel sounds, No ascites, No tenderness, No masses, No rebound, No guarding Musculoskeletal: No erythema, No tenderness, No warmth Integumentary: No erythema, No warmth, No cyanosis, Tenderness/swelling (2+ pitting edema to the lower extremities) Neurological: Normal speech, Normal strength at 5/5 x4 extr, Normal tone, Normal affect - Studies Laboratory Data (last 24 hrs) 04/14/19 17:33: PT 12.8 H, INR 1.09 04/14/19 17:33: WBC 8.6, Hgb 10.6 L, Hct 32.6 L, Plt Count 186 04/14/19 17:33: Sodium 142, Potassium 4.2, BUN 29 H, Creatinine 1.26, Glucose 131 H, Magnesium 2.4, Total Bilirubin 0.6, AST 22, ALT 44, Alkaline Phosphatase 83 Assessment and Plan - Plan Impression: Shortness of breath and edema to the lower extremity secondary to CHF exacerbation likely systolic dysfunction CAD with prior CABG Hypertension Diabetes mellitus type 2 insulin dependent Former tobacco use Alcohol use COPD Hyperlipidemia Plan: Shortness of breath and edema to the lower extremity secondary to CHF exacerbation likely systolic dysfunction: Patient we admitted for further evaluation and treatment. Will monitor telemetry and cardiac enzymes. Will start 1500 cc per day fluid restriction. Will continue with IV Lasix 40 mg IV twice daily. Will order echocardiogram. Will consult cardiology for further evaluation and recommendation. Will need to obtain and verify home medication. Patient may have been taking a lower dose of Lasix at home. Will continue diuresis. Will recheck chest x-ray tomorrow. Will provide DVT prophylaxis- Lovenox. His PCP-Dr. Sanders will take over tomorrow. Anticipate discharge in the next 2-3 days with clinical improvement. Elevated troponin with CAD with prior CABG: Elevated troponin likely related to CHF exacerbation. Will continue monitor closely. Monitor cardiac enzymes. Obtain echocardiogram. Cardiology consulted. Continue with prior medication- aspirin, Plavix. Hypertension: Continue with prior medication-hydralazine, carvedilol. Diabetes mellitus type 2 insulin dependent: Will monitor Accu-Cheks. Continue insulin sliding scale. Former tobacco use: Patient remains with tobacco cessation. Alcohol use: Alcohol cessation addressed in detail. COPD: Continue with COPD medication. Hyperlipidemia: Continue medication Lipitor. Discharge Plan: Home Plan to discharge in: 72 Hours - Advance Directives Does patient have a Living Will: No Does patient have a Durable POA for Healthcare: No - Code Status/Comfort Care Code Status Assessed: Yes (Patient is full code) Time Spent Managing Pts Care (In Minutes): 55
[2019-04-14 21:37] LABS: Urine Appearance CLEAR; Urine Bilirubin NEGATIVE (NEG); Urine Blood 2+ (NEG); Urine Color YELLOW; Urine Glucose NEGATIVE (NEG); Urine Protein TRACE (NEG); Urine Specific Gravity <=1.005 (1.005-1.030); Urine Urobilinogen 0.2 mg/dL (0.2-1.0)
[2019-04-14 21:43] VITALS: BMI 28.1
[2019-04-14 21:43] LABS: Urine Microscopic Reflex ORDER UMIC
[2019-04-14 22:07] LABS: Urine Bacteria <20 /HPF (NONE SEEN); Urine Culture Reflex Order NOT NEEDED
[2019-04-14 22:42] LABS: Urine Blood 1+ (NEG); Urine Glucose NEGATIVE (NEG); Urine Protein TRACE (NEG); Urine Specific Gravity 1.025 (1.005-1.030)
[2019-04-14 23:57] LABS: CKMB Creatine Kinase MB 2.4 ng/mL (0.3-3.6); Troponin I 0.21 ng/mL (0.0-0.045)
[2019-04-15] MEDS: ATORVASTATIN 40 MG TAB PO SCH ×2 (00:15→19:58)
[2019-04-15] MEDS: HYDRALAZINE HCL 25 MG TABLET PO SCH ×3 (00:15→19:59)
[2019-04-15] MEDS ORDERED: HYDRALAZINE HCL 10 MG TABLET ONE (00:19)
[2019-04-15] MEDS ORDERED: ATORVASTATIN 20 MG TAB ONE (00:19)
[2019-04-15] MEDS ORDERED: GABAPENTIN 100 MG CAP ONE (03:05)
[2019-04-15] MEDS: carvediloL 12.5 MG TAB PO SCH ×2 (06:00→17:04)
[2019-04-15 06:03] LABS: Absolute Lymphocytes (CBC) 0.8 K/uL (0.7-4.9); Basophils % 0.5 % (0-1.3); Hematocrit 29.4 % (39.6-49.0); Lymphocytes % 8.9 % (15.3-44.8); MPV 8.9 fL (7.6-11.3); RBC Red Blood Cell Count 3.43 M/uL (4.33-5.43)
[2019-04-15 06:21] LABS: CKMB Creatine Kinase MB 1.6 ng/mL (0.3-3.6); Troponin I 0.12 ng/mL (0.0-0.045)
[2019-04-15 06:26] LABS: Magnesium 2.3 mg/dL (1.8-2.4); Potassium 3.8 mmol/L (3.5-5.1); Thyroid Stimulating Hormone 1.81 uIU/mL (0.360-3.740)
[2019-04-15] MEDS: INSULIN -REGULAR HUMAN 50 UNIT/0.5 ML ML SQ SCH ×4 (07:30→19:59)
[2019-04-15] MEDS ORDERED: ENOXAPARIN 40 MG/0.4 ML SQ SCH (09:00)
[2019-04-15] MEDS ORDERED: ASPIRIN EC 81 MG TAB PO SCH (09:00)
[2019-04-15] MEDS ORDERED: CLOPIDOGREL 75 MG TABLET PO SCH (09:00)
[2019-04-15] MEDS: FUROSEMIDE 40 MG/4 ML VIAL IV SCH ×2 (09:00→17:05)
[2019-04-15] MEDS ORDERED: ASPIRIN EC 81 MG TAB PO ONE (09:18)
[2019-04-15] MEDS ORDERED: FUROSEMIDE 40 MG/4 ML VIAL ONE (09:18)
[2019-04-15] MEDS ORDERED: CLOPIDOGREL 75 MG TABLET ONE (09:18)
[2019-04-15] MEDS: BUDESONIDE 0.25 MG/2 ML NEB NEB SCH ×2 (09:18→20:20)
[2019-04-15] MEDS ORDERED: ACETAMINOPHEN 500 MG TAB ONE (09:18)
--- NOTE | 2019-04-15 10:18 | EKG ---
Test Date: 2019-04-14 Test Time: 17:17:16 Emergency Worker: GAGAN MEASUREMENT RESULTS: Intervals: Rate: 70 SC: 170 QRSD: 92 QT: 416 QTc: 449 [place]: P: 67 SC: 170 QRS: 86 T: 173 INTERPRETIVE STATEMENTS: Normal sinus rhythm Cannot rule out Anterior infarct, age undetermined Abnormal ECG Compared to ECG 02/21/2019 11:30:46 Sinus bradycardia no longer present Sinus arrhythmia no longer present Right-axis deviation no longer present ST (T wave) deviation no longer present Possible ischemia no longer present Myocardial infarct finding still present Electronically Signed On 04-15-19 10:17:52 SUPERVISOR H[employer] DIP PLATING by Roque Mae
--- NOTE | 2019-04-15 11:23 | ECHO ---
HEIGHT: 5 ft 7 in WEIGHT: 180 lb 0.119 oz DATE OF STUDY: 04/15/[address]: Rg Moffett DO 2-DIMENSIONAL: YES M.MODE: YES DOPPLER: YES COLOR FLOW: YES TDS: NO PORTABLE: NO DEFINITY: NO BUBBLE STUDY: NO DIAGNOSIS: CONGESTIVE HEART FAILURE CARDIAC HISTORY: CATHERIZATION: YES SURGERY: YES PROSTHETIC VALVE: NO PACEMAKER: NO MEASUREMENTS (cm) DIASTOLIC (NORMALS) SYSTOLIC (NORMALS) IVSd 1.3 (0.6-1.2) LA Diam 5.2 (1.9-4.0) LVEF 58% LVIDd 4.6 (3.5-5.7) LVIDs 3.2 (2.0-3.5) %FS 31% LVPWd 1.2 (0.6-1.2) Ao Diam 3.2 (2.0-3.7) 2 DIMENSIONAL ASSESSMENT: RIGHT ATRIUM: NORMAL LEFT ATRIUM: DILATED RIGHT VENTRICLE: NORMAL LEFT VENTRICLE: LEFT VENTRICULAR HYPERTROPHY TRICUSPID VALVE: NORMAL MITRAL VALVE: NORMAL PULMONIC VALVE: NORMAL AORTIC VALVE: NORMAL PERICARDIAL EFFUSION: NONE AORTIC ROOT: NORMAL LEFT VENTRICULAR WALL MOTION: PARADOXICAL SEPTAL MOTION SEEN POST THORACOTOMY. DOPPLER/COLOR FLOW: MILD MITRAL AND TRICUSPID REGURGITATION. MILD PULMONARY HYPERTENSION ESTIMATED RIGHT VENTRICULAR SYSTOLIC PRESSURE 40mmHg. COMMENTS: NORMAL LEFT VENTRICULAR EJECTION FRACTION WITH PARADOXICAL SEPTAL MOTION. LEFT VENTRICULAR HYPERTROPHY. DILATED LEFT ATRIUM. MILD MITRAL AND TRICUSPID REGURGITATION. MILD PULMONARY HYPERTENSION. TECHNOLOGIST: MEI ALVAREZ
--- NOTE | 2019-04-15 16:02 | CON ---
Chief Complaint: Chest pain. History Of Present Illness: Mr. Haines has been having chest pain for several weeks. Mild exertio n brings it on. It usually goes away with rest. He came to the hospital with an episode of chest pa in, did not go away with rest for several hours. Since being in the hospital, his cardiac enzymes ar e abnormal, consistent with an acute coronary syndrome, mid-TI-eafqkcwxr MT. The highest troponin wa s 0.15. Patient has a history of coronary heart disease with bypass surgery in 2006. He has not had a heart catheterization or stent or repeat surgery since then. He has been stable up until the past 3 to 4 weeks. He does not use tobacco. Medications: He takes aspirin, carvedilol, atorvastatin, Plavix furosemide, Dulera, gabapentin, hydr alazine, and insulin. Past Medical History: He has underlying diabetes, hypertension, dyslipidemia. Allergies: HE IS ALLERGIC TO CIPRO, IODINATED CONTRAST MATERIAL. Physical Examination: Vital Signs: 5 feet 7 inches, 180 pounds. General: Alert, oriented, pleasant, not in distress. Lungs: Clear. Heart: Within normal limits. Abdomen: Soft. Extremities: Normal. Laboratory Data And Imaging: His echocardiogram reveals normal wall motion. He is mildly anemic. H is creatinine is 1.17. Estimated GFR 61. He actually has a troponin of 0.21. His electrocardiogram shows sinus rhythm, possible anterior infarct, not an acute finding. Impression: Mr. Haines probably has an acute coronary syndrome. I have recommended that he underg o a cardiac cath. He and his family desire him to be transferred to [facility] under the car e of Dr. Diaz. We will contact Dr. Diaz and notify the attending physician of my findings, recomme ndation, and their desire to be transferred. ANAM/MAZIN Voice ID: [id number] Report ID: [id number]
[2019-04-15 20:39] VITALS: BP 148/56; TEMP 98.2
[2019-04-15 21:09] VITALS: O2SAT 96
== END 2019-04-15 21:00 | disposition short-term general hospital (02) | DRG 292 ==
LOC: ER 16:47 → ERHOLD 20:30 → 4TH 04-15 14:00
PROVIDERS: ADMIT Family Medicine; ATTEND Family Medicine
PROC: 0T9B70Z Drainage of Bladder with Drainage Device, Via Natural or Artificial Opening (ICD-10-PCS; principal; 2019-04-14)
DX: I50.23 Acute on chronic systolic (congestive) heart failure (principal); I24.9 Acute ischemic heart disease, unspecified; I11.0 Hypertensive heart disease with heart failure; J44.9 Chronic obstructive pulmonary disease, unspecified; E11.9 Type 2 diabetes mellitus without complications; E78.5 Hyperlipidemia, unspecified; I25.10 Atherosclerotic heart disease of native coronary artery without angina pectoris; Z95.1 Presence of aortocoronary bypass graft; Z87.891 Personal history of nicotine dependence
CPT/HCPCS: 36415; 51702; 71045; 80048; 80061; 80076; 81003; 81015; 81025; 82550; 82553; 82947; 83735; 83880; 84439; 84443; 84484; 85025; 85610; 93005; 93306; 94640; 96374; 96375; 99285; J1940; J3010

== ENCOUNTER 2019-06-29 16:10 | Inpatient (IN) | payer OTHER ==
--- OUTSIDE RECORDS SUMMARY | 2019-06-29 16:12 | XMS REPORT ---
:1940 [facility] Address [address] [place] [address] Dr. Morales [address] [place] [id number] Care Team Providers Name Role Phone Unavailable Unavailable Unavailable Problems This patient has no known problems. Allergies, Adverse Reactions, Alerts This patient has no known allergies or adverse reactions. Medications This patient has no known medications.
[2019-06-29 18:00] LABS: Absolute Lymphocytes (CBC) 0.7 K/uL (0.7-4.9); Basophils % 0.5 % (0-1.3); Hematocrit 29.5 % (39.6-49.0); Lymphocytes % 10.3 % (15.3-44.8); MPV 9.3 fL (7.6-11.3); RBC Red Blood Cell Count 3.51 M/uL (4.33-5.43)
[2019-06-29 18:04] LABS: Protime INR 1.08
--- NOTE | 2019-06-29 18:23 | RAD REPORT ---
EXAM DESCRIPTION: RAD - Chest Single View - 06/29/2019 6:03 pm CLINICAL HISTORY: Cough;Congestion COMPARISON: Portable March 2019 TECHNIQUE: AP portable chest image was obtained 06/29/2019 6:03 pm . FINDINGS: Lung volumes are low. Interstitial opacification is present some of which is baseline taylor fact from shallow inspiration. No focal mass or consolidation. Sternotomy wires are in place. Heart a nd vasculature are normal. No measurable pleural effusion and no pneumothorax. No acute bony abnormal ity seen. No acute aortic findings suspected. IMPRESSION: No focal mass or consolidation. Lung markings are accentuated by shallow inspiration. This potentially masks early edema or infiltrat e, particularly in the left upper lobe.
[2019-06-29 18:49] LABS: ALT/SGPT 37 U/L (12-78); Albumin 3.2 g/dL (3.4-5.0); BUN Blood Urea Nitrogen 43 mg/dL (7-18); Bicarbonate 27 mmol/L (21-32); Bilirubin Direct 0.2 mg/dL (0-0.2); Glucose Level 98 mg/dL (74-106); Magnesium 3.3 mg/dL (1.8-2.4); Potassium 4.7 mmol/L (3.5-5.1); Sodium Level 142 mmol/L (136-145)
[2019-06-29 18:53] LABS: AST/SGOT 20 U/L (15-37); Alkaline Phosphatase 77 U/L (45-117); Bilirubin Total 0.6 mg/dL (0.2-1.0); Protein, Total 6.6 g/dL (6.4-8.2)
[2019-06-29] MEDS ORDERED: ONDANSETRON 4 MG/2 ML VIAL ONE (18:53)
[2019-06-29] MEDS ORDERED: CEFTRIAXONE/SWI 1gm 1 GM/10 ML SYR ONE (18:53)
[2019-06-29] MEDS ORDERED: HYDROCORTISONE SUC 100 MG INJ ONE (18:53)
[2019-06-29] MEDS ORDERED: NA CHLORIDE 0.9% 1,000 ML ONE (18:53)
[2019-06-29 18:54] LABS: Urine Blood NEGATIVE (NEG); Urine Glucose NEGATIVE (NEG); Urine Protein 1+ (NEG)
[2019-06-29 18:55] LABS: NT PRO-BNP 1558 pg/mL (<450)
[2019-06-29 19:10] LABS: Troponin (Emerg Dept Use Only) < 0.02 ng/mL (0.0-0.045)
--- NOTE | 2019-06-29 19:39 | EDPHYS ---
Physician Documentation [facility] Name: Ary Haines Age: 79 yrs Sex: Male : 1940 Arrival Date: 06/29/2019 Time: 16:10 Bed 24 Private MD: Jonel Sanders R ED Physician Brentno Maher HPI: 06/28 17:16 This 79 yrs old Male presents to ER via Ambulatory with complaints of Flu ester Symptoms. 17:16 The patient or guardian reports airway noise, cough, flu symptoms, arthralgias, ester low-grade fever, myalgias. Onset: The symptoms/episode began/occurred 3 day(s) ago. Severity of symptoms: At their worst the symptoms were mild, in the emergency department the symptoms are unchanged. Modifying factors: The symptoms are alleviated by nothing, the symptoms are aggravated by nothing. The patient reports fever, not measured (subjective). Modifying factors: there are no obvious modifying factors. Associated signs and symptoms: Pertinent positives: fever, nausea, rhinorrhea, sore throat. Associated signs and symptoms: Pertinent positives: cough, that is dry. Severity of symptoms: At their worst the symptoms were moderate in the emergency department the symptoms are unchanged. Historical: - Allergies: 16:56 Cipro (Hives); itching; dm5 16:56 Iodine; dm5 17:34 Iodinated Contrast Media; ls4 - PMHx: 17:34 blockages; CHF; Diabetes - IDDM; Hypertension; Leg blockages; ls4 - Immunization history:: Adult Immunizations up to date. - Social history:: Smoking status: Patient denies any tobacco usage or history of. - Family history:: not pertinent. ROS: 17:18 Eyes: Negative for injury, pain, redness, and discharge, ENT: Negative for injury, ester pain, and discharge, Neck: Negative for injury, pain, and swelling, Cardiovascular: Negative for chest pain, palpitations, and edema, Abdomen/GI: Negative for abdominal pain, nausea, vomiting, diarrhea, and constipation, Back: Negative for injury and pain, : Negative for injury, bleeding, discharge, and swelling, MS/Extremity: Negative for injury and deformity, Skin: Negative for injury, rash, and discoloration, Neuro: Negative for headache, weakness, numbness, tingling, and seizure, Psych: Negative for depression, anxiety, suicide ideation, homicidal ideation, and hallucinations, Allergy/Immunology: Negative for hives, rash, and allergies, Endocrine: Negative for neck swelling, polydipsia, polyuria, polyphagia, and marked weight changes, Hematologic/Lymphatic: Negative for swollen nodes, abnormal bleeding, and unusual bruising. 17:18 Constitutional: Positive for body aches, fever, malaise. 17:18 Respiratory: Positive for cough, with no reported sputum. Exam: 17:18 Constitutional: This is a well developed, well nourished patient who is awake, alert, ester and in no acute distress. Head/Face: Normocephalic, atraumatic. Eyes: Pupils equal round and reactive to light, extra-ocular motions intact. Lids and lashes normal. Conjunctiva and sclera are non-icteric and not injected. Cornea within normal limits. Periorbital areas with no swelling, redness, or edema. ENT: Nares patent. No nasal discharge, no septal abnormalities noted. Tympanic membranes are normal and external auditory canals are clear. Oropharynx with no redness, swelling, or masses, exudates, or evidence of obstruction, uvula midline. Mucous membranes moist. Neck: Trachea midline, no thyromegaly or masses palpated, and no cervical lymphadenopathy. Supple, full range of motion without nuchal rigidity, or vertebral point tenderness. No Meningismus. Chest/axilla: Normal chest wall appearance and motion. Nontender with no deformity. No lesions are appreciated. Respiratory: Lungs have equal breath sounds bilaterally, clear to auscultation and percussion. No rales, rhonchi or wheezes noted. No increased work of breathing, no retractions or nasal flaring. Abdomen/GI: Soft, non-tender, with normal bowel sounds. No distension or tympany. No guarding or rebound. No evidence of tenderness throughout. Back: No spinal tenderness. No costovertebral tenderness. Full range of motion. Male : Normal genitalia with no discharge or lesions. Skin: Warm, dry with normal turgor. Normal color with no rashes, no lesions, and no evidence of cellulitis. MS/ Extremity: Pulses equal, no cyanosis. Neurovascular intact. Full, normal range of motion. Neuro: Awake and alert, GCS 15, oriented to person, place, time, and situation. Cranial nerves II-XII grossly intact. Motor strength 5/5 in all extremities. Sensory grossly intact. Cerebellar exam normal. Normal gait. Psych: Awake, alert, with orientation to person, place and time. Behavior, mood, and affect are within normal limits. 17:18 Cardiovascular: Rate: bradycardic, Rhythm: regular, Pulses: Pulses are 4+ in bilateral radial, brachial, femoral, popliteal, posterior tibial and and dorsalis pedis arteries.. Heart sounds: normal. Vital Signs: 16:53 BP 172 / 52; Pulse 52; Resp 18; Temp 97.3; Pulse Ox 99% on R/A; Weight 80.29 kg (R); dm5 Height 5 ft. 7 in. (170.18 cm) (R); Pain 7/10; 18:30 BP 146 / 62; Pulse 52; Resp 14; Pulse Ox 98% on R/A; Pain 5/10; ls4 19:47 BP 148 / 52; Pulse 49; Resp 14; Temp 97.4; Pulse Ox 99% on R/A; Pain 5/10; ls4 21:40 BP 174 / 70; Pulse 47; Resp 14; Pulse Ox 94% on R/A; Pain 0/10; ls4 22:50 BP 152 / 70; Pulse 49; Resp 14; Temp 97.5(O); Pulse Ox 97% on R/A; Pain 0/10; ls4 16:53 Body Mass Index 27.72 (80.29 kg, 170.18 cm) dm5 MDM: 17:03 Patient medically screened. [facility] 17:19 Data reviewed: vital signs, nurses notes, lab test result(s), EKG, radiologic studies, ester plain films. 06/28 16:57 Order name: Flu; Complete Time: 18:26 dm5 06/28 17:13 Order name: Basic Metabolic Panel; Complete Time: 19:35 ester 06/28 17:13 Order name: CBC with Diff; Complete Time: 18:26 [facility] 06/28 17:13 Order name: LFT's; Complete Time: 19:35 ester 06/28 17:13 Order name: Magnesium; Complete Time: 19:35 [facility] 06/28 17:13 Order name: NT PRO-BNP; Complete Time: 19:35 [facility] 06/28 17:13 Order name: PT-INR; Complete Time: 18:26 [facility] 06/28 17:13 Order name: Troponin (emerg Dept Use Only); Complete Time: 19:35 [facility] 06/28 17:13 Order name: XRAY Chest (1 view); Complete Time: 18:26 [facility] 06/28 17:13 Order name: Procalcitonin; Complete Time: 19:35 [facility] 06/28 17:13 Order name: Urine Culture [facility] 06/28 17:18 Order name: Blood Culture Adult (2) [facility] 06/28 18:52 Order name: Urine Dipstick--Ancillary (enter results); Complete Time: 18:58 [facility] 06/28 17:13 Order name: EKG; Complete Time: 17:15 [facility] 06/28 17:13 Order name: Cardiac monitoring; Complete Time: 18:24 [facility] 06/28 17:13 Order name: EKG - Nurse/Tech; Complete Time: 18:24 [facility] 06/28 17:13 Order name: IV Saline Lock; Complete Time: 17:52 [facility] 06/28 17:13 Order name: Labs collected and sent; Complete Time: 17:52 [facility] 06/28 17:13 Order name: O2 Per Protocol; Complete Time: 17:52 [facility] 06/28 17:13 Order name: O2 Sat Monitoring; Complete Time: 17:52 [facility] 06/28 17:13 Order name: Urine Dipstick-Ancillary (obtain specimen); Complete Time: 18:45 [facility] 06/28 19:39 Order name: Bladder Scanner: pvr, shultz if pvr greater than 100 cc; Complete Time: 19:56cha Administered Medications: 18:55 Drug: NS 0.9% 1000 ml Route: IV; Rate: 1 bolus; Site: right antecubital; ls4 20:55 Follow up: IV Status: Completed infusion; IV Intake: 1000ml ls4 18:55 Drug: Solu-CORTEF 100 mg Route: IVP; Site: right antecubital; ls4 19:15 Follow up: Response: No adverse reaction; Marked relief of symptoms ls4 18:55 Drug: Rocephin 1 grams Route: IV; Rate: per protocol; Site: right antecubital; ls4 19:05 Follow up: IV Status: Completed infusion; IV Intake: 10ml ls4 19:05 Follow up: Response: No adverse reaction ls4 18:55 Drug: Zofran (Ondansetron) 4 mg Route: IVP; Site: right antecubital; ls4 19:15 Follow up: Response: No adverse reaction; Marked relief of symptoms ls4 Disposition: 06/29/19 19:38 Hospitalization ordered by Jonel Sanders for Inpatient Admission. Preliminary diagnosis are Weakness, Malaise and fatigue, Type 1 diabetes mellitus, Volume depletion, Volume depletion, unspecified, Unspecified kidney failure, Acute upper respiratory infection, unspecified, Bradycardia, unspecified. - Bed requested for Telemetry/MedSurg (Inpatient). - Status is Inpatient Admission. mw2 - Condition is Fair. - Problem is new. - Symptoms have improved. Signatures: Dispatcher [employer] EDMS Suzanne Gracia RN RAYRAY dm5 Mandy Coffey RN RN dw Anderson, Corey, MD MD cha Westbrook, MyKena mw2 Ade Fulton RN RN ls4 Corrections: (The following items were deleted from the chart) 19:50 19:38 Hospitalization Ordered by Jonel Sanders MD for Inpatient Admission. Preliminary [facility] diagnosis is Weakness; Malaise and fatigue; Type 1 diabetes mellitus; Volume depletion; Volume depletion, unspecified; Unspecified kidney failure; Acute upper respiratory infection, unspecified. Bed requested for Telemetry/MedSurg (Inpatient). Status is Inpatient Admission. Condition is Fair. Problem is new. Symptoms have improved. [facility] 19:52 19:50 06/29/2019 19:38 Hospitalization Ordered by Jorje Meyers MD for Inpatient ester Admission. Preliminary diagnosis is Weakness; Malaise and fatigue; Type 1 diabetes mellitus; Volume depletion; Volume depletion, unspecified; Unspecified kidney failure; Acute upper respiratory infection, unspecified. Bed requested for Telemetry/MedSurg (Inpatient). Status is Inpatient Admission. Condition is Fair. Problem is new. Symptoms have improved. [facility] 19:53 19:52 06/29/2019 19:38 Hospitalization Ordered by Jorje Meyers MD for Inpatient Admission. Preliminary diagnosis is Weakness; Malaise and fatigue; Type 1 diabetes mellitus; Volume depletion; Volume depletion, unspecified; Unspecified kidney failure; Acute upper respiratory infection, unspecified; Bradycardia, unspecified. Bed requested for Telemetry/MedSurg (Inpatient). Status is Inpatient Admission. Condition is Fair. Problem is new. Symptoms have improved. [facility] 21:19 19:53 06/29/2019 19:38 Hospitalization Ordered by Jonel Sanders MD for Inpatient mw2 Admission. Preliminary diagnosis is Weakness; Malaise and fatigue; Type 1 diabetes mellitus; Volume depletion; Volume depletion, unspecified; Unspecified kidney failure; Acute upper respiratory infection, unspecified. Bed requested for Telemetry/MedSurg (Inpatient). Status is Inpatient Admission. Condition is Fair. Problem is new. Symptoms have improved. dw 23:12 21:19 06/29/2019 19:38 Hospitalization Ordered by Jonel Sanders MD for Inpatient mw2 Admission. Preliminary diagnosis is Weakness; Malaise and fatigue; Type 1 diabetes mellitus; Volume depletion; Volume depletion, unspecified; Unspecified kidney failure; Acute upper respiratory infection, unspecified; Bradycardia, unspecified. Bed requested for Telemetry/MedSurg (Inpatient). Status is Inpatient Admission. Condition is Fair. Problem is new. Symptoms have improved. mw2
--- NOTE | 2019-06-29 19:39 | ER ---
Nurse's Notes [facility] Name: Ary Haines Age: 79 yrs Sex: Male : 1940 Arrival Date: 06/29/2019 Time: 16:10 Bed 24 Private MD: Jonel Sanders R Diagnosis: Weakness;Malaise and fatigue;Type 1 diabetes mellitus;Volume depletion;Volume depletion, unspecified;Unspecified kidney failure;Acute upper respiratory infection, unspecified;Bradycardia, unspecified Presentation: 06/28 16:53 Chief complaint: Patient states: started feeling bad about 3 days ago, got worse this dm5 morning. dizziness this morning. nasal congestion, cough, chest pain, body aches, denies fever. Coronavirus screen: The patient has NOT traveled to a country currently being monitored by the [facility] within the last 14 days. Proceed with normal triage procedures. The patient has NOT had contact with any known and/or suspected case of coronavirus. Proceed with normal triage procedures. Ebola Screen: Patient negative for fever greater than or equal to 101.5 degrees Fahrenheit, and additional compatible Ebola Virus Disease symptoms Patient denies exposure to infectious person. Patient denies travel to an Ebola-affected area in the 21 days before illness onset. No symptoms or risks identified at this time. Initial Sepsis Screen: Does the patient meet any 2 criteria? No. Patient's initial sepsis screen is negative. Does the patient have a suspected source of infection? No. Patient's initial sepsis screen is negative. Risk Assessment: Do you want to hurt yourself or someone else? Patient reports no desire to harm self or others. 16:53 Method Of Arrival: Ambulatory dm5 16:53 Acuity: SHIRA 3 dm5 17:39 Onset of symptoms was June 26, 2019 at 08:00. ls4 Triage Assessment: 17:34 General: Appears in no apparent distress. Behavior is calm, cooperative. Pain: ls4 Complains of pain in GENERALIZED Pain currently is 7 out of 10 on a pain scale. Neuro: Level of Consciousness is awake, alert, obeys commands, Oriented to person, place, time, situation. Cardiovascular: No deficits noted. Denies chest pain. Respiratory: Airway is patent Respiratory effort is even, unlabored. GI: No signs and/or symptoms were reported involving the gastrointestinal system. : No signs and/or symptoms were reported regarding the genitourinary system. Derm: No signs and/or symptoms reported regarding the dermatologic system. Musculoskeletal: No deficits noted. No signs and/or symptoms reported regarding the musculoskeletal system. Historical: - Allergies: 16:56 Cipro (Hives); itching; dm5 16:56 Iodine; dm5 17:34 Iodinated Contrast Media; ls4 - PMHx: 17:34 blockages; CHF; Diabetes - IDDM; Hypertension; Leg blockages; ls4 - Immunization history:: Adult Immunizations up to date. - Social history:: Smoking status: Patient denies any tobacco usage or history of. - Family history:: not pertinent. Screenin:38 Abuse screen: Denies threats or abuse. Nutritional screening: No deficits noted. ls4 Tuberculosis screening: No symptoms or risk factors identified. Fall Risk None identified. Assessment: 17:40 General: SEE TRIAGE. ls4 18:40 Reassessment: Patient appears in no apparent distress at this time. Patient and/or ls4 family updated on plan of care and expected duration. Pain level reassessed. Patient is alert, oriented x 3, equal unlabored respirations, skin warm/dry/pink. 19:40 Reassessment: Patient appears in no apparent distress at this time. Patient and/or ls4 family updated on plan of care and expected duration. Pain level reassessed. Patient is alert, oriented x 3, equal unlabored respirations, skin warm/dry/pink. Patient states symptoms have improved. 20:40 Reassessment: Patient appears in no apparent distress at this time. Patient and/or ls4 family updated on plan of care and expected duration. Pain level reassessed. Patient is alert, oriented x 3, equal unlabored respirations, skin warm/dry/pink. PT GIVEN TURKEY SANDWICH, DIET SPRITE AND FRUIT. TOLERATED WELL . 21:41 Reassessment: Patient appears in no apparent distress at this time. Patient and/or ls4 family updated on plan of care and expected duration. Pain level reassessed. Patient is alert, oriented x 3, equal unlabored respirations, skin warm/dry/pink. 22:40 Reassessment: Patient appears in no apparent distress at this time. Patient and/or ls4 family updated on plan of care and expected duration. Pain level reassessed. Patient is alert, oriented x 3, equal unlabored respirations, skin warm/dry/pink. Patient states symptoms have improved. Vital Signs: 16:53 BP 172 / 52; Pulse 52; Resp 18; Temp 97.3; Pulse Ox 99% on R/A; Weight 80.29 kg (R); dm5 Height 5 ft. 7 in. (170.18 cm) (R); Pain 7/10; 18:30 BP 146 / 62; Pulse 52; Resp 14; Pulse Ox 98% on R/A; Pain 5/10; ls4 19:47 BP 148 / 52; Pulse 49; Resp 14; Temp 97.4; Pulse Ox 99% on R/A; Pain 5/10; ls4 21:40 BP 174 / 70; Pulse 47; Resp 14; Pulse Ox 94% on R/A; Pain 0/10; ls4 22:50 BP 152 / 70; Pulse 49; Resp 14; Temp 97.5(O); Pulse Ox 97% on R/A; Pain 0/10; ls4 16:53 Body Mass Index 27.72 (80.29 kg, 170.18 cm) dm5 ED Course: 16:10 Patient arrived in ED. am2 16:10 Jonel Sanders MD is Private Physician. am2 16:56 Triage completed. dm5 17:00 Ade Fulton, RAYRAY is Primary Nurse. ls4 17:00 Arm band placed on. ls4 17:03 Brenton Maher MD is Attending Physician. ester 17:38 Patient has correct armband on for positive identification. Placed in gown. Bed in low ls4 position. Call light in reach. Side rails up X 1. Pulse ox on. NIBP on. Warm blanket given. Pillow given. 17:38 No provider procedures requiring assistance completed. ls4 17:45 Initial lab(s) drawn, by wy, sent to lab. First set of blood cultures drawn by wy. lt1 17:52 Inserted saline lock: 22 gauge in right antecubital area, using aseptic technique. lt1 18:05 XRAY Chest (1 view) In Process Unspecified. EDMS 18:20 Second set of blood cultures drawn by wy. lt1 18:24 Blood Culture Adult (2) Sent. lt1 18:24 Urine collected: clean catch specimen, EKG done, by ED staff. lt1 18:52 Bladder scan completed. 0 ML POST VOID. ls4 18:52 Patient admitted, IV remains in place. ls4 19:37 Jonel Sanders MD is Hospitalizing Provider. [facility] 19:50 Jorje Meyers MD is Hospitalizing Provider. [facility] 19:52 Hospitalizing Provider role handed off by Jorje Meyers MD 19:52 Jonel Sanders MD is Hospitalizing Provider. dw Administered Medications: 18:55 Drug: NS 0.9% 1000 ml Route: IV; Rate: 1 bolus; Site: right antecubital; ls4 20:55 Follow up: IV Status: Completed infusion; IV Intake: 1000ml ls4 18:55 Drug: Solu-CORTEF 100 mg Route: IVP; Site: right antecubital; ls4 19:15 Follow up: Response: No adverse reaction; Marked relief of symptoms ls4 18:55 Drug: Rocephin 1 grams Route: IV; Rate: per protocol; Site: right antecubital; ls4 19:05 Follow up: IV Status: Completed infusion; IV Intake: 10ml ls4 19:05 Follow up: Response: No adverse reaction ls4 18:55 Drug: Zofran (Ondansetron) 4 mg Route: IVP; Site: right antecubital; ls4 19:15 Follow up: Response: No adverse reaction; Marked relief of symptoms ls4 Intake: 19:05 IV: 10ml; Total: 10ml. ls4 20:55 IV: 1000ml; Total: 1010ml. ls4 Outcome: 19:38 Decision to Hospitalize by Provider. [facility] 23:01 Admitted to [facility] ls4 23:01 Admitted to 23:01 Condition: stable 23:01 Instructed on the need for admit. 23:12 Patient left the ED. mw2 Signatures: Dispatcher [employer] EDMS Suzanne Gracia RN RN dm5 Mandy Coffey, RN RN Brenton Lomeli MD MD cha Moreno, Amanda am2 Rosa Isela Drake mw2 Ade Fulton RN RN ls4 Liset Vasquez lt1
[2019-06-29] MEDS: INSULIN -REGULAR HUMAN 50 UNIT/0.5 ML ML SQ SCH (22:43)
[2019-06-29] MEDS ORDERED: ALBUTEROL 2.5 MG/3 ML NEB SOL NEB PRN (22:43)
[2019-06-29] MEDS ORDERED: ONDANSETRON 4 MG/2 ML VIAL IV PRN (22:43)
[2019-06-29] MEDS ORDERED: IPRATROPIUM BROM 0.5MG/2.5ML NEB PRN (22:43)
[2019-06-29] MEDS ORDERED: GLUCAGON 1 MG/VIAL IM PRN (22:43)
[2019-06-29] MEDS ORDERED: ACETAMINOPHEN 500 MG TAB PO PRN (22:43)
[2019-06-29] MEDS ORDERED: D50W 25 GM/50 ML SYRINGE IV PRN (22:43)
[2019-06-29] MEDS ORDERED: NA CHLORIDE 0.9% 1,000 ML IV SCH (22:43)
[2019-06-30 00:05] VITALS: BMI 28.3
[2019-06-30] MEDS: AZITHROMYCIN IV 250 MG in NA CHLORIDE 0.9% 250 ML IVPB SCH ×2 (01:00→21:12)
[2019-06-30] MEDS ORDERED: AZITHROMYCIN 500 MG INJ IVPB ONE (01:28)
[2019-06-30] MEDS ORDERED: NA CHLORIDE 0.9% 250 ML ONE (01:32)
[2019-06-30 06:09] LABS: Absolute Lymphocytes (CBC) 0.6 K/uL (0.7-4.9); Basophils % 0.3 % (0-1.3); Hematocrit 29.3 % (39.6-49.0); Lymphocytes % 7.9 % (15.3-44.8); MPV 9.3 fL (7.6-11.3); RBC Red Blood Cell Count 3.46 M/uL (4.33-5.43)
[2019-06-30] MEDS: INSULIN -REGULAR HUMAN 50 UNIT/0.5 ML ML SQ SCH ×4 (07:30→21:12)
--- NOTE | 2019-06-30 07:37 | P.HP ---
Certification for Inpatient Patient admitted to: Inpatient With expected LOS: >2 Midnights Patient will require the following post-hospital care: None Practitioner: I am a practitioner with admitting privileges, knowledge of patient current condition, hospital course, and medical plan of care. Services: Services provided to patient in accordance with Admission requirements found in Title 42 Section 412.3 of the Code of Federal Regulations Patient History Date of Service: 06/29/19 Reason for admission: Generalized weakness and dehydration; upper respiratory infection History of Present Illness: Patient is a 79-year-old gentleman who is a patient of Dr. Sanders, and he came to the hospital feeling really weak and lightheaded. He was having a hard time ambulating because he was so weak. Patient has had coughing congestion as well. He came into the emergency room for further evaluation. He denies having a fever. He has just had generalized weakness and he has been feeling weak and fatigued. In the emergency room, he was found to have acute renal insufficiency. He was also slightly anemic. He has a upper respiratory infection which will monitor closely. He will be admitted to the hospital for IV hydration. He will also need monitoring of his heart rate as he was having some Bradyarrhythmias in the emergency room. If he does have a fever we may need to do further imaging studies of his lungs to assess if he is developing a pneumonia. Patient will be admitted to the hospital for inpatient hospitalization Allergies ciprofloxacin [From Cipro] Allergy (Verified 06/29/19 23:05) Itching/Hives/Rash Iodinated Contrast Media Allergy (Verified 06/29/19 23:05) Itching/Hives/Rash iodine Allergy (Verified 06/29/19 23:05) Itching/Hives/Rash - Past Medical/Surgical History Has patient received pneumonia vaccine in the past: Yes Diabetic: Yes -: Diabetes mellitus type 2 insulin dependent -: HTN -: CHF likely systolic -: COPD -: Hyperlipidemia -: CAD with prior CABG -: Former tobacco use -: Alcohol use -: CABG x3 vessel 2007 -: mild mi in 2007 -: right eye sx -: left eye blindness -: left knee sx -: 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 moist/pink, EOMI, Sclerae nonicteric Neck: Supple, 2+ carotid pulse no bruit, No LAD, Without JVD or thyroid abnormality Respiratory: Clear to auscultation bilaterally, Normal air movement Cardiovascular: Regular rate/rhythm, Normal S1 S2, No murmurs Gastrointestinal: Normal bowel sounds, Soft and benign, Non-distended, No tenderness Musculoskeletal: No clubbing, No swelling, No tenderness Integumentary: No rashes Neurological: Normal speech, Normal tone, Sensation intact, Cranial nerves 3-12 intact, Normal affect, Abnormal gait, Abnormal strength Lymphatics: No axilla or inguinal lymphadenopathy - Studies Laboratory Data (last 24 hrs) 06/29/19 17:45: PT 12.7 H, INR 1.08 06/29/19 17:45: WBC 7.2, Hgb 9.6 L, Hct 29.5 L, Plt Count 137 L 06/29/19 17:45: Sodium 142, Potassium 4.7, BUN 43 H, Creatinine 1.71 H, Glucose 98, Magnesium 3.3 H D, Total Bilirubin 0.6, AST 20, ALT 37, Alkaline Phosphatase 77 Microbiology Data (last 24 hrs): 06/29/19 17:06 Nasopharnyx Influenza Type A Antigen Screen - Final 06/29/19 17:06 Nasopharnyx Influenza Type B Antigen Screen - Final Assessment & Plan - Problems (Diagnosis) (1) Generalized weakness Current Visit: Yes Status: Acute (2) Lightheadedness Current Visit: Yes Status: Acute (3) Acute kidney injury Current Visit: Yes Status: Acute (4) Upper respiratory infection Current Visit: Yes Status: Acute (5) Prerenal azotemia Current Visit: Yes Status: Acute - Plan Plan: 1. Aggressive IV hydration 2. Monitor renal function closely 3. Physical therapy evaluation 4. Monitor vitals closely and notify physician if fever 5. If repeat chest x-ray in a.m. 6. Monitor H&H 7. Continue strict blood pressure and blood sugar control and resume cardiac meds 8. GI and DVT prophylaxis Discharge Plan: Home Plan to discharge in: Greater than 2 days - Advance Directives Does patient have a Living Will: No Does patient have a Durable POA for Healthcare: No - Code Status/Comfort Care Code Status Assessed: Yes Code Status: Full Code Critical Care: No Time Spent Managing PTS Care (In Minutes): 45
[2019-06-30] MEDS ORDERED: BENZONATATE 100 MG CAP PO PRN (07:40)
--- NOTE | 2019-06-30 07:42 | P.PN ---
Subjective Date of Service: 06/30/19 Patient is feeling clinically better. He has not gotten up to ambulate to see what his strength is like. Will encourage him to do that today and will put in a Physical therapy consultation as well. Review of Systems 10-point ROS is otherwise unremarkable Physical Examination - Vital Signs Temperature: 97.8 F Blood Pressure: 162/72 Pulse: 60 Respirations: 16 Pulse Ox (%): 95 - Physical Exam General: Alert, In no apparent distress, Oriented x3 HEENT: Atraumatic, PERRLA, EOMI Neck: Supple, JVD not distended Respiratory: Clear to auscultation bilaterally, Normal air movement Cardiovascular: Regular rate/rhythm, Normal S1 S2, No murmurs Gastrointestinal: Normal bowel sounds, Soft and benign, Non-distended, No tenderness Musculoskeletal: No tenderness Integumentary: No rashes Neurological: Normal speech, Normal tone, Sensation intact, Cranial nerves 3-12 intact, Normal affect, Abnormal strength Lymphatics: No axilla or inguinal lymphadenopathy - Studies Laboratory Data (last 24 hrs) 06/29/19 17:45: PT 12.7 H, INR 1.08 06/29/19 17:45: WBC 7.2, Hgb 9.6 L, Hct 29.5 L, Plt Count 137 L 06/29/19 17:45: Sodium 142, Potassium 4.7, BUN 43 H, Creatinine 1.71 H, Glucose 98, Magnesium 3.3 H D, Total Bilirubin 0.6, AST 20, ALT 37, Alkaline Phosphatase 77 Microbiology Data (last 24 hrs): 06/29/19 17:06 Nasopharnyx Influenza Type A Antigen Screen - Final 06/29/19 17:06 Nasopharnyx Influenza Type B Antigen Screen - Final Medications List Reviewed: Yes Assessment & Plan - Problems (Diagnosis) (1) Generalized weakness Current Visit: Yes Status: Acute (2) Lightheadedness Current Visit: Yes Status: Acute (3) Acute kidney injury Current Visit: Yes Status: Acute (4) Upper respiratory infection Current Visit: Yes Status: Acute (5) Prerenal azotemia Current Visit: Yes Status: Acute - Plan Plan: continue with current plan of care as mentioned below 1. Will decrease IV hydration at this time; monitor renal function 2. Monitor renal function closely; this is improving 3. Physical therapy evaluation pending 4. Patient remains afebrile 5. Repeat x-ray in a.m. 6. Monitor H&H-stable 7. Continue strict blood pressure and blood sugar control and resume cardiac meds 8. GI and DVT prophylaxis - Advance Directives Does patient have a Living Will: No Does patient have a Durable POA for Healthcare: No - Code Status/Comfort Care Code Status: Full Code
[2019-06-30] MEDS ORDERED: METHYLPREDNISOLONE 125 MG INJ IV ONE (08:00)
--- NOTE | 2019-06-30 08:18 | RAD REPORT ---
EXAM DESCRIPTION: RAD - Chest Single View - 06/30/2019 7:09 am CLINICAL HISTORY: Chest Pain COMPARISON: June 28 TECHNIQUE: AP portable chest image was obtained 06/30/2019 7:09 am . FINDINGS: Lungs are slightly underinflated. Mild cardiomegaly is present with vascular engorgement. Lung markings are mildly prominent. Interstitial pattern appears slightly increased. Vasculature may be slightly increased. Correlation i s needed with any clinical or exam findings of early CHF/volume overload. No measurable pleural effus ion and no pneumothorax. No acute bony abnormality seen. No acute aortic findings suspected. IMPRESSION: Vasculature and lung markings are slightly increased over comparison. Correlation is nee ded with any early CHF/volume overload findings.
[2019-06-30] MEDS ORDERED: FAMOTIDINE 20 MG/2 ML VIAL IV SCH (09:00)
[2019-06-30] MEDS: CEFTRIAXONE/SWI 1gm 1 GM/10 ML SYR IV SCH (09:01)
[2019-06-30] MEDS: NA CHLORIDE 0.9% 1,000 ML IV SCH ×2 (09:38→21:12)
[2019-06-30] MEDS ORDERED: HYDRALAZINE HCL 20 MG/ML VIAL IV ONE (12:30)
[2019-06-30] MEDS: FUROSEMIDE 40 MG TABLET PO SCH (16:07)
[2019-06-30] MEDS ORDERED: carvediloL 12.5 MG TAB PO SCH (18:00)
[2019-06-30] MEDS ORDERED: cloNIDine HCL 0.1 MG TAB PO STA (18:33)
[2019-06-30] MEDS: ALBUTEROL 2.5 MG/3 ML NEB SOL NEB PRN (20:00)
[2019-06-30] MEDS: IPRATROPIUM BROM 0.5MG/2.5ML NEB PRN (20:00)
[2019-06-30] MEDS ORDERED: TEMAZEPAM 15 MG CAP PO PRN (20:14)
[2019-06-30] MEDS ORDERED: TEMAZEPAM 15 MG CAP PO ONE (20:45)
[2019-06-30] MEDS ORDERED: HYDRALAZINE HCL 25 MG TABLET PO SCH (21:00)
[2019-07-01] MEDS: ALBUTEROL 2.5 MG/3 ML NEB SOL NEB PRN ×2 (01:20→17:16)
[2019-07-01] MEDS: IPRATROPIUM BROM 0.5MG/2.5ML NEB PRN ×2 (01:20→17:16)
[2019-07-01 06:19] LABS: Absolute Lymphocytes (CBC) 0.5 K/uL (0.7-4.9); Basophils % 0.1 % (0-1.3); Hematocrit 30.4 % (39.6-49.0); Lymphocytes % 4.6 % (15.3-44.8); MPV 9.3 fL (7.6-11.3)
[2019-07-01 06:24] LABS: Phosphorus 3.2 mg/dL (2.5-4.9); Potassium 4.7 mmol/L (3.5-5.1)
--- NOTE | 2019-07-01 06:57 | EKG ---
Test Date: 2019-06-29 Test Time: 17:57:22 Historical Site Guide: MARJORIE MEASUREMENT RESULTS: Intervals: Rate: 45 WA: 164 QRSD: 86 QT: 486 QTc: 420 Stryker: P: 31 WA: 164 QRS: 43 T: 142 INTERPRETIVE STATEMENTS: Sinus bradycardia Possible Anterior infarct, age undetermined ST & T wave abnormality, consider lateral ischemia Abnormal ECG Compared to ECG 04/14/2019 17:17:16 ST (T wave) deviation now present Possible ischemia now present Sinus rhythm no longer present Myocardial infarct finding still present Electronically Signed On 07-01-19 06:55:07 CDT by Axel Moreno
[2019-07-01] MEDS: INSULIN -REGULAR HUMAN 50 UNIT/0.5 ML ML SQ SCH ×4 (07:30→20:23)
[2019-07-01] MEDS: CEFTRIAXONE/SWI 1gm 1 GM/10 ML SYR IV SCH (08:02)
[2019-07-01] MEDS: FUROSEMIDE 40 MG TABLET PO SCH ×2 (08:03→17:00)
[2019-07-01] MEDS: AMLODIPINE 10 MG TAB PO SCH (08:03)
[2019-07-01] MEDS: HYDRALAZINE HCL 25 MG TABLET PO SCH ×3 (08:03→20:24)
[2019-07-01] MEDS: ASPIRIN EC 81 MG TAB PO SCH (08:18)
[2019-07-01] MEDS: CLOPIDOGREL 75 MG TABLET PO SCH (08:18)
[2019-07-01] MEDS: carvediloL 12.5 MG TAB PO SCH ×2 (08:18→20:26)
[2019-07-01] MEDS: GABAPENTIN 300 MG CAP PO SCH (08:18)
--- NOTE | 2019-07-01 08:26 | RAD REPORT ---
EXAM DESCRIPTION: US - Renal Ultrasound-Complete - 06/30/2019 10:16 pm CLINICAL HISTORY: AMBER Flank pain COMPARISON: Abdomen Exam Complete dated 10/01/2015 FINDINGS: Both kidneys are normal in size, shape and echotexture. The right kidney measures 11.6 x 6.0 x 5.2 cm. No hydronephrosis, focal mass or perinephric fluid. Be nign 3.5 x 3.4 cm cyst. The left kidney measures 11.3 x 5.5 x 5.1 cm. No hydronephrosis, focal mass or perinephric fluid. The urinary bladder is incompletely distended without gross abnormality seen. IMPRESSION: Unremarkable renal sonogram. Benign 3.5 cm right renal cyst.
[2019-07-01] MEDS ORDERED: MOMETASONE IH SCH (09:00)
[2019-07-01] MEDS ORDERED: FORMOTEROL IH SCH (09:00)
[2019-07-01 09:19] LABS: Anisocytosis 2+; Blood Morphology Comment NOTED (NOT SEEN); Platelet Estimate ADEQ; Poikilocytosis 1+; White Blood Cell Scan OK
[2019-07-01] MEDS: DOCUSATE CALCIUM 240 MG CAP PO SCH ×2 (12:13→20:23)
[2019-07-01] MEDS ORDERED: HEPARIN 500 UNIT/5 ML SYR IV PRN (13:31)
[2019-07-01] MEDS ORDERED: DIPHENHYDRAMINE 25 MG TAB/CAP PO PRN (19:06)
[2019-07-01] MEDS: ATORVASTATIN 40 MG TAB PO SCH (20:24)
[2019-07-01] MEDS: INSULIN DEGLUDEC 18 UNIT SQ SCH (21:00)
[2019-07-01] MEDS ORDERED: AZITHROMYCIN 250 MG TAB PO SCH (21:00)
[2019-07-02] MEDS: HYDRALAZINE HCL 20 MG/ML VIAL IV PRN ×2 (05:29→17:56)
[2019-07-02] MEDS: INSULIN -REGULAR HUMAN 50 UNIT/0.5 ML ML SQ SCH ×4 (07:30→21:00)
[2019-07-02] MEDS: DOCUSATE CALCIUM 240 MG CAP PO SCH ×2 (08:25→20:24)
[2019-07-02] MEDS: AMLODIPINE 10 MG TAB PO SCH (08:26)
[2019-07-02] MEDS: HYDRALAZINE HCL 25 MG TABLET PO SCH ×3 (08:27→20:26)
[2019-07-02] MEDS: GABAPENTIN 300 MG CAP PO SCH (08:27)
[2019-07-02] MEDS: ASPIRIN EC 81 MG TAB PO SCH (08:27)
[2019-07-02] MEDS: FUROSEMIDE 40 MG TABLET PO SCH ×2 (08:28→17:50)
[2019-07-02] MEDS: CEFTRIAXONE/SWI 1gm 1 GM/10 ML SYR IV SCH ×2 (08:28→11:52)
[2019-07-02] MEDS: CLOPIDOGREL 75 MG TABLET PO SCH (08:29)
[2019-07-02] MEDS: carvediloL 12.5 MG TAB PO SCH ×2 (08:42→20:25)
[2019-07-02] MEDS: MORPHINE 4 MG/ML SYR IV PRN ×2 (08:47→19:28)
--- NOTE | 2019-07-02 12:59 | RAD REPORT ---
EXAM DESCRIPTION: CT - Abdomen Pelvis Wo Contrast - 07/02/2019 12:06 pm CLINICAL HISTORY: sudden abdominal pain , patient details left lower quadrant pain for several months progressively getting worse COMPARISON: Abdomen Pelvis Wo Contrast dated 09/05/2018; Chest Single View dated 06/30/2019 TECHNIQUE: Axial [address] imaging of the abdomen and pelvis was performed without IV contrast. No IV contrast was given because of allergy, abnormal renal function, patient refusal or physician re quest. Oral contrast was given. All CT scans are performed using dose optimization technique as appropriate and may include automated exposure control or mA/KV adjustment according to patient size. FINDINGS: Small bilateral pleural effusions are present worse on the right. These are new from the p rior study. Minimal posterior gutter atelectasis present. Pleural calcifications are present matching prior study. Heart size is upper range of normal. No pericardial thickening or effusion. The liver, spleen and pancreas show no suspicious findings on non-contrast imaging. Cholecystectomy c lips are present. No biliary tree dilatation. No hydronephrosis or suspicious renal mass. A 3.8 centimeter cyst upper pole right kidney unchanged f rom comparison. Symmetric perinephric stranding pattern is nonspecific and unchanged from prior study . No significant adrenal finding. Isodense renal masses and pyelonephritis cannot be excluded in the absence of IV contrast. The urinary bladder is without significant finding. No gastric dilatation, wall thickening or mass. No dilated small bowel loops. CT contrast has reached the left-side of the transverse colon. Patient has a moderately large stool volume. Very prominent s igmoid and distal descending colon diverticulosis is present. No colon mass identifiable. No free air, free fluid or pneumatosis. No hernia, mass or bulky lymphadenopathy. No suspicious bony findings. IMPRESSION: Prominent diverticulosis seen in a tortuous sigmoid colon as well as in the distal porti on of the descending colon. There is no wall thickening or mass identifiable. Patient does have a trace amount of stranding in the soft tissues along the posterior margin of the s igmoid colon. This is slightly worse but not new from August 2018. This may represent a mild diverticulitis. No abscess or free air. Retroperitoneal fibrosis is possibl e as well. Small bilateral pleural effusions with lung base atelectasis. Full assessment is limited is the absence of IV contrast.
[2019-07-02] MEDS: ATORVASTATIN 40 MG TAB PO SCH (20:25)
[2019-07-02] MEDS: INSULIN DEGLUDEC 18 UNIT SQ SCH (21:00)
--- NOTE | 2019-07-02 22:20 | PN ---
Patient started having abdominal pain today. He is tender in the left upper quadrant. I will do a C AT scan to see if there is an acute process going on. Patient's blood sugar this morning is 102. La st creatinine 1.43. He will have CAT scan without any IV contrast. His lungs, he has few wheezes, otherwise negative. He is afebrile. JEMAL/MAZIN Voice ID: [id number] Report ID: [id number]
[2019-07-03] MEDS: MORPHINE 4 MG/ML SYR IV PRN (01:06)
[2019-07-03] MEDS: INSULIN -REGULAR HUMAN 50 UNIT/0.5 ML ML SQ SCH (07:30)
[2019-07-03] MEDS: DOCUSATE CALCIUM 240 MG CAP PO SCH (08:12)
[2019-07-03] MEDS: CEFTRIAXONE/SWI 1gm 1 GM/10 ML SYR IV SCH (08:13)
[2019-07-03] MEDS: CLOPIDOGREL 75 MG TABLET PO SCH (08:13)
[2019-07-03] MEDS: GABAPENTIN 300 MG CAP PO SCH (08:13)
[2019-07-03] MEDS: ASPIRIN EC 81 MG TAB PO SCH (08:13)
[2019-07-03] MEDS: AMLODIPINE 10 MG TAB PO SCH (08:15)
[2019-07-03] MEDS: carvediloL 12.5 MG TAB PO SCH (08:16)
[2019-07-03] MEDS: HYDRALAZINE HCL 25 MG TABLET PO SCH (08:16)
[2019-07-03] MEDS: FUROSEMIDE 40 MG TABLET PO SCH (08:17)
[2019-07-03 09:30] VITALS: O2SAT 99
[2019-07-03 09:36] VITALS: BP 154/53
[2019-07-03 09:54] VITALS: TEMP 98.5
--- NOTE | 2019-08-21 10:58 | DS ---
Date of Discharge: 07/03/2019 Final Diagnoses: 1.Dehydration. 2.Azotemia from above. 3.Upper respiratory infection. 4.Hypertension. 5.History of coronary artery disease. Hospital Course: This patient was admitted through emergency room because of increased BUN and creat inine, dizziness and fatigue. The patient received IV fluids to rehydrate the patient and to correct azotemia. Patient also received antibiotic for upper respiratory infection. The patient did not davalos ve any evidence of pneumonia. The patient developed abdominal pain. This was worked up while he was in the hospital. The patient had diverticulosis without any diverticulitis. There was no evidence of acute abdomen. In view of this, the patient was continued on supportive care and he was discharge d home on 07/03/2019 to have outpatient followup. Laboratory Data: White count at admission was 10.3, hemoglobin 9.9. Chem profile at admission; BUN 40, creatinine 1.5. Repeat Chem profile, BUN 35, creatinine 1.43, showing improvement. MARCELK/MODL Voice ID: [id number] Report ID: [id number]
== END 2019-07-03 09:38 | disposition home or self-care (01) | DRG 640 ==
LOC: ER 16:10 → ERHOLD 19:41 → 4TH 22:35
PROVIDERS: ADMIT Internal Medicine; ATTEND Hospitalist
DX: E86.9 Volume depletion, unspecified (principal); I50.23 Acute on chronic systolic (congestive) heart failure; N17.9 Acute kidney failure, unspecified; J06.9 Acute upper respiratory infection, unspecified; R79.89 Other specified abnormal findings of blood chemistry; D64.9 Anemia, unspecified; E11.9 Type 2 diabetes mellitus without complications; I25.10 Atherosclerotic heart disease of native coronary artery without angina pectoris; J44.9 Chronic obstructive pulmonary disease, unspecified; Z95.1 Presence of aortocoronary bypass graft
CPT/HCPCS: 36415; 71045; 74176; 76770; 80048; 80076; 81003; 82947; 83735; 83880; 84100; 84145; 84484; 85025; 85610; 87040; 87086; 87088; 87804; 93005; 94640; 94760; 96361; 96374; 96375; 97116; 97161; 97530; 99285; J0360; J0456; J0696; J1720; J2405; J2930; J7030

== ENCOUNTER 2019-11-23 09:17 | Emergency (ER) | payer OTHER ==
--- OUTSIDE RECORDS SUMMARY | 2019-11-23 09:22 | XMS REPORT | Clinical Summary ---
:1940 Author Organization [facility] Address [address] [place] [address] Care Team Providers Name Role Phone Jonel Comer MD Primary Care Provider Allergies Active Allergy Reactions Severity Noted Date Comments Ciprofibrate 11/27/2018 Iodine And Iodide Containing Products Hives Medium Medications Medication Sig Dispensed Refills Start End Date Status Date cimetidine Take 400 mg by 0 Acti ve (TAGAMET) 400 MG mouth daily. X tablet 3 days amLODIPine 0 Active (NORVASC) 10 mg 7 tablet mometasone-formoter Inhale 2 puffs 0 Active ol (DULERA) 100-5 2 (two) times a mcg/actuation day. inhaler blood sugar Test glucose at 30 strip 3 Ac tive diagnostic strips least once 8 (ACCU-CHEK CHEMO daily PLUS TEST STRP) strip test strips blood sugar Please check 200 strip 6 Activ e diagnostic strips blood sugar 8 (ACCU-CHEK CHEMO) before meals strip test and at bedtime, stripsIndications: at least three Type 2 diabetes times daily mellitus with other diabetic kidney complication, with long-term current use of insulin (HCC) pen needle, 12 Units 30 each 3 Active diabetic (PEN nightly. Use 8 NEEDLE) 32 gauge x with insulin " needle glargine as ordered lancets (onetouch Check your 60 each 5 A ctive ultrasoft) misc blood sugar 8 before meals and at bedtime, at least three times daily furosemide (LASIX) Take 40 mg by 0 Active 20 mg tablet mouth 2 (two) times a day. PM dose only if needed aspirin 81 mg Chew 81 mg. 0 Acti ve chewable tablet atorvastatin Take 40 mg by 0 Act yancy (LIPITOR) 40 MG mouth daily. 8 tablet clopidogrel 0 Active (PLAVIX) 75 mg 8 tablet carvedilol (COREG) Take 12.5 mg by 6 Active 12.5 MG tablet mouth 2 (two) 9 times a day with meals. insulin degludec Inject 0.18 mL 15 mL 2 05/10/19 Active 100 unit/mL (3 mL) (18 Units 0 21 insulin pen total) under the skin daily for 250 days. gabapentin Take 2 capsules 30 capsule 2 09/03/19 Ac tive (Neurontin) 100 mg (200 mg total) 0 21 capsule by mouth daily. predniSONE Take 20 mg by 0 04/19/19 Disco ntinued (DELTASONE) 20 mg mouth daily. X 20 (Stop Taking at tablet 3 days Discharge) hydrOXYzine Take 25 mg by 0 12/11/19 Disc ontinued (ATARAX) 25 MG mouth daily. X 19 tablet 3 days sitaGLIPtin Take 1 tablet 30 tablet 3 12/11/19 Disc ontinued (JANUVIA) 25 MG (25 mg total) 8 19 tablet by mouth daily. blood-glucose meter Please check 1 each 0 0 kitIndications: glucose before 8 19 Type 2 diabetes meals and at mellitus with other bedtime diabetic kidney complication, with long-term current use of insulin (HCC) hydrALAZINE Take 25 mg by 5 04/19/19 Disc ontinued (APRESOLINE) 25 MG mouth 2 (two) 9 20 (Stop Taking at tablet times a day. Dischar ge) BREO ELLIPTA 200-25 Inhale 1 0 12/11/19 Discontinued mcg/dose blister inhalations 9 19 with device powder once daily. for inhalation insulin degludec Inject 0.18 mL 15 mL 1 11/28/19 Discontinued 100 unit/mL (3 mL) (18 Units 9 19 ( Reorder) insulin pen total) under the skin daily. metOLazone Take 2.5 mg by 5 12/11/19 Disc ontinued (ZAROXOLYN) 2.5 MG mouth daily. 9 19 tablet insulin degludec Inject 0.18 mL 15 mL 2 02/27/20 Discontinued 100 unit/mL (3 mL) (18 Units 9 19 ( Reorder) insulin pen total) under the skin daily. gabapentin Take 1 capsule 60 capsule 0 01/27/20 Exp ired (NEURONTIN) 300 mg (300 mg total) 9 19 capsule by mouth nightly for 60 days. diphenhydrAMINE Take 25 mg by 0 12/11/19 (BENADRYL) 25 mg mouth daily. 9 19 tablet insulin degludec Inject 0.18 mL 15 mL 2 06/04/19 Discontinued 100 unit/mL (3 mL) (18 Units 9 20 ( Reorder) insulin pen total) under the skin daily. hydrALAZINE Take 1 tablet 60 tablet 3 05/19/19 Expi red (APRESOLINE) 50 MG (50 mg total) 0 20 tablet by mouth 2 (two) times a day for 30 days. insulin GLARGINE Inject 20 Units 6 mL 0 0 (LANTUS) 100 under the skin 0 20 unit/mL injection nightly for 30 (vial) days. isosorbide Take 1 tablet 30 tablet 2 05/20/19 Expir ed mononitrate (IMDUR) (120 mg total) 0 20 120 MG 24 hr tablet by mouth daily for 30 days. insulin degludec Inject 0.18 mL 15 mL 2 09/03/19 Discontinued 100 unit/mL (3 mL) (18 Units 0 20 ( Reorder) insulin pen total) under the skin daily. gabapentin Take 1 capsule 30 capsule 2 07/04/19 Exp ired (NEURONTIN) 100 mg (100 mg total) 0 20 capsule by mouth nightly as needed (for lower extremity numbness) for up to 30 days. 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 12/15/2017 Coronary artery disease involving osage coronary aguilar ry 12/15/2017 Mild intermittent asthma 12/15/2017 Asbestosis 04/17/1992 Encounters Date Type Specialty Care Team Description 11/10/2019 Orders Only Endocrinology Lala Fernandes mellitus chong Valderrama 2, MD uncontrolled, without complications ( HCC) (Primary Dx) 11/06/2019 Orders Only Endocrinology Scar Delgado, Diabetic Enrique Muniz polyneuropat hy associated with type 2 diabetes taylor itus (HCC) (Primary Dx) 09/03/2019 Telephone Consult Endocrinology Scar Delgado, Unco ntrolled type 2 lala Valderrama MD with background retinopathy (HC C) 09/03/2019 Travel 06/04/2019 Office Visit Endocrinology Lala Fernandes type 2, MD uncontrolled, without complications ( HCC) (Primary Dx) 04/16/2019 Surgery Procedural AttRhett collado, Selective c oronary Cardiology angiography [93 [id number] (CPT)] 04/16/2019 [facility] General Internal Yancy Leyva Other f orms of angina pectoris (HCC) (Primary Dx); - Encounter Medicine O. Sr., Chest pain, uns pecified type; 2019 Asbestosis (HCC ); Uncontrolled ty pe 2 diabetes mellitus with background retinopathy (HCC); Mild intermitte nt asthma without complication; Stage 3 chronic kidney disease (HCC); Peripheral vasc ular disease (HCC); Mixed hyperlipi demia 04/15/2019 Intake Access 02/26/2019 Office Visit Endocrinology Lala Fernandes type 2, MD uncontrolled, without complications ( HCC) (Primary Dx) 01/22/2019 [facility] Radiology [place], Cough Encounter Ruy Lafleur MD 01/22/2019 Transcribe Orders Access Emma [place] (Rajani dmia Dx) Ruy Lafleur MD 12/10/2018 Surgery Procedural AttRhett collado, CV AORTAGRA M ABDOMEN Cardiology WITH RUN OFF [7 [id number] (CPT)] 12/10/2018 Hospital Procedural Attar, SVETLANA Delaney (periph eral Encounter Cardiology vascular juan j pearl) (HCC) 11/27/2018 Office Visit Endocrinology Scar Delgado, Uncontrol led type 2 diabetes mellitus with hyperglycemia (HCC) (Primary Dx); Enrique Muniz, Stage 3 functional architect hamida kidney disease (HCC); Uncontrolled ty pe 2 diabetes mellitus with background retinopathy (HCC) after 11/22/2018 Immunizations Name Administration Dates Next Due FLUCELVAX QUAD PF 01/03/2018 Family History Medical History Relation Name Comments Early Father Diabetes Mother Hypertension Mother Relation Name Status Comments Father Mother Social History Tobacco Use Types Packs/Day Years Used Date Former Smoker Cigarettes Started: 1997 Smokeless Tobacco: Never Used Alcohol Use Drinks/Week oz/Week Comments Yes 1 Cans of beer 1.0 rare Sex Assigned at Date Recorded Male 02/26/2019 5:55 AM [employer]Y PREPAR[employer] Job Start Date Occupation Industry Not on file Not on file Not on file Travel History Travel Start Travel End No recent travel history available. Last Filed Vital Signs Vital Sign Reading Time Taken Comments Blood Pressure 154/72 06/04/2019 11:27 AM COPY [employer]ER Pulse 50 06/04/2019 11:27 AM [employer]Y [employer]ER Temperature 36.6 C (97.8 F) 06/04/2019 11:27 AM COPY PREPARER Respiratory Rate 18 2019 7:43 AM COPY PREPARER Oxygen Saturation 100% 06/04/2019 11:27 AM COPY PREPARER Inhaled Oxygen Concentration - - Weight 78 kg (172 lb) 06/04/2019 11:27 AM COPY PREPARER Height 170.2 cm (5' 7") 06/04/2019 11:27 AM COPY PREPARER Body Mass Index 26.94 06/04/2019 11:27 AM COPY PREPARER Plan of Treatment Date Type Specialty Care Team Description 12/03/2019 Office Visit Endocrinology Enrique Fernandes MD [address] [address] [phone] Health Maintenance Due Date Last Done Comments DIABETIC RETINAL EYE EXAM 1940 DIABETIC FOOT EXAM 1952 SHINGLES VACCINES (#1) 1992 65+ PNEUMOCOCCAL VACCINE (1 of 2 - PCV13) 2007 INFLUENZA VACCINE 11/16/2019 04/18/2019, 01/03/2018 Implants Implanted Type Area Activities Specialist Device Shelf Expiration Model / Serial Identifier Date / Lot Lens-11/08/2017 Lens [id number] / Implanted: 11/08/2017 (Quantity not on file) [id number] / Artificial Lense Description:artifical lense Procedures Procedure Name Priority Date/Time Associated Diagnosis Comme nts LIPID PANEL Routine 08/29/2019 10:43 Diabetes mellitus Result s for this AM CDT type 2, uncontrolled, proced ure are in without complications the re sults (HCC) section. CBC WITH PLATELET AND Routine 08/29/2019 10:41 Diabetes mellit us Results for this DIFFERENTIAL AM CDT type 2, uncontrolled, proced ure are in without complications the re sults (HCC) section. HEMOGLOBIN A1C Routine 08/29/2019 10:41 Diabetes mellitus Resu lts for this AM CDT type 2, uncontrolled, proced ure are in without complications the re sults (HCC) section. BASIC METABOLIC PANEL Routine 08/29/2019 10:41 Diabetes mellit us Results for this AM CDT type 2, uncontrolled, proced ure are in without complications the re sults (HCC) section. MICROALBUMIN / Routine 05/30/2019 9:05 Diabetes mellitus Resu lts for this CREATININE URINE RATIO AM COPY PREPARER type 2, uncontroll ed, procedure are in without complications the re sults (HCC) section. BASIC METABOLIC PANEL Routine 05/30/2019 9:05 Diabetes mellit us Results for this AM COPY PREPARER type 2, uncontrolled, proced ure are in without complications the re sults (HCC) section. POC GLUCOSE Routine 2019 7:46 Results for this AM [employer]Y [employer]PARER procedure are i n the results section. ESTIMATED GFR Routine 2019 5:30 Results fo r this AM COPY [employer]ER procedure are i n the results section. BASIC METABOLIC PANEL Routine 2019 5:30 Re sults for this AM COPY PREPARER procedure are i n the results section. POC GLUCOSE Routine 2019 12:19 Results for this AM COPY PREPARER procedure are i n the results section. POC GLUCOSE Routine 04/18/2019 8:18 Results for this PM [employer]Y PREPARER procedure are i n the results section. POC GLUCOSE Routine 04/18/2019 7:03 Results for this PM COPY PREPARER procedure are i n the results section. POC GLUCOSE Routine 04/18/2019 6:27 Results for this PM COPY PREPARER procedure are i n the results section. POC GLUCOSE Routine 04/18/2019 4:17 Results for this PM COPY PREPARER procedure are i n the results section. POC GLUCOSE Routine 04/18/2019 2:50 Results for this PM COPY PREPARER procedure are i n the results section. POC GLUCOSE Routine 04/18/2019 1:15 Results for this PM [employer]Y PREPARER procedure are i n the results section. POC GLUCOSE Routine 04/18/2019 1:13 Results for this PM [employer]Y PREPARER procedure are i n the results section. NM LUNG VENTILATION Routine 04/18/2019 11:10 Resu lts for this PERFUSION AM COPY PREPARER procedure are i n the results section. POC GLUCOSE Routine 04/18/2019 8:19 Results for this AM [employer]Y PREPARER procedure are i n the results section. ESTIMATED GFR Routine 04/18/2019 6:05 Results fo r this AM COPY PREPARER procedure are i n the results section. BASIC METABOLIC PANEL Routine 04/18/2019 6:05 Re sults for this AM COPY PREPARER procedure are i n the results section. ECG 12-LEAD Routine 04/18/2019 5:53 Results for this AM [employer]Y PREPARER procedure are i n the results section. POC GLUCOSE Routine 04/17/2019 9:08 Results for this PM [employer]PARER procedure are i n the results section. POC GLUCOSE Routine 04/17/2019 7:27 Results for this PM [employer]Y PREPARER procedure are i n the results section. XR CHEST 2 VW Routine 04/17/2019 12:59 Results fo r this PM [employer]Y PREPARER procedure are i n the results section. POC GLUCOSE Routine 04/17/2019 11:01 Results for this AM [employer]Y PREPARER procedure are i n the results section. POC GLUCOSE Routine 04/17/2019 7:12 Results for this AM COPY PREPARER procedure are i n the results section. ESTIMATED GFR Routine 04/17/2019 6:50 Results fo r this AM COPY PREPARER procedure are i n the results section. HC COMPLETE BLD COUNT Routine 04/17/2019 6:50 Re sults for this W/AUTO DIFF AM COPY PREPARER procedure are i n the results section. BASIC METABOLIC PANEL Routine 04/17/2019 6:50 Re sults for this AM COPY PREPARER procedure are i n the results section. POC GLUCOSE Routine 04/16/2019 11:08 Results for this PM [employer]Y PREPARER procedure are i n the results section. POC GLUCOSE Routine 04/16/2019 9:28 Results for this PM COPY PREPARER procedure are i n the results section. POC GLUCOSE Routine 04/16/2019 9:27 Results for this PM [employer]Y PREPARER procedure are i n the results section. POC GLUCOSE Routine 04/16/2019 5:16 Results for this PM [employer]Y PREPARER procedure are i n the results section. POC GLUCOSE Routine 04/16/2019 4:05 Results for this PM [employer]Y PREPARER procedure are i n the results section. CV LEFT HEART CATH Routine 04/16/2019 3:19 Chest pain, Resul ts for this PM COPY PREPARER unspecified type procedure a re in the results section. CV SELECTIVE Routine 04/16/2019 3:19 Chest pain, Results for this ANGIOGRAPHY BYPASS PM COPY PREPARER unspecified type proce dure are in GRAFT the results section. CV LEFT INTERNAL Routine 04/16/2019 3:19 Chest pain, Results for this MAMMARY GRAFT PM COPY PREPARER unspecified type procedure are in the results section. CV SELECTIVE CORONARY Routine 04/16/2019 3:19 Chest pain, Re sults for this ANGIOGRAPHY PM [employer]Y PREPARER unspecified type procedure a re in the results section. TROPONIN STAT 04/16/2019 12:43 Results for this PM [employer]Y PREPARER procedure are i n the results section. POC GLUCOSE Routine 04/16/2019 12:33 Results for this PM [employer]Y PREPARER procedure are i n the results section. TTE COMPLETE, WO Routine 04/16/2019 10:18 Results for this CONTRAST, W DOPPLER AM COPY PREPARER procedur e are in ([id number]) the results section. GRAM STAIN STAT 04/16/2019 9:23 Results for this AM COPY PREPARER procedure are i n the results section. URINE CULTURE STAT 04/16/2019 9:23 Results fo r this AM COPY PREPARER procedure are i n the results section. POC GLUCOSE Routine 04/16/2019 8:12 Results for this AM [employer]Y PREPARER procedure are i n the results section. URINALYSIS SCREEN AND STAT 04/16/2019 7:30 Re sults for this MICROSCOPY, WITH AM COPY PREPARER procedure a re in REFLEX TO CULTURE the result s section. ECG 12-LEAD Routine 04/16/2019 7:12 Results for this AM COPY PREPARER procedure are i n the results section. TROPONIN Routine 04/16/2019 7:11 Results for this AM COPY PREPARER procedure are i n the results section. TROPONIN Routine 04/16/2019 1:40 Results for this AM COPY PREPARER procedure are i n the results section. HEMOGLOBIN A1C Routine 04/16/2019 1:40 Results f or this AM COPY PREPARER procedure are i n the results section. PARTIAL THROMBOPLASTIN Routine 04/16/2019 1:40 R esults for this TIME (PTT) AM COPY PREPARER procedure are i n the results section. PROTHROMBIN TIME WITH Routine 04/16/2019 1:40 Re sults for this INR AM COPY PREPARER procedure are i n the results section. HC COMPLETE BLD COUNT Routine 04/16/2019 1:40 Re sults for this W/AUTO DIFF AM [employer]Y PREPARER procedure are i n the results section. ECG 12-LEAD Routine 04/16/2019 1:33 Results for this AM [employer]Y PREPARER procedure are i n the results section. POC GLUCOSE Routine 04/16/2019 1:08 Results for this AM [employer]Y PREPARER procedure are i n the results section. ESTIMATED GFR Routine 04/16/2019 1:05 Results fo r this AM COPY PREPARER procedure are i n the results section. T4, FREE Routine 04/16/2019 1:05 Results for this AM COPY PREPARER procedure are i n the results section. THYROID STIMULATING Routine 04/16/2019 1:05 Resu lts for this HORMONE AM COPY PREPARER procedure are i n the results section. LIPID PANEL Routine 04/16/2019 1:05 Results for this AM COPY PREPARER procedure are i n the results section. BASIC METABOLIC PANEL Routine 04/16/2019 1:05 Re sults for this AM COPY PREPARER procedure are i n the results section. LIPID PANEL Routine 02/12/2019 9:26 Uncontrolled type 2 Resu lts for this AM CDT diabetes mellitus procedure are in with hyperglycemia the resul ts (HCC) section. BASIC METABOLIC PANEL Routine 02/12/2019 9:26 Uncontrolled ty pe 2 Results for this AM CDT diabetes mellitus procedure are in with hyperglycemia the resul ts (HCC) section. XR CHEST 2 VW Routine 01/22/2019 3:15 Cough Results fo r this PM CDT procedure are i n the results section. POC GLUCOSE Routine 12/10/2018 5:46 Results for this PM CDT procedure are i n the results section. CV AORTAGRAM ABDOMEN W Routine 12/10/2018 5:22 PVD (periphera l Results for this RUNOFF PM CDT vascular disease) procedure are in (HCC) the results section. HC COMPLETE BLD COUNT STAT 12/10/2018 12:35 Re sults for this W/AUTO DIFF PM CDT procedure are i n the results section. ECG PRE/POST OP Routine 12/10/2018 12:20 Results for this PM CDT procedure are i n the results section. ESTIMATED GFR STAT 12/10/2018 12:16 Results fo r this PM CDT procedure are i n the results section. BASIC METABOLIC PANEL STAT 12/10/2018 12:16 Re sults for this PM CDT procedure are i n the results section. POC GLYCOSYLATED Routine 11/27/2018 9:45 Uncontrolled type 2 Results for this HEMOGLOBIN (HGB A1C) AM CDT diabetes mellitus pr ocedure are in with hyperglycemia the resul ts (HCC) section. after 11/22/2018 Results Lipid panel (08/29/2019 10:43 AM CDT)Only the most recent of3 resultswithin the time period is included. [facility] Cholesterol, total 87 <200 mg/dL [facility] [place] HDL cholesterol 42 > OR = 40 [facility] mg/dL [place] Triglycerides 57 <150 mg/dL [facility] [place] LDL cholesterol 32 mg/dL (calc) [facility] calculated Comment: [place] Reference range: <100 Desirable range <100 mg/dL for primary prevention; <70 mg/dL for patients with CHD or diabetic patients with > or = 2 CHD risk factors. LDL-C is now calculated using the Gordon-[place] calculation, which is a validated novel method providi ng better accuracy than the Friedewald equation in the estimation of LDL-C. Gordon SS et al. SHERIF. 2013;310(19): 2448-2852 (http://education.Ameibo.Fonmatch/faq/HMB641) Cholesterol/HDL 2.1 <5.0 (calc) [facility] ratio [place] Non-HDL cholesterol 45 <130 mg/dL [facility] Comment: (calc) [place] For patients with diabetes plus 1 major ASCVD risk factor, treating to a non-HDL-C goal of <100 mg/dL (LDL-C of <70 mg/dL) is considered a therapeutic option. Specimen Blood Narrative Performed At FASTING:YES [facility] FASTING: YES Resulting Agency Comment Performing Organization Information: Site ID: [id number] Name: [facility]ha [facility] Address: [address] [place] [id number] Director: Vinh Beaver Performing Organization Address City/State/Zipcode Phone Number [place] [facility] [place] [address] [place] [phone] CBC with platelet and differential (08/29/2019 10:41 AM CDT)Only the most recent of4 resultswithin the time period is included. Pathologist [facility] WBC 9.5 3.8 - 10.8 [facility] Thousand/uL [place] RBC 4.13 (L) 4.20 - 5.80 [facility] Million/uL [place] HGB 10.9 (L) 13.2 - 17.1 [facility] g/dL [place] HCT 35.9 (L) 38.5 - 50.0 % [facility] [place] MCV 86.9 80.0 - 100.0 [facility] fL [place] MCH 26.4 (L) 27.0 - 33.0 pg [facility] [place] MCHC 30.4 (L) 32.0 - 36.0 [facility] g/dL [place] RDW 15.2 (H) 11.0 - 15.0 % [facility] [place] Platelet count 214 140 - 400 [facility] Thousand/uL [place] MPV 10.8 7.5 - 12.5 fL [facility] [place] Neutrophils, absolute 6,536 1,500 - 7,800 [facility] cells/uL [place] Lymphocytes, absolute 1,283 850 - 3,900 [facility] cells/uL [place] Monocytes, absolute 1,026 (H) 200 - 950 [facility] cells/uL [place] Eosinophils, absolute 551 (H) 15 - 500 [facility] cells/uL [place] Basophils, absolute 105 0 - 200 [facility] cells/uL [place] Neutrophils 68.8 % [facility] [place] Lymphocytes 13.5 % [facility] [place] Monocytes 10.8 % [facility] Lot78 [place] Eosinophils 5.8 % [facility] [place] Basophils + RC 1.1 % [facility] [place] Specimen Blood Narrative Performed At FASTING:YES [facility] FASTING: YES Resulting Agency Comment Performing Organization Information: Site ID: [id number] Name: [facility] Address: [address] [place] [phone] Director: Vinh Beaver Performing Organization Address City/State/Zipcode Phone Number [facility] [address] [address] Hemoglobin A1c (08/29/2019 10:41 AM CDT)Only the most recent of2 resultswithin the time period is included. Pathologist [facility] Hemoglobin A1C 7.3 (H) <5.7 % of [facility] Comment: total Hgb [place] For someone without known diabetes, a hemoglobin [...] diagnosis of diabetes for children. Specimen Blood Narrative Performed At FASTING:YES [facility] FASTING: YES Resulting Agency Comment Performing Organization Information: Site ID: [id number] Name: [facility] Address: [address] [place] [phone] Director: Vinh Beaver Performing Organization Address City/State/Zipcode Phone Number [place] [facility] [place] [address] [place] [phone] Basic metabolic panel (08/29/2019 10:41 AM CDT)Only the most recent of8 results within the time period is included. [facility] Glucose 166 (H) 65 - 99 [facility] Comment: mg/dL [place] Fasting reference interval For someone without known diabetes, a glucose value >125 mg/dL indicates that they may have diabetes and this should be confirmed with a follow-up test. BUN 49 (H) 7 - 25 mg/dL [facility] [place] Creatinine 1.64 (H) 0.70 - 1.18 [facility] Comment: mg/dL [place] For patients >49 years of age, the reference limit for Creatinine is approximately 13% higher for people identified as -Greek. EGFR Non-Afr. 40 (L) > OR = 60 [facility] Greek mL/min/1.73m [place] 2 EGFR 46 (L) > OR = 60 [facility] Greek mL/min/1.73m [place] 2 BUN/creatinine 30 (H) 6 - 22 [facility] ratio (calc) [place] Sodium 139 135 - 146 [facility] mmol/L [place] Potassium 4.7 3.5 - 5.3 [facility] mmol/L [place] Chloride 106 98 - 110 [facility] mmol/L [place] CO2 24 20 - 32 [facility] mmol/L [place] Calcium 9.3 8.6 - 10.3 [facility] mg/dL [place] Specimen Blood Narrative Performed At FASTING:YES [facility] FASTING: YES Resulting Agency Comment Performing Organization Information: Site ID: [id number] Name: [facility] Address: [address] [place] [phone] Director: Vinh Beaver Performing Organization Address [facility] Phone Number [facility] [place] [phone] Microalbumin / creatinine urine ratio (05/30/2019 9:05 AM COPY PREPARER) Creatinine, 25 20 - 320 [facility] urine, random mg/dL [place] Microalbumin, 4.8 See Note: [facility] urine Comment: mg/dL [place] Reference Range: Reference Range Not established Microalbumin/cre 192 (H) <30 mcg/mg [facility] atinine ratio Comment: creat [place] The ADA defines abnormalities in albumin excretion as follows: Category Result (mcg/mg creatinine) Normal <30 Microalbuminuria 30-299 Clinical albuminuria > OR = 300 The ADA recommends that at least two of three specimens collected within a 3-6 month period be abnormal before considering a patient to be within a diagnostic category. Specimen Urine Narrative Performed At FASTING:YES [facility] FASTING: YES Resulting Agency Comment Performing Organization Information: Site ID: [id number] Name: [facility] Address: [address] [place] [phone] Director: Vinh Beaver Performing Organization Address [facility] Centercode Phone Number [employer] [place] [phone] POC glucose (2019 7:46 AM COPY PREPARER)Only the most recent of23 resultswithin the time period is included. Pathologist Sig nature POC glucose 131 (H) 65 - 99 mg/dL TIAN CHEATHAM Comment: HOSPITAL Retread Supervisor Name: Ho Asif Haleigh Device ID: [id number] Chartable: [facility] Notified RN Specimen Performing Organization Address City/State/Zipcode Phone Number [facility] DEPARTMENT OF PATHOLOGY AND [address] [place] [phone] GENOMIC MEDICINE [address] [address] Estimated GFR (2019 5:30 AM COPY PREPARER)Only the most recent of5 resultswithin the time period is included. Estimated GFR 43 (A) mL/min/1.73 TIAN CHEATHAM Comment: HOSPITAL Catergory Units Interpretation G1 >=90 Normal or high G2 60-89 Mildly decreased G3a 45-59 Mildly to moderately decreas ed G3b 30-44 Moderately to severely decre ased G4 15-29 Severely decreased G5 <15 Kidney failure The eGFR was calculated using the Chronic Kidney Disea se Epidemiology Collaboration (CKD-EPI) equation. Interpretation is based on recommendations of the National Kidney Foundation-Kidney Disease Outcomes Talat lity Initiative (NKF-KDOQI) published in 2014. Specimen Plasma specimen Performing Organization Address [facility] Centercohi Phone Number [facility] DEPARTMENT OF PATHOLOGY AND [address] [place], [place] [phone] GENOMIC MEDICINE [facility] [address] [place] [address] NM Lung Ventilation Perfusion (04/18/2019 11:10 AM COPY PREPARER) Specimen Narrative Performed At PROCEDURE: CT LUNG VENTILATION PERFUSI ON RADIANT INDICATION: Chest pain. Shortness of breath. COMPARISON: Chest x-ray 04/17/2019. TECHNIQUE: Planar ventilation images were acquired a fter the inhalation of 15 mCi of Xe-133 gas. Planar perfusion i mages were acquired after the IV administration of 5 mCi of Tc-99m MAA. FINDINGS: Ventilation images demonstrate decreased v entilation to the lung periphery. Washout images demonstrate gas trap ping in the left lung base. Perfusion images demonstrate decreased pe rfusion to the lung periphery, matching the ventilation images. No mismatched defects. IMPRESSION: 1. Low probability for PE. [facility]-[id number] Procedure Note Interface, Radiology Results Incoming - 04/18/2019 11:40 AM COPY PREPARER PROCEDURE: NM LUNG VENTILATION PERFUSION INDICATION: Chest pain. Shortness of b reath. COMPARISON: Chest x-ray 04/17/2019. TECHNIQUE: Planar ventilation images we re acquired after the inhalation of 15 mCi of Xe-133 gas. Planar perfusion images were acquired after the IV administration of 5 mCi of Tc-99m MAA. FINDINGS: Ventilation images demonstrat e decreased ventilation to the lung periphery. Washout images demonstrate gas trapping in the left lung base. Perfusion images demonstrate decreased perfusion to the lung periphery, matching the ventilation images. No mismatched defects. IMPRESSION: 1. Low probability for PE. [facility]-[id number] Performing Organization Address City/[facility]/Zipcode Phone Number RADIANT [address] [place] [address] ECG 12 lead (04/18/2019 5:53 AM COPY PREPARER)Only the most recent of3 resultswithin the time period is included. Pathologist Sig nature Ventricular rate 54 [facility] MUSE Atrial rate 54 [facility] M[facility] VT interval 140 [facility] M[facility] QRSD interval 96 [facility] QT interval 452 [facility] M[facility] QTC interval 428 [facility] M[facility] P axis 1 65 [facility] M[facility] QRS axis 1 22 [facility] M[facility] T wave axis 164 [facility] MUSE EKG impression Sinus bradycardia-Septal inf arct (cited on or before 10-JAN-2018)-ST & T wave abnormality, consider lateral ischemia-Abnormal ECG-In automated comparison with ECG of 18-APR-2019 05:53,-No significan [facility] MUSE t change was found- Specimen Narrative Performed At This result has an attachment that is no t available. Performing Organization Address [facility] Centercohi Phone Number [facility] [employer] [address] [place] [address] XR Chest 2 Vw (04/17/2019 12:59 PM COPY PREPARER)Only the most recent of2 resultswithin the time period is included. Specimen Narrative Performed At XR CHEST 2 VW RADIANT CLINICAL INDICATION: Acute resp illnes s > 40 years old COMPARISON: 01/22/2019 IMPRESSION: The heart is mildly enlarged with stable changes post sternotomy noting discontinuous sternal wires. There is mild tortuosity aorta. Small pleural effusions are present bilaterally greater on t he right than left. There is minimal basilar infiltration/atelectasis. There is no pneumothorax. Kwaku claudy of appear unchanged. *[facility]-[id number] Procedure Note Interface, Radiology Results Incoming - 04/17/2019 1:39 PM COPY PREPARER XR CHEST 2 VW CLINICAL INDICATION: Acute resp illness > 40 years old COMPARISON: 01/22/2019 IMPRESSION: The heart is mildly enlarged with stable changes post sternotomy noting discontinuous sternal wires. There is mild tortuosity aorta. Small pleural effusions are present bilaterally greater on the right than left. There is minimal basilar infiltration/atelectasis. There is no pn eumothorax. Bones of appear unchanged. *[facility]-[id number] Performing Organization Address City/[facility] Centercode Phone Number [facility] [address] [place] [address] lab analyst procedure (04/16/2019 3:19 PM COPY PREPARER) Specimen Narrative Performed At This result has an attachment that is no t available. Left heart catherization: LM normal. LAD with proximal 95% lesion. High HM SYNGO diagonal/ramus branch with 100% occlusion proximally. LCX with second OM mid 75% stenosis. RCA dominant and occluded proximally . LVEF not performed due to renal fxn. MERINO to LAD patent. SVG to diagonal/ramus patent. SVG to RCA patent. LV EDP 20 mmhg. Performing Organization Address City/[facility] Centercode Phone Number [employer] [address] [place] [address], Troponin (04/16/2019 12:43 PM COPY PREPARER)Only the most recent of3 resultswithin the time period is included. Troponin 0.085 (H) 0.000 - 0.040 [place] YARSANISM Comment: ng/mL HOSPITAL In patients suspected of having a myocardial infarctio n, along with all other appropriate clinical measures and actions includ ing ECG and other diagnostics as appropriate, measure Ultra TnI at 0 hrs and at 3 hrs. Myocardial infarction VERY LIKELY The 0 hr TnI level is > 0.10 ng/mL Myocardial infarction LIKELY The 0 hr TnI level is > 0.04 ng/mL and 3 hr level is i ncreased or decreased by at least 0.020 ng/mL Myocardial infarction VERY UNLIKELY Both the 0 hr and 3 hr TnI levels <= 0.04 ng/mL(within normal limits) OR 0 hr is > 0.04 ng/mL and 3 hr is increased OR decreased by less than 0.020 ng/mL Specimen Plasma specimen Performing Organization Address City/State/Zipcode Phone Number [facility] DEPARTMENT OF PATHOLOGY AND [address] [place] [phone] 0 GENOMIC MEDIC[address] [address] Echocardiogram complete w contrast and 3D if needed (04/16/2019 10:18 AM COPY PREPARER) Specimen Narrative Performed At [facility] Echo cardiography Report [address] [facility], [facility] [address], [place] [address] Pat.Name: ARY HAINES Pat.ID: [id number] .Date: 04/16/2019 Refer.MD: YANCY LEYVA MD Exam Time: 8:20:00 AM Study Type:R outine Echo Height: 67in Weight: 177lb BSA: 1.92 m2 Ag e: 1940,78Y Sex: MALE BP: 193/77 HR: 59 bpm Sonogrphr: Darlyn Knox RDCS, RVT Pat. Stat.:Inpatient Room: [address] Study Status:Final Echo Event ID:[id number] Order ID: [id number] Reason for Study:Chest pain, cardiac tim ology suspected History / Clinical:Coronary Artery Disea se, Diabetes, Hyperlipidemia, Hypertension, Shortness of Breath, Strok e Procedures: 2D Echo, Colorflow Doppler, Intravenous Optison Contrast Race: C SUMMARY: LV EF is normal. Overall wall motion is normal. RV systolic function is normal. LV filling pressure is restrictive patte rn, mean PCWP >25mmHg. Estimated PA systolic pressure is 53 mmH g, assuming a mean RAP of 15 mmHg. FINDINGS: LV: LV size is normal. There is mild concentric LV hypertrophy. LV EF is normal. Overall wall motion is normal. Estimated EF is 60-64%. RV: RV size is moderately enlar ged. RV systolic function is normal. RV wall motion is normal. LA: LA volume is severely enlar ged. RA: RA volume is severely enlar ged. AO: Aortic root diameter is nor mal. CHRISTEN: No pericardial effusion. AV: No structural AV abnormalit ies noted. MV: Mild thickening and calcifi cation of mitral leaflets. Mild mitral annular calcific ation. A trace of mitral regurgitation. PV: No structural PV abnormalit ies noted. A trace of pulmonic regurgitation. TV: No structural TV abnormalit ies noted. A trace of tricuspid regurgitation Hyatt: LV relaxation is impaired. L V filling pressure is restrictive pattern, me an PCWP >25mmHg. Other: Estimated PA systolic pressu re is 53 mmHg, assuming a mean RAP of 15 mmHg. MEASUREMENTS: 2D Parasternal Long [place] Ao An 2.4 cm LVPWd 1.3 cm Ao Rtd 3.5 cm Index 1.8 cm/m2 LA Ds 5 cm IVSd 1.2 cm RWT 0.56 LVIDd 4.8 cm Index 2.5 cm/m2 LV Mass 234 g (122-1 74) LVIDs 3.4 cm LVM In dex 122 g/m LV%fs 30 % LVOT 2.1 cm LA Sng Plane LA Area 33 cm (8.8-23.4) LA Vol 127 ml Index 66 ml/m2 LA LngAx 7.2 cm RA Sng Plane RA Vol 127 ml Index 66 ml/m2 RA LngAx 6.5 cm RA Area 32 cm (8.3-1 9.5) Dimension Dim 4.8 cm LVOT LVOT Area 3.5 cm DOPPLER LVOT Stroke Vol LVOT TVI 21 cm HR 63 bpm LVOT LVOT SV 73 ml LVOT CO 4.6 l/min SVi 38 ml/m LVOT C I 2.4 l/m/m Mitral Valve MV pkE 100 cm/s (60-130) TV Pressure Gradient TV PkVel 313 cm/s TV PG 39 mmHg Signed 04/16/2019 02:56 PM Sofie Resendez M.D. Procedure Note Interface, Radiology Results In - 2018 2:56 PM COPY PREPARER Echocardiography Report [address] [facility], [place] [address] , [place] [address] Pat.Name: ARY HAINES Pat.I D: [id number] St.Date: 04/16/2019 Refer .MD: YANCY LEYVA MD Exam Time: 8:20:00 AM Study Type:Routine Echo Height: 67in Weigh t: 177lb BSA: 1.92 m2 Age: 1 1940,78Y Sex: MALE BP: 193/77 HR: 59 bpm Sonogrphr: Darlyn Knox RDCS, RVT Pat. Stat.:Inpatient Room: [address] Study Status:Final Echo Event ID:[id number] Order ID: [id number] Reason for Study:Chest pain, cardiac tim ology suspected History / Clinical:Coronary Artery Disea se, Diabetes, Hyperlipidemia, Hypertension, Shortness of Breath, Strok e Procedures: 2D Echo, Colorflow Doppler, Intravenous Optison Contrast Race: C SUMMARY: LV EF is normal. Overall wall motion is normal. RV systolic function is normal. LV filling pressure is restrictive patte rn, mean PCWP >25mmHg. Estimated PA systolic pressure is 53 mmH g, assuming a mean RAP of 15 mmHg. FINDINGS: LV: LV size is normal. There is mi ld concentric LV hypertrophy. LV EF is normal. Overall wall motion is normal. Estimated EF is 60-64%. RV: RV size is moderately enlarged . RV systolic function is normal. RV wall motion is nor mal. LA: LA volume is severely enlarged . RA: RA volume is severely enlarged . AO: Aortic root diameter is normal . CHRISTEN: No pericardial effusion. AV: No structural AV abnormalities noted. MV: Mild thickening and calcificat ion of mitral leaflets. Mild mitral annular calcification. A trace of mitral regurgitation. PV: No structural PV abnormalities noted. A trace of pulmonic regurgitation. TV: No structural TV abnormalities noted. A trace of tricuspid regurgitation Hyatt: LV relaxation is impaired. LV filling pressure is restrictive pattern, mean PCW P >25mmHg. Other: Estimated PA systolic pressure is 53 mmHg, assuming a mean RAP of 15 mmHg. MEASUREMENTS: 2D Parasternal Long [place] Ao An 2.4 cm LVPW d 1.3 cm Ao Rtd 3.5 cm Inde x 1.8 cm/m2 LA Ds 5 cm IVSd 1.2 cm RWT 0.56 LVIDd 4.8 cm Inde x 2.5 cm/m2 LV Mass 234 g (122-174) LVIDs 3.4 cm LVM Index 122 g/m LV%fs 30 % LVOT 2.1 cm LA Sng Plane LA Area 33 cm (8.8-23.4) L A Vol 127 ml Index 66 ml/m2 LA LngAx 7.2 cm RA Sng Plane RA Vol 127 ml Inde x 66 ml/m2 RA LngAx 6.5 cm RA Area 32 cm (8.3-19.5) Dimension Dim 4.8 cm LVOT LVOT Area 3.5 cm DOPPLER LVOT Stroke Vol LVOT TVI 21 cm HR 63 bpm LVOT LVOT SV 73 ml LVOT CO 4.6 l/min SVi 38 ml/m LVO T CI 2.4 l/m/m Mitral Valve MV pkE 100 cm/s (60-130) TV Pressure Gradient TV PkVel 313 cm/s TV P G 39 mmHg Signed 04/16/2019 02:56 PM Sofie Resendez M.D. Performing Organization Address City/[facility]/Zipcode Phone Number [facility] [address] [place] [address] Gram stain (04/16/2019 9:23 AM COPY PREPARER) Gram stain result Rare WBC's [facility] Rare Gram positive rods HOSPITAL Comment: Specimen Information Specimen Source: Urine Specimen Site: [place] Specimen Urine - [place] Performing Organization Address City/[facility]/Zipcode Phone Number [facility] DEPARTMENT OF PATHOLOGY AND [address] [place] [phone] [facility] [address] [place] [address] Urine culture (04/16/2019 9:23 AM COPY PREPARER) Urine culture No growth after 24 hours [facility] isolate Comment: HOSPITAL Specimen Information Specimen Source: Urine Specimen Site: [place] Specimen Urine - [place] Performing Organization Address [facility]i Phone Number [facility] DEPARTMENT OF PATHOLOGY AND [address] [place] [phone] [facility] [address] [place] [address] Urinalysis screen and microscopy, with reflex to culture (04/16/2019 7:30 AM COPY PREPARER) Pathologist Sig nature Specimen site [place] [facility] Color, UA Yellow [facility] Appearance, UA Clear [facility] Specific gravity, UA 1.016 1.001 - 1.035 [facility] pH, UA 6.0 5.0 - 8.5 [facility] Protein, UA 2+ (A) Negative [facility] Glucose, UA 3+ (A) Negative [facility] Ketones, UA Negative Negative [facility] Bilirubin, UA Negative Negative [facility] Blood, UA Small (A) Negative [facility] Nitrite, UA Negative Negative [facility] Urobilinogen, UA 4.0 (A) <2.0 [facility] Leukocyte esterase, Small (A) Negative [facility] WBC, UA 11 (H) 0 - 1 /HPF [facility] RBC, UA 21 (H) 0 - 5 /HPF [facility] Bacteria, UA Few None seen [facility] Yeast, UA None seen [facility] Yeast with None seen [facility] pseudohyphae, UA HOSPITAL Hyaline casts, UA 4 /LPF [facility] Specimen Urine Performing Organization Address City/[facility]/Zipcode Phone Number [facility] DEPARTMENT OF PATHOLOGY AND [address] [place] [address] [phone] [address] Partial thromboplastin time, activated (04/16/2019 1:40 AM COPY PREPARER) PTT 30.8 23.0 - 36.0 [facility] Comment: [facility] PTT therapeutic range for unfractionated heparin is 61.0-112.0 seconds which corresponds to Anti-Xa 0.3-0.7 U/ml. Specimen Blood Performing Organization Address City/[facility]/Zipcode Phone Number [facility] DEPARTMENT OF PATHOLOGY AND [address] [place] [address] [phone] [address] Prothrombin time with INR (04/16/2019 1:40 AM COPY PREPARER) Prothrombin time 14.9 (H) 11.5 - 14.5 [facility] INR 1.2 [place] Comment: YARSANISM [facility] International Normalized Ratio (INR) is a therapeu [facility] monitoring tool for patients who are stable on oral anticoagulant therapy. An INR of 2.0-3.0 is suggested for deep vein thrombosis/pulmonary embolism. Specimen Blood Performing Organization Address [facility] Centercode Phone Number [facility] DEPARTMENT OF PATHOLOGY AND [address] [place] [address] [phone] [address] Thyroid stimulating hormone (04/16/2019 1:05 AM COPY PREPARER) Pathologist Sig nature TSH 1.99 0.27 - 4.20 uIU/mL [facility] ITAL Specimen Plasma specimen Performing Organization Address City/[facility]/Zipcode Phone Number [facility] DEPARTMENT OF PATHOLOGY AND [address] [place] [address] [phone] [address] T4, free (04/16/2019 1:05 AM COPY PREPARER) Pathologist Sig nature T4, free 1.3 0.9 - 1.7 ng/dL [facility] L Specimen Plasma specimen Performing Organization Address City/[facility]/Zipcode Phone Number [facility] DEPARTMENT OF PATHOLOGY AND [address] [place], [place] [address] GENOMIC MEDICINE [facility] [address] [place] [address] Cv invasive peripheral vascular procedure (12/10/2018 5:22 PM CDT) Specimen Narrative Performed At This result has an attachment that is no t available. Bilateral common iliac femoral arteries are normal. Left superficial HM SYNGO femoral artery has mild disease distally. Left poplite al artery showed re-stenosis of previously dilated segment with now 45 mmhg pressure difference across the lesion. Left anterior tibial is occluded and fills late, left pereneol has severe ostial lesion and poste rior tibial has mild proximal disease. Right superficial artery had mild di sease distally. But arteries below the knee on the right side are not well visualized due to lack of contrast. Performing Organization Address City/[facility]/Zipcode Phone Number SYNGO [address] [place] [address], ECG Pre/Post Op (12/10/2018 12:20 PM CDT) Pathologist Sig nature Ventricular rate 51 [facility] MUSE Atrial rate 51 [facility] MUSE VT interval 166 [facility] QRSD interval 96 [facility] QT interval 474 [facility] QTC interval 436 [facility] M[facility] P axis 1 66 [facility] M[facility] QRS axis 1 20 [facility] M[facility] T wave axis 132 [facility] MUSE EKG impression Sinus bradycardia-T wave abn ormality, consider lateral ischemia- Abnormal ECG-In automated comparison with ECG of 10-JAN-2018 15:00,-Criteria for Septal infarct are no longer present-Electronically Chiara H MUSE d By Joe KHAN, Rhett ([id number]) on 12/13/2018 8:12:39 AM Specimen Narrative Performed At This result has an attachment that is no t available. 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
--- OUTSIDE RECORDS SUMMARY | 2019-11-23 09:24 | XMS REPORT | Continuity of Care Document ---
:[address] [facility] t Address [address] [place] [address] Care Team Providers Name Role Phone Souleymane KHAN, Jonel Primary Care Physician [phone] Veronica Kessler MD, Enrique Muniz Attending Clinician [phone] Autumn KHAN, O. Attending Clinician Joe KHAN Attending Clinician Ciarra Spain MD Attending Clinician 2, Lab Attending Clinician Unavailable Doctor Unassigned, Name Attending Clinician Unavailable 1, Lab Attending Clinician Unavailable AUTUMN Admitting Clinician Unavailable Payers Payer Name Policy Policy Number Effective Expiration Source Type Date Date MEDICAREMEDICARE PART xxxxxxxxxxx 2007 Ho mert A AND 00:00:00 Pentecostal Bxxxxxxxxxxx2007[place], [place] xxxxxx-xx 2007 Kalyan carrero OF 00:00:00 Pentecostal OMAHAxxxxxx-xx 8-PresentCommercial Problems Condition Condition Condition Status Onset Resolution Last Treating Co mments Source Name Details Category Date Date Treatment Clinician Date Chest pain Chest pain Disease Active 2018- H mayra Methodi 00:00: st 00 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 00:00: st mellitus mellitus 00 with with hyperglyce hyperglyce pan pan 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 1- Me thodi emia emia 00:00: st 00 Peripheral Peripheral Disease Active 2017-04 H [facility] vascular vascular 1-14 Method i disease disease 00:00: st 00 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[facility] chronic chronic 0-23 Methodi kidney kidney 00:00: st disease disease 00 Essential Essential Disease Active Kalyan ston hypertensi hypertensi -16 Me thodi on on 00:00: st 00 Syncope Syncope Disease Active [facility] 9-15 Methodi 00:00: st 00 Atrial Atrial Disease Active [facility] fibrillati fibrillati 12-15 Me thodi on on 00:00: st 00 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 12-15 Meth christian diabetes diabetes 00:00: 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 12-15 Methodi disease disease 00:00: st involving involving 00 algaaciq algaaciq coronary coronary artery artery Mild Mild Disease Active [facility] intermitte intermitte 12-15 Me odi nt asthma nt asthma 00:00: st 00 Asbestosis Asbestosis Disease Active H [facility] 04-17 Methodi 00:00: st 00 Allergies, Adverse Reactions, Alerts Allergy Allergy Status Severity Reaction(s) Onset Inactive Treating Comm ents Source Name Type Date Date Clinician Ciprofib Propensi Active [place] rate ty to 11-27 Methodi adverse 00:00: st reaction 00 s to drug Iodine Propensi Active Hives [facility] And ty to 12-15 Methodi Iodide adverse 00:00: st Containi reaction 00 ng s to Products drug Family History Family Member Diagnosis Comments Start Date Stop Date Source Natural father Early Chucky Pfeiffer ethodist Natural mother Diabetes [facility] thodist Natural mother Hypertension [facility] Social History Social Habit Start Date Stop Date Quantity Comments Source History of Cigarette Smoker [facility] tobacco use Sex Assigned At M [facility] Margarette ethodist Alcohol intake 2019-09-03 2019-09-03 Current drinker [place] [facility] 00:00:00 00:00:00 of alcohol (finding) Alcohol Comment 2018-02-06 2018-02-06 remy fayodist 00:00:00 00:00:00 Smoking Status Start Date Stop Date Source Former smoker 2019-09-03 00:00:00 2019-09-03 00:00:00 [facility] Medications Ordered Filled Start Stop Current Ordering Indication Dosage Frequency Signature Comments Components Source Medication Medication Date Date Medication? Clinician (SIG) Name Name cimetidine Yes 400mg QD Take 400 [place] (TAGAMET) 5-19 mg by Methodi 400 MG 09:35: mouth st tablet 27 daily. X 3 days mometasone- Yes 2{puff} Q.5D Inhale 2 [place] formoterol 5-19 puffs 2 Method i (DULERA) 09:35: (two) st 100-5 27 times a mcg/actuati day. on inhaler furosemide Yes 40mg Q.5D Take 40 mg [place] (LASIX) 20 5-19 by mouth 2 Met hodi mg tablet 09:35: (two) st 27 times a day. PM dose only if needed aspirin 81 2019-0 Yes 81mg Chew 81 [place] mg chewable 5-19 mg. Methodi tablet 09:35: st 27 gabapentin 2020- Yes 200mg QD Take 2 Kalyan ston (Neurontin) -02 09- capsules Met hodi 100 mg 00:00: 23:59 ([address] capsule 00 :00 total) by mouth daily. insulin 2020- Yes 18U QD Inject [facility] degludec 09-02- 0.18 mL Methodi 100 unit/mL 00:00: 23:59 ([address] (3 mL) 00 :00 total) insulin pen under the skin daily for 250 days. insulin 2019-2019- No 18U QD Inject [facility] degludec -01 09- 0.18 mL Methodi 100 unit/mL 00:00: 00:00 ([address] (3 mL) 00 :00 total) insulin pen under the skin daily. gabapentin 2019- 2020- No 100mg QD Take 1 Kalyan ston (NEURONTIN) 06-04- capsule Meth christian 100 mg 00:00: 23:59 ([address] capsule 00 :00 total) by mouth nightly as needed (for lower extremity numbness) for up to 30 days. isosorbide 2019- No 120mg QD Take 1 Kalyan ston mononitrate 04-20 tablet Metho di (IMDUR) 120 00:00: 23:59 ([address] MG 24 hr 00 :00 total) by tablet mouth daily for 30 days. predniSONE 2019- No 20mg QD Take 20 mg [place] (DELTASONE) 04-19 by mouth Met hodi 20 mg 11:36: 00:[address] tablet 06 :00 days hydrALAZINE 2019- No 50mg Q.5D Take 1 Kalyan ston (APRESOLINE 04-19 tablet (50 M ethodi ) 50 MG 00:00: 23:59 mg total) st tablet 00 :00 by mouth 2 (two) times a day for 30 days. insulin 2019- No 20U QD Inject 20 [place] GLARGINE 04-19 Units Methodi (LANTUS) 00:00: 23:[address] 100 unit/mL 00 :00 skin injection nightly (vial) for 30 days. insulin 2018-04- No 18U QD Inject [facility] degludec 04-28 0.18 mL Methodi 100 unit/mL 00:00: 00:00 ([address] (3 mL) 00 :00 total) insulin pen under the skin daily. hydrOXYzine No 25mg QD Take 25 mg [place] (ATARAX) 25 12-10 by mouth Met hodi MG tablet 13:05: 00:00 daily. X 3 s t 33 :00 days diphenhydrA 2018- No 25mg QD Take 25 mg [place] MINE 12-07 by mouth Methodi (BENADRYL) 00:00: 23:[address] 25 mg 00 :00 tablet insulin 2018- No 18U QD Inject [place] degludec 11-27 0.18 mL Methodi 100 unit/mL 00:00: 00:00 ([address] (3 mL) 00 :00 total) insulin pen under the skin daily. gabapentin 2018- No 300mg QD Take 1 Kalyan ston (NEURONTIN) 8-13 10-12 capsule Meth christian 300 mg 00:00: 23:59 ([address] capsule 00 :00 total) by mouth nightly for 60 days. metOLazone 2018- No 2.5mg QD Take 2.5 [place] (ZAROXOLYN) 6-12 08-26 mg by Method i 2.5 MG 00:00: 00:[address] tablet 00 :00 daily. insulin 2018- No 18U QD Inject [place] degludec 4-30 08-13 0.18 mL Methodi 100 unit/mL 00:00: 00:00 ([address] (3 mL) 00 :00 total) insulin pen under the skin daily. carvedilol Yes 12.5mg Q.5D Take 12.5 [place] (COREG) 4-27 mg by Methodi 12.5 MG 00:00: mouth 2 st tablet 00 (two) times a day with meals. hydrALAZINE 2019- No 25mg Q.5D Take 25 mg Chucky (APRESOLINE 4-27 01-03 by mouth 2 M ethodi ) 25 MG 00:00: 00:00 (two) st tablet 00 :00 times a day. BREO 2018- No QD Inhale 1 Chucky ELLIPTA 3-17 08-26 inhalation Metho di 200-25 00:00: 00:[address] mcg/dose 00 :00 daily. blister with device powder for inhalation atorvastati 2017-04 Yes 40mg QD Take 40 mg Chucky n (LIPITOR) 2-29 by mouth Meth christian 40 MG 00:00: daily. st tablet 00 clopidogrel 2017-04 Yes [place] n (PLAVIX) 75 2-29 Methodi mg tablet 00:00: st 00 blood-gluco 2017-04 2019- No Type 2 Please Hannah nunez se meter 04-22 diabetes check Metho di kit 00:00: 23:[address] 00 :00 with other before diabetic meals and kidney at bedtime complicatio n, with long-term current use of insulin ([facility]) blood sugar 2017-04 Yes Type 2 Please [facility] diagnostic 1-05 diabetes check Meth christian strips 00:00: mellitus blood st (ACCU-CHEK 00 with other sugar CHEMO) diabetic before strip test kidney meals and strips complicatio at n, with bedtime, long-term at least current use three of insulin times (HCC) daily pen needle, 2017-04 Yes 12U QD 12 Units Ho mert diabetic 1-05 nightly. Methodi (PEN 00:00: Use with st NEEDLE) 32 00 insulin gauge x glargine 5/32" as ordered needle lancets 2017-04 Yes Check your [place] (onetouch 1-05 blood Methodi ultrasoft) 00:00: sugar st misc 00 before meals and at bedtime, at least three times daily blood sugar 2017-04 Yes Test [place] diagnostic 0-23 glucose at Met hodi strips 00:00: least once st (ACCU-CHEK 00 daily CHEMO PLUS TEST STRP) strip test strips sitaGLIPtin 2017-04 2019- No 25mg QD Take 1 Kalyan ston (JANUVIA) 0-23 08-26 tablet (25 Met hodi 25 MG 00:00: 00:00 mg total) st tablet 00 :00 by mouth daily. amLODIPine 2016-04 Yes Chucky (NORVASC) 2-06 Methodi 10 mg 00:00: st tablet 00 Immunizations Ordered Immunization Filled Immunization Date Status Commen ts Source Name Name FLUCELVAX QUAD PF 2018-01-03 Completed [facility] 00:00:00 Pentecostal Vital Signs Vital Name Observation Time Observation Value Comments Source Systolic blood 2019-06-04 11:27:00 154 mm[Hg] Маринаto n Pentecostal pressure Diastolic blood 2019-06-04 11:27:00 72 mm[Hg] [place] on Pentecostal pressure Heart rate 2019-06-04 11:27:00 50 /min Chucky Steve Body temperature 2019-06-04 11:27:00 36.56 Sho Марина ton Pentecostal Body height 2019-06-04 11:27:00 170.2 cm Chucky Steve Body weight 2019-06-04 11:27:00 78.019 kg Chucky Steve BMI 2019-06-04 11:27:00 26.94 kg/m2 Chucky Steve Oxygen saturation in 2019-06-04 11:27:00 100 /min Chucky Steve Arterial blood by Pulse oximetry Respiratory rate 2019 07:43:00 18 /min Марина Steve Procedures Procedure Date / Time Performing Clinician Source Performed LIPID PANEL 2019-08-29:43:00 Abbott DannyChucky Wi thodist Enrique Muniz BASIC METABOLIC PANEL 2019-08-29 10:41:00 Марина Fernandes HEMOGLOBIN A1C 2019-08-29 10:41:00 Veronica DannyChucky Wi sonali Muniz CBC WITH PLATELET AND 2019-08-29 10:41:00 Марина Fernandes DIFFERENTIAL Enrique Muniz BASIC METABOLIC PANEL 2019-05-30 09:05:00 Марина Fernandes MICROALBUMIN / CREATININE 2019-05-30 09:05:00 Chucky Fernandes URINE RATIO Enrique Muniz POC GLUCOSE 2019 07:46:00 Yancy Leyva BASIC METABOLIC PANEL 2019 05:30:00 Rhett Diaz ESTIMATED GFR 2019 05:30:00 Rhett Diaz Meth odist POC GLUCOSE 2019 00:19:00 Yancy Leyva Pentecostal POC GLUCOSE 2019-04-18 20:18:00 Yancy Leyva POC GLUCOSE 2019-04-18 19:03:00 Yancy Leyva POC GLUCOSE 2019-04-18 18:27:00 Yancy Leyva POC GLUCOSE 2019-04-18 16:17:00 Yancy Leyva POC GLUCOSE 2019-04-18 14:50:00 Yancy Leyva POC GLUCOSE 2019-04-18 13:15:00 Yancy Leyva POC GLUCOSE 2019-04-18 13:13:00 Yancy Leyva NM LUNG VENTILATION 2019-04-18 11:10:57 Rhett Diaz PERFUSION POC GLUCOSE 2019-04-18 08:19:00 Yancy Leyva BASIC METABOLIC PANEL 2019-04-18 06:05:00 Rhett Diaz ESTIMATED GFR 2019-04-18 06:05:00 Rhett Diaz Meth odist ECG 12-LEAD 2019-04-18 05:53:35 Yancy Leyvaist POC GLUCOSE 2019-04-17 21:08:00 Yancy Leyva POC GLUCOSE 2019-04-17 19:27:00 Yancy Leyva XR CHEST 2 VW 2019-04-17 12:59:47 Rhett Diaz Meth odist POC GLUCOSE 2019-04-17 11:01:00 Yancy Leyva POC GLUCOSE 2019-04-17 07:12:00 aYncy Leyva BASIC METABOLIC PANEL 2019-04-17 06:50:00 Yancy Leyva HC COMPLETE BLD COUNT 2019-04-17 06:50:00 Yancy Leyva W/AUTO DIFF ESTIMATED GFR 2019-04-17 06:50:00 Yancy Leyav POC GLUCOSE 2019-04-16 23:08:00 Yancy Leyva POC GLUCOSE 2019-04-16 21:28:00 Yancy Leyva POC GLUCOSE 2019-04-16 21:27:00 Yancy Leyva POC GLUCOSE 2019-04-16 17:16:00 Yancy Leyva POC GLUCOSE 2019-04-16 16:05:00 Yancy Leyva CV SELECTIVE CORONARY 2019-04-16 15:19:36 Rhett Diaz n Pentecostal ANGIOGRAPHY CV LEFT INTERNAL MAMMARY 2019-04-16 15:19:36 Rhett Diaz Pentecostal GRAFT CV SELECTIVE ANGIOGRAPHY 2019-04-16 15:19:36 Rhett Diaz BYPASS GRAFT CV LEFT HEART CATH 2019-04-16 15:19:36 Rhett Diaz M ethodist TROPONIN 2019-04-16 12:43:00 Blanca Mendez odist POC GLUCOSE 2019-04-16 12:33:00 Yancy Leyva TTE COMPLETE, WO CONTRAST, 2019-04-16 10:18:00 Yancy Leyva W DOPPLER ([id number]) URINE CULTURE 2019-04-16 09:23:00 Yancy Leyva GRAM STAIN 2019-04-16 09:23:00 Yancy Leyva POC GLUCOSE 2019-04-16 08:12:00 Yancy Leyva URINALYSIS SCREEN AND 2019-04-16 07:30:00 Yancy Leyva MICROSCOPY, WITH REFLEX TO CULTURE ECG 12-LEAD 2019-04-16 07:12:18 Yancy Leyva TROPONIN 2019-04-16 07:11:00 Yancy Leyva HC COMPLETE BLD COUNT 2019-04-16 01:40:00 Yancy Leyva W/AUTO DIFF PROTHROMBIN TIME WITH INR 2019-04-16 01:40:00 Yancy Leyva PARTIAL THROMBOPLASTIN 2019-04-16 01:40:00 Yancy Leyva TIME (PTT) HEMOGLOBIN A1C 2019-04-16 01:40:00 Yancy Leyva TROPONIN 2019-04-16 01:40:00 Yancy Leyva ECG 12-LEAD 2019-04-16 01:33:11 Yancy Leyva POC GLUCOSE 2019-04-16 01:08:00 Yancy Leyva BASIC METABOLIC PANEL 2019-04-16 01:05:00 Yancy Leyva LIPID PANEL 2019-04-16 01:05:00 Yancy Leyva THYROID STIMULATING 2019-04-16 01:05:00 Yancy Leyva HORMONE T4, FREE 2019-04-16 01:05:00 Yancy Leyva ESTIMATED GFR 2019-04-16 01:05:00 Yancy Leyva BASIC METABOLIC PANEL 2019-02-12 09:26:00 Марина Fernandes Enriqueliliana Muniz LIPID PANEL 2019-02-12 09:26:00 Chucky Fernandes Me thodist Enrique Muniz XR CHEST 2 VW 2019-01-22 15:15:20 Ruy Spain M ethbob Lafleur POC GLUCOSE 2018-12-10 17:46:00 Rhett Diaz Meth odist CV AORTAGRAM ABDOMEN W 2018-12-10 17:22:21 Rhett Diaz on Pentecostal RUNOFF HC COMPLETE BLD COUNT 2018-12-10 12:35:00 Rhett Diaz n Pentecostal W/AUTO DIFF ECG PRE/POST OP 2018-12-10 12:20:11 Rhett Diaz odist BASIC METABOLIC PANEL 2018-12-10 12:16:00 Rehtt Diaz ESTIMATED GFR 2018-12-10 12:16:00 Rhett Diaz POC GLYCOSYLATED 2018-11-27 09:45:00 Veronica Zelayaiago Chucky Pfeiffer ethodist HEMOGLOBIN (HGB A1C) Enrique Muniz Plan of Care Planned Activity Planned Date Details Comments Source Future Scheduled 2019-11-16 INFLUENZA VACCINE Маринаto n Pentecostal Test 00:00:00 [code = INFLUENZA VACCINE] Future Scheduled 2007 65+ PNEUMOCOCCAL [facility] Test 00:00:00 VACCINE (1 of 2 - PCV13) [code = 65+ PNEUMOCOCCAL VACCINE (1 of 2 - PCV13)] Future Scheduled 1992 SHINGLES VACCINES (#1) [place] [facility] Test 00:00:00 [code = SHINGLES VACCINES (#1)] Future Scheduled 1952 DIABETIC FOOT EXAM [place] [facility] Test 00:00:00 [code = DIABETIC FOOT EXAM] Future Scheduled 1940 DIABETIC RETINAL EYE Kalyan ston Pentecostal Test 00:00:00 EXAM [code = DIABETIC RETINAL EYE EXAM] Encounters Start End Encounter Admission Attending Care Care Encounter Source Date/Time Date/Time Type Type Clinicians Facility Department ID 2019-09-03 2019-09-03 Outpatient [facility] [id number] [place] 00:00:00 00:00:00 Jose KESSLER 2019-04-16 2019 [facility] [id number] [place] 00:00:00 00:00:00 YANCY 09Marv Method i st 2018-12-12 2018-12-12 Auto Porter 2, Yarelis Lab [facility] [id number] 09:36:46 09:51:46 Visit Carolina [id number] Tanja [id number] Selene [id number] [address] 2018-12-12 2018-12-12 Orders Doctor DOSHI [id number] 00:00:00 00:00:00 Only Unassigned, ZOEY [id number] [facility] [id number] [id number] 2018-11-15 2018-11-15 Auto Porter 1, Adc Lab [facility] [id number] 09:16:06 09:31:06 Visit Carolina [id number] [place] 4.2.7.2.686 [place] [id number] 2018-11-15 2018-11-15 Orders Doctor TICO [id number] 00:00:00 00:00:00 Only Unassigned, ZOEY 350.1.13.10 [facility] [place] [id number] Results Test Description Test Time Test Comments Results Result Comments Source Basic metabolic panel 2019-08-30 00:44:00 Test Item Value Reference Range Interpretation Comme nts Glucose (test code = 166 mg/dL 65-99 H Fasting 2345-7) reference inter gwyn For someone without known diabetes, a glu cosevalue >125 mg/dL romelia cates that they may havedi abetes and this should be confirmed with afollow-up test. BUN (test code = 49 mg/dL 7-25 H 3094-0) Creatinine (test code = 1.64 mg/dL 0.7-1.18 H For patients >49 years of 2160-0) age, the refere nce limitfor Creati nine is approximately 1 3% higher for peopleident ified as -Yeimy n. EGFR Non-Afr. Palestinian 40 > OR = 60 L (test code = 2775) mL/min/1.73m2 EGFR 46 > OR = 60 L (test code = 92269-0) mL/min/1.73m2 BUN/creatinine ratio 30 6- 22 (calc) H (test code = 3097-3) Sodium (test code = 139 mmol/L 564-242 5763-2) Potassium (test code = 4.7 mmol/L 3.5-5.3 2823-3) Chloride (test code = 106 mmol/L 98-110 5-0) CO2 (test code = 24 mmol/L 20-32 2027-9) Calcium (test code = 9.3 mg/dL 8.6-10.3 80056-1) HOSEA (test code = HOSEA) FASTING:YESFASTING: YES RAC (test code = RAC) Performing Organization Information: Site ID: ANISA [email or web address] Lab Address: [address] [place] [id number] Director: Vinh Beaver Lab Interpretation Abnormal (test code = 70965-6) [facility] MethodistLipid [id number] 00:44:00 Test Item Value Reference Range Interpretation Comments Cholesterol, total 87 mg/dL <200 (test code = 2093-3) HDL cholesterol 42 mg/dL > OR = 40 (test code = 2085-9) Triglycerides (test 57 mg/dL <150 code = 2571-8) LDL cholesterol 32 mg/dL (calc) Reference ra nge: calculated (test <100 Desira ble code = 89874-1) range <100 m g/dL for primary prevention; <7 0 mg/dL for patients with C HD or diabetic patients with > or = 2 CHD risk factors. LDL-C is now calculated using the Gordon-[place] calculation, which is a validated novel method providin g better accuracy than the Friedewald equation in the estimation of LDL-C. Gordon S S et al. SHERIF. 2013;310(19): 1008-0965 (http://educati on .Quest[employer] LUBB-TEX .com/faq/UTS046 ) Cholesterol/HDL 2.1 <5.0 (calc) ratio (test code = 9830-1) Non-HDL cholesterol 45 <130 mg/dL For kamron ents with (test code = (calc) diabetes plus 1 48267-5) major ASCVD ris k factor, treatin g to a non-HDL-C goal of <100 mg/dL (LDL-C of <70 mg/dL) is considered a therapeutic option. HOSEA (test code = FASTING:YESFASTING HOSEA) : YES RAC (test code = Performing RAC) Organization Information: Site ID: ANISA Name: [facility] Address: [address] [place] [id number] Director: Vinh Beaver [facility] MethodistHemoglobin [id number] 00:44:00 Test Item Value Reference Interpretation Comments Range Hemoglobin A1C (test 7.3 <5.7 % of H For ezio eone without code = 4548-4) total Hgb known diabete s, a hemoglobin A1cv alue of 6.5% or grea ter indicates that they may have diabet es and this should be confirmed with a follow-up test. For someone with kn own diabetes, a gwyn ue <7% indicates t hat their diabetes is well controlled and a value greater than or equal t o 7% indicates suboptimal cont rol. A1c targets ernesto uld be individualiz ed based on durati on of diabetes, ag e, comorbid conditions, and other considerations. Currently, no consensus exist s regarding use ofhemoglobin A1 c for diagnosis o f diabetes for children. HOSEA (test code = FASTING:YESFASTIN HOSEA) G: YES RAC (test code = Performing RAC) Organization Information: Site ID: RGA Name: [employer] Lab Address: [address] [place] [phone] Director: Vinh Beaver Lab Interpretation Abnormal (test code = 34302-0) [facility] with platelet and [id number] 00:44:00 Test Item Value Reference Range Interpretation Comments WBC (test code = 9.5 3.8- 10.8 6690-2) Thousand/uL RBC (test code = 789-8) 4.13 4.20- 5.80 L Million/uL HGB (test code = 718-7) 10.9 g/dL 13.2-17.1 L HCT (test code = 35.9 % 38.5-50 L 4544-3) MCV (test code = 787-2) 86.9 fL 80-100 MCH (test code = 785-6) 26.4 pg 27-33 L MCHC (test code = 30.4 g/dL 32-36 L 786-4) RDW (test code = 788-0) 15.2 % 11-15 H Platelet count (test 214 140- 400 code = 777-3) Thousand/uL MPV (test code = 776-5) 10.8 fL 7.5-12.5 Neutrophils, absolute 6536 1,500 - 7,800 (test code = 751-8) cells/uL Lymphocytes, absolute 1283 850- 3,900 (test code = 731-0) cells/uL Monocytes, absolute 1026 200- 950 cells/uL H (test code = 742-7) Eosinophils, absolute 551 15- 500 cells/uL H (test code = 711-2) Basophils, absolute 105 0- 200 cells/uL (test code = 704-7) Neutrophils (test code 68.8 % = 770-8) Lymphocytes (test code 13.5 % = 736-9) Monocytes (test code = 10.8 % 5905-5) Eosinophils (test code 5.8 % = 713-8) Basophils + RC (test 1.1 % code = 706-2) HOSEA (test code = HOSEA) FASTING:YESFASTING: YES RAC (test code = RAC) Performing Organization Information: Site ID: RGA Name: [email or web address] Lab Address: [address] [place] [phone] Director: Vinh Beaver Lab Interpretation Abnormal (test code = 26862-5) [facility] MethodistMicroalbumin / creatinine urine [id number] 14:29:00 Test Item Value Reference Interpretation Comments Range Creatinine, urine, 25 mg/dL 20-320 random (test code = 2161-8) Microalbumin, urine 4.8 mg/dL See Note: Referenc e (test code = Range:Reference 85135-2) RangeNot establ ished Microalbumin/creati 192 <30 mcg/mg H The ADA defines nine ratio (test creat abnormaliti es in code = 9318-7) albuminexcret ion as follows: Catego ry Result (mc g/mg creatinine) Nor mal <30Microalbumin uria 30-299 Clinical albumi miriam > OR = 300 Th e ADA recommends that at least two of threespecimens collected withi n a 3-6 month perio d beabnormal befo re considering a patient to bewi thin a diagnostic category. HOSEA (test code = FASTING:YESFASTIN HOSEA) G: YES RAC (test code = Performing RAC) Organization Information: Site ID: RGA [facility] Address: [address] [place] [phone] Director: Vinh Beaver Lab Interpretation Abnormal (test code = 66767-8) [facility] [id number] 07:47:26 Test Item Value Reference Range Interpretation Comments POC glucose (test code = 131 mg/dL 65-99 H Ope rator Name: 70450-7) Ho Asif LDevice ID: [id number] able : [facility] Notified former hand Interpretation (test Abnormal code = 08698-4) Chucky MethodistEstimated [id number] 06:56:44 Test Item Value Reference Range Interpretation Comments Estimated GFR (test 43 mL/min/1.73 m2 A Caterg ory Units code = 5488) InterpretationG 1 >=90 Gifty l or highG2 60-89 Mildly decrease dG3a 45-59 Mil dly to moderately decr sepalU2p 30-44 Moderately to s everely decreasedG4 15-29 Severe ly decreasedG5 <15 Kidney melissa lureThe eGFR was calcul ated using the [facility] [facility] Kidney Disease Epidemiology Collaboration ( CKD-EPI) equation. Interpretation is based on recommendati ons of the National [facility]-Kidn ey Disease Outcome s Quality Initiat yancy (NKF-KDOQI) pub lished in 2013. Lab Interpretation Abnormal (test code = 36278-7) Chucky SteveECG 12 [id number] 22:09:00 Test Item Value Reference Range Interpretation Comments Ventricular rate (test 54 code = 253) Atrial rate (test code 54 = 255) KS interval (test code 140 = 266) QRSD interval (test 96 code = 260) QT interval (test code 452 = 264) QTC interval (test code 428 = 265) P axis 1 (test code = 65 267) QRS axis 1 (test code = 22 268) T wave axis (test code 164 = 270) EKG impression (test Sinus code = 273) bradycardia-Septal infarct (cited on or before 10-JAN-2018)-ST & T wave abnormality, consider lateral ischemia-Abnormal ECG-In automated comparison with ECG of 18-APR-2019 05:53,-No significant change was found- Chucky [place] Lung Ventilation [id number] 11:37:45Hm Interface, Radiology Results Incoming - 04/18/2019 11:40 AM CSTPROCEDURE: NM LUNG VENTILATION PERFUSIONINDICATION: Chest pain. Shortness of breath.COMPARISON: Chest x-ray 04/17/2019.TECHNIQUE: Planar ventilation images were acquired after the inhalation of 15 mCi of Xe-133 gas. Planar perfusion images were acquired after the IV administration of 5 mCi of Tc-99m MAA.FINDINGS: Ventilation images demonstrate decreased ventilation to the lung periphery. Washout images demonstrate gas trapping in the left lung base. Perfusion images demonstrate decreased perfusion to the lung periphery, matching the ventilation images. No mismatched defects.IMPRESSION:1. Low probability for PE.[facility]-[id number] [facility]kayenta health centerUrine [id number] 06:28:56 Test Item Value Reference Range Interpretation Comments Urine culture No growth Specimen isolate (test after 24 InformationSpe [facility] hospitalen code = 08581-5) hours Source: Urin eSpecimen [facility] [id number] 06:28:56Gram stain resultRare WBC'sRare Gram positive rods Comment: Specimen InformationSpecimen Source: UrineSpecimen Site: [facility] MethodistXR Chest 2 [id number] 13:35:59Hm Interface, Radiology Results Incoming 04/17/2019 1:39 PM CSTXR CHEST 2 VWCLINICAL INDICATION:Acute resp illness > 40 years oldCOMPARISON: 01/22/2019IMPRESSION:The heart is mildly enlarged with stable changes post sternotomy noting discontinuous sternal wires. There is mild tortuosity aorta. Small pleural effusions are present bilaterally greater on the right than left. There is minimal basilar infiltration/atelectasis. There is no pneumothorax. Bones of appear unchanged.*[facility]-[id number] Methodkayenta [facility] centerCat lab procedure 2019-04-16 15:37:32Left heart catherization: LM normal. LAD with proximal 95% lesion. High diagonal/ramus branch with 100% occlusion proximally. LCX with second OM mid 75% stenosis. RCA dominant and occluded proximally. LVEF not performed due to renal fxn. MERINO to LAD patent.SVG to diagonal/ramus patent.SVG to RCA patent. LV EDP 20 mmhg.[facility] MethodistEchocardiogram complete w contrast and 3D if [id number] 14:56:00Interface, Radiology Results In - 04/16/2019 2:56 PM MATE CHIEF Echocardiography Report [id number] [address] Pat.Name: NICKI HAINES Pat.ID: [id number].Date: 04/16/2019 Refer.MD: YANCY LEYVA MD Exam Time: 8:20:00 AM Study Type:Routine Echo Height: 67in Weight: 177lb BSA: 1.92 m2 Age: 1 1940,78Y Sex: MALE BP: 193/77 HR: 59 bpm Sonogrphr: LUX SantizoCS, RVTPat. Stat.:Inpatient Room: [address] Study Status:Final Echo Event ID:[id number] Order ID: [id number] Reason for Study:Chest pain, cardiac etiology suspectedHistory / Clinical:Coronary Artery Disease, Diabetes,Hyperlipidemia,Hypertension, Shortness of Breath, StrokeProcedures: 2D Echo, Colorflow Doppler, Intravenous Optison ContrastRace: C SUMMARY : LV EF is normal.Overall wall motion is normal.RV systolic function is normal.LV filling pressure is restrictive pattern, mean PCWP >25mmHg.Estimated PA systolic pressure is 53 mmHg, assuming a mean RAP of 15mmHg. FINDINGS:------ LV: LV size is normal. There is mild concentric LV hypertrophy. LV EF is normal. Overall wall motion is normal. Estimated EF is 60-64%.RV: RV size is moderately enlarged. RV systolic function is normal. RV wall motion is normal.LA: LA volume is severely enlarged.RA: RA volume is severely enlarged.AO: Aortic rootdiameter is normal.CHRISTEN: No pericardial effusion.AV: No structural AV abnormalities noted.MV: Mild thickening and calcification of mitral leaflets. Mild mitral annular calcification. A trace of mitral regurgitation. PV: No structural PV abnormalities noted. A trace of pulmonic regurgitation. TV: No structural TV abnormalities noted. A trace of tricuspid regurgitation Hyatt: LV relaxation is impaired. LV filling pressure is restrictive pattern, mean PCWP >25mmHg.Other: Estimated PA systolic pressure is 53 mmHg, assuming a mean RAP of 15 mmHg. MEASUREMENTS: 2DParasternal Long [place] Ao An 2.4 cm LVPWd 1.3 cm Ao Rtd 3.5 cm Index 1.8 cm/m2 LA Ds 5 cm IVSd 1.2 cm RWT 0.56 LVIDd 4.8 cm Index 2.5 cm/m2 LV Mass 234 g (122-174) LVIDs 3.4 cm LVM Index 122 g/m2 LV%fs 30 % LVOT 2.1 cm LA Sng Plane LA Area 33 cm2 (8.8-23.4) LA Vol 127 ml Index 66 ml/m2 LA LngAx 7.2 cm RA Sng Plane RA Vol 127 ml Index 66 ml/m2 RA LngAx 6.5 cm RA Area 32 cm2 (8.3-19.5)Dimension Dim 4.8 cm LVOT LVOT Area 3.5 cm2 DOPPLERLVOT Stroke Vol LVOT TVI 21 cm HR 63 bpm LVOT LVOT SV 73 ml LVOT CO 4.6 l/min SVi 38 ml/m2 LVOT CI 2.4 l/m/s4Iefulu Valve MV pkE 100 cm/s (60-130)TV Pressure Gradient TV PkVel 313 cm/s TV PG 39 mmHg Signed 04/16/2019 02:56 Ifeoma Henderson [facility] [id number] 13:41:46 Test Item Value Reference Range Interpretation Comments Troponin (test code = 0.085 ng/mL 0-0.04 H [facility] [address]-9) suspected of davalos ving a myocardial infarction, donaldo hutchison with all other appropriate cli nical measures and ac tions including ECG a nd other diagnosti cs as appropriate, de asure Ultra TnI at 0 hrs and at 3 hrs.Myocardial infarction VERY LIKELYThe 0 hr TnI level is > 0.10 ng/mL ----- ----- ----- --Lance cardial infarct ion LIKELYThe 0 hr TnI level is > 0.04 ng/mL and 3 hr level is increased or decreased by at least 0.020 ng/ mL ----- ----- ----- Lance cardi al infarction V ALLISON UNLIKELYBoth th e 0 hr and 3 hr TnI levels <= 0.04 ng/mL(within no rmal limits) OR 0 hr is > 0.04 ng/mL and 3 hr is increased OR decreased by le ss than 0.020 ng/m L Lab Interpretation Abnormal (test code = 35467-4) Chucky MethodistUrinalysis screen and microscopy, with reflex to culture 2019-04-16 09:28:07 Test Item Value Reference Range Interpretation Comments Specimen site (test code = 1372953) Merrill Color, UA (test code = 5778-6) Yellow Appearance, UA (test code = 5767-9) Clear Specific gravity, UA (test code = 1.016 1.001-1.035 5811-5) pH, UA (test code = 5803-2) 6.0 5.0-8.5 Protein, UA (test code = 61634-1) 2+ Negative A Glucose, UA (test code = 09828-3) 3+ Negative A Ketones, UA (test code = 2514-8) Negative Negative Bilirubin, UA (test code = 5770-3) Negative Negative Blood, UA (test code = 5794-3) Small Negative A Nitrite, UA (test code = 5802-4) Negative Negative Urobilinogen, UA (test code = 4.0 <2.0 A 34599-8) Leukocyte esterase, UA (test code = Small Negative A 5799-2) WBC, UA (test code = 5821-4) 11 0- 1 /HPF H RBC, UA (test code = 72859-1) 21 0- 5 /HPF H Bacteria, UA (test code = 96467-4) Few None seen Yeast, UA (test code = 31476-9) None seen Yeast with pseudohyphae, UA (test None seen code = 88226-7) Hyaline casts, UA (test code = 4 /LPF 5796-8) Lab Interpretation (test code = Abnormal 52476-0) Chucky MethodistT4, [id number] 02:52:26 Test Item Value Reference Range Interpretation Comments T4, free (test code = 3024-7) 1.3 ng/dL 0.9-1.7 Chucky JonesistThyroid stimulating [id number] 02:52:26 Test Item Value Reference Range Interpretation Comments TSH (test code = 3016-3) 1.99 0.27- 4.20 uIU/mL Chucky JonesistPartial thromboplastin time, [id number] 02:44:30 Test Item Value Reference Range Interpretation Comments PTT (test code = 30.8 23.0- 36.0 [place] [address]-1) unfractionated heparin is61.0-112.0 se conds which corresponds to Anti-Xa0.3-0.7 U/ml. Chucky JonesistProthrombin time with [id number] 02:43:47 Test Item Value Reference Range Interpretation Comments Prothrombin time (test 14.9 11.5- 14.5 sec H code = 5902-2) INR (test code = 1.2 The Interna tional 87351-2) Normalized Rati o (INR) is a therapeuti c monitoring tool for patients who ar e stable on oral anticoagulant t herapy. An INR of 2.0-3 .0 is suggested for d eep vein thrombosis/pulm onary embolism. Lab Interpretation Abnormal (test code = 10700-3) Chucky JoshiG Pre/Post [id number] 08:12:43 Test Item Value Reference Range Interpretation Comments Ventricular rate (test 51 code = 253) Atrial rate (test code 51 = 255) KS interval (test code 166 = 266) QRSD interval (test 96 code = 260) QT interval (test code 474 = 264) QTC interval (test code 436 = 265) P axis 1 (test code = 66 267) QRS axis 1 (test code = 20 268) T wave axis (test code 132 = 270) EKG impression (test Sinus bradycardia-T code = 273) wave abnormality, consider lateral ischemia-Abnormal ECG-In automated comparison with ECG of 10-JAN-2018 15:00,-Criteria for Septal infarct are no longer present- Chucky Omer invasive peripheral vascular [id number] 21:19:07 Bilateral common iliac femoral arteries are normal. Left superficial femoral artery has mild diseasedistally. Left popliteal artery showed re-stenosis of previously dilated segment with now 45 mmhg pressure difference across the lesion. Left anterior tibial is occluded and fills late, left pereneol has severe ostial lesion and posterior tibial has mild proximal disease. Right superficial artery had mild disease distally. But arteries below the knee on the right side are not well visualized due to lack of contrast.[facility] glycos[facility] hemoglobin (Hb A1C)2018-11-27 09:45:00 Test Item Value Reference Range Interpretation Comments POC Hemoglobin A1C (test code = 7.7 % [id number]) Chucky Steve
[2019-11-23 09:49] LABS: Absolute Lymphocytes (CBC) 0.9 K/uL (0.7-4.9); Basophils % 0.9 % (0-1.3); Hematocrit 36.1 % (39.6-49.0); Lymphocytes % 11.4 % (15.3-44.8); MPV 9.3 fL (7.6-11.3); RBC Red Blood Cell Count 4.23 M/uL (4.33-5.43)
[2019-11-23 09:51] LABS: Protime INR 1.01
[2019-11-23 09:55] LABS: Potassium 4.1 mmol/L (3.5-5.1)
--- NOTE | 2019-11-23 09:58 | RAD REPORT ---
EXAM DESCRIPTION: RAD - Chest Single View - 11/23/2019 9:40 am CLINICAL HISTORY: left sided paresthesias COMPARISON: Portable June 2019 and March 2019 TECHNIQUE: AP portable chest image was obtained 11/23/2019 9:40 am . FINDINGS: No peripheral mass consolidation. Interstitial pattern is prominent but not substantially different. Cardiomegaly is present. Sternotomy wires are in place. Central vasculature is not clearly outside of normal range. No measurable pleural effusion and no pneumothorax. No acute bony abnormali ty seen. No acute aortic findings suspected. IMPRESSION: No peripheral mass consolidation. Heart size is enlarged and prominent interstitial pattern seen. A true normal baseline for the patien t is unknown. Comparison studies were all done for acute symptoms. Patient may have minimal failure o r volume overload.
[2019-11-23 10:05] LABS: NT PRO-BNP 573 pg/mL (<450); Troponin (Emerg Dept Use Only) < 0.02 ng/mL (0.0-0.045)
[2019-11-23] MEDS ORDERED: MORPHINE 4 MG/ML SYR ONE (10:31)
[2019-11-23] MEDS ORDERED: NA CHLORIDE 0.9% 500 ML ONE (10:32)
[2019-11-23] MEDS ORDERED: ONDANSETRON 4 MG/2 ML VIAL ONE (10:32)
--- NOTE | 2019-11-23 10:37 | RAD REPORT ---
EXAM DESCRIPTION: CT - Ct Stroke Brain Wo Cont - 11/23/2019 10:22 am CLINICAL HISTORY: NUMBNESS COMPARISON: Head Brain Wo Cont dated 10/29/2018 TECHNIQUE: Axial 5 millimeter thick images of the head were obtained without IV contrast. All CT scans are performed using dose optimization technique as appropriate and may include automated exposure control or mA/KV adjustment according to patient size. FINDINGS: No intracranial hemorrhage, mass, or cerebral edema. No acute cortical based infarction id entifiable peer no cortical edema or sulcal effacement. Atrophy changes are minimal. Ventricles are i n proportion to the volume loss. Scattered chronic ischemic changes are present in the cerebral white matter. This is most notable in the deep periventricular white matter left frontal lobe. Alvarado matter -white matter differentiation is preserved.Intracranial findings are not clearly different from October 2018. Visualized portions of the mastoid air cells, paranasal sinuses, and orbits are unremarkable. Images were only initially available in the exception folder. This delayed final written report. Find ings were telephoned to the emergency department 948 a.m.. IMPRESSION: No intracranial hemorrhage and no acute cortical based infarction identified. Patient has scattered chronic ischemic changes. These are not substantially different from October 2018. Chronic ischemic change can mask nonhemorrhagic CVA.
[2019-11-23] MEDS ORDERED: ASPIRIN 325 MG TAB ONE (11:23)
[2019-11-23] MEDS ORDERED: CLOPIDOGREL 75 MG TABLET ONE (11:23)
[2019-11-23] MEDS ORDERED: FOLIC ACID 5 MG/ML VIAL ONE (11:24)
[2019-11-23] MEDS ORDERED: NA CHLORIDE 0.9% 50 ML IV ONE (11:25)
--- NOTE | 2019-11-23 11:33 | EDPHYS ---
Physician Documentation [facility] Name: Ary Haines Age: 79 yrs Sex: Male : 1940 Arrival Date: 11/23/2019 Time: 09:18 Bed 2 Private MD: ED Physician Bi Méndez HPI: 11/22 09:21 This 79 yrs old Male presents to ER via Unassigned with complaints of rn Headache, numbness. 09:21 The patient complains of pain to the left frontal area and left side of the back of rn head. The patient describes the headache as aching. Onset: The symptoms/episode began/occurred this morning. Severity of symptoms: At its worst the pain was mild, in the emergency department the pain is unchanged. Headache History: Denies prior headaches. The patient has not experienced similar symptoms in the past. The patient has not recently seen a physician. Reports was fine this morning, driving, then felt left sided headache, assoc with left arm heaviness and tingling, is improving, heaviness is gone, + still mild tingling to left hand and left forearm. No other focal neuro complaint. No trauma. Reports having neck pain "on and off". No chest pain/sob. Reports symptom onset around 0800 today.. Historical: - Allergies: 09:33 Cipro (Hives); itching; bp 09:33 Iodinated Contrast Media; bp 09:33 Iodine; bp - Home Meds: 09:33 aspirin 81 mg Oral TbEC 1 tab once daily [Active]; furosemide 40 mg Oral tab 1 tab once bp daily [Active]; Coreg 12.5 mg Oral tab [Active]; hydralazine 25 mg Oral tab 1 tab 2 times per day [Active]; atorvastatin 40 mg Oral tab 1 tab once daily [Active]; Tresiba FlexTouch U-100 100 unit/mL (3 mL) subcutaneous inpn 18 units, daily [Active]; gabapentin 100 mg oral cap [Active]; - PMHx: 09:33 blockages; CHF; Diabetes - IDDM; Leg blockages; Hypertension; bp - Immunization history:: Adult Immunizations up to date. - Social history:: Smoking status: Patient denies any tobacco usage or history of. - Family history:: not pertinent. - Hospitalizations: : No recent hospitalization is reported. ROS: 09:21 Constitutional: Negative for fever, chills, and weight loss, Eyes: Negative for injury, rn pain, redness, and discharge, Neck: Negative for injury and swelling, Cardiovascular: Negative for chest pain, palpitations, and edema, Respiratory: Negative for shortness of breath, cough, wheezing, and pleuritic chest pain, Abdomen/GI: Negative for abdominal pain, nausea, vomiting, diarrhea, and constipation, MS/Extremity: Negative for injury and deformity, Skin: Negative for injury, rash, and discoloration, Neuro: Negative for seizure Exam: 09:21 Constitutional: This is a well developed, well nourished patient who is awake, alert, rn and in no acute distress. Head/Face: Normocephalic, atraumatic. Eyes: Pupils equal round and reactive to light, extra-ocular motions intact Cardiovascular: Regular rate and rhythm. No pulse deficits. Respiratory: No increased work of breathing, no retractions or nasal flaring. Abdomen/GI: soft, non-tender MS/ Extremity: Pulses equal, no cyanosis. Neurovascular intact. Full, normal range of motion. Equal circumference. Neuro: Awake and alert, GCS 15, oriented to person, place, time, and situation. Cranial nerves II-XII grossly intact. Motor strength 4/5 in all extremities. Cerebellar exam normal. + mild decreased sensation to soft touch left hand and left forearm as well as pin prick. No drift. 09:27 ECG was reviewed by the Attending Physician. rn Vital Signs: 09:18 BP 184 / 100; Pulse 100; Resp 97; Temp 98.5; Pulse Ox 99% ; bp 10:14 BP 182 / 68; Pulse 51; Resp 16; Pulse Ox 100% ; bp 11:07 BP 198 / 78; Pulse 55; Resp 15; Pulse Ox 100% ; bp 12:21 BP 177 / 73; Pulse 58; Resp 16; Pulse Ox 97% ; bp 13:09 BP 163 / 67; Pulse 50; Resp 16; Pulse Ox 99% ; bp NIH Stroke Scale Scores: 10:27 NIHSS Score: 1 rn Spencer Coma Score: 10:19 Eye Response: spontaneous(4). Verbal Response: oriented(5). Motor Response: obeys rn commands(6). Total: 15. MDM: 09:19 Patient medically screened. rn 10:19 Differential diagnosis: cerebral vascular accident, hypertensive headache, rn intracerebral hemorrhage, migraine, subarachnoid bleed, tension headache, vasomotor headache, TIA. Data reviewed: vital signs, nurses notes, lab test result(s), radiologic studies, CT scan. Counseling: I had a detailed discussion with the patient and/or guardian regarding:. ED course: Pt with no acute findings on CT head, reports symptoms are improving but left arm still doesn't feel normal. Allergic to iodine so can't get CTA head/neck, no MRI available. Will treat headache to see if symptoms improve and more likely related to neuropathy vs complicated migraine. . 10:41 ED course: Pt without improvement of left arm symptoms after pain medication, is rn improving since onset, but not at baseline. Arranging transfer and consultation with [facility] neuro, do not believe is going to be TPA candidate given improving and minor symptoms, NIH scale 1, and on aspirin/plavix dual therapy. Will discuss with neuro given still within window. SPoke at length with patient regarding ischemic stroke possibility, treatment with TPA if other causes ruled out and stroke is still possible, patient hesitant about TPA and bleeding possibility, told him would discuss case with [facility] neurology and do what they recommend since we do not have neurology available at this hospital. . 10:49 ED course: Consulted with Dr. Pandya at [facility], does not recommend TPA given only rn sensation changes, improving, and barely NIH 1. Will take patient as consult. Updated patient with plan to transfer and care. . 10:53 ED course: Pt and daughter insist on transfer to [facility] given all of his rn other doctors are at [facility]. Already have acceptance at [facility], but will try [facility] per patient's request. Awaiting call back.. 11:31 ED course: Accepted for transfer to [facility], awaiting hospitalist rn consultation and then will transfers by ground ambulance. Spoke with neurology at [facility], told him did not give TPA after consultation with Dr. Pandya, neurology at [facility], who recommended against it.. 11:31 Response to treatment: the patient's symptoms have mildly improved after treatment, and rn as a result, I will admit patient. 11:37 ED course: Pt states symptoms have improved but not back to baseline, when last went to rn room, patient using affected arm/hand to hold phone to speak to family. . 11/22 09:20 Order name: Basic Metabolic Panel rn 11/22 09:20 Order name: CBC with Diff rn 11/22 09:20 Order name: Protime (+inr) rn 11/22 09:20 Order name: Ptt, Activated rn 11/22 09:26 Order name: Troponin (emerg Dept Use Only) rn 11/22 09:26 Order name: BNP rn 11/22 09:20 Order name: Stroke CXR 1 View rn 11/22 09:20 Order name: CT Stroke Brain w/o Contrast rn 11/22 09:52 Order name: Protime (+INR); Complete Time: 10:11 EDMS 11/22 09:52 Order name: PTT, Activated Partial Thromb; Complete Time: 10:11 EDMS 11/22 09:52 Order name: CBC with Automated Diff; Complete Time: 10:11 EDMS 11/22 09:55 Order name: Basic Metabolic Panel; Complete Time: 10:11 EDMS 11/22 10:05 Order name: Troponin (Emerg Dept Use Only); Complete Time: 10:11 EDMS 11/22 10:05 Order name: NT PRO-BNP; Complete Time: 10:11 EDMS 11/22 09:20 Order name: EKG; Complete Time: 09:21 rn 11/22 09:20 Order name: Accucheck; Complete Time: 09:45 rn 11/22 09:20 Order name: Cardiac monitoring; Complete Time: 09:45 rn 11/22 09:20 Order name: EKG - Nurse/Tech; Complete Time: 09:44 rn 11/22 09:20 Order name: IV Saline Lock; Complete Time: 09:45 rn 11/22 09:59 Order name: RAD; Complete Time: 10:11 EDMS 11/22 10:38 Order name: CT; Complete Time: 10:47 EDMS 11/22 11:42 Order name: EKG; Complete Time: 11:43 rn 08 09:20 Order name: Labs collected and sent; Complete Time: 09:45 rn 11/22 09:20 Order name: NPO; Complete Time: 09:45 rn 11/22 09:20 Order name: O2 Per Protocol; Complete Time: 09:44 rn 11/22 09:20 Order name: O2 Sat Monitoring; Complete Time: 09:44 rn 11/22 09:20 Order name: Stroke Swallow Screen; Complete Time: :44 rn 11/22 11:42 Order name: EKG - Nurse/Tech; Complete Time: 11:59 rn EC: Rate is 50 beats/min. Rhythm is regular. QRS [place] is Normal. IA interval is normal. QRS rn interval is normal. QT interval is normal. No Q waves. T waves are Inverted in leads III, aVF, V5, V6. No ST changes noted. Clinical impression: Sinus bradycardia. Interpreted by me. Reviewed by me. Administered Medications: 10:14 Drug: NS 0.9% 500 ml Route: IV; Rate: bolus; Site: right forearm; bp 11:59 Follow up: IV Status: Completed infusion; IV Intake: 500ml bp 10:19 Drug: morphine 4 mg Route: IVP; Site: right forearm; bp 11:24 Follow up: Response: No adverse reaction bp 10:20 Drug: Zofran (Ondansetron) 4 mg Route: IVP; Site: right forearm; bp 11:25 Follow up: Response: No adverse reaction bp 11:15 Drug: foLIC Acid 1 mg Route: IVPB; Site: right forearm; bp 11:59 Follow up: IV Status: Completed infusion; IV Intake: 50ml bp 11:15 Drug: Aspirin 325 mg Route: PO; bp 11:25 Follow up: Response: No adverse reaction bp 11:15 Drug: PlaVIX 75 mg Route: PO; bp 11:25 Follow up: Response: No adverse reaction bp 11:45 Drug: Demerol 25 mg Route: IVP; Site: right forearm; bp 11:45 Drug: Pepcid 20 mg Route: IVP; Site: right forearm; bp Disposition: 11/23/19 11:33 Transfer ordered to [facility]. Diagnosis are Headache, Paresthesia of skin, Possible CVA. - Reason for transfer: Higher level of care. - Accepting physician is Dr. Christopher. - Condition is Stable. - Problem is new. - Symptoms have improved. NIH Stroke Scale - NIH Stroke Score Date: 11/23/2019 Time: :27 Total Score = 1 1a. Level of Consciousness (LOC) - 0(Alert) 1b. Level of Consciousness (LOC) (Year \\T\\ Age) - 0(Both) 1c. LOC Commands (Open \\T\\ Closes Eyes/Bell Hole Digger) - 0(Both) 2. Best Gaze (Lateral Gaze Paresis) - 0(Normal) 3. Visual Field Loss - 0(No visual loss) 4. Facial Palsy - 0(Normal) 5a. Left Arm: Motor (10-second hold) - 0(No drift) 5b. Right Arm: Motor (10-second hold) - 0(No drift) 6a. Left Leg: Motor (5-second hold - always test supine) - 0(No drift) 6b. Right Leg: Motor (5-second hold - always test supine) - 0(No drift) 7. Limb Ataxia (finger/nose \\T\\ heel/medina - test with eyes open) - 0(Absent) 8. Sensory Loss (pinprick arms/legs/face) - 1(Mild to moderate loss) 9. Best Language: Aphasia (description/naming/reading) - 0(No aphasia) 10. Dysarthria (speech clarity - read or repeat words) - 0(Normal) 11. Extinction and Inattention (visual/tactile/auditory/spatial/personal) - 0(No abnormality) Initials: rn Signatures: Dispatcher [employer] EDMS Bi Méndez MD MD rn Peltier, Brian, RN RN bp Corrections: (The following items were deleted from the chart) 10:28 09:21 Constitutional: This is a well developed, well nourished patient who is rn awake, alert, and in no acute distress. Head/Face: Normocephalic, atraumatic. Eyes: Pupils equal round and reactive to light, extra-ocular motions intact Cardiovascular: Regular rate and rhythm. No pulse deficits. Respiratory: No increased work of breathing, no retractions or nasal flaring. Abdomen/GI: soft, non-tender MS/ Extremity: Pulses equal, no cyanosis. Neurovascular intact. Full, normal range of motion. Equal circumference. Neuro: Awake and alert, GCS 15, oriented to person, place, time, and situation. Cranial nerves II-XII grossly intact. Motor strength 4/5 in all extremities. Cerebellar exam normal. + mild decreased sensation to soft touch left hand and left forearm, normal sensation left upper arm. No drift. rn 11:40 11:33 11/23/2019 11:33 Transfer ordered to [facility]. Diagnosis is rn Headache; Paresthesia of skin; Possible CVA. Reason for transfer: Higher level of care. Accepting physician is . Condition is Stable. Problem is new. Symptoms have improved. rn 13:26 11:40 11/23/2019 11:33 Transfer ordered to [facility]. Diagnosis is bp Headache; Paresthesia of skin; Possible CVA. Reason for transfer: Higher level of care. Accepting physician is Dr. Christopher. Condition is Stable. Problem is new. Symptoms have improved. rn 11/23 07:28 11/22 11:31 ED course: Accepted for transfer to [facility], awaiting rn hospitalist consultation and then will transfers by ground ambulance.. rn 11/23 07:37 11/22 10:41 ED course: Pt without improvement of left arm symptoms after pain pattern drum maker, is improving since onset, but not at baseline. Arranging transfer and consultation with [facility] neuro, do not believe is going to be TPA candidate given improving and minor symptoms, NIH scale 1, and on aspirin/plavix dual therapy. Will discuss with neuro given still within window. . rn
--- NOTE | 2019-11-23 11:33 | ER ---
Nurse's Notes [facility] Name: Ary Haines Age: 79 yrs Sex: Male : 1940 Arrival Date: 11/23/2019 Time: 09:18 Bed 2 Private MD: Diagnosis: Headache;Paresthesia of skin;Possible CVA Presentation: 11/22 09:18 Chief complaint: EMS states: HYPERVENTILATION AND LEFT HAND NUMBNESS \T\ 0800. RESOLVING bp SINCE THAT TIME. Coronavirus screen: At this time, the client does not indicate any symptoms associated with coronavirus-19. Ebola Screen: No symptoms or risks identified at this time. Initial Sepsis Screen: Does the patient meet any 2 criteria? No. Patient's initial sepsis screen is negative. Does the patient have a suspected source of infection? No. Patient's initial sepsis screen is negative. Risk Assessment: Do you want to hurt yourself or someone else? Patient reports no desire to harm self or others. Onset of symptoms was November 23, 2019 at 08:00. Care prior to arrival: IV initiated. 18 GA, in the right forearm, Glucose check: 182. 09:18 Method Of Arrival: EMS: [facility] bp 09:18 Acuity: SHIRA 3 bp Triage Assessment: 09:33 Headache History: The patient has had previous headaches and this one is similar to bp previous episodes. General: Appears in no apparent distress. uncomfortable, Behavior is cooperative, appropriate for age, anxious. Pain: Complains of pain in left side of the back of head Pain Pain began Also complains of no other associated symptoms. EENT: No signs and/or symptoms were reported regarding the EENT system. Neuro: Reports numbness. Cardiovascular: Rhythm is sinus tachycardia. Respiratory: Reports cough that is. GI: No signs and/or symptoms were reported involving the gastrointestinal system. : No signs and/or symptoms were reported regarding the genitourinary system. Derm: No deficits noted. Musculoskeletal: Reports numbness in left arm. Historical: - Allergies: 09:33 Cipro (Hives); itching; bp 09:33 Iodinated Contrast Media; bp 09:33 Iodine; bp - Home Meds: 09:33 aspirin 81 mg Oral TbEC 1 tab once daily [Active]; furosemide 40 mg Oral tab 1 tab once bp daily [Active]; Coreg 12.5 mg Oral tab [Active]; hydralazine 25 mg Oral tab 1 tab 2 times per day [Active]; atorvastatin 40 mg Oral tab 1 tab once daily [Active]; Tresiba FlexTouch U-100 100 unit/mL (3 mL) subcutaneous inpn 18 units, daily [Active]; gabapentin 100 mg oral cap [Active]; - PMHx: 09:33 blockages; CHF; Diabetes - IDDM; Leg blockages; Hypertension; bp - Immunization history:: Adult Immunizations up to date. - Social history:: Smoking status: Patient denies any tobacco usage or history of. - Family history:: not pertinent. - Hospitalizations: : No recent hospitalization is reported. Screenin:44 Abuse screen: Denies threats or abuse. Denies injuries from another. Nutritional bp screening: No deficits noted. Tuberculosis screening: No symptoms or risk factors identified. Fall Risk None identified. Assessment: 09:30 General: SEE TRIAGE NOTE. bp 10:16 Reassessment: PT RETURNED FROM CT. AT B/S. bp 11:07 Reassessment: TRANSFER FOR NEURO INITIATED, AWAITING HOSPITAL RESPONSE. bp 11:08 Neuro: Reports numbness in left arm. bp 12:21 Reassessment: PT ACCEPTED FOR TRANSFER TO [facility] FOR NEURO F/U. bp 12:46 Reassessment: REPORT TO ALEJANDRA SEO, TRANSPORT PENDING. bp 13:09 Reassessment: [facility] AT B/S FOR TRANSPORT. NO CHANGE IN NEURO STATUS. bp Vital Signs: 09:18 BP 184 / 100; Pulse 100; Resp 97; Temp 98.5; Pulse Ox 99% ; bp 10:14 BP 182 / 68; Pulse 51; Resp 16; Pulse Ox 100% ; bp 11:07 BP 198 / 78; Pulse 55; Resp 15; Pulse Ox 100% ; bp 12:21 BP 177 / 73; Pulse 58; Resp 16; Pulse Ox 97% ; bp 13:09 BP 163 / 67; Pulse 50; Resp 16; Pulse Ox 99% ; bp Spencer Coma Score: 10:19 Eye Response: spontaneous(4). Verbal Response: oriented(5). Motor Response: obeys rn commands(6). Total: 15. NIH Stroke Scale Scores: 10:27 NIHSS Score: 1 nurse intern Course: 09:18 Patient arrived in ED. bp 09:19 Bi Méndez MD is Attending Physician. rn 09:24 Triage completed. bp 09:33 Arm band placed on. bp 09:44 Patient has correct armband on for positive identification. Bed in low position. Call bp light in reach. Side rails up X2. 09:44 Maintain EMS IV. Dressing intact. Good blood return noted. Site clean \T\ dry. Gauge \T\ bp site: 18 G R FA. 09:45 CT Stroke Brain w/o Contrast Sent. bp 10:13 Yuri Jain, RN is Primary Nurse. bp 10:42 initiated a transfer with Julieth Galarza from the [facility]. eb 10:[address] Pandya the neurologist dimension quarry supervisor for [facility] with Dr. Méndez for patient eb transfer consultation. 10:53 initiated a transfer with Ligia from the [facility] at the request of eb the patient. 10:[address] Beaver the hospitalist dimension quarry supervisor for [facility] with Dr. Méndez for eb patient transfer consultation. 11:01 administrative approval given by Julieth Galarza Rn/ patient has been accepted to [facility] bed 2262/ Dr. Beaver has accepted the patient in transfer. report to be called to [phone]. 11:23 Ligia from the [facility] called to let us know they do have a bed and eb will get a hold of the stroke team and start the process of the transfer. 11:27 connected the neurologist dimension quarry supervisor for [facility] with Dr. Méndez for patient transfer eb consultation. 11:38 connected the hospitalist dimension quarry supervisor for [facility] with Dr. Méndez for patient consultation.eb 11:40 administrative approval given by Zeb Jimenez Bow Making Machine Operator/ Patient has been eb accepted to [facility] pending a bed/ Dr. Christopher has accepted the patient in transfer/ Zeb will call back with room number and report number after the face sheet has been faxed. 12:07 patient will be going to [facility] bed 1804/ report to be called to the transfer center at [phone]. 13:13 No provider procedures requiring assistance completed. Patient transferred, IV remains bp in place. Administered Medications: 10:14 Drug: NS 0.9% 500 ml Route: IV; Rate: bolus; Site: right forearm; bp 11:59 Follow up: IV Status: Completed infusion; IV Intake: 500ml bp 10:19 Drug: morphine 4 mg Route: IVP; Site: right forearm; bp 11:24 Follow up: Response: No adverse reaction bp 10:20 Drug: Zofran (Ondansetron) 4 mg Route: IVP; Site: right forearm; bp 11:25 Follow up: Response: No adverse reaction bp 11:15 Drug: foLIC Acid 1 mg Route: IVPB; Site: right forearm; bp 11:59 Follow up: IV Status: Completed infusion; IV Intake: 50ml bp 11:15 Drug: Aspirin 325 mg Route: PO; bp 11:25 Follow up: Response: No adverse reaction bp 11:15 Drug: PlaVIX 75 mg Route: PO; bp 11:25 Follow up: Response: No adverse reaction bp 11:45 Drug: Demerol 25 mg Route: IVP; Site: right forearm; bp 11:45 Drug: Pepcid 20 mg Route: IVP; Site: right forearm; bp Intake: 11:59 IV: 50ml; Total: 50ml. bp 11:59 IV: 500ml; Total: 550ml. bp Outcome: 11:33 ER care complete, transfer ordered by . rn 13:12 Transferred by ground EMS to [facility], Transfer form completed. bp 13:12 Condition: stable 13:12 Instructed on the need for transfer. 13:26 Patient left the ED. bp NIH Stroke Scale - NIH Stroke Score Date: 11/23/2019 Time: 10:27 Total Score = 1 1a. Level of Consciousness (LOC) - 0(Alert) 1b. Level of Consciousness (LOC) (Year \T\ Age) - 0(Both) 1c. LOC Commands (Open \T\ Closes Eyes/Associate Professor Of Theology) - 0(Both) 2. Best Gaze (Lateral Gaze Paresis) - 0(Normal) 3. Visual Field Loss - 0(No visual loss) 4. Facial Palsy - 0(Normal) 5a. Left Arm: Motor (10-second hold) - 0(No drift) 5b. Right Arm: Motor (10-second hold) - 0(No drift) 6a. Left Leg: Motor (5-second hold - always test supine) - 0(No drift) 6b. Right Leg: Motor (5-second hold - always test supine) - 0(No drift) 7. Limb Ataxia (finger/nose \T\ heel/medina - test with eyes open) - 0(Absent) 8. Sensory Loss (pinprick arms/legs/face) - 1(Mild to moderate loss) 9. Best Language: Aphasia (description/naming/reading) - 0(No aphasia) 10. Dysarthria (speech clarity - read or repeat words) - 0(Normal) 11. Extinction and Inattention (visual/tactile/auditory/spatial/personal) - 0(No abnormality) Initials: rn Signatures: Bi Méndez MD MD rn Peltier, Brian, RN RN bp Botello, Elizabeth eb
[2019-11-23] MEDS ORDERED: FAMOTIDINE 20 MG/2 ML VIAL IV ONE (11:54)
[2019-11-23] MEDS ORDERED: MEPERIDINE HCL 50 MG/ML ONE (11:54)
[2019-11-23 13:32] VITALS: TEMP 98.5
[2019-11-23 13:37] VITALS: BP 163/67; O2SAT 99
--- NOTE | 2019-11-24 07:50 | EKG ---
Test Date: 2019-11-23 Test Time: 11:47:22 Dredge Lever Operator: GOLDY MEASUREMENT RESULTS: Intervals: Rate: 52 NM: 168 QRSD: 98 QT: 468 QTc: 435 [place]: P: 74 NM: 168 QRS: 55 T: 192 INTERPRETIVE STATEMENTS: Sinus bradycardia Septal infarct, age undetermined Abnormal ECG Compared to ECG 11/23/2019 09:27:19 ST (T wave) deviation no longer present Possible ischemia no longer present Myocardial infarct finding still present Electronically Signed On 11-24-19 07:49:05 CDT by Axel Moreno
--- NOTE | 2019-11-24 07:50 | EKG ---
Test Date: 2019-11-23 Test Time: 09:27:19 Battery Tester Field: GOLDY MEASUREMENT RESULTS: Intervals: Rate: 50 AL: 166 QRSD: 96 QT: 470 QTc: 428 [place]: P: 78 AL: 166 QRS: 89 T: 249 INTERPRETIVE STATEMENTS: Sinus bradycardia Septal infarct, age undetermined ST & T wave abnormality, consider inferolateral ischemia Abnormal ECG Compared to ECG 06/29/2019 17:57:22 No significant changes Electronically Signed On 11-24-19 07:49:09 CDT by Axel Moreno
== END 2019-11-23 13:26 | disposition short-term general hospital (02) ==
LOC: ER 09:17
DX: R20.2 Paresthesia of skin (principal); E11.9 Type 2 diabetes mellitus without complications; I50.9 Heart failure, unspecified; Z79.82 Long term (current) use of aspirin; Z79.4 Long term (current) use of insulin; Z88.1 Allergy status to other antibiotic agents; Z91.041 Radiographic dye allergy status
CPT/HCPCS: 96365; 96361; 93005 ×2; 85025; 80048; 36415; 85610; 85730; 84484; 83880; 70450; 71045; 96375; 99285; J2175; J7040; J2405

== ENCOUNTER 2020-07-14 12:34 | Emergency (ER) | payer OTHER ==
--- OUTSIDE RECORDS SUMMARY | 2020-07-14 12:36 | XMS REPORT | Continuity of Care Document ---
:1940 Author Organization [facility] t Address [address] [place] [address] Care Team Providers Name Role Phone YANICARLENE JOE Attending Clinician Unavailable ERICA RICHARDSON Attending Clinician Unavailable SHILPI SHAH Attending Clinician Unavailable YANCY LEYVA Attending Clinician Unavailable Sd KHAN, [place] Elena Attending Clinician VERONICA KESSLER Attending Clinician Unavailable 2, Lab Attending Clinician Unavailable Doctor Unassigned, Name Attending Clinician Unavailable 1, Lab Attending Clinician Unavailable AUTUMN Admitting Clinician Unavailable Payers Payer Name Policy Type Policy Effective Date Expiration Date Sour ce Number MEDICAREMEDICARE A [id number] 2007 ARMANI Onofre [id number]/04/2007-P 00:00:00 - [facility] Problems This patient has no known problems. Allergies, Adverse Reactions, Alerts This patient has no known allergies or adverse reactions. Social History Social Habit Start Date Stop Date Quantity Comments Source Sex Assigned At [facility] Medications This patient has no known medications. Procedures This patient has no known procedures. Encounters Start End Encounter Admission Attending Care Care Encounter Source Date/Time Date/Time Type Type Clinicians Facility Department ID 2020-04-02 2020-04-02 Outpatient [facility] [id number] 00:00:00 00:00:00 JOE [address] 2020-03-18 2020-03-18 Outpatient [facility] [id number] [address] 00:00:00 00:00:00 JOE 546 [facility] i 2020-03-16 2020-03-16 Outpatient SAGRARIO, [facility] [id number] 00:00:00 00:00:00 JOE 597 [facility] 2020-02-19 2020-02-19 Outpatient [facility] [id number] [address] 00:00:00 00:00:00 977 Method i 2020-02-19 2020-02-19 Outpatient SAGRARIO [facility] [id number] [address] 00:00:00 00:00:00 JOE 976 Method i 2020-01-30 2020-01-30 Outpatient ERICA RICHARDSON [facility] [id number] [facility] 00:00:00 00:00:00 684 Method i 2019-12-30 2019-12-30 Emergency SHILPI SHAH [facility] [id number] [place] 00:00:00 00:00:00 386 Method i 2019-11-23 2019-12-07 Inpatient AUTUMN [facility] [id number] [address] 00:00:00 00:00:00 YANCY 058 Method i 2019-09-03 2019-09-03 Outpatient MARTIN [facility] [id number] [address] 00:00:00 00:00:00 VICTORIA, 096 Meth christian MARIA A 2019-04-16 2019 Inpatient AUTUMN, [facility] [id number] [address] 00:00:00 00:00:00 YANCY 094 Method i 2018-12-12 2018-12-12 Realtime Captioner 2, [facility] [place] [id number] 09:36:46 09:51:46 Visit [place] [id number] [place] [id number] [place] [id number] [address] 2018-12-12 2018-12-12 Orders Doctor TICO [id number] 00:00:00 00:00:00 Only Unassigned, ZOEY [id number] [place] [facility] [id number] 2018-11-15 2018-11-15 Realtime Captioner 1, [facility] [place] [id number] 09:16:06 09:31:06 Visit [place] [id number] [place] [id number] [place] [id number] [id number] 2018-11-15 2018-11-15 Orders Doctor TICO [id number] 00:00:00 00:00:00 Only Unassigned, ZOEY [id number] [place] [id number] Results This patient has no known results.
--- NOTE | 2020-07-14 13:15 | RAD REPORT ---
EXAM DESCRIPTION: Karen Single View07/14/2020 1:05 pm CLINICAL HISTORY: Congestion COMPARISON: 2019 FINDINGS: The lungs appear clear of acute infiltrate. The heart is moderately enlarged. Upper lobe vessels are prominent of pulmonary venous hypertension
[2020-07-14 13:30] LABS: Absolute Lymphocytes (CBC) 0.8 K/uL (0.7-4.9); Basophils % 0.9 % (0-1.3); Lymphocytes % 10.9 % (15.3-44.8); MPV 8.9 fL (7.6-11.3); RBC Red Blood Cell Count 3.42 M/uL (4.33-5.43)
[2020-07-14] MEDS ORDERED: ONDANSETRON 4 MG/2 ML VIAL ONE (13:39)
[2020-07-14] MEDS ORDERED: MORPHINE 4 MG/ML SYR ONE (13:39)
[2020-07-14 13:51] LABS: ALT/SGPT 24 U/L (12-78); AST/SGOT 11 U/L (15-37); Albumin 3.1 g/dL (3.4-5.0); Alkaline Phosphatase 95 U/L (45-117); BUN Blood Urea Nitrogen 30 mg/dL (7-18); Bicarbonate 24 mmol/L (21-32); Bilirubin Direct 0.2 mg/dL (0-0.2); Bilirubin Total 0.5 mg/dL (0.2-1.0); Glucose Level 233 mg/dL (74-106); Magnesium 2.1 mg/dL (1.8-2.4); NT PRO-BNP 1860 pg/mL (<450); Potassium 4.4 mmol/L (3.5-5.1); Protein, Total 6.5 g/dL (6.4-8.2); Sodium Level 140 mmol/L (136-145); Troponin (Emerg Dept Use Only) < 0.02 ng/mL (0.0-0.045)
[2020-07-14 14:07] LABS: Protime INR 1.05
--- NOTE | 2020-07-14 15:32 | ER ---
Nurse's Notes [facility] Name: Ary Haines Age: 80 yrs Sex: Male : 1940 Arrival Date: 07/14/2020 Time: 12:35 Bed 16 Private MD: Diagnosis: Pain in hip-bilateral Presentation: 07/14 12:38 Chief complaint: EMS states: Generalized weakness since this morning, family reported jl7 increasing Lasix due to edema. Coronavirus screen: Client denies travel out of the [place] in the last 14 days. At this time, the client does not indicate any symptoms associated with coronavirus-19. Ebola Screen: No symptoms or risks identified at this time. Initial Sepsis Screen: Does the patient meet any 2 criteria? No. Patient's initial sepsis screen is negative. Does the patient have a suspected source of infection? No. Patient's initial sepsis screen is negative. Risk Assessment: Do you want to hurt yourself or someone else? Patient reports no desire to harm self or others. Onset of symptoms was July 14, 2020. Care prior to arrival: IV initiated. 20 GA, in the left antecubital area, Glucose check: 253. Transition of care: patient was not received from another setting of care. 12:38 Method Of Arrival: EMS: [facility] jl7 12:38 Acuity: SHIRA 3 jl7 Historical: - Allergies: 12:42 Cipro (Hives); itching; jl7 12:42 Iodinated Contrast Media; jl7 12:42 Iodine; jl7 - Home Meds: 12:42 aspirin 81 mg Oral TbEC 1 tab once daily [Active]; atorvastatin 40 mg Oral tab 1 tab jl7 once daily [Active]; Coreg 12.5 mg Oral tab [Active]; furosemide 40 mg Oral tab 1 tab once daily [Active]; gabapentin 100 mg Oral cap [Active]; hydralazine 25 mg Oral tab 1 tab 2 times per day [Active]; Tresiba FlexTouch U-100 100 unit/mL (3 mL) subcutaneous inpn 18 units, daily [Active]; - PMHx: 12:42 blockages; CHF; Diabetes - IDDM; Hypertension; Leg blockages; jl7 - Immunization history:: Adult Immunizations up to date, Client reports receiving the 2nd dose of the Covid vaccine, "About a month and a half ago.". - Social history:: Smoking status: Patient denies any tobacco usage or history of. Patient/guardian denies using alcohol, street drugs, The patient lives with family. - Family history:: not pertinent. Screenin:28 Abuse screen: Denies threats or abuse. Denies injuries from another. Nutritional jl7 screening: No deficits noted. Tuberculosis screening: No symptoms or risk factors identified. Fall Risk IV access (20 points). Total Joya Fall Scale indicates No Risk (0-24 pts). Assessment: 12:40 General: Appears in no apparent distress. uncomfortable, Behavior is calm, cooperative, jl7 appropriate for age. Pain: Complains of pain in posterior neck pain Pain currently is 6 out of 10 on a pain scale. Neuro: Level of Consciousness is awake, alert, obeys commands, Oriented to person, place, time, situation. Cardiovascular: Denies chest pain, Patient's skin is warm and dry. Respiratory: Airway is patent Respiratory effort is even, unlabored, Respiratory pattern is regular, symmetrical, Denies shortness of breath. Derm: Skin is pink, warm \\T\\ dry. 13:40 Reassessment: Patient appears in no apparent distress at this time. No changes from jl7 previously documented assessment. Patient and/or family updated on plan of care and expected duration. Pain level reassessed. Patient is alert, oriented x 3, equal unlabored respirations, skin warm/dry/pink. 15:00 Reassessment: Patient appears in no apparent distress at this time. No changes from jl7 previously documented assessment. Patient and/or family updated on plan of care and expected duration. Pain level reassessed. Patient is alert, oriented x 3, equal unlabored respirations, skin warm/dry/pink. Patient states feeling better. Patient states symptoms have improved. 15:25 Reassessment: ERD at bedside discussing results and POC. jl7 15:57 Reassessment: Pt awaiting family member to come pick him up. jl7 Vital Signs: 12:38 BP 143 / 55; Pulse 52; Resp 16; Temp 97.7; Pulse Ox 99% ; Weight 79.38 kg; Height 5 ft. jl7 7 in. (170.18 cm); Pain 6/10; 13:49 BP 149 / 56; Pulse 46; Resp 15; Pulse Ox 97% ; jl7 14:15 BP 150 / 59; Pulse 47; Resp 19; Pulse Ox 98% ; jl7 15:00 BP 153 / 62; Pulse 48; Resp 17; Pulse Ox 98% ; jl7 12:38 Body Mass Index 27.41 (79.38 kg, 170.18 cm) jl7 ED Course: 12:35 Patient arrived in ED. am2 12:38 Alie Goodwin RN is Primary Nurse. jl7 12:41 Triage completed. jl7 12:42 Jorje Thomas MD is Attending Physician. ma2 12:42 Arm band placed on right wrist. jl7 12:42 Patient has correct armband on for positive identification. Placed in gown. Bed in low jl7 position. Call light in reach. Side rails up X2. circulation assistant on. Pulse ox on. NIBP on. 13:00 Initial lab(s) drawn, by me, sent to lab. EKG done, by ED staff, reviewed by Jorje Thomas MD. Inserted saline lock: 20 gauge in left forearm, using aseptic technique. Blood collected. 13:05 XRAY Chest (1 view) In Process Unspecified. EDMS 15:00 No provider procedures requiring assistance completed. jl7 15:56 IV discontinued, intact, bleeding controlled, No redness/swelling at site. Pressure jl7 dressing applied. Administered Medications: 13:25 Drug: Zofran (Ondansetron) 4 mg Route: IVP; Site: left forearm; jl7 14:15 Follow up: Response: No adverse reaction jl7 13:27 Drug: morphine 4 mg Route: IVP; Site: left forearm; jl7 14:15 Follow up: Response: No adverse reaction; Pain is decreased jl7 Outcome: 15:32 Discharge ordered by . ma2 15:56 Discharged to home via wheelchair, with family. jl7 15:56 Condition: stable 15:56 Discharge instructions given to patient, Instructed on discharge instructions, follow up and referral plans. medication usage, Demonstrated understanding of instructions, follow-up care, medications, Prescriptions given X 1. 16:04 Patient left the ED. jl7 Signatures: Dispatcher [employer] EDPR Alie Goodwin RN RN jl7 Constance Estrella am2 Alzahri, Mohammad, MD MD ma2 Corrections: (The following items were deleted from the chart) 15:56 15:00 Reassessment: Patient appears in no apparent distress at this time. No changes jl7 from previously documented assessment. Patient and/or family updated on plan of care and expected duration. Pain level reassessed. Patient is alert, oriented x 3, equal unlabored respirations, skin warm/dry/pink. jl7
--- NOTE | 2020-07-14 15:32 | EDPHYS ---
Physician Documentation [facility] Name: Ary Haines Age: 80 yrs Sex: Male : 1940 Arrival Date: 07/14/2020 Time: 12:35 Bed 16 Private MD: ED Physician Jorje Thomas HPI: 07/14 15:26 This 80 yrs old Male presents to ER via EMS with complaints of pain. ma2 15:26 Onset: The symptoms/episode began/occurred gradually, 1 day(s) ago. Associated signs ma2 and symptoms: Pertinent negatives: constipation, dysuria, headache. Severity of symptoms: At their worst the symptoms were moderate, in the emergency department the symptoms have improved. The patient has experienced similar episodes in the past. patient has body aches for 2 days and moslty both thighs and lower back, he also gets this pain. he was told he has right leg "vessel blockages" but did not need surgeries and he always gets legs pain. he is here with similar pain that lasted an hour. pain has improved since he got here. . no chest pain or any other symptos . Historical: - Allergies: 12:42 Cipro (Hives); itching; jl7 12:42 Iodinated Contrast Media; jl7 12:42 Iodine; jl7 - Home Meds: 12:42 aspirin 81 mg Oral TbEC 1 tab once daily [Active]; atorvastatin 40 mg Oral tab 1 tab jl7 once daily [Active]; Coreg 12.5 mg Oral tab [Active]; furosemide 40 mg Oral tab 1 tab once daily [Active]; gabapentin 100 mg Oral cap [Active]; hydralazine 25 mg Oral tab 1 tab 2 times per day [Active]; Tresiba FlexTouch U-100 100 unit/mL (3 mL) subcutaneous inpn 18 units, daily [Active]; - PMHx: 12:42 blockages; CHF; Diabetes - IDDM; Hypertension; Leg blockages; jl7 - Immunization history:: Adult Immunizations up to date, Client reports receiving the 2nd dose of the Covid vaccine, "About a month and a half ago.". - Social history:: Smoking status: Patient denies any tobacco usage or history of. Patient/guardian denies using alcohol, street drugs, The patient lives with family. - Family history:: not pertinent. ROS: 15:26 Constitutional: Negative for fever, chills, and weight loss. ma2 15:26 All other systems are negative. Exam: 15:26 Constitutional: This is a well developed, well nourished patient who is awake, alert, ma2 and in no acute distress. ENT: Nares patent. No nasal discharge, no septal abnormalities noted. Tympanic membranes are normal and external auditory canals are clear. Oropharynx with no redness, swelling, or masses, exudates, or evidence of obstruction, uvula midline. Mucous membranes moist. Neck: Trachea midline, no thyromegaly or masses palpated, and no cervical lymphadenopathy. Supple, full range of motion without nuchal rigidity, or vertebral point tenderness. No Meningismus. Chest/axilla: Normal chest wall appearance and motion. Nontender with no deformity. No lesions are appreciated. Cardiovascular: Regular rate and rhythm with a normal S1 and S2. No gallops, murmurs, or rubs. Normal PMI, no JVD. No pulse deficits. Respiratory: Lungs have equal breath sounds bilaterally, clear to auscultation and percussion. No rales, rhonchi or wheezes noted. No increased work of breathing, no retractions or nasal flaring. Abdomen/GI: Soft, non-tender, with normal bowel sounds. No distension or tympany. No guarding or rebound. No evidence of tenderness throughout. Skin: Warm, dry with normal turgor. Normal color with no rashes, no lesions, and no evidence of cellulitis. MS/ Extremity: Pulses equal, no cyanosis. Neurovascular intact. Full, normal range of motion. Neuro: Awake and alert, GCS 15, oriented to person, place, time, and situation. Cranial nerves II-XII grossly intact. Motor strength 5/5 in all extremities. Sensory grossly intact. Cerebellar exam normal. Normal gait. Psych: Awake, alert, with orientation to person, place and time. Behavior, mood, and affect are within normal limits. Vital Signs: 12:38 BP 143 / 55; Pulse 52; Resp 16; Temp 97.7; Pulse Ox 99% ; Weight 79.38 kg; Height 5 ft. jl7 7 in. (170.18 cm); Pain 6/10; 13:49 BP 149 / 56; Pulse 46; Resp 15; Pulse Ox 97% ; 7 14:15 BP 150 / 59; Pulse 47; Resp 19; Pulse Ox 98% ; 7 15:00 BP 153 / 62; Pulse 48; Resp 17; Pulse Ox 98% ; 7 12:38 Body Mass Index 27.41 (79.38 kg, 170.18 cm) [facility] MDM: 15:26 Differential diagnosis: arthritis, strain, sciatica, contusion, Herniated disc workup al2 is unremarkabl [facility] er patient has palpable pulses in both dp and pt bilateraly. his pain has resolved now. we were planning to do and aortic cta to rule out dissection, however he states his pain is resolved and want to go home. 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 he want to go home and will return to er for is symptoms reoccur or any new symptoms. Data reviewed: vital signs, nurses notes. Counseling: I had a detailed discussion with the patient and/or guardian regarding: the historical points, exam findings, and any diagnostic results supporting the discharge/admit diagnosis, the presence of at least one elevated blood pressure reading (>120/80) during this emergency department visit, the need for outpatient follow up. Response to treatment: the patient's symptoms have resolved after treatment. 15:32 Patient medically screened. al07/14 12:49 Order name: Basic Metabolic Panel; Complete Time: 15: [facility] 07/14 12:49 Order name: CBC with Diff; Complete Time: 15: [facility] 07/14 12:49 Order name: Hepatic Function; Complete Time: 15: [facility] 07/14 12:49 Order name: Magnesium; Complete Time: 15: [facility] 07/14 12:49 Order name: NT PRO-BNP; Complete Time: 15: [facility] 07/14 12:49 Order name: Protime (+inr); Complete Time: 15: [facility] 07/14 12:49 Order name: Troponin (emerg Dept Use Only); Complete Time: 15: al07/14 12:49 Order name: XRAY Chest (1 view); Complete Time: 14:00 [facility] 07/14 12:50 Order name: Blood Culture Adult (2) 07/14 12:50 Order name: Lactate [facility] 07/14 12:51 Order name: Blood Culture [facility] 07/14 12:51 Order name: Lactate; Complete Time: 14:00 [facility] 07/14 15:54 Order name: Urine Dipstick-Ancillary [facility] 07/14 12:49 Order name: EKG; Complete Time: 12:50 ma2 07/14 12:49 Order name: Cardiac monitoring; Complete Time: 12:57 ma2 07/14 12:49 Order name: EKG - Nurse/Tech; Complete Time: 12:57 ma2 07/14 12:49 Order name: IV Saline Lock; Complete Time: 13:28 ma2 07/14 12:49 Order name: Labs collected and sent; Complete Time: 13:28 ma2 07/14 12:49 Order name: O2 Per Protocol; Complete Time: 13:28 ma2 07/14 12:49 Order name: O2 Sat Monitoring; Complete Time: 13:28 ma2 07/14 12:49 Order name: Urine Dipstick-Ancillary (obtain specimen); Complete Time: 15:57 ma2 Administered Medications: 13:25 Drug: Zofran (Ondansetron) 4 mg Route: IVP; Site: left forearm; 7 14:15 Follow up: Response: No adverse reaction [facility] 13:27 Drug: morphine 4 mg Route: IVP; Site: left forearm; jl7 14:15 Follow up: Response: No adverse reaction; Pain is decreased jl7 Disposition: 07/14/20 15:32 Discharged to Home. Impression: Pain in hip - bilateral. - Condition is Stable. - Discharge Instructions: Hip Pain. - Prescriptions for Diclofenac Sodium 75 mg Oral Tablet Sustained Release - take 1 tablet by ORAL route 2 times per day; 30 tablet. - Medication Reconciliation Form, Thank You Letter, Antibiotic Education, Prescription Opioid Use form. - Follow up: Private Physician; When: Tomorrow; Reason: If symptoms return, Continuance of care. Signatures: Dispatcher [employer] Alie Anguiano RN RN jl7 Jorje Thomas MD MD ma2 Corrections: (The following items were deleted from the chart) 15:30 15:11 Angio Aorta For Dissection+[email or web address] ordered. [facility] 16:04 15:32 07/14/2020 15:32 Discharged to Home. Impression: Pain in hip - bilateral. jl7 Condition is Stable. Forms are Medication Reconciliation Form, Thank You Letter, Antibiotic Education, Prescription Opioid Use. Follow up: Private Physician; When: Tomorrow; Reason: If symptoms return, Continuance of care. ma2
[2020-07-14 15:55] LABS: Urine Blood Negative (Negative); Urine Glucose Negative (Negative); Urine Protein 1+ (Negative); Urine Specific Gravity 1.015 (1.005-1.030)
[2020-07-14 16:30] VITALS: TEMP 97.7
[2020-07-14 16:32] VITALS: O2SAT 98
[2020-07-14 16:33] VITALS: BP 153/62
--- NOTE | 2020-07-15 17:03 | EKG ---
Test Date: 2020-07-14 Test Time: 12:45:09 [employer] Support: SID MEASUREMENT RESULTS: Intervals: Rate: 48 [place]: 176 QRSD: 88 QT: 504 QTc: [address]: P: 68 [place]: 176 QRS: 54 T: 162 INTERPRETIVE STATEMENTS: Marked sinus bradycardia Septal infarct, age undetermined T wave abnormality, consider lateral ischemia Abnormal ECG Compared to ECG 11/23/2019 11:47:22 T-wave abnormality now present Possible ischemia now present Myocardial infarct finding still present Electronically Signed On 07-15-20 17:00:43 CDT by Axel Moreno
== END 2020-07-14 16:04 | disposition home or self-care (01) ==
LOC: ER 12:34
DX: M25.552 Pain in left hip (principal); M25.551 Pain in right hip; I10 Essential (primary) hypertension; E11.9 Type 2 diabetes mellitus without complications; I50.9 Heart failure, unspecified; Z79.82 Long term (current) use of aspirin; Z79.4 Long term (current) use of insulin; Z88.1 Allergy status to other antibiotic agents; Z91.041 Radiographic dye allergy status; Z91.048 Other nonmedicinal substance allergy status
CPT/HCPCS: 87040 ×2; 85025; 80048; 36415; 83735; 85610; 80076; 83605; 81003; 84484; 83880; 71045; J2405; 93005; 96374; 96375; 99285